=== PATIENT | female | born 1955 | race Asian ===

== ENCOUNTER 2016-11-24 13:14 | Inpatient (IN) | payer OTHER ==
[~2016-11-24] VITALS: Ht 160 cm; Wt 64.5 kg
[~2016-11-24 13:14] MED LIST: ALBU2.5V13 IH; ATOR10TA GT; DOCU50LI GT; FOLI0.8T2 GT; GABA-532 GT; INSU100I19 SQ; INSU100V3 SQ; IPRA0.2S9 IH; LACT1CAP72 GT; LEVE250T4 GT; NUT.237L67 GT; OMEP40CA37 GT; SEVE0.8P GT; [UNRECOGNIZED DRUG - CODE] MC
--- NOTE | 2016-11-24 13:14 | NUR ---
BIBPA C/O HD CATH MALFUNCTION. PATIENT UNABLE TO RECEIVED ANY HD. A/OX 0. VENT/TRACH DEPENDENT. VSS. NO DISTRESS. SAFETY AND COMFORT MEASURES IN PLACE. AWAITING MD ORDERS.
--- NOTE | 2016-11-24 13:20 | NUR ---
CALLED [facility], SPARE PERSON WAS PAGED.
[2016-11-24] MEDS ORDERED: HYDR-4076 GT (13:47)
[2016-11-24] MEDS ORDERED: INSU100I26 SQ (13:47)
[2016-11-24] MEDS ORDERED: TRAM50TA2 GT (13:47)
[2016-11-24] MEDS ORDERED: ERGO500047 GT (13:47)
[2016-11-24] MEDS ORDERED: MIDO10TA GT (13:47)
--- NOTE | 2016-11-24 13:50 | NUR ---
NEW IV STARTED ON RIGHT HAND, 20 G. BLOOD DRAWN AND SENT TO LAB.
[2016-11-24 13:58] LABS: CREATININE 6.4 mg/dL (0.6-1.3)
[2016-11-24 14:02] LABS: BASOPHILS # (AUTO) 0.1 /CMM (0.0-0.2); BASOPHILS % (AUTO) 0.6 % (0.0-2.0); EOSINOPHILS # (AUTO) 0.3 /CMM (0.0-0.7); HEMATOCRIT 31 % (33-45); HEMOGLOBIN 10.5 g/dL (11.5-14.8); LYMPHOCYTES % (AUTO) 14.6 % (20.0-44.0); MEAN CORPUSCULAR HEMOGLOBIN 33 PG (26.0-33.0); MEAN CORPUSCULAR HGB CONC 33 g/dl (31.0-36.0); MEAN CORPUSCULAR VOLUME 98 fL (82-100); MONOCYTES # (AUTO) 0.6 /CMM (0.1-1.30); MONOCYTES % (AUTO) 4.6 % (2.0-12.0); NEUTROPHILS # (AUTO) 10.4 /CMM (1.8-8.9); NEUTROPHILS % (AUTO) 78.2 % (43.0-81.0); PLATELET COUNT (AUTO) 197 /CMM (150-450); RDW COEFFICIENT OF VARIATION 14.6 (11.5-15.0); WHITE BLOOD COUNT (AUTO) 13.4 K/uL (4.3-11.0)
[2016-11-24 14:03] LABS: INR 0.87 (0.87-1.13)
[2016-11-24 14:25] LABS: CALCIUM, SERUM 12.4 mg/dL (8.5-10.1)
--- NOTE | 2016-11-24 14:38 | NUR ---
CALLED [facility], MINING SUPPORT WORKER WAS PAGED.
--- NOTE | 2016-11-24 15:35 | NUR ---
REPORT GIVEN TO RN, RAY FOR ADMISSION
--- NOTE | 2016-11-24 16:08 | NUR ---
PATIENT TRANSFERRED TO [facility] VIA ACLS PROTOCOL. RNRAFAEL TO PROVIDE HARLAN.
[2016-11-24 16:30] VITALS: BP 123/62
--- NOTE | 2016-11-24 17:33 | NUR ---
DELPHI DEVELOPER NOTES PATIENT ADMITTED TO UNIT VIA GURNEY ACCOMPANIED BY ER NURSE. NON-VERBAL, OPEN HER EYES AND RESPONSIVE TO PAINFUL STIMULI. ON MECHANICAL VENTILATOR AT PRESCRIBED PARAMETERS OF AC 500, RR 14, FI02 30% AND PEEP OF 5CM, TOLERATING SETTINGS WITH NO SOB NOTED. SP02 99%. G-TUBE INTACT AND PATENT.GT SITE CLEAN AND DRY. ON TELEMONITORING WITH CURRENT READING OF SR 82, NO SIGNS OF CHEST PAIN NOTED. V/S TAKEN AND RECORDED. SKIN ASSESSMENT DONE, PHOTOS OF SKIN WOUNDS TAKEN AND FILED ON CHART. PLACED BED ON LOW AND LOCKED POSITION WITH SR UP X3. CALL LIGHT IN REACH. MD MADE AWARE OR PT'S ADMISSION, ALL ORDERS TO FOLLOW. WILL CONTINUE TO MONITOR.
[2016-11-24] MEDS ORDERED: IPRATROPIUM NEB FS 0.5 MG/2.5 ML AMPUL.NEB IH PRN (18:30)
[2016-11-24] MEDS ORDERED: ALBUTEROL FS 2.5 MG/0.5 ML VIAL.NEB IH PRN (18:30)
[2016-11-24] MEDS ORDERED: INSULIN REGULAR, HUMAN 100 UNIT/ML 3 ML VIAL SQ PRN (18:30)
[2016-11-24] MEDS ORDERED: hydrALAZINE HCL 25 MG TABLET GT PRN (18:30)
--- NOTE | 2016-11-24 18:40 | NUR ---
EKG MONITOR CLOSING NOTES PT IN BED AT MODERATE HIGH BACKREST POSITION. OPENS HER EYES, NON-RESPONSIVE TO VERBAL STIMULI. HD ON JUST DONE WITH OUTPUT OF 1,000ML, NO POST HD ADVERSE REACTIONS NOTED. G-TUBE IN PLACED AND PATENT. IV ACCESS ON RIGHT HAND G#20 INTACT AND PATENT. CONTINUES ON MECHANICAL VENTILATOR AT PRESCRIBED SETTINGS, NO SOB NOTED. CALL LIGHT IN REACH. BED LOW AND LOCK WITH SR UP APPROPRIATE. ALL SAFETY MEASURES IN PLACED. WILL ENDORSED TO PITCH FLAKER NURSE FOR HARLAN.
[2016-11-24] MEDS ORDERED: MIDODRINE HCL (5MG) 5 MG TABLET GT PRN (19:00)
[2016-11-24 20:00] VITALS: BP 132/93
--- NOTE | 2016-11-24 20:00 | NUR ---
RN NOTES RESTING COMFORTABLY IN BED WITH NO RESPIRATORY DISTESS OR SHORTNESS OF BREATH. BREATHING EVEN AND UNLABORED. VENT SETTING WELL TOLERATED. HOB ELEVATED. NO PHYSICAL MANIFESTATION OF PAIN OR DISCOMFORT. ABDOMEN SOFT AND NON TENDER. BOWEL SOUNDS PRESENT IN ALL FOUR QUADRANTS. GTUBE IN PLACE, FEEDING WELL TOLERATED. NO RESIDUAL. KEPT CLEAN AND DRY. WILL CONTINUE TO MONITOR.
[2016-11-24] MEDS: SEVELAMER CARBONATE 0.8 GM POWD.PACK GT SCH (21:12)
[2016-11-24] MEDS: ATORVASTATIN 10 MG TABLET GT SCH (21:12)
[2016-11-24] MEDS: RENAL NOVASOURCE 1,000 ML BOTTLE GT PRN (21:12)
[2016-11-24] MEDS: DOCUSATE SODIUM LIQ 100 MG/10 ML UDC GT SCH (21:12)
[2016-11-24] MEDS: LEVETIRACETAM SOL (5 ML) 100 MG/ML UDC GT SCH (21:12)
[2016-11-24] MEDS: ALBUTEROL FS 2.5 MG/0.5 ML VIAL.NEB IH SCH (22:05)
[2016-11-24] MEDS: IPRATROPIUM NEB FS 0.5 MG/2.5 ML AMPUL.NEB IH SCH (22:05)
[2016-11-24] MEDS ORDERED: INSULIN DETEMIR 100 UNIT/ML CARTRIDGE SQ ONE (22:34)
[2016-11-24] MEDS: INSULIN DETEMIR 100 UNIT/ML CARTRIDGE SQ SCH (22:43)
[2016-11-24] MEDS: BLOOD SUGAR DIAGNOSTIC 1 EACH STRIP MC SCH (23:16)
[2016-11-24] MEDS: INSULIN REGULAR, HUMAN 100 UNIT/ML 3 ML VIAL SQ PRN (23:19)
[2016-11-25] VITALS: BP 110/69
[2016-11-25] MEDS: IPRATROPIUM NEB FS 0.5 MG/2.5 ML AMPUL.NEB IH SCH ×4 (03:02→20:44)
[2016-11-25] MEDS: ALBUTEROL FS 2.5 MG/0.5 ML VIAL.NEB IH SCH ×4 (03:02→20:44)
[2016-11-25 04:00] VITALS: BP 148/65
[2016-11-25] MEDS: BLOOD SUGAR DIAGNOSTIC 1 EACH STRIP MC SCH ×3 (05:14→18:39)
[2016-11-25] MEDS: INSULIN REGULAR, HUMAN 100 UNIT/ML 3 ML VIAL SQ PRN ×3 (05:18→18:43)
[2016-11-25] MEDS ORDERED: ERGOCALCIFEROL (VITAMIN D 2) 50,000 UNIT CAPSULE GT SCH (06:30)
--- NOTE | 2016-11-25 07:06 | NUR ---
RN CLOSING NOTES NO DISTRESS NOTED, BREATHING EVEN AND UNLABORED. NO MANIFESTATION OF PAIN OR DISCOMFORT. NO SIGNIFICANT CHANGE OF CONDITION. WILL ENDORSE TO AM SHIFT FOR CONTINUITY OF CARE
--- NOTE | 2016-11-25 07:32 | NUR ---
RIM FIRE PRIMING OPERATOR OPENING NOTE RECEIVED SBAR REPORT AT THE BEDSIDE. PATIENT IS ALERT, DISORIENTED, AWAKE WITH EYES OPEN. PATIENT IS IN BED, BED IS LOCKED, IN LOWEST POSITION, SIDE RIALS UP X 2, BED ALARM ON. PATIENT IS ON VENTILATOR. VENTILATOR SETTINGS: TV 500, TR 14, FIO2 30%, PEEP5. PATIENT IS RECEIVING ENTERAL FEEDING VIA G-TUBE. NOVASOURCE AT THE PRESCRIBED RATE. R/ HAND SL INTACT AND PATENT. ALL NEEDS ATTENDED TO. WILL CONTINUE TO ASSESS/MONITOR THROUGHOUT THE SHIFT.
--- NOTE | 2016-11-25 07:40 | NUR ---
TRUCK DRIVER'S OFFSIDER NOTE RT AT THE BEDSIDE.
[2016-11-25 07:48] LABS: BASOPHILS % (AUTO) 0.2 % (0.0-2.0); EOSINOPHILS # (AUTO) 0.2 /CMM (0.0-0.7); EOSINOPHILS % (AUTO) 2.2 % (0.0-6.0); HEMATOCRIT 31 % (33-45); HEMOGLOBIN 10.4 g/dL (11.5-14.8); LYMPHOCYTES # (AUTO) 1.8 /CMM (0.8-4.8); LYMPHOCYTES % (AUTO) 18.3 % (20.0-44.0); MEAN CORPUSCULAR HEMOGLOBIN 33 PG (26.0-33.0); MEAN CORPUSCULAR HGB CONC 34 g/dl (31.0-36.0); MEAN CORPUSCULAR VOLUME 99 fL (82-100); MONOCYTES # (AUTO) 0.8 /CMM (0.1-1.30); MONOCYTES % (AUTO) 8.4 % (2.0-12.0); NEUTROPHILS % (AUTO) 70.9 % (43.0-81.0); PLATELET COUNT (AUTO) 238 /CMM (150-450); RDW COEFFICIENT OF VARIATION 15.7 (11.5-15.0); RED BLOOD CELL COUNT(AUTO) 3.14 MIL/uL (4.0-5.2); WHITE BLOOD COUNT (AUTO) 9.9 K/uL (4.3-11.0)
[2016-11-25 08:00] VITALS: BP 116/64
[2016-11-25 08:16] LABS: ALBUMIN 3.3 g/dL (3.4-5.0); BILIRUBIN,DIRECT 0.1 mg/dL (0.0-0.2); BILIRUBIN,TOTAL 0.4 mg/dL (0.2-1.0); CALCIUM, SERUM 10.6 mg/dL (8.5-10.1); CREATININE 5.8 mg/dL (0.6-1.3); MAGNESIUM 3.3 mg/dL (1.8-2.4); PHOSPHORUS 4.4 mg/dL (2.5-4.9); POTASSIUM 3.8 mmol/L (3.5-5.1); TOTAL PROTEIN, SERUM 7.8 g/dL (6.4-8.2)
[2016-11-25] MEDS: DOCUSATE SODIUM LIQ 100 MG/10 ML UDC GT SCH ×2 (09:46→21:13)
[2016-11-25] MEDS: LEVETIRACETAM SOL (5 ML) 100 MG/ML UDC GT SCH ×2 (09:46→21:13)
[2016-11-25] MEDS: VIT B CMPLX 3/FA/VIT C/BIOTIN 1 TAB TABLET GT SCH (09:46)
[2016-11-25] MEDS: SEVELAMER CARBONATE 0.8 GM POWD.PACK GT SCH ×3 (09:46→21:13)
[2016-11-25] MEDS: TRAMADOL HCL 50 MG TABLET GT SCH (09:47)
[2016-11-25] MEDS: LACTOBACILLUS RHAMNOSUS GG 1 EACH CAP.SPRINK GT SCH (09:47)
--- NOTE | 2016-11-25 12:13 | NUR ---
ICU REGISTERED NURSE NOTE DR REESE AT THE BEDSIDE. ASKED FOR DVT PUMP ORDER. DVT PUMP ORDER OBTAINED.
--- NOTE | 2016-11-25 14:30 | NUR ---
POOLROOM TABLE ATTENDANT NOTE PATIENT'S FEEDING STOPPED. 18 HOUR KATELYN HAS REACHED. TOTAL FEEDING CONSUMED 990 ML. RESIDUAL OF 3ML NOTED. FEEDING TO BE RESTARTED AT 1999. WILL ENDORSE TO THE ARCHITECTURAL DRAFTING INSTRUCTOR NURSE.
--- NOTE | 2016-11-25 15:38 | NUR ---
STAFF SOFTWARE ENGINEER NOTE LAB CALLED REPORTING POSITIVE MRSA IN NARES. PATIENT TO BE PLACES ON CONTACT ISOLATION.
--- NOTE | 2016-11-25 15:45 | NUR ---
SONG AND DANCE PERFORMER NOTE DR REESE INFORMED OF PATIENT'S MRSA ISOLATION STATUS
[2016-11-25 16:00] VITALS: BP 114/69
--- NOTE | 2016-11-25 17:00 | NUR ---
PROTECTION SPECIALIST NOTE PER DIETITIAN SABINA'S RECOMMENDATION PATIENT'S DIET TO BE CHANGED TO NOVASOURCE AT 40 ML/HR FOR [address] REESE INFORMED OF RECOMMENDATION. AWAITING AN ORDER.
--- NOTE | 2016-11-25 17:49 | NUR ---
COMMUNITY HEALTH ADVISOR NOTE ORDER BACTROBAN PER DR. REESE
--- NOTE | 2016-11-25 18:30 | NUR ---
ENVIRONMENT COORDINATOR NOTE HEMODIALYSIS AT THE BEDSIDE.
--- NOTE | 2016-11-25 19:05 | NUR ---
BATTERY BUILDER CLOSING NOTE PATIENT IS ALERT, DISORIENTED, AWAKE WITH EYES OPEN. PATIENT IS IN BED, BED IS LOCKED, IN LOWEST POSITION, SIDE RIALS UP X 2, BED ALARM ON. HEMODIALYSIS AT TH BEDSIDE. PATIENT IS ON VENTILATOR. VENTILATOR SETTINGS: TV 500, TR 14, FIO2 30%, PEEP5. R/ HAND SL INTACT AND PATENT. ALL NEEDS ATTENDED TO. WILL ENDORSE TO THE DIGITAL INTERN NURSE FOR HARLAN.
--- NOTE | 2016-11-25 19:23 | NUR ---
TELE TN NOTE DURING THE BEDSIDE REPORT IT WAS NOTED THE PATIENT DISLODGED THER/HAND IV CATHETER. THE BRICK MOLDER HAND RN IS AWARE.
--- NOTE | 2016-11-25 19:30 | NUR ---
RN NOTES RECEIVED PT AWAKE ON BED, NON-VERBAL, VENT DEPENDENT, SR ON TELE MONITOR HR-89, ON DIALYSIS, AT BEDSIDE, NO PAIN NOTED,IV LINE WAS JUST PULLED OUT, NOT IN DISTRESS, SIDERAILS UPX2 CONTINUE TO MONITOR
[2016-11-25 20:00] VITALS: BP 117/73
[2016-11-25] MEDS: MUPIROCIN OINT 2% 22 GM TUBE SCH (21:13)
[2016-11-25] MEDS: ATORVASTATIN 10 MG TABLET GT SCH (21:13)
[2016-11-25] MEDS: INSULIN DETEMIR 100 UNIT/ML CARTRIDGE SQ SCH (21:16)
[2016-11-25] MEDS: RENAL NOVASOURCE 1,000 ML BOTTLE GT PRN (21:42)
--- NOTE | 2016-11-25 22:00 | NUR ---
RN NOTES NEW IV LINE INSERTED BY ER NURSE KYMBERLY
[2016-11-26] VITALS: BP 103/59
[2016-11-26] MEDS: BLOOD SUGAR DIAGNOSTIC 1 EACH STRIP MC SCH ×3 (00:07→12:10)
[2016-11-26] MEDS: INSULIN REGULAR, HUMAN 100 UNIT/ML 3 ML VIAL SQ PRN ×3 (00:15→13:01)
[2016-11-26] MEDS: IPRATROPIUM NEB FS 0.5 MG/2.5 ML AMPUL.NEB IH SCH ×3 (01:40→13:14)
[2016-11-26] MEDS: ALBUTEROL FS 2.5 MG/0.5 ML VIAL.NEB IH SCH ×3 (01:40→13:14)
[2016-11-26 04:00] VITALS: BP 112/65
[2016-11-26] MEDS ORDERED: Z GUARD REMEDY 4 OZ OINT TP ONE (05:17)
[2016-11-26] MEDS ORDERED: Z GUARD REMEDY 2 OZ OINT TP PRN (05:30)
--- NOTE | 2016-11-26 05:30 | NUR ---
RN NOTES AWAKE, MORNING CARE RENDERED
--- NOTE | 2016-11-26 06:31 | NUR ---
RN NOTES SLEEPING BUT AROUSABLE, NOT IN DISTRESS, G-TUBE FEEDING RUNNING NO RESIDUAL NOTED, NO PAIN NOTED, SIDERAILS UPX2, PT. NEEDS ATTENDED. ENDORSED TO DAYSHIFT NURSE FOR CONTINUITY OF CARE
[2016-11-26 06:59] LABS: BASOPHILS % (AUTO) 0.4 % (0.0-2.0); EOSINOPHILS # (AUTO) 0.1 /CMM (0.0-0.7); EOSINOPHILS % (AUTO) 1.2 % (0.0-6.0); HEMATOCRIT 31 % (33-45); HEMOGLOBIN 10.4 g/dL (11.5-14.8); LYMPHOCYTES # (AUTO) 1.9 /CMM (0.8-4.8); LYMPHOCYTES % (AUTO) 16.4 % (20.0-44.0); MEAN CORPUSCULAR HEMOGLOBIN 33 PG (26.0-33.0); MEAN CORPUSCULAR HGB CONC 33 g/dl (31.0-36.0); MEAN CORPUSCULAR VOLUME 99 fL (82-100); MONOCYTES # (AUTO) 0.9 /CMM (0.1-1.30); MONOCYTES % (AUTO) 7.9 % (2.0-12.0); NEUTROPHILS # (AUTO) 8.6 /CMM (1.8-8.9); NEUTROPHILS % (AUTO) 74.1 % (43.0-81.0); PLATELET COUNT (AUTO) 263 /CMM (150-450); RDW COEFFICIENT OF VARIATION 16.1 (11.5-15.0); RED BLOOD CELL COUNT(AUTO) 3.17 MIL/uL (4.0-5.2); WHITE BLOOD COUNT (AUTO) 11.6 K/uL (4.3-11.0)
[2016-11-26 07:16] LABS: CALCIUM, SERUM 10.6 mg/dL (8.5-10.1); CREATININE 5.8 mg/dL (0.6-1.3); MAGNESIUM 3.2 mg/dL (1.8-2.4); PHOSPHORUS 3.3 mg/dL (2.5-4.9); POTASSIUM 4.6 mmol/L (3.5-5.1)
[2016-11-26 08:00] VITALS: BP 129/70
--- NOTE | 2016-11-26 08:00 | NUR ---
RN NOTES RECEIVED PATIENT IN THE ROOM AWAKE NONVERBAL ON MECHANICAL VENTILATOR, MRSA OF NARES, NO RESPIRATORY DISTRESS, NO SOB AT THIS TIME, V/S STABLE. PATIENT ON G-TUBE FEEDING ON 55 ML HR, RESIDUAL AND PLACEMENT CHECKED , MEDICATION GIVEN VIA G-TUBE, HOB ELEVATED, PT ON ASPIRATION PRECAUTION, IV LINE LEFT THUMB INTACT, ASSIST TURN AND REPOSITION Q 2 HR, NEEDS ATTENDED AND ANTICIPATED, CALL LIGHT WITHIN THE PATIENT TO REACH, SIDE RAILS UP , BED ALARM ON, SAFETY PRECAUTION MAINTAINED ALL THE TIME.
[2016-11-26] MEDS: VIT B CMPLX 3/FA/VIT C/BIOTIN 1 TAB TABLET GT SCH (08:37)
[2016-11-26] MEDS: SEVELAMER CARBONATE 0.8 GM POWD.PACK GT SCH ×2 (08:37→13:03)
[2016-11-26] MEDS: LEVETIRACETAM SOL (5 ML) 100 MG/ML UDC GT SCH (08:37)
[2016-11-26] MEDS: LACTOBACILLUS RHAMNOSUS GG 1 EACH CAP.SPRINK GT SCH (08:37)
[2016-11-26] MEDS: DOCUSATE SODIUM LIQ 100 MG/10 ML UDC GT SCH (08:37)
[2016-11-26] MEDS: TRAMADOL HCL 50 MG TABLET GT SCH (08:38)
[2016-11-26] MEDS: MUPIROCIN OINT 2% 22 GM TUBE SCH (08:42)
--- NOTE | 2016-11-26 10:00 | NUR ---
RN NOTES PATIENT IN THE BED, NO RESPIRATORY DISTRESS, G-TUBE FEEDING INTACT,HOB ELEVATED, ASSIST TURN AND REPOSITION Q2 HR, CALL LIGHT WITHIN TO REACH, SIDE RAILS UP X3, BED ALARM ON, PATIENT GOING TO D/C BACK TO SNF, PICTURE TAKEN, SAFETY PRECAUTION MAINTAINED ALL THE TIME. CONTINUED MONITORING.
--- NOTE | 2016-11-26 13:50 | NUR ---
RN NOTES PATIENT IN THE BED ON MECHANICAL VENTILATOR, STILL STABLE AT THIS TIME, BS-368 MG/SL, COVERAGE GIVEN, SCHEDULED MEDICATION ADMINISTERED VIA G-TUBE, FLASHED WITH 30 ML OF WATER, ASSIST TURN AND REPOSITION Q 2 HR, DRESSING CHANGED, CALL LIGHT WITHIN TO REACH, SIDE RAILS UP, SAFETY PRECAUTION MAINTAINED ALL THE TIME. CONTINUED MONITORING.
--- NOTE | 2016-11-26 15:30 | NUR ---
HEATING ELEMENT REPAIRER NOTES PATIENT D/C AT THIS TIME GOING SNF, PATIENT NON VERBAL, NO RESPIRATORY DISTRESS, NO ACUTE DISTRESS, NO C/O PAIN, V/S TAKEN STABLE, G-TUBE INTACT FLASH WITH 30 ML OF WATER OPEN, INTACT, BS-368 MG/DL, MED RECONCILIATION, AND DISCHARGE ORDER REVIEWED AND EXPLAINED TO RN SNF. RN VERBALIZED UNDERSTANDING. BELONGING RETURNED BACK TO THE PATIENT, FAMILY CALLED, AND LEFT MASSAGE, PATIENT SENIOR ACCOUNTANT ANALYST BY AMBULANCE.
[2016-11-28 11:20] LABS: CALCITRIOL VIT D,1, 25 DIHYDRO 23.1 pg/mL (19.9-79.3)
== END 2016-11-26 15:30 | DRG 466 ==
LOC: ER 13:15 → TELE 14:41
PROVIDERS: ADMIT Internal Medicine Nephrology; ATTEND Internal Medicine Nephrology
PROC: 5A1D70Z Performance of Urinary Filtration, Intermittent, Less than 6 Hours Per Day (ICD-10-PCS; principal; 2016-11-24)
PROC: 5A1945Z Respiratory Ventilation, 24-96 Consecutive Hours (ICD-10-PCS; principal; 2016-11-24)
DX: T82.898A Other specified complication of vascular prosthetic devices, implants and grafts, initial encounter (principal); N18.6 End stage renal disease; G93.40 Encephalopathy, unspecified; I13.2 Hypertensive heart and chronic kidney disease with heart failure and with stage 5 chronic kidney disease, or end stage renal disease; Z99.11 Dependence on respirator [ventilator] status; J96.10 Chronic respiratory failure, unspecified whether with hypoxia or hypercapnia; Z93.0 Tracheostomy status; E03.9 Hypothyroidism, unspecified; E11.22 Type 2 diabetes mellitus with diabetic chronic kidney disease; E83.52 Hypercalcemia; I25.10 Atherosclerotic heart disease of native coronary artery without angina pectoris; I50.9 Heart failure, unspecified; Z79.4 Long term (current) use of insulin; Z79.899 Other long term (current) drug therapy; Z93.1 Gastrostomy status; F03.90 Unspecified dementia, unspecified severity, without behavioral disturbance, psychotic disturbance, mood disturbance, and anxiety; Y84.8 Other medical procedures as the cause of abnormal reaction of the patient, or of later complication, without mention of misadventure at the time of the procedure; Y92.129 Unspecified place in nursing home as the place of occurrence of the external cause; Z99.2 Dependence on renal dialysis
CPT/HCPCS: 31720; 36415; 71010-TC; 80048-TC; 80076-TC; 82306; 82652; 82962-TC; 83735-TC; 83970; 84100-TC; 85025-TC; 85730-TC; 87081-TC; 90935-TC; 94002-TC; 99082-TC; A4217; A4606; A6402; J1815; J1953; Z7610

== ENCOUNTER 2016-11-29 14:59 | Inpatient (IN) | payer OTHER ==
[~2016-11-29] VITALS: Ht 154.9 cm; Wt 63.0 kg
[~2016-11-29 14:59] MED LIST changes: +ERGO500047 GT; -GABA-532 GT; +HYDR-4076 GT; -INSU100I19 SQ; +INSU100I26 SQ; +MIDO10TA GT; -OMEP40CA37 GT; +TRAM50TA2 GT
--- NOTE | 2016-11-29 15:04 | NUR ---
KAVITA RAE FROM HD CENTER D/T MALFUNCTIONING HD CATH. PATIENT ONLY RECEIVED 1 HOUR OF HD. ACTIVASE USE WITH NO SUCCESS AT HD CENTER. PATIENT VENT/TRACH DEPENDENT. A/OX 1. BREATHING EVEN AND UNLABORED. NO SOB. VITALS STABLE. SAFETY AND COMFORT MEASURES IN PLACE. AWAITING MD ORDERS.
[2016-11-29 15:30] VITALS: BP 167/117
--- NOTE | 2016-11-29 15:59 | NUR ---
new iv started on left upper arm, 20 g. blood drawn and sent to lab.
[2016-11-29 16:04] LABS: BASOPHILS # (AUTO) 0.1 /CMM (0.0-0.2); BASOPHILS % (AUTO) 0.3 % (0.0-2.0); EOSINOPHILS # (AUTO) 0.1 /CMM (0.0-0.7); EOSINOPHILS % (AUTO) 0.8 % (0.0-6.0); HEMATOCRIT 29 % (33-45); HEMOGLOBIN 9.5 g/dL (11.5-14.8); LYMPHOCYTES # (AUTO) 1.8 /CMM (0.8-4.8); LYMPHOCYTES % (AUTO) 9.8 % (20.0-44.0); MEAN CORPUSCULAR HEMOGLOBIN 32 PG (26.0-33.0); MEAN CORPUSCULAR HGB CONC 33 g/dl (31.0-36.0); MEAN CORPUSCULAR VOLUME 99 fL (82-100); MONOCYTES # (AUTO) 0.9 /CMM (0.1-1.30); MONOCYTES % (AUTO) 4.8 % (2.0-12.0); NEUTROPHILS # (AUTO) 15.1 /CMM (1.8-8.9); NEUTROPHILS % (AUTO) 84.3 % (43.0-81.0); PLATELET COUNT (AUTO) 279 /CMM (150-450); RDW COEFFICIENT OF VARIATION 14.6 (11.5-15.0); RED BLOOD CELL COUNT(AUTO) 2.96 MIL/uL (4.0-5.2)
[2016-11-29 16:13] LABS: CALCIUM, SERUM 10.6 mg/dL (8.5-10.1); CREATININE 6.8 mg/dL (0.6-1.3); POTASSIUM 4.7 mmol/L (3.5-5.1)
[2016-11-29 16:42] LABS: INR 0.92 (0.87-1.13); PROTHROMBIN TIME 9.6 SECS (9.5-12.7)
[2016-11-29 16:44] LABS: PARTIAL THROMBOPLASTIN TIME > 170 SEC (23-34)
[2016-11-29 17:09] VITALS: BP 146/58
[2016-11-29] MEDS ORDERED: LACT1TAB13 GT (17:27)
[2016-11-29] MEDS ORDERED: HYDR-4076 GT (17:27)
[2016-11-29] MEDS ORDERED: GENTAMICIN 80 MG in IV D5W 50 ML IV ONE (17:30)
[2016-11-29] MEDS ORDERED: CEFTAZIDIME 2 G in IV D5W 50 ML IV ONE (17:30)
[2016-11-29] MEDS ORDERED: ZINC220C6 GT (17:35)
[2016-11-29] MEDS ORDERED: PIPERACILLIN /TAZOBACTAM 3.375 G in IV D5W 50 ML IV ONE (18:00)
--- NOTE | 2016-11-29 18:05 | NUR ---
REPORT GIVEN TO MADIHA DILLON FOR ADMISSION.
--- NOTE | 2016-11-29 18:25 | NUR ---
PATIENT TRANSPORTED TO [facility] VIA ACLS PROTOCOL FOR ADMISSION. RNMADIHA TO PROVIDE HARLAN
[2016-11-29 18:30] VITALS: BP 115/71
[2016-11-29] MEDS ORDERED: ACETAMINOPHEN 650 MG/20.3 ML UDC NG PRN (18:30)
[2016-11-29] MEDS ORDERED: IV NS 0.9% 1,000 ML IV PRN (18:30)
[2016-11-29] MEDS ORDERED: VANCOMYCIN 1 GM in IV D5W 250 ML IV ONE (18:30)
[2016-11-29] MEDS ORDERED: MORPHINE SULFATE INJ 2 MG/ML DISP.SYRIN IV PRN (18:30)
--- NOTE | 2016-11-29 18:30 | NUR ---
BACK LINE COOK NOTES RECEIVED PT FROM E.R. STAFF AND RT, VIA DIEUDONNE, AWAKE, NO FACIAL GRIMACING OR MOANING, ASSISTED TO BED, MADE COMFORTABLE, WITH TRACH ON VENT, REPOSITIONED FOR COMFORT, KEPT DASHBOARD DEVELOPER BED, VITALS TAKEN AND RECORDED.
[2016-11-29 19:27] LABS: ABG BASE EXCESS -8.2 mmol/L; ABG PCO2 26.3 mmHg (35.0-45.0); ABG PO2 141.4 mmHg (75.0-100.0); AaDO2 113.6 mmHg; COHb 0.3 % (0.5-1.5); MetHb 1.1 % (0.0-1.5); O2Hb 96.6 % (94.0-97.0); PEEP,BG 5 cm H2O; SITE, ABG Right Radial; VT, ABG 500 mL
--- NOTE | 2016-11-29 19:30 | NUR ---
RN NOTES PATIENT NON VERBAL, SLEEPING IN BED. VS STABLE. NO SOB. RESPIRATIONS EVEN AND UNLABORED. NO RESPIRATORY DISTRESS NOTED. NO FACIAL GRIMACING OR MOANING. IV ACCESS VELOZ PATENT AND INTACT. NO REDNESS OR INFILTRATION NOTED. GTUBE PATENT AND INTACT. FLUSHED WITH 60 CC OF WATER. TRACH SECURE IN PROPER POSITION. BED IN LOW POSITION. SIDE RAILSX3. CALL LIGHT WITHIN EASY REACH. CONTINUE TO MONITOR.
[2016-11-29 20:00] VITALS: BP 112/57
[2016-11-29] MEDS: LEVOFLOXACIN 250 MG /D5W 50 ML 250 MG in PREMIX 1 EA IV SCH (21:06)
--- NOTE | 2016-11-29 23:00 | NUR ---
RN NOTES PATIENT TRANSFERRED TO [facility]. REPORT GIVEN TO SANTANA BARROS.
[2016-11-29] MEDS ORDERED: ALBUTEROL FS 2.5 MG/0.5 ML VIAL.NEB IH PRN (23:30)
[2016-11-29] MEDS ORDERED: IPRATROPIUM NEB FS 0.5 MG/2.5 ML AMPUL.NEB IH PRN (23:30)
[2016-11-29] MEDS ORDERED: hydrALAZINE HCL 25 MG TABLET GT PRN (23:30)
[2016-11-29 23:45] VITALS: BP 119/61
--- NOTE | 2016-11-30 00:11 | NUR ---
received pt from [facility], alert, does not follow commands, A fib controlled, on the vent, lungs clear, some non pitting edema BL arms, GT clamped, anuric HD pt, NPO, v/s stable, no pain, pt turned and repositioned.
[2016-11-30] MEDS: BLOOD SUGAR DIAGNOSTIC 1 EACH STRIP MC SCH ×2 (00:51→05:43)
[2016-11-30] MEDS: INSULIN REGULAR, HUMAN 100 UNIT/ML 3 ML VIAL SQ PRN ×4 (00:58→18:23)
[2016-11-30] MEDS ORDERED: DEXTROSE 50%-WATER 50 ML DISP.SYRIN IV PRN ×2 (01:00→19:30)
[2016-11-30] MEDS: PIPERACILLIN /TAZOBACTAM 2.25 G in IV D5W 50 ML IV SCH ×3 (01:52→18:20)
--- NOTE | 2016-11-30 02:00 | NUR ---
wound culture sent, lab notified.
[2016-11-30 04:00] VITALS: BP 98/44
--- NOTE | 2016-11-30 04:13 | NUR ---
pt is resting in the bed, v/s stable,no pain, pt cleaned, changed and repositioned q2hrs.
[2016-11-30] MEDS: BLOOD SUGAR DIAGNOSTIC 1 EACH STRIP IN SCH ×3 (05:42→18:20)
[2016-11-30] MEDS ORDERED: RENAL NOVASOURCE 1,000 ML BOTTLE GT PRN (07:00)
[2016-11-30 07:14] LABS: INR 0.9 (0.87-1.13); PROTHROMBIN TIME 9.4 SECS (9.5-12.7)
[2016-11-30 07:24] LABS: ALBUMIN 2.8 g/dL (3.4-5.0); BILIRUBIN,TOTAL 0.3 mg/dL (0.2-1.0); CALCIUM, SERUM 10.6 mg/dL (8.5-10.1); POTASSIUM 5.5 mmol/L (3.5-5.1); TOTAL PROTEIN, SERUM 7.6 g/dL (6.4-8.2)
[2016-11-30 07:29] LABS: CREATININE 8.1 mg/dL (0.6-1.3)
[2016-11-30] MEDS: ALBUTEROL FS 2.5 MG/0.5 ML VIAL.NEB IH SCH ×3 (07:30→20:31)
[2016-11-30] MEDS: IPRATROPIUM NEB FS 0.5 MG/2.5 ML AMPUL.NEB IH SCH ×3 (07:30→20:32)
[2016-11-30 07:49] LABS: CREATINE KINASE MB 0.3 ng/mL (0-3.6)
[2016-11-30 08:00] VITALS: BP 115/63
--- NOTE | 2016-11-30 08:05 | NUR ---
RN INITIAL NOTES REPORT GIVEN BY REN DILLON. REC'D PT ON BED, NOT IN ANY DISTRESS. ON TRACH VIA VENT, SATURATING AT 100%. ON TELEMONITOR, SR W/ HR 65 BPM. HAS RCW HD CATH IN PLACE AND INTACT. HAS KRISTAL AVF, NEGATIVE FOR THRILL/BRUIT. HAS GONZALO G20 PL W/ NS X 75 CC/HR INFUSING WELL. HAS GT PATENT & INTACT, CURRENTLY CLAMPED, NPO AT THIS TIME. PROVIDED COMFORT & SAFETY MEASURES. BED KEPT LOW & IN LOCKED POS. CALL LIGHT W/IN REACH. WILL CONTINUE TO MONITOR & ATTEND PT NEEDS.
[2016-11-30] MEDS: SEVELAMER CARBONATE 0.8 GM POWD.PACK GT SCH ×3 (09:00→18:19)
[2016-11-30] MEDS: LEVETIRACETAM SOL (5 ML) 100 MG/ML UDC GT SCH ×2 (09:00→21:30)
[2016-11-30] MEDS: DOCUSATE SODIUM LIQ 100 MG/10 ML UDC GT SCH ×2 (09:00→21:30)
--- NOTE | 2016-11-30 09:05 | NUR ---
RN NOTES: VERIFIED WITH DR. DUTTA IF TUBE FEEDING CAN BE RESUME, PER MD NEED TO FOLLOW UP WITH CLIN NURSE SPEC DUE TO POSSIBLE PERMACATH INSERTION.
[2016-11-30] MEDS: PANTOPRAZOLE 40 MG VIAL IV SCH (09:09)
--- NOTE | 2016-11-30 10:10 | NUR ---
WOUND CARE CONSULT: PT PRESENTS WITH STAGE 3 ULCER TO SACRUM WHICH EXTENDS TO BUTTOCKS WITH MULTIPLE OPEN AREAS AND BILATERAL MEDIAL FOOT ESCHARS, PRESENT ON ADMISSION. PT NOTED TO HAVE GENERALIZED EDEMA AND SCARRING TO LATERAL ANKLE AREAS. PT IS IMMOBILE WITH CURRENT [place] SCORE OF 13. FIRST STEP MATTRESS ORDERED. ALL WOUND CARE AND SKIN PROTECTION RECOMMENDATIONS DISCUSSED WITH NURSING STAFF. RECOMMEND SURGICAL CONSULT. WILL SEE PRN. DONG IN AGREEMENT WITH PLAN OF CARE. Addendum: 11/30/16 at 1013 by RYAN MCKNIGHT WNDNU Amended: Links added.
--- NOTE | 2016-11-30 10:40 | NUR ---
SANTANA NOTES: HD STARTED C/O SANTANA LOPEZ Addendum: 11/30/16 at 1259 by MATILDE PAPPAS RN HD ENDED 1L OUTPUT VIA RIGHT TUNNELED VASCULAR HD CATH. PT TOLERATED WELL.
[2016-11-30 12:00] VITALS: BP 108/51
[2016-11-30] MEDS: Z GUARD REMEDY 2 OZ OINT TP PRN (12:36)
[2016-11-30] MEDS: HYDROGEL DRESSING 90 GM TUBE TP PRN (12:36)
--- NOTE | 2016-11-30 12:59 | NUR ---
RN NOTES: VTE >5. PER DR. DUTTA START HEPARIN 5000 UNITS SQ EVERY 8 HOURS AND START ON DVT PUMPS.
[2016-11-30] MEDS: TRAMADOL HCL 50 MG TABLET GT SCH (13:39)
[2016-11-30] MEDS: HEPARIN SODIUM, PORCINE 5000 UNITS/1 ML VIAL SQ SCH ×2 (13:40→21:32)
[2016-11-30] MEDS: RENAL NOVASOURCE 1,000 ML BOTTLE GT PRN (13:44)
--- NOTE | 2016-11-30 14:00 | NUR ---
RN NOTES: PER DR. REENA ANDRADE TO START TUBE FEEDING NOVASOURCE X 35 CC/HR AND START NEPHROVITE 1 TAB DAILY (PER DIETARY RECOMMENDATION). DR. DUTTA MADE AWARE OF TUBE FEEDING AND AGREED TO DC CURRENT IVF NS X 75 CC/HR.
[2016-11-30 16:00] VITALS: BP 120/50
--- NOTE | 2016-11-30 17:00 | NUR ---
RN NOTES: REC'D CALL FROM DR. DONOVAN W/ ORDERS TO GET CONSENT FOR REMOVAL OF CURRENT HD CATH AND PLACEMENT OF TEMPORARY DIALYSIS CATH. CALLED AND WAS ABLE TO GET CONSENT FOR THE PROCEDURE, TRANSLATED IN JAPANESE BY CN SOON AND CONFIRMED WELL BY CN.
[2016-11-30] MEDS: VITAMINS A AND D 56.7 GM TUBE TP PRN (18:23)
--- NOTE | 2016-11-30 18:30 | NUR ---
RN NOTES: DR. DONOVAN TRIED PUTTING HD CATHETER ON GROIN AREA LEFT & RIGHT BUT FAILED. MD WAS ABLE TO PUT IN A NEW ONE ON LEFT SUBCLAVIAN, TRIPLE LUMEN. CXR ORDERED PER MD. OLD HD ACCESS ON RIGHT CHEST WALL WAS REMOVED. PT ABLE TO TOLERATE PROCEDURE. NO BLEEDING NOTED.
--- NOTE | 2016-11-30 19:00 | NUR ---
RN CLOSING NOTES NO ACUTE CHANGES NOTED W/IN SHIFT. PT TOLERATED TRACH VIA VENT, SATURATING AT 100%. ON TELEMONITOR, STILL SR. LEFT SUBCLAVIAN NEW HD CATH KEPT IN PLACE AND INTACT. KRISTAL AVF, NEGATIVE FOR THRILL/BRUIT. GONZALO G20 SL KEPT PATENT & INTACT W/ NO S/SX OF INFECTION/INFILTRATION NOTED. GT KEPT PATENT & INTACT W/ NOVASOURCE X 35CC/HR INFUSING WELL, NO RESIDUAL NOTED W/IN SHIFT. PT KEPT WELL RESTED. WOUND CARE DONE. SUCTIONED SECRETIONS. BED KEPT LOW & IN LOCKED POS. CALL LIGHT W/IN REACH. ENDORSED TO PM RN FOR HARLAN.
[2016-11-30 20:00] VITALS: BP 110/59
--- NOTE | 2016-11-30 20:00 | NUR ---
[facility] RN NOTES RECEIVED PTS ON BED WITH EYES OPEN VEGETATIVE STATE NON VERBAL , ON VENT DEPENDENT AC SETTINGS WELL TOLERATED NO SOB NO DISTRESS NOTED NO FACIAL GRIMACES NOTED , ON TELE SR ON THE MONITOR , V/S STABLE AFEBRILE . HOB ELEVATED FOR ASPIRATION PRECAUTION TURNED AND REPOSITION Q2HRS AND PRN BREATHING TX GIVEN BY RT ORDERED. V/S STABLE AFEBRILE .ON GT FEEDING NOVASOURCE 35 CC/HR NO RESIDUAL NOTED FEEDING WELL TOLERATED . ALL NEEDS ATTENDED TOO CALL LIGHT WITHIN REACH KEPT PTS CLEAN DRY AND COMFORTABLE WITH L CHEST HD ACCESS NO BLEEDING NOTED ON THE SITE . AT BEDSIDE UPDATED WITH PTS CURRENT CONDITION , GONZALO g 20 INTACT AND PATENT, PTS IS S/P HD PLACEMENT HAD TX TODAY WITH 1 LITER OUT. WILL CONTINUE TO MONITOR PTS
[2016-11-30] MEDS: ATORVASTATIN 10 MG TABLET GT SCH (21:31)
[2016-12-01] VITALS (7 sets, daily range): BP systolic 113–140; BP diastolic 45–77
--- NOTE | 2016-12-01 | NUR ---
[facility] RN NOTES BLOOD SUGAR FOR 12MN IS 324 MG/DL -8 UNITS OF EGULAR INSULIN GIVEN ORDERED PER SLIDING SCALE. WILL CHECK AGAIN IN AM.
[2016-12-01] MEDS: INSULIN REGULAR, HUMAN 100 UNIT/ML 3 ML VIAL SQ PRN ×4 (00:35→23:16)
[2016-12-01] MEDS: BLOOD SUGAR DIAGNOSTIC 1 EACH STRIP IN SCH ×5 (00:42→23:20)
[2016-12-01] MEDS: IPRATROPIUM NEB FS 0.5 MG/2.5 ML AMPUL.NEB IH SCH ×4 (02:21→20:03)
[2016-12-01] MEDS: ALBUTEROL FS 2.5 MG/0.5 ML VIAL.NEB IH SCH ×4 (02:21→20:03)
[2016-12-01] MEDS: PIPERACILLIN /TAZOBACTAM 2.25 G in IV D5W 50 ML IV SCH ×3 (02:23→16:56)
[2016-12-01] MEDS: HEPARIN SODIUM, PORCINE 5000 UNITS/1 ML VIAL SQ SCH ×3 (04:51→20:23)
--- NOTE | 2016-12-01 05:26 | NUR ---
[facility] RN NOTES BLOOD SUGAR FOR 6AMIS 328 MG/DL = 8 UNITS OF REGULAR INSULIN GIVEN SQ INJ. 0RDERED PER SLIDING SCALE . PTS REMAINS ON VENTILATOR WELL TOLERATED BY PTS , NO SOB NO DISTRESS NOTED BREATHING EVEN AND UNLABORED, NO SIGNIFICANT CHANGE NOTED THE WHOLE SHIFT SR ON THE MONITOR . WILL ENDORSE TO RN DAY SHIFT FOR CONTINUITY OF CARE. V/S STABLE AFEBRILE . WILL CONTINUE TO MONITOR PTS.
--- NOTE | 2016-12-01 07:50 | NUR ---
RN [facility] pt.is obtunded, reactive by touch, no any eyes contact/tracking, L.arm is rigid, R.arm spont.activity+, O2 sat. WNL, GTF residual WNL, wounds care is done over night by report, BS over 300 below 400, will s/w
[2016-12-01] MEDS: PANTOPRAZOLE 40 MG VIAL IV SCH (08:21)
[2016-12-01] MEDS: DOCUSATE SODIUM LIQ 100 MG/10 ML UDC GT SCH ×2 (08:21→20:22)
[2016-12-01] MEDS: SEVELAMER CARBONATE 0.8 GM POWD.PACK GT SCH ×3 (08:21→16:44)
[2016-12-01] MEDS: TRAMADOL HCL 50 MG TABLET GT SCH (08:22)
[2016-12-01] MEDS: VIT B CMPLX 3/FA/VIT C/BIOTIN 1 TAB TABLET PO SCH (08:22)
[2016-12-01] MEDS: LEVETIRACETAM SOL (5 ML) 100 MG/ML UDC GT SCH ×2 (08:22→20:22)
--- NOTE | 2016-12-01 09:20 | NUR ---
RN [facility]: updated with pt.current condition, VS, I/O, GTF, see new orders
--- NOTE | 2016-12-01 11:50 | NUR ---
SUPERVISOR SILVERING DEPARTMENT: BS 411 now, pt is on mild insulin SS, paged Kristine, REDEYE GUNNER
--- NOTE | 2016-12-01 11:52 | NUR ---
RN [facility]: paged (no Kristine,ART SUPERVISOR)
--- NOTE | 2016-12-01 12:15 | NUR ---
RN [facility]: ordered 15units of R.Insulin
[2016-12-01] MEDS ORDERED: INSULIN REGULAR, HUMAN 100 UNIT/ML 10 ML VIAL SQ ONE (12:30)
[2016-12-01 13:14] LABS: BASOPHILS % (AUTO) 0.2 % (0.0-2.0); EOSINOPHILS # (AUTO) 0.2 /CMM (0.0-0.7); EOSINOPHILS % (AUTO) 2.3 % (0.0-6.0); HEMATOCRIT 24 % (33-45); HEMOGLOBIN 8.3 g/dL (11.5-14.8); LYMPHOCYTES # (AUTO) 1.1 /CMM (0.8-4.8); LYMPHOCYTES % (AUTO) 11.3 % (20.0-44.0); MEAN CORPUSCULAR HEMOGLOBIN 33 PG (26.0-33.0); MEAN CORPUSCULAR HGB CONC 34 g/dl (31.0-36.0); MEAN CORPUSCULAR VOLUME 97 fL (82-100); MONOCYTES # (AUTO) 0.7 /CMM (0.1-1.30); NEUTROPHILS # (AUTO) 7.7 /CMM (1.8-8.9); NEUTROPHILS % (AUTO) 79.2 % (43.0-81.0); PLATELET COUNT (AUTO) 258 /CMM (150-450); RED BLOOD CELL COUNT(AUTO) 2.51 MIL/uL (4.0-5.2); WHITE BLOOD COUNT (AUTO) 9.7 K/uL (4.3-11.0)
[2016-12-01] MEDS: LACTOBACILLUS RHAMNOSUS GG 1 EACH CAP.SPRINK PO SCH (16:44)
--- NOTE | 2016-12-01 17:36 | NUR ---
RN [facility]: O2 sat.94-09%, SR, SBP over 100, pt.is rest, no grimacing, obtunded, suctioned well, GTF residual WNL, PM/wounds care/bedbath done, BS 357, cover with 10units R.insulin
--- NOTE | 2016-12-01 20:00 | NUR ---
hussein rn notes received pts on bed with eye open , vegetative , non verbal, remains on vent ac settings well tolerated , v/s stable afebrile on tele sr on the monitor , no sob no distress no facial grimaces noted .hob elevated for aspiration precaution , pts on gt feeding NovaSource at 35cc/hr well tolerated , no residual noted . left subclavian hd cath access dry and intact no bleeding noted. left ua iv hep lock intact and patent. all needs attended too , call light within reach , all due meds given as ordered. kept pts clean dry and comfortable, turned and reposition q 2hrs and prn , breathing tx given by rt as ordered , will continue to monitor pts.will continue to monitor pts
[2016-12-01] MEDS: LEVOFLOXACIN 250 MG /D5W 50 ML 250 MG in PREMIX 1 EA IV SCH (20:22)
[2016-12-01] MEDS: ATORVASTATIN 10 MG TABLET GT SCH (21:17)
[2016-12-01] MEDS: RENAL NOVASOURCE 1,000 ML BOTTLE GT PRN (23:36)
[2016-12-02] VITALS: BP 150/74
--- NOTE | 2016-12-02 | NUR ---
[facility] RN NOTES BLOOD SUGAR FOR 12MN IS 333MG/DL=8 UNITS OF REGULAR INSULIN GIVEN PER SLIDING SCALE.
[2016-12-02] MEDS: IPRATROPIUM NEB FS 0.5 MG/2.5 ML AMPUL.NEB IH SCH ×4 (01:57→19:37)
[2016-12-02] MEDS: ALBUTEROL FS 2.5 MG/0.5 ML VIAL.NEB IH SCH ×4 (01:57→19:37)
[2016-12-02] MEDS: PIPERACILLIN /TAZOBACTAM 2.25 G in IV D5W 50 ML IV SCH ×3 (02:19→17:00)
[2016-12-02 04:00] VITALS: BP 135/73
[2016-12-02] MEDS: HEPARIN SODIUM, PORCINE 5000 UNITS/1 ML VIAL SQ SCH ×3 (05:10→20:50)
[2016-12-02] MEDS: INSULIN REGULAR, HUMAN 100 UNIT/ML 3 ML VIAL SQ PRN ×4 (05:16→23:31)
[2016-12-02] MEDS: BLOOD SUGAR DIAGNOSTIC 1 EACH STRIP IN SCH ×4 (05:17→23:32)
--- NOTE | 2016-12-02 05:35 | NUR ---
[facility] RN NOTES BLOOD SUGAR FOR 6AM IS 300MG/DL 6 UNITS OF REGULAR INSULIN GIVEN ORDERED PER SLIDING SCALE . PTS ON GT FEEDING .
--- NOTE | 2016-12-02 06:47 | NUR ---
[facility] RN NOTES PTS ON BED VEGETATIVE STATE , REMAINS ON VENT SETTINGS WELL TOLERATED , FOR HD TX TODAY , WILL ENDORSED TO RN DAY SHIFT FOR CONTINUITY OF CARE.
[2016-12-02 07:20] LABS: BASOPHILS % (AUTO) 0.2 % (0.0-2.0); EOSINOPHILS # (AUTO) 0.3 /CMM (0.0-0.7); EOSINOPHILS % (AUTO) 2.6 % (0.0-6.0); HEMATOCRIT 25 % (33-45); HEMOGLOBIN 8.4 g/dL (11.5-14.8); LYMPHOCYTES # (AUTO) 1.2 /CMM (0.8-4.8); LYMPHOCYTES % (AUTO) 10.8 % (20.0-44.0); MEAN CORPUSCULAR HEMOGLOBIN 33 PG (26.0-33.0); MEAN CORPUSCULAR HGB CONC 34 g/dl (31.0-36.0); MEAN CORPUSCULAR VOLUME 97 fL (82-100); MONOCYTES # (AUTO) 0.7 /CMM (0.1-1.30); MONOCYTES % (AUTO) 6.5 % (2.0-12.0); NEUTROPHILS # (AUTO) 8.8 /CMM (1.8-8.9); NEUTROPHILS % (AUTO) 79.9 % (43.0-81.0); PLATELET COUNT (AUTO) 249 /CMM (150-450); RDW COEFFICIENT OF VARIATION 15.4 (11.5-15.0); RED BLOOD CELL COUNT(AUTO) 2.56 MIL/uL (4.0-5.2)
--- NOTE | 2016-12-02 07:44 | NUR ---
RN [facility]: pt.is with open eyes, obtunded, no eyes contact/tracking, rest, no grimacing, unable to follow any commands, O2 sat. over 94%, suctioned, SR, SBP over 100, GTF residual WNL, BS 300-333 over night/will s/w MD, HD today
--- NOTE | 2016-12-02 07:50 | NUR ---
RN [facility]: HD nurse is in unit, updated with pt.status, SBP over 130-150
[2016-12-02 07:53] LABS: CALCIUM, SERUM 9.8 mg/dL (8.5-10.1); MAGNESIUM 3.3 mg/dL (1.8-2.4); POTASSIUM 4.5 mmol/L (3.5-5.1)
[2016-12-02] MEDS: LEVETIRACETAM SOL (5 ML) 100 MG/ML UDC GT SCH ×2 (08:21→20:48)
[2016-12-02] MEDS: LACTOBACILLUS RHAMNOSUS GG 1 EACH CAP.SPRINK PO SCH ×2 (08:21→17:00)
[2016-12-02] MEDS: PANTOPRAZOLE 40 MG VIAL IV SCH (08:21)
[2016-12-02] MEDS: DOCUSATE SODIUM LIQ 100 MG/10 ML UDC GT SCH ×2 (08:21→20:48)
[2016-12-02] MEDS: SEVELAMER CARBONATE 0.8 GM POWD.PACK GT SCH ×3 (08:21→17:00)
[2016-12-02] MEDS: VIT B CMPLX 3/FA/VIT C/BIOTIN 1 TAB TABLET PO SCH (08:21)
[2016-12-02] MEDS: TRAMADOL HCL 50 MG TABLET GT SCH (08:21)
[2016-12-02 08:25] LABS: CREATININE 8.3 mg/dL (0.6-1.3)
[2016-12-02 08:30] VITALS: BP 170/82
--- NOTE | 2016-12-02 09:20 | NUR ---
RN [facility]: updated HD nurse with labs results, fireman with pt.current condition, VS
--- NOTE | 2016-12-02 10:45 | NUR ---
ROLLWAY MAN: updated with pt.current condition, VS, labs, GTF, I/O, HD, BS 300-350, wounds status, ordered: change ISS for aggressive, will ask wounds care team when pt.is going for debridement, see new orders
[2016-12-02] MEDS ORDERED: DEXTROSE 50%-WATER 50 ML DISP.SYRIN IV PRN (11:00)
[2016-12-02 12:30] VITALS: BP 136/76
[2016-12-02 16:00] VITALS: BP 131/77
--- NOTE | 2016-12-02 18:34 | NUR ---
RN [facility]: pt.is obtunded, same neuro status, rest, no grimacing, SR, O2 sat. WNL, GTF residual WNL, PM/wounds care done, BMx1, SBP over 100
[2016-12-02 20:00] VITALS: BP 144/78
--- NOTE | 2016-12-02 20:00 | NUR ---
[facility] RN NOTES RECEIVED PTS ON BED NON VERBAL VEGETATIVE STATE, ON VENTILATOR DEPENDENT , AC SETTINGS WELL TOLERATED, ON TELE SR ON THE MONITOR , V/S STABLE AFEBRILE , NO SOB NO DISTRESS NO FACIAL GRIMACES NOTED , HOB ELEVATED FOR ASPIRATION PRECAUTIONGT FEEDING OF NOVASOURCE AT 35CC/HR WELL TOLERATED NO RESIDUAL NOTED S/P HD TODAY WITH 2 LITERS OUT..SUCTION SECRETION DONE AND PRN.WITH L CHEST HD ACCESS DRY PATENT AND INTACT NO BLEEDING NOTED.IV HL ON GONZALO INTACT AND PATENT .ALL NEEDS ATTENDED TOO , ANDREW;L LIGHT WITHIN REACH , ALL DUE MEDS GIVEN ORDERED , KEPT PTS CLEAN DRY AND COMFORTABLE.
[2016-12-02] MEDS: ATORVASTATIN 10 MG TABLET GT SCH (21:00)
[2016-12-02] MEDS ORDERED: ERGOCALCIFEROL (VITAMIN D 2) 50,000 UNIT CAPSULE GT SCH (23:30)
--- NOTE | 2016-12-02 23:34 | NUR ---
[facility] RN NOTES PTS BLOOD SUGAR FOR 12MN IS 286MG/DL =12 UNITS OF REGULAR INSULIN GIVEN ORDERED PER SLIDING SCALE.PTS ON GT FEEDING .
[2016-12-03] VITALS: BP 158/69
[2016-12-03] MEDS: PIPERACILLIN /TAZOBACTAM 2.25 G in IV D5W 50 ML IV SCH ×3 (01:11→17:49)
[2016-12-03] MEDS: IPRATROPIUM NEB FS 0.5 MG/2.5 ML AMPUL.NEB IH SCH ×4 (01:37→20:02)
[2016-12-03] MEDS: ALBUTEROL FS 2.5 MG/0.5 ML VIAL.NEB IH SCH ×4 (01:37→20:02)
[2016-12-03 04:00] VITALS: BP_SYST 126; BP_SYST 157; BP_DIAS 53; BP_DIAS 57
[2016-12-03] MEDS: HEPARIN SODIUM, PORCINE 5000 UNITS/1 ML VIAL SQ SCH ×3 (04:22→21:29)
[2016-12-03] MEDS: INSULIN REGULAR, HUMAN 100 UNIT/ML 3 ML VIAL SQ PRN ×3 (05:09→17:56)
[2016-12-03] MEDS: BLOOD SUGAR DIAGNOSTIC 1 EACH STRIP IN SCH ×3 (05:12→17:48)
--- NOTE | 2016-12-03 05:14 | NUR ---
[facility] RN NOTES BLOOD SUGAR FOR 6AM IS 197 MG/DL =4 UNITS OF REGULAR INSULIN GIVEN PER SLIDING SCALE
--- NOTE | 2016-12-03 05:50 | NUR ---
[facility] RN NOTES PTS REMAINS ON VENT SETTINGS WELL TOLERATED , NO SOB NO DISTRESS NO FACIAL GRIMACES NOTED , WILL ENDORSE TO RN DAY SHIFT FOR CONTINUITY OF CARE.
[2016-12-03 06:57] LABS: BASOPHILS % (AUTO) 0.2 % (0.0-2.0); EOSINOPHILS # (AUTO) 0.4 /CMM (0.0-0.7); HEMATOCRIT 25 % (33-45); HEMOGLOBIN 8.3 g/dL (11.5-14.8); LYMPHOCYTES # (AUTO) 1.9 /CMM (0.8-4.8); LYMPHOCYTES % (AUTO) 15.5 % (20.0-44.0); MEAN CORPUSCULAR HEMOGLOBIN 33 PG (26.0-33.0); MEAN CORPUSCULAR HGB CONC 34 g/dl (31.0-36.0); MEAN CORPUSCULAR VOLUME 97 fL (82-100); MONOCYTES # (AUTO) 0.8 /CMM (0.1-1.30); MONOCYTES % (AUTO) 6.8 % (2.0-12.0); NEUTROPHILS # (AUTO) 9.2 /CMM (1.8-8.9); NEUTROPHILS % (AUTO) 74.5 % (43.0-81.0); PLATELET COUNT (AUTO) 248 /CMM (150-450); RDW COEFFICIENT OF VARIATION 15.4 (11.5-15.0); RED BLOOD CELL COUNT(AUTO) 2.53 MIL/uL (4.0-5.2); WHITE BLOOD COUNT (AUTO) 12.4 K/uL (4.3-11.0)
[2016-12-03 07:16] LABS: CALCIUM, SERUM 9.5 mg/dL (8.5-10.1); CREATININE 6.4 mg/dL (0.6-1.3); MAGNESIUM 2.9 mg/dL (1.8-2.4); PHOSPHORUS 3.4 mg/dL (2.5-4.9); POTASSIUM 3.9 mmol/L (3.5-5.1)
--- NOTE | 2016-12-03 07:41 | NUR ---
INITIAL [facility] RN NOTE RCVD PT ABLE TO OPEN EYES, UNABLE TO FOLLOW COMMANDS OR RESPOND TO NAME. SR ON TELE. TOLERATING ORDERED VENT SETTINGS. G-TUBE PLACEMENT VERIFIED BY AUSCULTATION/ASPIRATION. NO RESIDUAL OBTAINED. GONZALO IV ACCESS C/D/I/PATENT. NO S/O INFILTRATION/PHLEBITIS OBSERVED UPON FLUSHING. WILL CONTINUE TO MONITOR PT FOR SAFETY AND COMFORT. CALL LIGHT WITHIN REACH.
[2016-12-03 08:00] VITALS: BP_SYST 111; BP_SYST 191; BP_DIAS 45; BP_DIAS 83
[2016-12-03] MEDS: LACTOBACILLUS RHAMNOSUS GG 1 EACH CAP.SPRINK PO SCH ×2 (09:02→17:48)
[2016-12-03] MEDS: VIT B CMPLX 3/FA/VIT C/BIOTIN 1 TAB TABLET PO SCH (09:02)
[2016-12-03] MEDS: TRAMADOL HCL 50 MG TABLET GT SCH (09:02)
[2016-12-03] MEDS: LEVETIRACETAM SOL (5 ML) 100 MG/ML UDC GT SCH ×2 (09:03→21:27)
[2016-12-03] MEDS: SEVELAMER CARBONATE 0.8 GM POWD.PACK GT SCH ×3 (09:03→15:26)
[2016-12-03] MEDS: DOCUSATE SODIUM LIQ 100 MG/10 ML UDC GT SCH ×2 (09:03→21:27)
[2016-12-03] MEDS: PANTOPRAZOLE 40 MG VIAL IV SCH (09:03)
[2016-12-03] MEDS: RENAL NOVASOURCE 1,000 ML BOTTLE GT PRN (09:07)
[2016-12-03 12:00] VITALS: BP 117/50
[2016-12-03] MEDS: LEVOFLOXACIN 250 MG /D5W 50 ML 250 MG in PREMIX 1 EA IV SCH (12:50)
[2016-12-03 16:00] VITALS: BP 114/53
[2016-12-03] MEDS ORDERED: VANCOMYCIN 1 GM in IV D5W 250 ML IV SCH (16:30)
[2016-12-03] MEDS ORDERED: VANCOMYCIN 500 MG in IV D5W 100 ML IV SCH (16:30)
--- NOTE | 2016-12-03 18:10 | NUR ---
[facility] RN NOTE PT REMAINS STABLE. SHOWING NO S/O DISTRESS/PAIN AT THIS TIME. SR ON TELE TOLERATING ORDERED VENT SETTINGS. GONZALO IV ACCESS C/D/I/PATENT. NO S/O INFILTRATION/PHLEBITIS OBSERVED. IVF INFUSING TKO. PT'S CARE WILL BE ENDORSED TO BATTERY CONTAINER FINISHING HAND RN FOR CONTINUITY OF CARE. BED IN LOW AND LOCKED POSITION. CALL LIGHT WITHIN REACH.
[2016-12-03 20:00] VITALS: BP 125/75
--- NOTE | 2016-12-03 20:00 | NUR ---
REUSE TECHNICIAN - RECEIVED REPORT FROM HESHAM DILLON. REC'D PT. OBTUNDED, NO TRACKING NOTED & HAS A GAG REFLEX. PT. REACTS ALITTLE TO PAINFUL STIM. VSS. AFEBRILE. PT. HAS CONTRACTED BUE'S & FOOT DROP. PT.ONLY MOVES RUE/WEAKLY. PT. HAS MULTIPLE SKIN/WOUND ISSUES NOTED. DIAPERED, PT.IS ANURIC & WILL RECEIVE A DIALYSIS TX TOMORROW. LAST DX WAS YESTERDAY W/2L REMOVED. PT.IS PEGGED W/NOVASOURCE INFUSING AT 35 CC/HR. PT.IS VENT/TRACHED W/SETTINGS AT AC-18, GM=910, 40% & PEEP OF 5. PT. HAS RHONCHI THRU-OUT LOBES. CONT. POC.
[2016-12-03] MEDS: ATORVASTATIN 10 MG TABLET GT SCH (21:27)
[2016-12-04] VITALS: BP 146/83
[2016-12-04] MEDS: BLOOD SUGAR DIAGNOSTIC 1 EACH STRIP IN SCH ×5 (00:46→23:12)
[2016-12-04] MEDS: INSULIN REGULAR, HUMAN 100 UNIT/ML 3 ML VIAL SQ PRN ×5 (00:46→23:17)
[2016-12-04] MEDS: PIPERACILLIN /TAZOBACTAM 2.25 G in IV D5W 50 ML IV SCH ×2 (01:11→09:00)
[2016-12-04] MEDS: ALBUTEROL FS 2.5 MG/0.5 ML VIAL.NEB IH SCH ×4 (01:51→19:55)
[2016-12-04] MEDS: IPRATROPIUM NEB FS 0.5 MG/2.5 ML AMPUL.NEB IH SCH ×4 (01:51→19:55)
[2016-12-04 04:00] VITALS: BP 124/77
[2016-12-04] MEDS: HEPARIN SODIUM, PORCINE 5000 UNITS/1 ML VIAL SQ SCH ×3 (05:19→20:20)
[2016-12-04 06:38] LABS: BASOPHILS % (AUTO) 0.2 % (0.0-2.0); EOSINOPHILS # (AUTO) 0.3 /CMM (0.0-0.7); EOSINOPHILS % (AUTO) 3.1 % (0.0-6.0); HEMATOCRIT 24 % (33-45); HEMOGLOBIN 8.1 g/dL (11.5-14.8); LYMPHOCYTES # (AUTO) 1.5 /CMM (0.8-4.8); MEAN CORPUSCULAR HEMOGLOBIN 33 PG (26.0-33.0); MEAN CORPUSCULAR HGB CONC 34 g/dl (31.0-36.0); MEAN CORPUSCULAR VOLUME 97 fL (82-100); MONOCYTES # (AUTO) 0.7 /CMM (0.1-1.30); MONOCYTES % (AUTO) 6.2 % (2.0-12.0); NEUTROPHILS # (AUTO) 8.4 /CMM (1.8-8.9); NEUTROPHILS % (AUTO) 76.5 % (43.0-81.0); PLATELET COUNT (AUTO) 255 /CMM (150-450); RDW COEFFICIENT OF VARIATION 15.3 (11.5-15.0); RED BLOOD CELL COUNT(AUTO) 2.49 MIL/uL (4.0-5.2)
--- NOTE | 2016-12-04 07:00 | NUR ---
rn initial note received pt in bed, obtunded, opens eyes, does not track, does not follow commands, unable to move extremities, pt responds to pain stimuli only, pt is on [facility] vent portex #7 ac 18 tv 500 fio2 40% peep 5, sating well, no s/s of resp.distress or sob noted at this time, pt on tele monitor showing sr @88bpm, no s/s of chest pain or discomfort at this time, pt has gtube in place, running novasource @35ml/hr, tolerating well, no residuals noted at this time, pt is noted with multiple skin issues, photos taken and in chart, wound treatments ack and will be carried out at all times, pt has delia 20g,sl,c/d/i/patent, flushing well, no s/s of infection/ infiltration noted at this time, pt has lcw hd cath, pt receiving hd at this time, all safety measures in place at all times, all light within easy reach, all needs met at this time, will monitor pt closely for changes
--- NOTE | 2016-12-04 07:00 | NUR ---
rn note pt is currently receiving hd at this time
[2016-12-04 07:11] LABS: CALCIUM, SERUM 9.7 mg/dL (8.5-10.1); MAGNESIUM 3.2 mg/dL (1.8-2.4); PHOSPHORUS 3.9 mg/dL (2.5-4.9); POTASSIUM 4.2 mmol/L (3.5-5.1)
[2016-12-04 07:13] LABS: CREATININE 8.1 mg/dL (0.6-1.3)
[2016-12-04 08:00] VITALS: BP 133/71
[2016-12-04] MEDS: SEVELAMER CARBONATE 0.8 GM POWD.PACK GT SCH ×3 (08:37→16:18)
[2016-12-04] MEDS: VIT B CMPLX 3/FA/VIT C/BIOTIN 1 TAB TABLET PO SCH (08:37)
[2016-12-04] MEDS: PANTOPRAZOLE 40 MG VIAL IV SCH (08:37)
[2016-12-04] MEDS: LACTOBACILLUS RHAMNOSUS GG 1 EACH CAP.SPRINK PO SCH ×2 (08:37→16:18)
[2016-12-04] MEDS: TRAMADOL HCL 50 MG TABLET GT SCH (08:37)
[2016-12-04] MEDS: LEVETIRACETAM SOL (5 ML) 100 MG/ML UDC GT SCH ×2 (08:37→20:19)
[2016-12-04] MEDS: DOCUSATE SODIUM LIQ 100 MG/10 ML UDC GT SCH ×2 (08:37→20:19)
[2016-12-04] MEDS: RENAL NOVASOURCE 1,000 ML BOTTLE GT PRN (08:38)
[2016-12-04] MEDS: HYDROGEL DRESSING 90 GM TUBE TP PRN (08:39)
[2016-12-04] MEDS: Z GUARD REMEDY 2 OZ OINT TP PRN (08:39)
[2016-12-04] MEDS: VITAMINS A AND D 56.7 GM TUBE TP PRN (08:39)
--- NOTE | 2016-12-04 09:45 | NUR ---
RN NOTE HD COMPLETE 1.5L REMOVED, PT VVS
[2016-12-04 12:00] VITALS: BP 148/78
[2016-12-04] MEDS: LEVOFLOXACIN 250 MG /D5W 50 ML 250 MG in PREMIX 1 EA IV SCH (12:11)
[2016-12-04] MEDS ORDERED: SULFAMETH/TRIMETH 800/160 MG 1 UDTAB TABLET PO SCH (12:30)
[2016-12-04] MEDS ORDERED: MEROPENEM 1 G in IV NS 0.9% 100 ML IV SCH (13:00)
[2016-12-04] MEDS ORDERED: MEROPENEM 500 MG in IV NS 0.9% 50 ML IV SCH (14:00)
[2016-12-04 16:00] VITALS: BP 136/72
--- NOTE | 2016-12-04 18:44 | NUR ---
rn closing note all medications given, all wound treatments carried out, pt was kept clean and dry, pt remained stable during shift, gtube c/d/i/patent, flushing novasource @ 35ml/hr, delia 20g,c/d/i/patent, running tko, all safety measures in place at all times, call light within easy reach, report will be given to pm rn for alexis
--- NOTE | 2016-12-04 19:37 | NUR ---
RN:TD: PT RECEIVED IN BED, OBTUNDED, TOLERATING CURRENT VENT SETTINGS. LEFT UPPER ARM IV SITE INTACT. PT RECEIVED HD TODAY. NO ACUTE DISTRESS NOTED. WILL CONTINUE TO MONITOR CLOSELY.
[2016-12-04 20:00] VITALS: BP 135/63
[2016-12-04] MEDS: SULFAMETH/TRIMETH 800/160 MG 1 UDTAB TABLET PO SCH (20:19)
[2016-12-04] MEDS: ATORVASTATIN 10 MG TABLET GT SCH (21:03)
[2016-12-05] VITALS: BP 130/66
[2016-12-05] MEDS: IPRATROPIUM NEB FS 0.5 MG/2.5 ML AMPUL.NEB IH SCH ×4 (02:04→20:13)
[2016-12-05] MEDS: ALBUTEROL FS 2.5 MG/0.5 ML VIAL.NEB IH SCH ×4 (02:04→20:13)
[2016-12-05 04:00] VITALS: BP 113/62
[2016-12-05] MEDS: BLOOD SUGAR DIAGNOSTIC 1 EACH STRIP IN SCH ×3 (05:12→17:27)
[2016-12-05] MEDS: INSULIN REGULAR, HUMAN 100 UNIT/ML 3 ML VIAL SQ PRN ×3 (05:18→17:42)
[2016-12-05] MEDS: HEPARIN SODIUM, PORCINE 5000 UNITS/1 ML VIAL SQ SCH ×2 (05:18→13:26)
[2016-12-05 07:44] LABS: CALCIUM, SERUM 9.7 mg/dL (8.5-10.1); CREATININE 6.8 mg/dL (0.6-1.3); POTASSIUM 4.6 mmol/L (3.5-5.1)
[2016-12-05 08:00] VITALS: BP 103/50
[2016-12-05] MEDS: PANTOPRAZOLE 40 MG VIAL IV SCH (08:01)
[2016-12-05] MEDS: VIT B CMPLX 3/FA/VIT C/BIOTIN 1 TAB TABLET PO SCH (08:01)
[2016-12-05] MEDS: LEVETIRACETAM SOL (5 ML) 100 MG/ML UDC GT SCH (08:01)
[2016-12-05] MEDS: DOCUSATE SODIUM LIQ 100 MG/10 ML UDC GT SCH (08:01)
[2016-12-05] MEDS: SEVELAMER CARBONATE 0.8 GM POWD.PACK GT SCH ×3 (08:01→16:12)
[2016-12-05] MEDS: LACTOBACILLUS RHAMNOSUS GG 1 EACH CAP.SPRINK PO SCH ×2 (08:01→16:12)
[2016-12-05] MEDS: SULFAMETH/TRIMETH 800/160 MG 1 UDTAB TABLET PO SCH (08:01)
[2016-12-05] MEDS: TRAMADOL HCL 50 MG TABLET GT SCH (08:02)
[2016-12-05 08:32] LABS: BASOPHILS % (AUTO) 0.4 % (0.0-2.0); EOSINOPHILS # (AUTO) 0.3 /CMM (0.0-0.7); EOSINOPHILS % (AUTO) 2.4 % (0.0-6.0); HEMATOCRIT 24 % (33-45); LYMPHOCYTES # (AUTO) 1.2 /CMM (0.8-4.8); MEAN CORPUSCULAR HEMOGLOBIN 32 PG (26.0-33.0); MEAN CORPUSCULAR HGB CONC 33 g/dl (31.0-36.0); MEAN CORPUSCULAR VOLUME 97 fL (82-100); MONOCYTES # (AUTO) 0.5 /CMM (0.1-1.30); MONOCYTES % (AUTO) 4.6 % (2.0-12.0); NEUTROPHILS # (AUTO) 9.6 /CMM (1.8-8.9); NEUTROPHILS % (AUTO) 82.6 % (43.0-81.0); PLATELET COUNT (AUTO) 283 /CMM (150-450); RED BLOOD CELL COUNT(AUTO) 2.51 MIL/uL (4.0-5.2); WHITE BLOOD COUNT (AUTO) 11.6 K/uL (4.3-11.0)
[2016-12-05 12:00] VITALS: BP 134/64
[2016-12-05 16:00] VITALS: BP 141/80
--- NOTE | 2016-12-05 16:24 | NUR ---
DR. DONG GIVES DC ORDER. PT WILL GO BACK TO [facility]. AMBULANCE SCHEDULED FOR 8PM, PRINTED OUT DISCHARGE PAPERWORK, CALLED [facility] FOR REPORT. LABS AND MEDICAL REPORTS PRINTED OUT AND COMPILED. WILL ENDORSE TO PM SHIFT THE REST OF THE DISCHARGE THE AMBULANCE WILL BE HERE AT 8PM. Addendum: 12/05/16 at 1744 by YURY HAMMOND RN REPORT GIVEN TO DANIELLA AT [facility]; PT ASSIGNED ROOM 339 Addendum: 12/05/16 at 1844 by YURY HAMMOND RN CALLED PT'S JELLY BAILEY AND NOTIFIED HIM OF TRANSFER TO [facility].
--- NOTE | 2016-12-05 21:12 | NUR ---
MIXING MACHINE FEEDER D/C NOTE PT RECEIVED IN NO ACUTE DISTRESS AT THIS TIME. PT IS A VENT/TRACH PT TOLERATING SETTINGS WELL. PT IS OBTUNDED. ON TELE WITH SR. LAST HD WAS ON 12/04 WITH 1.5 L OUT. GT CLEAN AND DRY RUNNING NOVASOURCE AT 35CC. GONZALO 20G D/C. R ARM AV SHUNT AND LCW PERMACATH IS CLEAN DRY AND INTACT. COMFORT AND SAFETY MEASURES TO BE PLACED BEFORE D/C. NO ISSUES ARRIVED DURING TRANSFER FROM [facility] TO [facility]. VITALS WNL. RN WITH EMT'S FOR VENT/TRACH.
== END 2016-12-05 21:00 | DRG 710 ==
LOC: ER 15:02 → TELE 17:49 → TELE-TD 22:56 → TELE1 12-05 12:47
PROVIDERS: ADMIT Internal Medicine; ATTEND Internal Medicine
PROC: 5A1955Z Respiratory Ventilation, Greater than 96 Consecutive Hours (ICD-10-PCS; principal; 2016-11-29)
PROC: 05PY33Z Removal of Infusion Device from Upper Vein, Percutaneous Approach (ICD-10-PCS; 2016-11-30)
PROC: 05H633Z Insertion of Infusion Device into Left Subclavian Vein, Percutaneous Approach (ICD-10-PCS; 2016-11-30)
PROC: 5A1D70Z Performance of Urinary Filtration, Intermittent, Less than 6 Hours Per Day (ICD-10-PCS; 2016-11-30)
DX: A41.9 Sepsis, unspecified organism (principal); I21.A1 Myocardial infarction type 2; J69.0 Pneumonitis due to inhalation of food and vomit; G93.40 Encephalopathy, unspecified; I13.2 Hypertensive heart and chronic kidney disease with heart failure and with stage 5 chronic kidney disease, or end stage renal disease; Z99.11 Dependence on respirator [ventilator] status; J96.11 Chronic respiratory failure with hypoxia; E87.2 Acidosis; L89.153 Pressure ulcer of sacral region, stage 3; L89.323 Pressure ulcer of left buttock, stage 3; L89.313 Pressure ulcer of right buttock, stage 3; N18.6 End stage renal disease; I49.5 Sick sinus syndrome; R53.2 Functional quadriplegia; T82.41XA Breakdown (mechanical) of vascular dialysis catheter, initial encounter; E11.22 Type 2 diabetes mellitus with diabetic chronic kidney disease; D63.1 Anemia in chronic kidney disease; E03.9 Hypothyroidism, unspecified; E66.01 Morbid (severe) obesity due to excess calories; F03.90 Unspecified dementia, unspecified severity, without behavioral disturbance, psychotic disturbance, mood disturbance, and anxiety; I25.10 Atherosclerotic heart disease of native coronary artery without angina pectoris; I50.9 Heart failure, unspecified; Z93.0 Tracheostomy status; Z93.1 Gastrostomy status; Z87.440 Personal history of urinary (tract) infections; Z99.2 Dependence on renal dialysis; Y92.129 Unspecified place in nursing home as the place of occurrence of the external cause; L98.8 Other specified disorders of the skin and subcutaneous tissue; E83.9 Disorder of mineral metabolism, unspecified; R13.10 Dysphagia, unspecified; E88.09 Other disorders of plasma-protein metabolism, not elsewhere classified; S41.102A Unspecified open wound of left upper arm, initial encounter; S91.302A Unspecified open wound, left foot, initial encounter; S91.301A Unspecified open wound, right foot, initial encounter; B95.62 Methicillin resistant Staphylococcus aureus infection as the cause of diseases classified elsewhere; Y71.2 Prosthetic and other implants, materials and accessory cardiovascular devices associated with adverse incidents; Z79.4 Long term (current) use of insulin; Z88.1 Allergy status to other antibiotic agents; Z79.899 Other long term (current) drug therapy; M24.50 Contracture, unspecified joint
CPT/HCPCS: 31720; 36415; 36600; 71010-TC; 80048-TC; 80053-TC; 82553-TC; 82803-TC; 82962-TC; 83605-TC; 83735-TC; 84100-TC; 85025-TC; 85610-TC; 85730-TC; 87040-TC; 87070-TC; 87081-TC; 90935-TC; 93307-TC; 94003-TC; 94760-TC; 94762-TC; 99082-TC; A4216; A4606; A6248; A6402; C1751; C9113; J0713; J1580; J1644; J1815; J1953; J1956; J2185; J2543; J3370; J7030; J7050; J7060; Z7610

== ENCOUNTER 2017-02-02 10:50 | Inpatient (IN) | payer OTHER ==
[~2017-02-02] VITALS: Ht 162.6 cm; Wt 68.5 kg
[~2017-02-02 10:50] MED LIST changes: +BLOO-1280 MC; +ERGO500040 GT; -ERGO500047 GT; -LACT1CAP72 GT; +LACT1TAB13 GT; +ZINC220C6 GT; -[UNRECOGNIZED DRUG - CODE] MC
--- NOTE | 2017-02-02 11:00 | NUR ---
BBPA FROM US RENAL: Edu KATE CATH MALFUNCTIONING, NAD NOTED, VSS, RESP EVEN AND UNLABORED, RT AT BS, PT PUT ON HOSPITAL GOWN AND MONITOR, WAITING FOR MD DOMINGUEZ.
--- NOTE | 2017-02-02 11:00 | NUR ---
RT RECD PT FOR CATHETER MALFUNCTION ON VENT TRACH WITH PORTEX 7 ON VENT SETTING ENDORSED FROM RT TRANSPORT 500 14 35% +5 SP02 100% HR 54 NO RESP DISTRESS NOTED PLACE ON LTV VENT TRACH SECURED AND INTACT Addendum: 02/02/17 at 1423 by EDUARDO REID RT Amended: Links added.
[2017-02-02 11:30] VITALS: BP 120/48
[2017-02-02 11:36] LABS: BASOPHILS # (AUTO) 0.1 /CMM (0.0-0.2); BASOPHILS % (AUTO) 0.4 % (0.0-2.0); EOSINOPHILS # (AUTO) 0.1 /CMM (0.0-0.7); EOSINOPHILS % (AUTO) 0.9 % (0.0-6.0); HEMATOCRIT 27 % (33-45); HEMOGLOBIN 9.1 g/dL (11.5-14.8); LYMPHOCYTES # (AUTO) 2.3 /CMM (0.8-4.8); LYMPHOCYTES % (AUTO) 15.4 % (20.0-44.0); MEAN CORPUSCULAR HEMOGLOBIN 32 PG (26.0-33.0); MEAN CORPUSCULAR HGB CONC 34 g/dl (31.0-36.0); MEAN CORPUSCULAR VOLUME 94 fL (82-100); MONOCYTES % (AUTO) 6.7 % (2.0-12.0); NEUTROPHILS # (AUTO) 11.6 /CMM (1.8-8.9); NEUTROPHILS % (AUTO) 76.6 % (43.0-81.0); PLATELET COUNT (AUTO) 332 /CMM (150-450); RDW COEFFICIENT OF VARIATION 17.7 (11.5-15.0); RED BLOOD CELL COUNT(AUTO) 2.87 MIL/uL (4.0-5.2); WHITE BLOOD COUNT (AUTO) 15.1 K/uL (4.3-11.0)
[2017-02-02 11:55] LABS: INR 0.85 (0.87-1.13); PROTHROMBIN TIME 8.8 SECS (9.5-12.7)
[2017-02-02 12:00] LABS: CREATININE 7.7 mg/dL (0.6-1.3)
[2017-02-02] MEDS ORDERED: BENA20TA2 GT (12:07)
[2017-02-02] MEDS ORDERED: ASPI-992 PO (12:07)
[2017-02-02] MEDS ORDERED: ACET650S26 GT (12:07)
[2017-02-02] MEDS ORDERED: OMEP40CA37 GT (12:07)
[2017-02-02] MEDS ORDERED: FERR325T28 GT (12:07)
[2017-02-02] MEDS ORDERED: CARV6.252 PO (12:07)
--- NOTE | 2017-02-02 12:37 | NUR ---
CALLED [facility] AND PAGED TRACER LATHE SET UP OPERATOR PHYSICIAN FOR ADMISSION.
--- NOTE | 2017-02-02 13:26 | NUR ---
TELE 111-2
--- NOTE | 2017-02-02 13:30 | NUR ---
CALLED [facility] FOR REPORT, NURSE IS UNAVAILABLE, WILL CALL BACK IN 10 MINS
[2017-02-02 13:46] VITALS: BP 122/58
[2017-02-02 14:00] VITALS: BP 143/55
--- NOTE | 2017-02-02 14:00 | NUR ---
RN INITIAL NOTE REPORT RECEIVED FROM [facility] ER. PT STABLE TRANSPORTED FROM ER VIA [facility]. BEGINNING ADMISSION PROCESS.
--- NOTE | 2017-02-02 14:17 | NUR ---
RT PT TRANSFERRED TO 111 NO RESP DISTRESS VENT PLUGGED IN RED OUTLET BAG AND MASK AT BEDSIDE TRACH INTACT AND SECURED Addendum: 02/02/17 at 1423 by EDUARDO REID RT Amended: Links added.
[2017-02-02 14:40] LABS: BAND % (MANUAL) 3 % (0.0-5.0); EOSINOPHILS % (MANUAL) 1 % (0-4); LYMPHOCYTES % (MANUAL) 10 % (16-48); MONOCYTES % (MANUAL) 10 % (0-11.0); NEUTROPHILS % (MANUAL) 76 (42-76)
[2017-02-02 16:00] VITALS: BP 125/68
--- NOTE | 2017-02-02 16:00 | NUR ---
RN NOTE CALLED MATT ANDREW N.P. AND AWAITING ADMISSION ORDERS.
--- NOTE | 2017-02-02 19:32 | NUR ---
PT RCVD ON MECH VENT WITH NOTED SETTINGS. VENT PLUGGED INTO RED OUTLET,VENT ALARM WORKING AND AUDIBLE, IT SOFTWARE ENGINEER CUFF CHECKED,SUCTIONED MODERATE AMOUNT OF YELLOW THICK SECRETIONS , NO RESP DISTRESS NOTED AT THIS TIME. AMBU BAG AT BEDSIDE, WILL CONTINUE TO MONITOR THE PT.
[2017-02-02 20:00] VITALS: BP 101/60
--- NOTE | 2017-02-02 20:00 | NUR ---
RN NOTES RECEIVED PATIENT IN BED WITH EYES CLOSED. NO RESPIRATORY DISTRESS OR SHORTNESS OF BREATH. BREATHING EVEN AND UNLABORED. NO PHYDISCAL MANIFESTATION OF PAIN OR DISCOMFORT. OBTUNDED, NON VERBAL. NO ORDERS INPUTED YET, RELAYED TO MD SUPERVISOR CONTACT AND SERVICE CLERKS. WILL FOLLOW UP. VITAL SIGNS WNL. KEPT CLEAN AND DRY. WILL CONTINUE TO MONITOR.
[2017-02-03] VITALS: BP 137/66
[2017-02-03] MEDS ORDERED: ONDANSETRON HCL/PF 4 MG/2 ML VIAL IVP PRN (01:00)
[2017-02-03] MEDS ORDERED: IPRATROPIUM NEB FS 0.5 MG/2.5 ML AMPUL.NEB IH PRN (01:00)
[2017-02-03] MEDS ORDERED: Z GUARD REMEDY 2 OZ OINT TP PRN (01:00)
[2017-02-03] MEDS ORDERED: ALBUTEROL FS 2.5 MG/0.5 ML VIAL.NEB IH PRN (01:00)
[2017-02-03] MEDS ORDERED: NEPRO VAN 237 ML CAN GT SCH (01:00)
[2017-02-03] MEDS ORDERED: ZOLPIDEM TARTRATE 5 MG TABLET PO PRN (01:00)
[2017-02-03] MEDS ORDERED: ACETAMINOPHEN 325 MG TABLET PO PRN (01:00)
[2017-02-03] MEDS ORDERED: DEXTROSE 50%-WATER 50 ML DISP.SYRIN IV PRN ×2 (01:30→03:30)
[2017-02-03] MEDS ORDERED: INSULIN REGULAR, HUMAN 100 UNIT/ML 3 ML VIAL SQ PRN (01:30)
[2017-02-03] MEDS ORDERED: RENAL NOVASOURCE 1,000 ML BOTTLE GT PRN (02:00)
[2017-02-03] MEDS ORDERED: ONDANSETRON HCL/PF 4 MG/2 ML VIAL IV PRN (03:30)
[2017-02-03] MEDS ORDERED: ZOLPIDEM TARTRATE 10 MG TABLET GT PRN (03:30)
[2017-02-03] MEDS ORDERED: ALBUTEROL FS 2.5 MG/0.5 ML VIAL.NEB NEB PRN (03:30)
[2017-02-03] MEDS ORDERED: ACETAMINOPHEN 650 MG/20.3 ML UDC GT PRN (03:30)
[2017-02-03] MEDS ORDERED: IPRATROPIUM NEB FS 0.5 MG/2.5 ML AMPUL.NEB NEB PRN (03:30)
[2017-02-03 04:00] VITALS: BP 101/65
[2017-02-03] MEDS ORDERED: hydrALAZINE HCL 25 MG TABLET ONE (04:36)
[2017-02-03] MEDS ORDERED: hydrALAZINE HCL 25 MG TABLET GT SCH (05:00)
[2017-02-03] MEDS: hydrALAZINE HCL 25 MG TABLET GT SCH ×3 (05:44→21:23)
[2017-02-03] MEDS: BLOOD SUGAR DIAGNOSTIC 1 EACH STRIP IN SCH ×3 (05:46→18:10)
[2017-02-03] MEDS: INSULIN REGULAR, HUMAN 100 UNIT/ML 3 ML VIAL SQ PRN ×3 (05:49→18:10)
[2017-02-03] MEDS ORDERED: BLOOD SUGAR DIAGNOSTIC 1 EACH STRIP IN SCH (06:00)
--- NOTE | 2017-02-03 06:15 | NUR ---
RN NOTES CALLED PATIENT RESOURCE COORDINATOR, SPOKE TO DR BONILLA WITH ORDERS TO CONTINUE HOME MEDS. NOTED AND CARRIED OUT. STARTED FEEDING AT 0200, WELL TOLERATED. NO DISTRESS NOTED. BREATHING EVEN AND UNLABORED. NO PHYSICAL MANIFESTATION OF PAIN OR DISCOMFORT. KEPT CLEAN AND DRY. WILL ENDORSE TO AM SHIFT FOR CONTINUITY OF CARE.
--- NOTE | 2017-02-03 07:56 | NUR ---
RN NOTE:(INITIAL) PATIENT RECEIVED ALERT AWAKE, NON VERBAL, RESPONSIVE TO TACTILE & VERBAL STIMULI. ON VENT -TRAC, SETTINGS TOLERATING WELL. ON TELE MONITOR SINUS RHYTHM. G-TUBE RUNNING, TUBE FEEDING TOLERATING WELL. NO RESIDUAL NOTED. ASPIRATION PRECAUTIONS OBSERVED. HOB ELEVATED. IV SITE CLEAN & DRY. LEFT CHEST HUMBLE CATH INTACT MALFUNCTION. RIGHT FEMORAL HD CATHETER INTACT, DRESSING DRY & INTACT. SAFETY MEASURES OBSERVED. WILL CONTINUE TO MONITOR.
[2017-02-03 08:00] VITALS: BP 124/65
[2017-02-03] MEDS: IPRATROPIUM NEB FS 0.5 MG/2.5 ML AMPUL.NEB NEB SCH ×3 (08:08→19:55)
--- NOTE | 2017-02-03 08:08 | NUR ---
RT PT RECEIVED TRACHED WITH A PORTEX 7, PT IS ON THE VENT WITH NOTED SETTINGS. PT IS AWAKE BUT DOES NOT FOLLOW COMMANDS. VENT ALARMS ARE SET AND AUDIBLE WITH BVM BY BEDSIDE. PHARMACY AIDE CUFF PRESSURE NOTED. VENT IS PLUGGED INTO RED OUTLET. SX MINIMAL SECRETIONS. NO RESPIRATORY DISTRESS NOTED AT THIS TIME, WILL CONTINUE TO MONITOR. Addendum: 02/03/17 at 1714 by NATHANIEL MCKINNON RT Amended: Links added.
[2017-02-03 08:48] LABS: EOSINOPHILS # (AUTO) 0.1 /CMM (0.0-0.7); EOSINOPHILS % (AUTO) 0.8 % (0.0-6.0); HEMATOCRIT 27 % (33-45); HEMOGLOBIN 9.4 g/dL (11.5-14.8); LYMPHOCYTES # (AUTO) 2.1 /CMM (0.8-4.8); LYMPHOCYTES % (AUTO) 19.2 % (20.0-44.0); MEAN CORPUSCULAR HEMOGLOBIN 32 PG (26.0-33.0); MEAN CORPUSCULAR HGB CONC 35 g/dl (31.0-36.0); MEAN CORPUSCULAR VOLUME 93 fL (82-100); MONOCYTES # (AUTO) 0.9 /CMM (0.1-1.30); MONOCYTES % (AUTO) 8.5 % (2.0-12.0); NEUTROPHILS # (AUTO) 7.7 /CMM (1.8-8.9); NEUTROPHILS % (AUTO) 71.5 % (43.0-81.0); PLATELET COUNT (AUTO) 367 /CMM (150-450); RDW COEFFICIENT OF VARIATION 17.5 (11.5-15.0); WHITE BLOOD COUNT (AUTO) 10.8 K/uL (4.3-11.0)
[2017-02-03] MEDS ORDERED: ASPIRIN 325 MG TABLET PO SCH (09:00)
[2017-02-03] MEDS ORDERED: SEVELAMER CARBONATE 0.8 GM POWD.PACK GT SCH (09:00)
[2017-02-03] MEDS ORDERED: BENAZEPRIL HCL 20 MG TABLET GT SCH (09:00)
[2017-02-03] MEDS ORDERED: TRAMADOL HCL 50 MG TABLET GT SCH (09:00)
[2017-02-03] MEDS ORDERED: DOCUSATE SODIUM LIQ 100 MG/10 ML UDC GT SCH (09:00)
[2017-02-03] MEDS ORDERED: FERROUS SULFATE (325 MG) 325 MG/TAB TABLET GT SCH (09:00)
[2017-02-03] MEDS ORDERED: CARVEDILOL 6.25 MG TABLET PO SCH (09:00)
[2017-02-03] MEDS ORDERED: LEVETIRACETAM (250 MG) 250 MG TABLET PO SCH (09:00)
[2017-02-03] MEDS ORDERED: ZINC SULFATE 220 MG CAPSULE GT SCH (09:00)
[2017-02-03 09:01] LABS: CALCIUM, SERUM 9.8 mg/dL (8.5-10.1); CREATININE 5.5 mg/dL (0.6-1.3); MAGNESIUM 2.7 mg/dL (1.8-2.4); PHOSPHORUS 3.9 mg/dL (2.5-4.9); POTASSIUM 3.8 mmol/L (3.5-5.1)
[2017-02-03] MEDS: FOLIC ACID 1 MG TABLET GT SCH (09:27)
[2017-02-03] MEDS: ZINC SULFATE 220 MG CAPSULE GT SCH (09:27)
[2017-02-03] MEDS: ASPIRIN 325 MG TABLET GT SCH (09:27)
[2017-02-03] MEDS: LEVETIRACETAM SOL (5 ML) 100 MG/ML UDC GT SCH ×2 (09:27→21:23)
[2017-02-03] MEDS: DOCUSATE SODIUM LIQ 100 MG/10 ML UDC GT SCH ×2 (09:27→21:29)
[2017-02-03] MEDS: TRAMADOL HCL 50 MG TABLET GT SCH (09:28)
[2017-02-03] MEDS: FERROUS SULFATE (325 MG) 325 MG/TAB TABLET GT SCH ×3 (09:28→17:37)
[2017-02-03] MEDS: BENAZEPRIL HCL 10 MG TABLET GT SCH (09:29)
[2017-02-03] MEDS: CARVEDILOL 6.25 MG TABLET GT SCH ×2 (09:29→21:29)
[2017-02-03] MEDS: SEVELAMER CARBONATE 0.8 GM POWD.PACK GT SCH ×3 (09:29→17:37)
[2017-02-03] MEDS: Z GUARD REMEDY 2 OZ OINT TP SCH ×2 (09:36→21:46)
[2017-02-03 12:00] VITALS: BP_SYST 82; BP_SYST 94; BP_DIAS 49; BP_DIAS 58
--- NOTE | 2017-02-03 13:00 | NUR ---
RN NOTE: CRITICAL GLUCOSE LEVEL NOTED BLOOD SUGAR >400. 15 UNITS OF REGULAR INSULIN GIVEN, STAT GLUCOSE LAB ORDERED. ARTHUR CHARGE NURSE SPOKE WITH DR BROWN. ORDER ENTERED BY CHARGE NURSE, ORDERS NOTED & CARRIED OUT. CONTINUE TO MONITOR.
[2017-02-03 16:00] VITALS: BP 94/58
[2017-02-03 20:00] VITALS: BP 116/64
--- NOTE | 2017-02-03 20:00 | NUR ---
RN NOTES RECEIVED PATIENT COMFORTABLY RESTING IN BED WITH NO DISTRESS NOTED. BREATHING EVEN AND UNLABORED. VENT SETTING WELL TOLERATED. HOB ELEVATED. OBTUNDED NON VERBAL. GTUBE IN PLACE, FEEDING WELL TOLERATED. NO PHYSICAL MANIFESTATION OF PAIN OR DISCOMFORT. KEPT CLEAN AND DRY. WILL CONTINUE TO MONITOR.
[2017-02-03] MEDS ORDERED: INSULIN DETEMIR 100 UNIT/ML CARTRIDGE SQ SCH ×2 (21:00→22:00)
[2017-02-03] MEDS: MUPIROCIN OINT 2% 22 GM TUBE SCH (21:30)
[2017-02-03] MEDS: ATORVASTATIN 10 MG TABLET GT SCH (21:32)
[2017-02-03] MEDS: INSULIN DETEMIR 100 UNIT/ML CARTRIDGE SQ SCH (21:40)
[2017-02-03] MEDS ORDERED: ATORVASTATIN 10 MG TABLET GT SCH (22:00)
[2017-02-03] MEDS: RENAL NOVASOURCE 1,000 ML BOTTLE GT PRN (22:22)
[2017-02-04] VITALS: BP 105/70
[2017-02-04] MEDS: BLOOD SUGAR DIAGNOSTIC 1 EACH STRIP IN SCH ×4 (00:20→19:40)
[2017-02-04] MEDS: INSULIN REGULAR, HUMAN 100 UNIT/ML 3 ML VIAL SQ PRN ×4 (00:23→19:55)
[2017-02-04] MEDS: IPRATROPIUM NEB FS 0.5 MG/2.5 ML AMPUL.NEB NEB SCH ×4 (02:07→20:13)
[2017-02-04 04:00] VITALS: BP 104/64
--- NOTE | 2017-02-04 05:55 | NUR ---
RT PT RECEIVED ON [facility] VENT WITH NOTED SETTING. VENT PLUGGED IN TO RED OUTLET. ALARMS SET AND AUDIBLE. AMBU BAG AT [facility]. NO SOB OR RESP DISTRESS NOTED ON SHIFT. HHN TX GIVEN ORDERED WITH NO ADVERSE REACTIONS. Addendum: 02/04/17 at 0555 by LAYA JIMENEZ RT Amended: Links added.
[2017-02-04] MEDS: hydrALAZINE HCL 25 MG TABLET GT SCH ×4 (06:14→21:27)
--- NOTE | 2017-02-04 06:28 | NUR ---
RN CLOSING NOTES NO SIGNIFICANT CHANGE OF CONDITION. NO RESPIRATORY DISTRESS OR SHORTNESS OF BREATH. BREATHING EVEN AND UNLABORED. VENT SETTING WELL TOLERATED. VITAL SIGNS WNL. NO PHYSICAL MANIFESTATION OF PAIN OR DISCOMFORT. KEPT CLEAN AND DRY. WILL ENDORSE TO AM SHIFT FOR CONTINUITY OF CARE.
[2017-02-04 08:00] VITALS: BP 83/62
[2017-02-04] MEDS: MUPIROCIN OINT 2% 22 GM TUBE SCH ×3 (09:00→21:24)
[2017-02-04] MEDS: DOCUSATE SODIUM LIQ 100 MG/10 ML UDC GT SCH ×2 (09:45→21:26)
[2017-02-04] MEDS: TRAMADOL HCL 50 MG TABLET GT SCH (09:45)
[2017-02-04] MEDS: FERROUS SULFATE (325 MG) 325 MG/TAB TABLET GT SCH ×3 (09:45→17:46)
[2017-02-04] MEDS: ASPIRIN 325 MG TABLET GT SCH (09:45)
[2017-02-04] MEDS: FOLIC ACID 1 MG TABLET GT SCH (09:45)
[2017-02-04] MEDS: LEVETIRACETAM SOL (5 ML) 100 MG/ML UDC GT SCH ×2 (09:45→21:25)
[2017-02-04] MEDS: ZINC SULFATE 220 MG CAPSULE GT SCH (09:45)
[2017-02-04] MEDS: SEVELAMER CARBONATE 0.8 GM POWD.PACK GT SCH ×3 (09:46→17:46)
[2017-02-04] MEDS: Z GUARD REMEDY 2 OZ OINT TP SCH ×2 (09:47→21:24)
[2017-02-04] MEDS: BENAZEPRIL HCL 10 MG TABLET GT SCH (09:53)
[2017-02-04] MEDS: CARVEDILOL 6.25 MG TABLET GT SCH ×2 (10:07→21:27)
--- NOTE | 2017-02-04 10:54 | NUR ---
RT NOTE: RECEIVED PATIENT TRACH ON MECHANICAL VENT. ALARMS VERIFIED AND AUDIBLE. SUCTION AND LAVAGED THICK HAYES SECRETIONS. VENT PLUGGED INTO RED OUTLET. AMBU BAG AT [facility].
[2017-02-04 12:00] VITALS: BP 83/62
[2017-02-04 16:00] VITALS: BP 138/58
--- NOTE | 2017-02-04 18:00 | NUR ---
SANTANA NOTE PATIENT B/P REPORTED VIA SASHA HE RN RE ASSESSED B/P AT 138/59 PULSE 97 O2 99 PATIENT APPEAR COMFORTABLE RESTING IN BED WITHOUT ANY CONCERNS Addendum: 02/04/17 at 1802 by PRAKASH KELLY RN RN WILL CONTINUE TO FOLLOW UP B/P TAKEN FROM LEFT LEG
--- NOTE | 2017-02-04 19:09 | NUR ---
RN CLOSING NOTES NO SIGNIFICANT CHANGES OF CONDITION. NO RESPIRATORY DISTRESS OR SHORTNESS OF BREATH. BREATHING EVEN AND UNLABORED. PT TOLERATED VENT SETTING WELL. VITAL SIGNS WNL. PT KEPT CLEAN AND DRY.RN ENDORSED CARE TO PM SHIFT FOR CONTINUITY OF CARE.
[2017-02-04 20:00] VITALS: BP 136/73
[2017-02-04] MEDS: ATORVASTATIN 10 MG TABLET GT SCH (21:28)
[2017-02-04] MEDS: INSULIN DETEMIR 100 UNIT/ML CARTRIDGE SQ SCH (21:33)
[2017-02-05] VITALS: BP 117/62
[2017-02-05] MEDS: INSULIN REGULAR, HUMAN 100 UNIT/ML 3 ML VIAL SQ PRN ×5 (00:19→17:57)
[2017-02-05] MEDS: IPRATROPIUM NEB FS 0.5 MG/2.5 ML AMPUL.NEB NEB SCH ×4 (02:26→20:11)
[2017-02-05 04:00] VITALS: BP 88/45
[2017-02-05] MEDS: hydrALAZINE HCL 25 MG TABLET GT SCH ×3 (05:00→21:00)
--- NOTE | 2017-02-05 05:28 | NUR ---
RT PT RECEIVED ON [facility] VENT WITH NOTED SETTING. VENT PLUGGED IN TO RED OUTLET. ALARMS SET AND AUDIBLE. AMBU BAG AT [facility]. NO SOB OR RESP DISTRESS NOTED ON SHIFT. HHN TX GIVEN ORDERED WITH NO ADVERSE REACTIONS. Addendum: 02/05/17 at 0528 by LAYA JIMENEZ RT Amended: Links added.
[2017-02-05] MEDS: BLOOD SUGAR DIAGNOSTIC 1 EACH STRIP IN SCH ×5 (06:07→23:59)
--- NOTE | 2017-02-05 07:10 | NUR ---
RN INITIAL NOTE PATIENT RECEIVED IN BED, RESTING. PATIENT IS NON-VERBAL. HAS TRACH: PORTEX #7. TOLERATING VENT SETTINGS WELL. NO S/S OF PAIN OR DISCOMFORT. NO S/S OF RESPIRATORY DISTRESS OR SOB. SKIN IS WARM AND DRY TO TOUCH. SINUS RHYTHM ON TELE MONITOR. IV SITE FLUSHED, PATENT. GTUBE FLUSHED, PLACEMENT VERIFIED. SAFETY PRECAUTIONS IMPLEMENTED, BED IN LOCKED, LOW POSITION WITH TWO SIDE RAILS UP. SCHEDULED FOR HD THIS AM. WILL CONTINUE TO MONITOR.
--- NOTE | 2017-02-05 07:44 | NUR ---
PT. RECEIVED ON VENT SUPPORT VIA TRACH WITH PARAMETERS SET ORDERED. VENT ALARMS ON AND FUNCTIONING. B/S BILATERAL COURSE RADHA WOODRUFF MOD. AMNT PALE YELLOW SEMI THICK SECRETIONS. VENTILATOR PLUGGED INTO RED OUTLET, SHON @ HOB. Addendum: 02/05/17 at 1723 by AIMEE RG RT Amended: Links added.
[2017-02-05 08:00] VITALS: BP_SYST 90; BP_SYST 96; BP_DIAS 56
[2017-02-05] MEDS: BENAZEPRIL HCL 10 MG TABLET GT SCH (09:00)
[2017-02-05] MEDS: MUPIROCIN OINT 2% 22 GM TUBE SCH ×4 (09:00→21:38)
[2017-02-05] MEDS: LEVETIRACETAM SOL (5 ML) 100 MG/ML UDC GT SCH ×2 (09:44→21:35)
[2017-02-05] MEDS: ASPIRIN 325 MG TABLET GT SCH (09:44)
[2017-02-05] MEDS: SEVELAMER CARBONATE 0.8 GM POWD.PACK GT SCH ×3 (09:44→17:55)
[2017-02-05] MEDS: DOCUSATE SODIUM LIQ 100 MG/10 ML UDC GT SCH ×2 (09:44→21:35)
[2017-02-05] MEDS: FERROUS SULFATE (325 MG) 325 MG/TAB TABLET GT SCH ×3 (09:45→17:54)
[2017-02-05] MEDS: ZINC SULFATE 220 MG CAPSULE GT SCH (09:45)
[2017-02-05] MEDS: TRAMADOL HCL 50 MG TABLET GT SCH (09:46)
[2017-02-05] MEDS: CARVEDILOL 6.25 MG TABLET GT SCH ×2 (09:46→21:00)
[2017-02-05] MEDS: FOLIC ACID 1 MG TABLET GT SCH (09:46)
[2017-02-05] MEDS: Z GUARD REMEDY 2 OZ OINT TP SCH ×2 (09:47→21:39)
[2017-02-05 12:00] VITALS: BP 103/65
[2017-02-05] MEDS ORDERED: RENAL NOVASOURCE 1,000 ML BOTTLE GT PRN (13:30)
[2017-02-05] MEDS: RENAL NOVASOURCE 1,000 ML BOTTLE GT PRN (13:32)
[2017-02-05 16:00] VITALS: BP 71/45
--- NOTE | 2017-02-05 17:23 | NUR ---
NO VENT CHANGES MADE. Addendum: 02/05/17 at 1723 by AIMEE RG RT Amended: Links added.
--- NOTE | 2017-02-05 19:15 | NUR ---
TELE/RN OPENING NOTES PT RECEIVED, NON-VERBAL. OPENS EYES. HOB ELEVATED. ON VENT WITH NO S/S OF DISTRESS. ON TELE MONITOR SHOWING SINUS RHYTHM WITH HR AT 91. NOVASOURCE RUNNING AT 55ML/HR. IV TO RIGHT HAND PATENT AND INTACT. BED IN LOW/LOCKED POSITION WITH CALL LIGHT IN REACH. SIDE RAILS UPX2. WILL CONTINUE TO MONITOR
[2017-02-05 20:00] VITALS: BP 89/52
[2017-02-05] MEDS: ATORVASTATIN 10 MG TABLET GT SCH (21:34)
[2017-02-05] MEDS: INSULIN DETEMIR 100 UNIT/ML CARTRIDGE SQ SCH (21:36)
[2017-02-06] VITALS: BP 89/53
[2017-02-06] MEDS: INSULIN REGULAR, HUMAN 100 UNIT/ML 3 ML VIAL SQ PRN ×4 (00:01→17:09)
[2017-02-06] MEDS: IPRATROPIUM NEB FS 0.5 MG/2.5 ML AMPUL.NEB NEB SCH ×4 (01:30→19:42)
[2017-02-06 04:00] VITALS: BP 92/65
[2017-02-06] MEDS: hydrALAZINE HCL 25 MG TABLET GT SCH ×3 (05:00→21:00)
[2017-02-06] MEDS: BLOOD SUGAR DIAGNOSTIC 1 EACH STRIP IN SCH ×3 (06:20→17:10)
--- NOTE | 2017-02-06 06:49 | NUR ---
TELE/RN CLOSING NOTES PT IN BED, OPENS EYES. A/OX1, NON VERBAL/OBTUNDED. ON MECHANICAL VENTILATOR, NO S/S OF DISTRESS. SUCTIONED PRN. ON TELE MONITOR SHOWING SINUS RHYTHM WITH HR 96. ON NOVASOURCE RUNNING 55ML/HR. NO RESIDUAL NOTED. IV TO RIGHT HAND PATENT AND INTACT. BLOOD SUGAR THIS MORNING WAS 295, ADMINISTERED 9 UNITS OF INSULIN PER SLIDING SCALE. TURNED/REPOSITIONED Q2H. HEELS OFFLOADED. BED IN LOW/LOCKED POSITION WITH CALL LIGHT IN REACH. SIDE RAILS UPX2. WILL ENDORSE TO DAY SHIFT RN HARLAN.
--- NOTE | 2017-02-06 07:00 | NUR ---
RN NOTE RECEIVED PT ON BED, NON-VERBAL, VENT TRACH DEPENDENT, TRACH: PORTEX #7. TOLERATING CURRENT VENT SETTINGS WELL. NO DISTRESS NOTED, TRACH CARE DONE, ON TELE SR HR IN 90'S , SKIN IS WARM AND DRY TO TOUCH. R HAND IV SITE G 22 CDI, NOVASOURCE RENAL AT 55CC/HR RUNNING VIA G TUBE, NO RESIDUAL NOTED, PLACEMENT VERIFIED. SR UP x3, CALL LIGHT WITHIN EASY REACH, SAFETY PRECAUTIONS IMPLEMENTED, BED LOCKED AND IN LOWEST POSITION , WILL CONTINUE TO MONITOR.
[2017-02-06 08:00] VITALS: BP 93/48
[2017-02-06] MEDS: MUPIROCIN OINT 2% 22 GM TUBE SCH ×4 (08:00→22:06)
[2017-02-06] MEDS: Z GUARD REMEDY 2 OZ OINT TP SCH ×2 (08:00→22:05)
[2017-02-06] MEDS: SEVELAMER CARBONATE 0.8 GM POWD.PACK GT SCH ×3 (08:01→17:10)
[2017-02-06] MEDS: DOCUSATE SODIUM LIQ 100 MG/10 ML UDC GT SCH ×2 (08:01→22:00)
[2017-02-06] MEDS: FOLIC ACID 1 MG TABLET GT SCH (08:02)
[2017-02-06] MEDS: LEVETIRACETAM SOL (5 ML) 100 MG/ML UDC GT SCH ×2 (08:02→22:00)
[2017-02-06] MEDS: ZINC SULFATE 220 MG CAPSULE GT SCH (08:02)
[2017-02-06] MEDS: TRAMADOL HCL 50 MG TABLET GT SCH (08:02)
[2017-02-06] MEDS: FERROUS SULFATE (325 MG) 325 MG/TAB TABLET GT SCH ×3 (08:02→17:10)
[2017-02-06] MEDS: ASPIRIN 325 MG TABLET GT SCH (08:04)
[2017-02-06] MEDS: CARVEDILOL 6.25 MG TABLET GT SCH ×2 (08:06→21:00)
[2017-02-06] MEDS: BENAZEPRIL HCL 10 MG TABLET GT SCH (08:06)
[2017-02-06] MEDS: RENAL NOVASOURCE 1,000 ML BOTTLE GT PRN (08:11)
--- NOTE | 2017-02-06 08:17 | NUR ---
WOUND CARE CONSULT: PT PRESENTS WITH STAGE 3 ULCER TO SACRUM EXTENDING TO BILATERAL BUTTOCKS WITH MULTIPLE OPEN AREAS, PRESENT ON ADMISSION. ENTIRE AREA WAS MEASURED. RECOMMENDATIONS MADE FOR WOUND CARE AND SKIN PROTECTION. DISCUSSED WITH NURSING STAFF. FIRST STEP MATTRESS ORDERED. PT IS VENT-DEPENDENT. CURRENT [place] SCORE IS 11. MULTIPLE SCARS NOTED TO FEET AND ANKLES. RECOMMEND SURGICAL CONSULT. WILL SEE PRN. DONG IN AGREEMENT WITH PLAN OF CARE. Addendum: 02/06/17 at 0820 by RYAN MCKNIGHT WNDNU Amended: Links added.
[2017-02-06] MEDS ORDERED: HYDROGEL DRESSING 90 GM TUBE TP PRN (08:30)
[2017-02-06 09:36] LABS: CALCIUM, SERUM 11.2 mg/dL (8.5-10.1)
[2017-02-06] MEDS: HYDROGEL DRESSING 90 GM TUBE TP SCH (09:49)
[2017-02-06 09:51] LABS: BASOPHILS # (AUTO) 0.1 /CMM (0.0-0.2); BASOPHILS % (AUTO) 0.5 % (0.0-2.0); EOSINOPHILS # (AUTO) 0.3 /CMM (0.0-0.7); EOSINOPHILS % (AUTO) 2.1 % (0.0-6.0); HEMATOCRIT 26 % (33-45); HEMOGLOBIN 8.9 g/dL (11.5-14.8); LYMPHOCYTES # (AUTO) 3.1 /CMM (0.8-4.8); LYMPHOCYTES % (AUTO) 19.6 % (20.0-44.0); MEAN CORPUSCULAR HEMOGLOBIN 33 PG (26.0-33.0); MEAN CORPUSCULAR HGB CONC 35 g/dl (31.0-36.0); MEAN CORPUSCULAR VOLUME 94 fL (82-100); MONOCYTES # (AUTO) 1.2 /CMM (0.1-1.30); MONOCYTES % (AUTO) 7.7 % (2.0-12.0); NEUTROPHILS # (AUTO) 11.2 /CMM (1.8-8.9); NEUTROPHILS % (AUTO) 70.1 % (43.0-81.0); PLATELET COUNT (AUTO) 304 /CMM (150-450); RDW COEFFICIENT OF VARIATION 18.2 (11.5-15.0); RED BLOOD CELL COUNT(AUTO) 2.71 MIL/uL (4.0-5.2); WHITE BLOOD COUNT (AUTO) 15.9 K/uL (4.3-11.0)
[2017-02-06 09:53] LABS: CREATININE 8.7 mg/dL (0.6-1.3)
[2017-02-06 12:00] VITALS: BP 111/54
[2017-02-06] MEDS: ALBUMIN 25% 25 GM in PREMIX 1 EA IV PRN (12:41)
--- NOTE | 2017-02-06 13:06 | NUR ---
RN NOTES PT RECEIVING HD AT THIS TIME , 1300 MEDS HELD .
[2017-02-06] MEDS ORDERED: ALTEPLASE CATHFLO 2 MG/VIAL XX ONE (13:30)
--- NOTE | 2017-02-06 13:30 | NUR ---
RN NOTES PT IS UNABLE TO GET HD AT THIS TIME DUE TO HD ACCESS MALFUNCTION PER HD NURSE.
[2017-02-06 16:00] VITALS: BP 108/68
--- NOTE | 2017-02-06 17:35 | NUR ---
RECEIVED PT ON AC MODE, ALARMS ON AND AUDIBLE, AMBUBAG AT BEDSIDE, VENT PLUGGED INTO RED OUTLET, PT CURRENTLY ON TRACH, TXS GIVEN ORDERED NO ADVERSE REACTION NOTED, PT STABLE, WITH STABLE VITAL SIGNS. Addendum: 02/06/17 at 1739 by TRENT HE RT Amended: Links added.
--- NOTE | 2017-02-06 18:21 | NUR ---
RN NOTES TRACH SUCTIONING DONE , TOLERATING TF WELL, NO RESIDUAL NOTED, ON TELE SR ,HR IN 80'S .SR UP x3, CALL LIGHT WITHIN EASY REACH , NO SIGNIFICANT CHANGES NOTED ON THIS SHIFT , WILL ENDORSE TO DIRECTOR TARGETED MARKETING NURSE FOR HARLAN
[2017-02-06 20:00] VITALS: BP 84/52
--- NOTE | 2017-02-06 20:00 | NUR ---
INITIAL RN NOTES RECEIVED PT IN BED, DIALYSIS IN PROCESS. NO RESIDUAL NOTED, PT ON VENT TOLERATING WELL, SR UP x3, R HAND #22 S/L, CALL LIGHT WITHIN EASY REACH, BED IN THE LOWEST LOCKED POSITION. WILL CONTINUE TO MONITOR.
[2017-02-06] MEDS: ATORVASTATIN 10 MG TABLET GT SCH (22:02)
[2017-02-06] MEDS: INSULIN DETEMIR 100 UNIT/ML CARTRIDGE SQ SCH (22:18)
--- NOTE | 2017-02-06 23:20 | NUR ---
RT NOTE: TRACH PT RECEIVED ON MECH VENT WITH NOTED SETTING. TRACH SECURED. SOFT WATER MECHANIC DONE. VENT PLUGGED INTO RED OUTLET. ALARMS SET AND AUDIBLE. AMBU BAG AT HOB. NO SOB OR RESP DISTRESS NOTED. PRN SX GIVEN NEEDED. Q6 HHN TX GIVEN ORDERED WITH NO ADVERSE REACTIONS. WILL CONT TO MONITOR PT.
[2017-02-07] VITALS: BP 95/58
[2017-02-07] MEDS: INSULIN REGULAR, HUMAN 100 UNIT/ML 3 ML VIAL SQ PRN ×4 (00:57→20:07)
[2017-02-07] MEDS: IPRATROPIUM NEB FS 0.5 MG/2.5 ML AMPUL.NEB NEB SCH ×4 (00:59→19:53)
[2017-02-07] MEDS: BLOOD SUGAR DIAGNOSTIC 1 EACH STRIP IN SCH ×5 (00:59→22:50)
[2017-02-07 04:00] VITALS: BP_SYST 105; BP_SYST 84; BP_DIAS 52; BP_DIAS 60
[2017-02-07] MEDS: hydrALAZINE HCL 25 MG TABLET GT SCH ×3 (05:00→22:30)
[2017-02-07] MEDS ORDERED: ALBUMIN 25% 100 ML IV ONE (06:32)
[2017-02-07] MEDS: ALBUMIN 25% 25 GM in PREMIX 1 EA IV PRN ×2 (06:34→06:35)
--- NOTE | 2017-02-07 07:00 | NUR ---
RN INITIAL NOTES RN RECEIVED PATIENT IN BED WITH NO DISTRESS NOTED PT APPEARS OBTUNDED AND NON VERBAL. VENT TRACH DEPENDENT TOLERATING VENT SETTINGS WELL BREATHING EVEN AND UNLABORED. HOB ELEVATED. G-TUBE IN PLACE, FEEDING WELL TOLERATED. NO S/S OF ANTONY OR DISCOMFORT NOTED AT THIS TIME. RN WILL CONTINUE TO MONITOR. THROUGHOUT THE DAY
[2017-02-07 07:27] LABS: BASOPHILS % (AUTO) 0.2 % (0.0-2.0); EOSINOPHILS # (AUTO) 0.2 /CMM (0.0-0.7); EOSINOPHILS % (AUTO) 1.2 % (0.0-6.0); HEMATOCRIT 22 % (33-45); HEMOGLOBIN 7.7 g/dL (11.5-14.8); LYMPHOCYTES # (AUTO) 2.3 /CMM (0.8-4.8); LYMPHOCYTES % (AUTO) 15.7 % (20.0-44.0); MEAN CORPUSCULAR HEMOGLOBIN 33 PG (26.0-33.0); MEAN CORPUSCULAR HGB CONC 35 g/dl (31.0-36.0); MEAN CORPUSCULAR VOLUME 95 fL (82-100); MONOCYTES # (AUTO) 1.1 /CMM (0.1-1.30); MONOCYTES % (AUTO) 7.6 % (2.0-12.0); NEUTROPHILS % (AUTO) 75.3 % (43.0-81.0); PLATELET COUNT (AUTO) 281 /CMM (150-450); RDW COEFFICIENT OF VARIATION 18.8 (11.5-15.0); RED BLOOD CELL COUNT(AUTO) 2.34 MIL/uL (4.0-5.2); WHITE BLOOD COUNT (AUTO) 14.7 K/uL (4.3-11.0)
[2017-02-07 07:50] LABS: ALBUMIN 2.6 g/dL (3.4-5.0); BILIRUBIN,TOTAL 0.2 mg/dL (0.2-1.0); CALCIUM, SERUM 6.2 mg/dL (8.5-10.1); CREATININE 4.8 mg/dL (0.6-1.3); MAGNESIUM 2.8 mg/dL (1.8-2.4); PHOSPHORUS 1.2 mg/dL (2.5-4.9); POTASSIUM 2.9 mmol/L (3.5-5.1); TOTAL PROTEIN, SERUM 5.7 g/dL (6.4-8.2)
[2017-02-07 08:00] VITALS: BP 94/56
[2017-02-07] MEDS: FERROUS SULFATE (325 MG) 325 MG/TAB TABLET GT SCH ×3 (08:45→18:58)
[2017-02-07] MEDS: FOLIC ACID 1 MG TABLET GT SCH (08:45)
[2017-02-07] MEDS: LEVETIRACETAM SOL (5 ML) 100 MG/ML UDC GT SCH ×2 (08:45→22:22)
[2017-02-07] MEDS: TRAMADOL HCL 50 MG TABLET GT SCH (08:45)
[2017-02-07] MEDS: ASPIRIN 325 MG TABLET GT SCH (08:45)
[2017-02-07] MEDS: ZINC SULFATE 220 MG CAPSULE GT SCH (08:45)
[2017-02-07] MEDS: DOCUSATE SODIUM LIQ 100 MG/10 ML UDC GT SCH ×2 (08:45→22:22)
[2017-02-07] MEDS: SEVELAMER CARBONATE 0.8 GM POWD.PACK GT SCH ×3 (08:45→18:58)
[2017-02-07] MEDS: CARVEDILOL 6.25 MG TABLET GT SCH ×2 (08:48→22:30)
[2017-02-07] MEDS: BENAZEPRIL HCL 10 MG TABLET GT SCH (08:48)
[2017-02-07] MEDS: HYDROGEL DRESSING 90 GM TUBE TP SCH (08:49)
[2017-02-07] MEDS: MUPIROCIN OINT 2% 22 GM TUBE SCH ×3 (08:49→21:00)
[2017-02-07] MEDS: Z GUARD REMEDY 2 OZ OINT TP SCH ×2 (08:49→22:23)
[2017-02-07 12:00] VITALS: BP 102/60
[2017-02-07] MEDS ORDERED: HEPARIN SODIUM,PORCINE 1000 UNIT/1ML MDV VIAL IV ONE (12:13)
[2017-02-07] MEDS ORDERED: HEPARIN SODIUM, PORCINE 1,000 UNIT/ML VIAL IV ONE (12:25)
[2017-02-07] MEDS ORDERED: EPOETIN ALFA (10,000 UNIT) 10,000 UNIT/ML VIAL IV SCH (13:32)
[2017-02-07] MEDS ORDERED: NEUTRA PHOS 1 POWD.PACKET NG ONE (15:30)
--- NOTE | 2017-02-07 15:46 | NUR ---
RN NOTE RN CONTACTED PHARMACY IN REGARDS TO PATIENT EPOGIN , SALEEM FROM PHARMACY WILL CONTACT ME SOON THE MEDICATION IS AVAILABLE
[2017-02-07 16:00] VITALS: BP 101/56
--- NOTE | 2017-02-07 17:22 | NUR ---
RECEIVED PT ON AC MODE ON LTV VENT, ALARMS ON AND AUDIBLE, TRACH PATENT AND SECURED, AMBUBAG AT BEDSIDE, VENT PLUGGED INTO RED OUTLET, TXS GIVEN ORDERED NO ADVERSE REACTION NOTED, PT STABLE WILL CONTINUE TO MONITOR CLOSELY, Addendum: 02/07/17 at 1725 by TRENT HE RT Amended: Links added.
[2017-02-07] MEDS: EPOETIN ALFA (10,000 UNIT) 10,000 UNIT/ML VIAL IV SCH (18:58)
--- NOTE | 2017-02-07 19:30 | NUR ---
Received patient in the bed.No unusual signs or symptoms observed or reported,no signs of discomfort or distress.Patient is contact isolation-being observed.Vent attached,tolerating well.
--- NOTE | 2017-02-07 19:56 | NUR ---
RN NOTE RN NOTIFIED PM RN OF PATIENT LATEST CBG LEVEL HOWEVER RN UNABLE TO ADMINISTER PM INSULIN COVERAGE DUE TO LOGIN ERROR PROMPT , RN ENDORSED CARE TO PM RN TO ADMINISTER INSULIN BASED OFF PATIENT CBG LEVEL PATIENT IN BED RESTING CURRENTLY
[2017-02-07 20:00] VITALS: BP 94/54
[2017-02-07] MEDS: INSULIN DETEMIR 100 UNIT/ML CARTRIDGE SQ SCH (22:00)
[2017-02-07] MEDS: ATORVASTATIN 10 MG TABLET GT SCH (22:22)
--- NOTE | 2017-02-07 23:00 | NUR ---
No problems,Ordered NPO after NOC.Place a call to patient's home to get consent for Permacath placement,but patient spoke Mohawk so will call when the day shift charge comes in who I was told speaks Mohawk.
[2017-02-08] VITALS: BP 90/52
[2017-02-08] MEDS: INSULIN DETEMIR 100 UNIT/ML CARTRIDGE SQ SCH (01:12)
[2017-02-08] MEDS: IPRATROPIUM NEB FS 0.5 MG/2.5 ML AMPUL.NEB NEB SCH ×4 (01:32→19:30)
--- NOTE | 2017-02-08 03:15 | NUR ---
no problems,no unusual signs or symptoms observed or reported
[2017-02-08 04:00] VITALS: BP_SYST 108; BP_SYST 117; BP_DIAS 56; BP_DIAS 60
[2017-02-08] MEDS: hydrALAZINE HCL 25 MG TABLET GT SCH ×3 (04:52→21:00)
[2017-02-08] MEDS: BLOOD SUGAR DIAGNOSTIC 1 EACH STRIP IN SCH ×3 (05:42→17:09)
--- NOTE | 2017-02-08 05:57 | NUR ---
will endorse to nurse not to give BP meds,possible HD today
[2017-02-08] MEDS ORDERED: ANESTHESIA TRAY IN PYXIS 1 EA TRAY MC ONE (06:17)
--- NOTE | 2017-02-08 06:51 | NUR ---
BS is 224;patient is NPO,spoke to both charge nurse who said to endorse to the next nurse
--- NOTE | 2017-02-08 07:43 | NUR ---
MS RN: INITIAL NOTE RECEIVED OT IN VEGETATIVE STATE. ON MECHANICAL VENTILATION. BEDREST. ON TELE MONITORING. SR. NPO DUE TO SCHEDULED PROCEDURE FOR PERMCATH REPLACEMENT. R FA #22 SL. NO IV FLUIDS RUNNING. NO DISTRESS NOTED. NO SOB NOTED. NO PAIN NOTED. RESTING COMFORTABLY IN BED. CALL LIGHT WITHIN REACH.
[2017-02-08 08:00] VITALS: BP 115/54
[2017-02-08] MEDS ORDERED: LIDOCAINE 1% INJ 50 ML MDV IJ ONE (08:22)
--- NOTE | 2017-02-08 08:30 | NUR ---
PT TAKENM TO OR FOR SCHEDULED PERMA CATH CHANGE. STABLE.
[2017-02-08] MEDS ORDERED: FENTANYL PF 100MCG/2ML AMPUL ONE (08:32)
[2017-02-08] MEDS: CARVEDILOL 6.25 MG TABLET GT SCH ×2 (09:00→21:00)
[2017-02-08] MEDS: BENAZEPRIL HCL 10 MG TABLET GT SCH (09:00)
--- NOTE | 2017-02-08 09:50 | NUR ---
PT RETURNED STATUS POST PER MA CATH REPLACEMENT ON L CHEST WALL. SITE CLEAR. DRESSING INTACT. BP 111/54, PULSE 84. NO DISTRESS NOTED. ON MECHANICAL VENTILATION. CONTINUED ALL ORDERS PER MD. RESUME FEEDING, RESUME MEDS, CHEST X-RAY. ALL ORDERS CARRIED OUT.
[2017-02-08] MEDS: FERROUS SULFATE (325 MG) 325 MG/TAB TABLET GT SCH ×3 (10:01→17:08)
[2017-02-08] MEDS: ASPIRIN 325 MG TABLET GT SCH (10:01)
[2017-02-08] MEDS: DOCUSATE SODIUM LIQ 100 MG/10 ML UDC GT SCH ×2 (10:01→22:36)
[2017-02-08] MEDS: RENAL NOVASOURCE 1,000 ML BOTTLE GT PRN (10:01)
[2017-02-08] MEDS: TRAMADOL HCL 50 MG TABLET GT SCH (10:01)
[2017-02-08] MEDS: ZINC SULFATE 220 MG CAPSULE GT SCH (10:02)
[2017-02-08] MEDS: LEVETIRACETAM SOL (5 ML) 100 MG/ML UDC GT SCH ×2 (10:02→22:36)
[2017-02-08] MEDS: SEVELAMER CARBONATE 0.8 GM POWD.PACK GT SCH ×3 (10:02→17:08)
[2017-02-08] MEDS: FOLIC ACID 1 MG TABLET GT SCH (10:02)
[2017-02-08] MEDS: HYDROGEL DRESSING 90 GM TUBE TP SCH (10:03)
[2017-02-08] MEDS: MUPIROCIN OINT 2% 22 GM TUBE SCH ×2 (10:04→22:38)
[2017-02-08] MEDS: Z GUARD REMEDY 2 OZ OINT TP SCH ×2 (10:07→22:38)
--- NOTE | 2017-02-08 10:12 | NUR ---
BLOOD PRESSURE MEDS HELD DUE TO LOW BP. POSSIBLE DIALYSIS TODAY.
[2017-02-08] MEDS: INSULIN REGULAR, HUMAN 100 UNIT/ML 3 ML VIAL SQ PRN ×2 (11:30→17:14)
[2017-02-08 12:00] VITALS: BP_SYST 127; BP_SYST 79; BP_DIAS 44; BP_DIAS 72
--- NOTE | 2017-02-08 12:50 | NUR ---
HELD HYDRALAZINE DUE TO SCHEDULED DIALYSIS. BP 127/72 PULSE 84.
--- NOTE | 2017-02-08 15:39 | NUR ---
DIALYSIS COMPLETE. NO OUTPUT TAKEN OUT, DUE TO PT HYPOTENSION. BP 102/56, PULSE 70. RESTING COMFORTABLY IN BED.
[2017-02-08 16:00] VITALS: BP 108/63
--- NOTE | 2017-02-08 16:09 | NUR ---
RT RECEIVED PT ON LTV, AMBUBAG AT BEDSIDE, PLUGGED INTO RED OUTLET, TRACH PATENT AND SECURED, TXS GIVEN ORDERED NO ADVERSE REACTION NOTED, PT STABLE, WILL CONTINUE TO MONITOR CLOSELY Addendum: 02/08/17 at 1612 by TRENT HE RT Amended: Links added.
--- NOTE | 2017-02-08 18:41 | NUR ---
LOADING UNIT TOOL SETTER: CLOSING NOTE ADMINISTERED ALL MEDICATIONS ON TIME. NO ADVERSE REACTIONS NOTED. NO DISTRESS NOTED. HELD BLOOD PRESSURE MEDICATIONS DUE TO DIALYSIS. DIALYSIS DONE. NO OUTPUT REMOVED DUE TO LOW BP. PT STABLE. ON MECHANICAL VENTILATION. PORTEX 7, AC 14, TV 500, FIO2 35%, PEEP 5. BREATHING TREATMENTS DONE ORDERED. BED REST. WOUND CARE DONE. ON G-TUBE FEEDING OF NOVASOURCE 55ML/HR. SITE CLEAR AND PATENT. NO RESIDUAL NOTED. HEAD OF BED ELEVATED. PT NON-VERBAL. VEGETATIVE STATE. R GROIN HD CATH STATUS POST PERMA CATH PLACEMENT ON ANDRÉS CHEST. SITE CLEAR. DRESSING INTACT. L HAND #22 SL. SITE CLEAR AND PATENT. RESTING COMFORTABLY IN BED.
--- NOTE | 2017-02-08 19:30 | NUR ---
Received patient in the bed.Male family member at bedside.No unusual signs or symptoms observed or reported,no signs of discomfort or distress.
--- NOTE | 2017-02-08 20:02 | NUR ---
RT NOTES: DRUG NOT AVAILABLE. DENTAL HYGIENE TEACHER AWARE. NO DISTRESS NOTED. WILL CONT. TO MONITOR PT. Addendum: 02/08/17 at 2004 by GUSTAVO SORENSON RT Amended: Links added.
[2017-02-08] MEDS: ATORVASTATIN 10 MG TABLET GT SCH (22:36)
--- NOTE | 2017-02-08 23:00 | NUR ---
Assisted with patient care and positioning her,no problems
[2017-02-09] MEDS: IPRATROPIUM NEB FS 0.5 MG/2.5 ML AMPUL.NEB NEB SCH ×3 (00:49→13:07)
[2017-02-09] MEDS: INSULIN REGULAR, HUMAN 100 UNIT/ML 3 ML VIAL SQ PRN ×4 (01:11→18:43)
[2017-02-09] MEDS: BLOOD SUGAR DIAGNOSTIC 1 EACH STRIP IN SCH ×3 (01:17→12:01)
--- NOTE | 2017-02-09 03:00 | NUR ---
No unusual signs or symptoms observed or reported,no problems
[2017-02-09 04:00] VITALS: BP 94/51
[2017-02-09] MEDS: hydrALAZINE HCL 25 MG TABLET GT SCH ×2 (05:00→12:42)
--- NOTE | 2017-02-09 05:33 | NUR ---
END OF SHIFT. NO DISTRESS NOTED. VENT WELL FUNCTIONING WITH ALARMS ON AND AUDIBLE. AMBU BAG AT BEDSIDE. NO SOB/ DISTRESS NOTED ALL SHIFT. SX PRN MOD THICK YELLOW SECRETIONS. NO CHANGES NOTED IN PT STATUS. Addendum: 02/09/17 at 0534 by GUSTAVO SORENSON RT Amended: Links added.
--- NOTE | 2017-02-09 06:51 | NUR ---
resting quietly,no problems.Daughter is now at bedside,
[2017-02-09] MEDS: CARVEDILOL 6.25 MG TABLET GT SCH (09:00)
[2017-02-09] MEDS: BENAZEPRIL HCL 10 MG TABLET GT SCH (09:00)
[2017-02-09] MEDS: FERROUS SULFATE (325 MG) 325 MG/TAB TABLET GT SCH ×2 (09:28→13:28)
[2017-02-09] MEDS: DOCUSATE SODIUM LIQ 100 MG/10 ML UDC GT SCH (09:28)
[2017-02-09] MEDS: LEVETIRACETAM SOL (5 ML) 100 MG/ML UDC GT SCH (09:28)
[2017-02-09] MEDS: SEVELAMER CARBONATE 0.8 GM POWD.PACK GT SCH ×2 (09:28→13:28)
[2017-02-09] MEDS: TRAMADOL HCL 50 MG TABLET GT SCH (09:29)
[2017-02-09] MEDS: ASPIRIN 325 MG TABLET GT SCH (09:29)
[2017-02-09] MEDS: ZINC SULFATE 220 MG CAPSULE GT SCH (09:29)
[2017-02-09] MEDS: FOLIC ACID 1 MG TABLET GT SCH (09:34)
[2017-02-09] MEDS: HYDROGEL DRESSING 90 GM TUBE TP SCH ×2 (09:35→09:37)
[2017-02-09] MEDS: Z GUARD REMEDY 2 OZ OINT TP SCH (09:39)
[2017-02-09] MEDS: MUPIROCIN OINT 2% 22 GM TUBE SCH (09:40)
[2017-02-09 09:41] VITALS: BP 90/54
--- NOTE | 2017-02-09 12:13 | NUR ---
DR REESE NOTIFIED OF PT'S BLOOD SUGAR OF 486. REPEATED RESULT 441. WAITING FOR CALL BACK. MEANWHILE PT WILL BE GIVEN INSULIN ORDERED PER SCALE. WILL CONTINUE TO MONITOR.
[2017-02-09 12:22] VITALS: BP 81/43
[2017-02-09] MEDS ORDERED: IV NS 0.9% 1,000 ML BAG IV ONE (13:00)
--- NOTE | 2017-02-09 13:35 | NUR ---
NOTIFIED DR REESE OF PT'S LOW BLOOD PRESSURE READING 81/43 AND ORDERS GIVEN FOR NORMAL SALINE 1,000 ML BOLUS WIDE OPEN. ZOFRAN GIVEN FOR VOMITING EPISODE. GT FEEDING STOPPED AT THIS TIME. WILL CONTINUE TO MONITOR.
[2017-02-09] MEDS ORDERED: INSULIN DETEMIR 100 UNIT/ML CARTRIDGE SQ SCH (13:44)
[2017-02-09 13:46] VITALS: BP 92/43
[2017-02-09 15:48] LABS: HEMOGLOBIN 8.7 g/dL (11.5-14.8)
[2017-02-09 16:11] VITALS: BP 111/61
--- NOTE | 2017-02-09 17:43 | NUR ---
PATIENT TOLERATING MECHANICAL VENT ON CURRENT ORDERED SETTINGS. NO S/S OF RESPIRATORY DISTRESS. TRACH IS PATENT AND SECURE. VENT PLUGGED INTO RED OUTLET. ALARMS ARE SET AND FUNCTIONING. AMBU BAG AND BACKUP TRACH AT BEDSIDE. Addendum: 02/09/17 at 1748 by RONN RAMOS RT Amended: Links added.
[2017-02-09] MEDS: EPOETIN ALFA (10,000 UNIT) 10,000 UNIT/ML VIAL IV SCH (17:52)
--- NOTE | 2017-02-09 19:39 | NUR ---
PT BLOOD PRESSURE STABILIZED AND BLOOD SUGAR. DISCHARGED VIA AMBULANCE TO [facility]. HL REMOVED. PEG TUBE CLAMPED.
== END 2017-02-09 18:10 | DRG 182 ==
LOC: ER 10:51 → TELE1 13:41
PROVIDERS: ADMIT Internal Medicine Nephrology; ATTEND Internal Medicine Nephrology
PROC: 06HM33Z Insertion of Infusion Device into Right Femoral Vein, Percutaneous Approach (ICD-10-PCS; principal; 2017-02-02)
PROC: 5A1D70Z Performance of Urinary Filtration, Intermittent, Less than 6 Hours Per Day (ICD-10-PCS; principal; 2017-02-02)
PROC: B54BZZA Ultrasonography of Right Lower Extremity Veins, Guidance (ICD-10-PCS; principal; 2017-02-02)
PROC: 5A1945Z Respiratory Ventilation, 24-96 Consecutive Hours (ICD-10-PCS; principal; 2017-02-02)
PROC: 02HV33Z Insertion of Infusion Device into Superior Vena Cava, Percutaneous Approach (ICD-10-PCS; 2017-02-08)
PROC: 05PY33Z Removal of Infusion Device from Upper Vein, Percutaneous Approach (ICD-10-PCS; 2017-02-08)
PROC: B518YZA Fluoroscopy of Superior Vena Cava using Other Contrast, Guidance (ICD-10-PCS; 2017-02-08)
DX: T82.41XA Breakdown (mechanical) of vascular dialysis catheter, initial encounter (principal); Z99.11 Dependence on respirator [ventilator] status; J96.11 Chronic respiratory failure with hypoxia; Z93.0 Tracheostomy status; R13.10 Dysphagia, unspecified; N18.6 End stage renal disease; I12.0 Hypertensive chronic kidney disease with stage 5 chronic kidney disease or end stage renal disease; Z99.2 Dependence on renal dialysis; D64.9 Anemia, unspecified; E11.22 Type 2 diabetes mellitus with diabetic chronic kidney disease; Y84.8 Other medical procedures as the cause of abnormal reaction of the patient, or of later complication, without mention of misadventure at the time of the procedure; Y92.129 Unspecified place in nursing home as the place of occurrence of the external cause; F09 Unspecified mental disorder due to known physiological condition; Z79.4 Long term (current) use of insulin; Y71.2 Prosthetic and other implants, materials and accessory cardiovascular devices associated with adverse incidents; E11.65 Type 2 diabetes mellitus with hyperglycemia
CPT/HCPCS: 31720; 36415; 71010-TC; 71045; 80048-TC; 80053-TC; 82945-TC; 82962-TC; 83735-TC; 84100-TC; 85025-TC; 85027-TC; 85730-TC; 87040-TC; 87081-TC; 90935-TC; 94002-TC; 94003-TC; 94760-TC; 99082-TC; A4216; A4606; A6248; A6253; A6402; A6403; C1751; J0885; J1644; J1815; J1953; J2405; J2997; J3010; J3490; P9047; Z7610

== ENCOUNTER 2017-04-04 09:55 | Inpatient (IN) | payer OTHER ==
[~2017-04-04] VITALS: Ht 152.4 cm; Wt 62.1 kg
[~2017-04-04 09:55] MED LIST changes: +ACET650S26 GT; +ASPI-992 PO; +BENA20TA2 GT; +CARV6.252 GT; -ERGO500040 GT; +FERR325T28 GT; +OMEP40CA37 GT
--- NOTE | 2017-04-04 10:05 | NUR ---
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 PATIENT IS VENT/TRACH DEPENDANT. A/OX 1. NO SOB, NAD NOTED. VITALS STABLE. SAFETY AND COMFORT MEASURES IN PLACE. AWAITING MD ORDERS.
[2017-04-04 10:15] VITALS: BP 144/83
[2017-04-04 10:35] LABS: EOSINOPHILS % (AUTO) 7.2 % (0.0-6.0); HEMATOCRIT 29 % (33-45); HEMOGLOBIN 9.7 g/dL (11.5-14.8); LYMPHOCYTES # (AUTO) 2.2 /CMM (0.8-4.8); LYMPHOCYTES % (AUTO) 15.6 % (20.0-44.0); MEAN CORPUSCULAR HEMOGLOBIN 34 PG (26.0-33.0); MEAN CORPUSCULAR HGB CONC 34 g/dl (31.0-36.0); MEAN CORPUSCULAR VOLUME 100 fL (82-100); MONOCYTES # (AUTO) 0.8 /CMM (0.1-1.30); MONOCYTES % (AUTO) 5.4 % (2.0-12.0); NEUTROPHILS # (AUTO) 10.1 /CMM (1.8-8.9); NEUTROPHILS % (AUTO) 71.8 % (43.0-81.0); PLATELET COUNT (AUTO) 290 /CMM (150-450); RDW COEFFICIENT OF VARIATION 18.1 (11.5-15.0)
[2017-04-04 10:38] LABS: CALCIUM, SERUM 10.8 mg/dL (8.5-10.1); CREATININE 6.5 mg/dL (0.6-1.3); POTASSIUM 3.7 mmol/L (3.5-5.1)
--- NOTE | 2017-04-04 11:01 | NUR ---
DR JAY/ON-CALL PAGED
[2017-04-04 11:35] LABS: INR 0.97 (0.87-1.13)
--- NOTE | 2017-04-04 12:55 | NUR ---
NEW IV STARTED ON LEFT WRIST, 24G.
[2017-04-04] MEDS ORDERED: AMIN887L GT (12:57)
[2017-04-04] MEDS ORDERED: ACET160E36 GT (12:57)
[2017-04-04] MEDS ORDERED: FERR220S6 GT (12:57)
[2017-04-04 12:58] VITALS: BP 119/69
--- NOTE | 2017-04-04 13:10 | NUR ---
REPORT GIVEN TO RAY DILLON FOR HARLAN UPON ADMISSION.
--- NOTE | 2017-04-04 13:58 | NUR ---
HD NURSE AT BEDSIDE IN ATTEMPT TO FIX HD CATH WITH ALTEPLASE. ALTEPLASE USED BY HD NURSE, MARKED NON ADMINISTERED BY RN.
[2017-04-04] MEDS ORDERED: ALTEPLASE CATHFLO 2 MG/VIAL IV ONE (14:00)
--- NOTE | 2017-04-04 15:09 | NUR ---
PATIENT TRANSPORTED TO [facility] VIA ACLS PROTOCOL FOR ADMISSION. RNRAY TO PROVIDE HARLAN.
[2017-04-04 16:00] VITALS: BP 119/51
[2017-04-04] MEDS ORDERED: ACETAMINOPHEN 325 MG TABLET PO PRN (16:00)
[2017-04-04] MEDS ORDERED: MAGNESIUM HYDROXIDE 30 ML UDC PO PRN (16:00)
[2017-04-04] MEDS ORDERED: HYDROCODONE/APAP 5/325MG 1 EACH TABLET PO PRN (16:00)
[2017-04-04] MEDS ORDERED: Z GUARD REMEDY 2 OZ OINT TP PRN (16:00)
[2017-04-04] MEDS ORDERED: ONDANSETRON HCL/PF 4 MG/2 ML VIAL IVP PRN (16:00)
[2017-04-04] MEDS ORDERED: MAG HYDROX/AL HYDROX/SIMETH 30 ML UDC PO PRN (16:00)
[2017-04-04] MEDS ORDERED: IPRATROPIUM NEB FS 0.5 MG/2.5 ML AMPUL.NEB IH PRN (16:30)
[2017-04-04] MEDS ORDERED: hydrALAZINE HCL 25 MG TABLET GT PRN (16:30)
[2017-04-04] MEDS ORDERED: MIDODRINE HCL (5MG) 5 MG TABLET GT PRN (17:00)
[2017-04-04] MEDS ORDERED: DEXTROSE 50%-WATER 50 ML DISP.SYRIN IV PRN (17:00)
[2017-04-04] MEDS ORDERED: RENAL NOVASOURCE 1,000 ML BOTTLE GT PRN (17:00)
[2017-04-04] MEDS: PROSOURCE / PROSTAT (PYXIS) 30 ML UDC GT SCH ×2 (17:36→21:43)
[2017-04-04] MEDS: FERROUS SULFATE UDC 300 MG/5 ML UDC PO SCH (17:37)
[2017-04-04] MEDS: BLOOD SUGAR DIAGNOSTIC 1 EACH STRIP IN SCH (17:38)
[2017-04-04] MEDS: INSULIN REGULAR, HUMAN 100 UNIT/ML 3 ML VIAL SQ PRN (17:39)
[2017-04-04 18:00] VITALS: BP 119/51
[2017-04-04] MEDS ORDERED: BLOOD SUGAR DIAGNOSTIC 1 EACH STRIP MC SCH (18:00)
--- NOTE | 2017-04-04 18:09 | NUR ---
ADJUNCT PSYCHOLOGY FACULTY MEMBER NOTES RECEIVED PT FROM ER. V/S TABLE. WILL DO THOROUGH ASSESSMENT
--- NOTE | 2017-04-04 18:10 | NUR ---
MASK INSPECTOR NOTES NO ACUTE CHANGES NOTED DURING THE SHIFT. DUE MEDS GIVEN. PROVIDED COMFORT AND SAFETY. WILL ENDORSE TO THE PM NURSE FOR HARLAN.
--- NOTE | 2017-04-04 18:19 | NUR ---
RT NOTE PATIENT ADMITTED IN ER. PORTEX [address] PLACED INTO MECHANICAL VENTILATION. TRACH SECURED AND PATENT. ALARMS ON AND AUDIBLE. VENT PLUGGED INTO RED OUTLET. NO SOB NOTED. Addendum: 04/04/17 at 1827 by YAZAN HEART RT Amended: Links added.
[2017-04-04] MEDS: RENAL NOVASOURCE 1,000 ML BOTTLE GT PRN (18:35)
[2017-04-04] MEDS: IPRATROPIUM NEB FS 0.5 MG/2.5 ML AMPUL.NEB IH SCH (19:36)
[2017-04-04] MEDS: ALBUTEROL FS 2.5 MG/0.5 ML VIAL.NEB IH SCH (19:36)
--- NOTE | 2017-04-04 19:37 | NUR ---
PT RECEIVED TRACHED ON VENT WITH NOTED SETTINGS. VENT ALARMS ARE WORKING AND AUDIBLE , AMBU BAG AT BEDSIDE. TRACH IS SECURED AND PRINTED CIRCUIT BOARDS CONTACT PRINTER DONE. VENT IS PLUGGED INTO RED OUTLET. SUCTIONED MODERATE PALE YELLOW THICK SECRETIONS. NO RESPIRATORY DISTRESS NOTED AT THIS TIME, WILL CONTINUE TO MONITOR.
[2017-04-04 20:00] VITALS: BP 104/59
[2017-04-04] MEDS: DOCUSATE SODIUM LIQ 100 MG/10 ML UDC GT SCH (21:35)
[2017-04-04] MEDS: ACIDOPHILUS/BULGARICUS 1 EACH TAB.CHEW GT SCH (21:36)
[2017-04-04] MEDS: CARVEDILOL 6.25 MG TABLET PO SCH (21:37)
[2017-04-04] MEDS: SEVELAMER CARBONATE 0.8 GM POWD.PACK GT SCH (21:37)
[2017-04-04] MEDS: LEVETIRACETAM (250 MG) 250 MG TABLET PO SCH (21:38)
[2017-04-04] MEDS: ATORVASTATIN 10 MG TABLET GT SCH (21:38)
[2017-04-04] MEDS: INSULIN GLARGINE, 100 UNIT/ML CARTRIDGE SQ SCH (21:52)
--- NOTE | 2017-04-04 22:00 | NUR ---
PILOT FUEL ENGINEER - REC'D PT. OBTUNDED,TRACHED-VENTED & PEGGED. NONVERBAL, NO TRACKING NOTED. PT. DOES MOVE RUE ONLY, ESPECIALLY TO TACTILE STIMULUS. PORTEX #7-AC14,500 TV,30% & PEEP OF 5 PT. HAS RHONCHI TO ALL LOBES AUSC. DIAPERED,ANURIC. LEFT WRIST PIV HAS BOTH PORTS PATENT TO FLUSH. HL'D. HD CATH TO LEFT UPPER C/W. AFEBRILE. VSS. HEART MONITOR SHOWS NSR W/SBP'S IN THE TEENS. NOVASOURCE INFUSING AT 40CC/HR. 5CC RESIDUALS NOTED. ALL PULSES PALPABLE X 4 EXT./WEAK. PT'S BS AT #236. PT.COVERED W/LANTUS/SQ/55 UNITS NOTED.
[2017-04-05] VITALS: BP 104/59
[2017-04-05] MEDS: INSULIN REGULAR, HUMAN 100 UNIT/ML 3 ML VIAL SQ PRN ×5 (00:12→23:06)
[2017-04-05] MEDS: BLOOD SUGAR DIAGNOSTIC 1 EACH STRIP IN SCH ×5 (00:13→23:01)
[2017-04-05] MEDS: IPRATROPIUM NEB FS 0.5 MG/2.5 ML AMPUL.NEB IH SCH ×4 (01:30→19:48)
[2017-04-05] MEDS: ALBUTEROL FS 2.5 MG/0.5 ML VIAL.NEB IH SCH ×4 (01:30→19:47)
[2017-04-05 04:00] VITALS: BP 98/44
--- NOTE | 2017-04-05 06:55 | NUR ---
STAFFING ASSOCIATE - VERBAL REPORT GIVEN TO RAY Schofield PT.HAD COMPLETE BEDBATH W/ORAL,TRACH,VENT,JENNIFER PEG AND SKIN/WOUND CARE ADM. PT.IS DIAPERED-CHANGED X 2. 6AM BS = #155. PT. CONTINUES TO MOVE RUE. A PILLOW IS PLACED ON CHEST W/RUE RESTING SO PT.DOESN'T PULL ON TUBING. HD REMOVED A TOTAL OF 600CC OUT LAST NIGHT. CONT. POC.
[2017-04-05 07:13] LABS: EOSINOPHILS # (AUTO) 0.7 /CMM (0.0-0.7); EOSINOPHILS % (AUTO) 7.3 % (0.0-6.0); HEMATOCRIT 29 % (33-45); HEMOGLOBIN 9.9 g/dL (11.5-14.8); LYMPHOCYTES # (AUTO) 1.8 /CMM (0.8-4.8); LYMPHOCYTES % (AUTO) 20.2 % (20.0-44.0); MEAN CORPUSCULAR HEMOGLOBIN 34 PG (26.0-33.0); MEAN CORPUSCULAR HGB CONC 34 g/dl (31.0-36.0); MEAN CORPUSCULAR VOLUME 100 fL (82-100); MONOCYTES # (AUTO) 0.5 /CMM (0.1-1.30); MONOCYTES % (AUTO) 5.2 % (2.0-12.0); NEUTROPHILS # (AUTO) 6.1 /CMM (1.8-8.9); NEUTROPHILS % (AUTO) 67.3 % (43.0-81.0); PLATELET COUNT (AUTO) 250 /CMM (150-450); RDW COEFFICIENT OF VARIATION 18.3 (11.5-15.0); RED BLOOD CELL COUNT(AUTO) 2.91 MIL/uL (4.0-5.2); WHITE BLOOD COUNT (AUTO) 9.1 K/uL (4.3-11.0)
--- NOTE | 2017-04-05 07:29 | NUR ---
CUSTOMER SERVICE CASHIER NOTES RECEIVED PT ON BED SLEEPING. OBTUNDED.ON TELE MONITOR SR.IV ACESS ON LEFT WRIST NO SIGN OF PAIN OR INFECTION. ON [facility] VENT SETTING SATURATING WELL. HEAD OF BED ELEVATED. SIDE RAILS UP. CALL LIGHT WITHIN REACH. WILL CONTINUE TO MONITOR PT CLOSELY.
[2017-04-05 07:50] LABS: CREATININE 6.4 mg/dL (0.6-1.3); MAGNESIUM 3.4 mg/dL (1.8-2.4); PHOSPHORUS 2.7 mg/dL (2.5-4.9); POTASSIUM 3.8 mmol/L (3.5-5.1)
[2017-04-05 08:00] VITALS: BP 106/53
[2017-04-05] MEDS: CARVEDILOL 6.25 MG TABLET PO SCH ×2 (08:33→21:46)
[2017-04-05] MEDS: DOCUSATE SODIUM LIQ 100 MG/10 ML UDC GT SCH ×2 (08:34→21:38)
[2017-04-05] MEDS: VIT B CMPLX 3/FA/VIT C/BIOTIN 1 TAB TABLET GT SCH (08:34)
[2017-04-05] MEDS: ACIDOPHILUS/BULGARICUS 1 EACH TAB.CHEW GT SCH ×2 (08:34→21:38)
[2017-04-05] MEDS: FERROUS SULFATE UDC 300 MG/5 ML UDC PO SCH ×3 (08:34→17:10)
[2017-04-05] MEDS: ASPIRIN 325 MG TABLET PO SCH (08:34)
[2017-04-05] MEDS: SEVELAMER CARBONATE 0.8 GM POWD.PACK GT SCH ×3 (08:34→21:38)
[2017-04-05] MEDS: TRAMADOL HCL 50 MG TABLET GT SCH (08:35)
[2017-04-05] MEDS: LEVETIRACETAM (250 MG) 250 MG TABLET PO SCH ×2 (08:35→21:38)
[2017-04-05] MEDS: PROSOURCE / PROSTAT (PYXIS) 30 ML UDC GT SCH ×2 (08:35→21:46)
[2017-04-05] MEDS: BENAZEPRIL HCL 20 MG TABLET GT SCH (08:36)
[2017-04-05 12:00] VITALS: BP 97/44
--- NOTE | 2017-04-05 14:13 | NUR ---
BOWLING BALL MOLDER NOTES PATIENT MRSA POSITIVE NARES. REPORTED TO CHARGE NURSE.
[2017-04-05 16:00] VITALS: BP 119/52
--- NOTE | 2017-04-05 16:47 | NUR ---
PT RECEIVED TRACHED ON VENT WITH NOTED SETTINGS. VENT ALARMS ARE WORKING AND AUDIBLE , AMBU BAG AT BEDSIDE. TRACH IS SECURED AND [facility] DIRECTOR DONE. VENT IS PLUGGED INTO RED OUTLET. SUCTIONED MODERATE PALE YELLOW THICK SECRETIONS. NO RESPIRATORY DISTRESS NOTED AT THIS TIME, WILL CONTINUE TO MONITOR.
[2017-04-05] MEDS: RENAL NOVASOURCE 1,000 ML BOTTLE GT PRN (17:57)
--- NOTE | 2017-04-05 18:06 | NUR ---
TECHNICAL ASST NOTES NO ACUTE CHANGES NOTED DURING THE SHIFT. HEAD OF BED ELEVATED. SIDE RAILS UP. CALL LIGHT IS PLACED WITHIN REACH. WILL ENDORSE TO THE PM NURSE FOR HARLAN.
--- NOTE | 2017-04-05 18:07 | NUR ---
Patient is trach/vent dependent,resides at [facility] [phone]. She gets dialysis 3x/week at [facility] [phone]. Totally dependent with adl's. Spouse Boogie Helm [phone] speaks Syriac only. Current plan is to dc back to sub-acute facility once discharge. Addendum: 04/05/17 at 1808 by JESSICA RASMUSSEN RN Amended: Links added.
--- NOTE | 2017-04-05 19:30 | NUR ---
SLIP TENDER INITIAL NOTE PT RECEIVED IN BED. OPENS EYES WITHOUT ANY TRACKING. ON MECH VENT WITH SETTINGS WELL TOLERATED AND SATURATING WELL. TELE- SINUS RHYTHM 74. GTUBE FEEDING WELL TOLERATED WITH 5ML RESIDUAL NOTED. GTUBE CLEAN AND DRY. IV L WRIST CLEAN, PATENT AND FLUSHING WELL. HOB ELEVATED AND ON ASPIRATION PRECAUTIONS. ISOLATION PRECAUTIONS OBSERVED. WILL CONTINUE TO MONITOR.
[2017-04-05] MEDS: MUPIROCIN OINT 2% 22 GM TUBE SCH (21:38)
[2017-04-05] MEDS: ATORVASTATIN 10 MG TABLET GT SCH (21:38)
[2017-04-05] MEDS: INSULIN GLARGINE, 100 UNIT/ML CARTRIDGE SQ SCH (23:03)
[2017-04-06] MEDS: IPRATROPIUM NEB FS 0.5 MG/2.5 ML AMPUL.NEB IH SCH ×4 (02:02→19:24)
[2017-04-06] MEDS: ALBUTEROL FS 2.5 MG/0.5 ML VIAL.NEB IH SCH ×4 (02:02→19:24)
[2017-04-06] MEDS: BLOOD SUGAR DIAGNOSTIC 1 EACH STRIP IN SCH ×3 (05:23→17:23)
[2017-04-06] MEDS: INSULIN REGULAR, HUMAN 100 UNIT/ML 3 ML VIAL SQ PRN ×3 (05:27→17:30)
[2017-04-06 06:32] LABS: BASOPHILS # (AUTO) 0.1 /CMM (0.0-0.2); BASOPHILS % (AUTO) 0.6 % (0.0-2.0); EOSINOPHILS # (AUTO) 0.8 /CMM (0.0-0.7); EOSINOPHILS % (AUTO) 7.5 % (0.0-6.0); HEMATOCRIT 28 % (33-45); HEMOGLOBIN 9.8 g/dL (11.5-14.8); LYMPHOCYTES # (AUTO) 2.3 /CMM (0.8-4.8); MEAN CORPUSCULAR HEMOGLOBIN 35 PG (26.0-33.0); MEAN CORPUSCULAR HGB CONC 35 g/dl (31.0-36.0); MEAN CORPUSCULAR VOLUME 100 fL (82-100); MONOCYTES # (AUTO) 0.7 /CMM (0.1-1.30); MONOCYTES % (AUTO) 6.9 % (2.0-12.0); NEUTROPHILS # (AUTO) 6.2 /CMM (1.8-8.9); PLATELET COUNT (AUTO) 251 /CMM (150-450); RDW COEFFICIENT OF VARIATION 17.7 (11.5-15.0); RED BLOOD CELL COUNT(AUTO) 2.82 MIL/uL (4.0-5.2); WHITE BLOOD COUNT (AUTO) 10.1 K/uL (4.3-11.0)
[2017-04-06 06:45] LABS: CALCIUM, SERUM 10.1 mg/dL (8.5-10.1); MAGNESIUM 3.7 mg/dL (1.8-2.4); PHOSPHORUS 2.6 mg/dL (2.5-4.9); POTASSIUM 3.6 mmol/L (3.5-5.1)
[2017-04-06 06:47] LABS: CREATININE 8.4 mg/dL (0.6-1.3)
--- NOTE | 2017-04-06 07:00 | NUR ---
TRANSPORTATION ANALYST CLOSING NOTE PT REMAINED STABLE DURING SHIFT. NO ACUTE DISTRESS NOTED. HOB ELEVATED. VENT SETTINGS WELL TOLERATED. ISOLATION PRECAUTIONS OBSERVED. ALL NEEDS ATTENDED TO PROMPTLY. WILL ENDORSE TO NEXT SHIFT FOR CONTINUITY OF CARE.
--- NOTE | 2017-04-06 07:30 | NUR ---
INSTRUMENT AND CONTROL TECHNICIAN AM NOTES PT IN BED, OBTUNDED, PT PORTEX 7 TRACH TO MECHANICAL VENT, SETTING ORDERED, WELL TOLERATED, ,NO S/S OF DISTRESS NOTED , RESPIRATION EVEN AND UNLABORED, TELEMETRY READS SR HR 81, NO SIGNS OF PAIN, LEFT HAND IV ACCESS G 22 FLUSHES WELL, SITE CLEAR, OLD R ARM SHUNT THRILL PRESENT, HD CATH ON LCW CDI DRESSING, ON GTF NOVASOURCE AT 40 ML/HR, 0 RESIDUAL, ON DIAPER, ANURIC, SEE NURSING FLOWSHEET FOR SKIN ISSUES. ISOLATION PRECAUTION OBSERVED, WILL TURN AND REPOSITION Q 2HOURS, SAFETY MEASURES IN PLACE, CALL LIGHT WITHIN REACH , WILL CONTINUE TO MONITOR.
[2017-04-06 08:00] VITALS: BP 93/40
[2017-04-06] MEDS: VIT B CMPLX 3/FA/VIT C/BIOTIN 1 TAB TABLET GT SCH (08:50)
[2017-04-06] MEDS: SEVELAMER CARBONATE 0.8 GM POWD.PACK GT SCH ×3 (08:50→21:39)
[2017-04-06] MEDS: LEVETIRACETAM (250 MG) 250 MG TABLET PO SCH ×2 (08:50→21:26)
[2017-04-06] MEDS: TRAMADOL HCL 50 MG TABLET GT SCH (08:50)
[2017-04-06] MEDS: PROSOURCE / PROSTAT (PYXIS) 30 ML UDC GT SCH ×2 (08:50→21:38)
[2017-04-06] MEDS: FERROUS SULFATE UDC 300 MG/5 ML UDC PO SCH ×3 (08:51→17:16)
[2017-04-06] MEDS: ACIDOPHILUS/BULGARICUS 1 EACH TAB.CHEW GT SCH ×2 (08:51→21:26)
[2017-04-06] MEDS: DOCUSATE SODIUM LIQ 100 MG/10 ML UDC GT SCH ×2 (08:51→21:26)
[2017-04-06] MEDS: ASPIRIN 325 MG TABLET PO SCH (08:51)
[2017-04-06] MEDS: BENAZEPRIL HCL 20 MG TABLET GT SCH (08:52)
[2017-04-06] MEDS: MUPIROCIN OINT 2% 22 GM TUBE SCH ×2 (08:52→21:30)
[2017-04-06] MEDS: CARVEDILOL 6.25 MG TABLET PO SCH ×2 (08:52→21:38)
--- NOTE | 2017-04-06 09:30 | NUR ---
HIGHWAY PATROL COMMANDER NOTES DUE MEDS GIVEN
[2017-04-06 12:00] VITALS: BP 122/60
--- NOTE | 2017-04-06 12:39 | NUR ---
MAIL SORTER NOTES ACCUCHECK DONE. BS 315 MG/DL. ADMINISTERED 8 UNITS HUM R PER SS.
--- NOTE | 2017-04-06 13:00 | NUR ---
SUPERVISOR GLUING NOTES REPORT GIVEN TO YANIQUE FOR HARLAN.
[2017-04-06 20:00] VITALS: BP 111/67
--- NOTE | 2017-04-06 20:00 | NUR ---
RN INITIAL NOTES RECEIVED PT IN BED, OBTUNDED, PT PORTEX 7 TRACH TO MECHANICAL VENT, SETTING ORDERED, WELL TOLERATED, ,NO S/S OF DISTRESS NOTED , RESPIRATION EVEN AND UNLABORED, TELEMETRY READS SR HR 81, NO SIGNS OF PAIN, LEFT HAND IV ACCESS G 22 FLUSHES WELL, SITE CLEAR, OLD R ARM SHUNT THRILL PRESENT, HD CATH ON LCW CDI DRESSING, ON GTF NOVASOURCE AT 40 ML/HR, 0 RESIDUAL, ON DIAPER, PT RECEIVED HD TODAY 2200L OUT. ISOLATION PRECAUTION OBSERVED, WILL TURN AND REPOSITION Q 2HOURS, SAFETY MEASURES IN PLACE, CALL LIGHT WITHIN REACH , WILL CONTINUE TO MONITOR.
[2017-04-06] MEDS: ATORVASTATIN 10 MG TABLET GT SCH (21:26)
[2017-04-06] MEDS: INSULIN GLARGINE, 100 UNIT/ML CARTRIDGE SQ SCH (21:28)
[2017-04-06 21:38] VITALS: BP 111/67
--- NOTE | 2017-04-06 23:30 | NUR ---
SPANISHER NOTES PT WAS DISCHARGED TO [facility]. REPORT WAS GIVEN CHARO DILLON. PT LEFT IN STABLE CONDITION.
== END 2017-04-06 23:30 | DRG 466 ==
LOC: ER 09:56 → TELE1 14:48
PROVIDERS: ADMIT Internal Medicine; ATTEND Internal Medicine
PROC: 5A1D70Z Performance of Urinary Filtration, Intermittent, Less than 6 Hours Per Day (ICD-10-PCS; principal; 2017-04-04)
PROC: 5A1945Z Respiratory Ventilation, 24-96 Consecutive Hours (ICD-10-PCS; principal; 2017-04-04)
PROC: 5A1D70Z Performance of Urinary Filtration, Intermittent, Less than 6 Hours Per Day (ICD-10-PCS; 2017-04-06)
DX: T82.41XA Breakdown (mechanical) of vascular dialysis catheter, initial encounter (principal); N18.6 End stage renal disease; G93.40 Encephalopathy, unspecified; I13.2 Hypertensive heart and chronic kidney disease with heart failure and with stage 5 chronic kidney disease, or end stage renal disease; Z99.11 Dependence on respirator [ventilator] status; J96.11 Chronic respiratory failure with hypoxia; R53.2 Functional quadriplegia; L89.159 Pressure ulcer of sacral region, unspecified stage; E44.0 Moderate protein-calorie malnutrition; Z93.0 Tracheostomy status; R13.10 Dysphagia, unspecified; Z93.1 Gastrostomy status; Z99.2 Dependence on renal dialysis; Y71.2 Prosthetic and other implants, materials and accessory cardiovascular devices associated with adverse incidents; D63.8 Anemia in other chronic diseases classified elsewhere; D72.829 Elevated white blood cell count, unspecified; E03.9 Hypothyroidism, unspecified; E11.22 Type 2 diabetes mellitus with diabetic chronic kidney disease; E78.5 Hyperlipidemia, unspecified; I25.10 Atherosclerotic heart disease of native coronary artery without angina pectoris; Z68.26 Body mass index [BMI] 26.0-26.9, adult; L98.8 Other specified disorders of the skin and subcutaneous tissue; Y84.9 Medical procedure, unspecified as the cause of abnormal reaction of the patient, or of later complication, without mention of misadventure at the time of the procedure; Y92.129 Unspecified place in nursing home as the place of occurrence of the external cause; I50.9 Heart failure, unspecified; Z79.4 Long term (current) use of insulin
CPT/HCPCS: 31720; 36415; 71045-TC; 80048-TC; 80061-TC; 82962-TC; 83735-TC; 84100-TC; 85025-TC; 85730-TC; 87040-TC; 87081-TC; 90935-TC; 94002-TC; 94003-TC; 94760-TC; 99082-TC; A4606; J1815; J2997; Z7610

== ENCOUNTER 2017-04-09 10:21 | Inpatient (IN) | payer OTHER ==
[~2017-04-09] VITALS: Ht 162.6 cm; Wt 63.0 kg
[~2017-04-09 10:21] MED LIST changes: +ACET160E36 GT; -ACET650S26 GT; +AMIN887L GT; +FERR220S6 GT; -FERR325T28 GT; -ZINC220C6 GT
--- NOTE | 2017-04-09 10:37 | NUR ---
RT PATIENT REC'D IN ER VIA TRANSPORT TEAM. PATIENT TRACHED ON [facility] VENT WITH SETTINGS PROVIDED BY TRANSPORT TEAM. PATIENT APPEARS IN NO RESP DISTRESS. HERE FOR MALFUNCTIONING DIALYSIS CATHETER. VENT ALARMS CHECKED + AUDIBLE. TRACH SECURE + IN PROPER POSITION. AMBU BAG AT [facility]. B/S DIMINISHED. Addendum: 04/09/17 at 1039 by SIXTO GILMORE RT Amended: Links added.
--- NOTE | 2017-04-09 10:39 | NUR ---
Recieved pt to ed bed 06, pt was bb private ambulance from renal dialysis for non working dialysis catheter to RT upper arm. Dialysis was not performed today. Pt is a/ox0, non verbal. Pt is trached, vent dependent, GTube noted. placed oncont cardiac and pox monitoring. Will cont tomonitor
[2017-04-09 10:49] LABS: HEMATOCRIT 29 % (33-45); HEMOGLOBIN 10.2 g/dL (11.5-14.8); MEAN CORPUSCULAR HEMOGLOBIN 34 PG (26.0-33.0); MEAN CORPUSCULAR HGB CONC 35 g/dl (31.0-36.0); MEAN CORPUSCULAR VOLUME 98 fL (82-100); PLATELET COUNT (AUTO) 255 /CMM (150-450); RDW COEFFICIENT OF VARIATION 16.4 (11.5-15.0); RED BLOOD CELL COUNT(AUTO) 2.99 MIL/uL (4.0-5.2); WHITE BLOOD COUNT (AUTO) 11.2 K/uL (4.3-11.0)
[2017-04-09 11:02] LABS: CALCIUM, SERUM 10.8 mg/dL (8.5-10.1); POTASSIUM 4.1 mmol/L (3.5-5.1)
[2017-04-09 11:04] LABS: CREATININE 9.5 mg/dL (0.6-1.3)
[2017-04-09 11:12] LABS: INR 0.88 (0.85-1.15)
--- NOTE | 2017-04-09 11:53 | NUR ---
PORTEX 7 AC 14 TV 500 FIO2 40% PEEP 5
[2017-04-09 12:10] LABS: PARTIAL THROMBOPLASTIN TIME > 170 SEC (23-34)
--- NOTE | 2017-04-09 12:13 | NUR ---
GAVE REPORT TO VIKASH DILLON TELE DR REESE ADMITTING . DX ESRD MALFUNCTION DIALYSIS CATH ROOM 309-2
--- NOTE | 2017-04-09 14:16 | NUR ---
RCVD PT TRACHED ON VENT SETTINGS @ AC 14, 500, +5, 40%. VENT PLUGGED INTO RED OUTLET. VENT ALARM WORKING , ON, AND AUDIBLE. AMBU BAG AT [facility]. SUCTIONED PRN SMALL PALE YELLOW THIN SECRETIONS. BS INCREASED POST SUCTION. PT TRACH PATENT AND SECURE. WILL CONTINUE TO MONITOR PT. Addendum: 04/09/17 at 1419 by CRISTA NARAYAN RT Amended: Links added.
[2017-04-09 14:24] LABS: EOSINOPHILS % (MANUAL) 9 % (0-4); LYMPHOCYTES % (MANUAL) 20 % (16-48); MONOCYTES % (MANUAL) 2 % (0-11.0); NEUTROPHILS % (MANUAL) 69 (42-76)
--- NOTE | 2017-04-09 15:00 | NUR ---
APPRENTICESHIP REPRESENTATIVE OPENING NOTES. PT WITH CONTACT PRECS R/T MRSA NARES. PT RECEIVED EYES OPEN A&0X0, PT VENT AND TRACH DEPENDENT, VENT SETTINGS @ AC 14, 500, +5, 40%. VENT PLUGGED INTO RED OUTLET. RT SUCTIONED. PT SKIN ASSESSED AND PHOTOGRAPHED, WOUND CONSULT REQUESTED. PT WITH G TUBE, FLUSHED 50ML AND PATENT. PT UNABLE TO INDICATE PAIN BUT WITHOUT S/S OF DISTRESS OR DISCOMFORT. DR REESE CONTACTED REGARDING ADMIN ORDERS AND LACK OF MEDICATIONS. MD CONFIRMED HIS WRITTEN ORDERS AND REQUESTING NO MEDICATIONS UNTIL HD CATH FIXED, CONFIRMED WITH READ BACKX2 AND ORDERS CONFIRMED, ORDERS PLACED. CHARGE NURSE INFORMED. WILL CONTINUE TO MONITOR.
[2017-04-09 15:56] VITALS: BP 136/72
--- NOTE | 2017-04-09 19:37 | NUR ---
RT NOTE PATIENT RECEIVED IN STABLE CONDITION ON MECHANICAL VENT. PATIENT IS TOLERATING CURRENT ORDERED VENT SETTINGS WITHOUT RESPIRATORY DISTRESS. TRACH IS PATENT AND SECURE. ALARMS ARE ON AND AUDIBLE. MECHANICAL VENT IS PLUGGED INTO RED OUTLET. AMBU BAG IS AT PATIENT BEDSIDE. WILL CONTINUE TO MONITOR. Addendum: 04/09/17 at 2100 by RONN RAMOS RT Amended: Links added.
[2017-04-09 20:00] VITALS: BP 96/64
--- NOTE | 2017-04-09 20:00 | NUR ---
MSRN CLOSING NOTES. PT REMAINS STABLE, VENT SETTINGS CORRECT AND PT IS WITHOUT S/S OR DISTRESS OR DISCOMFORT. PT BED IN LOWEST LOCKED POSITION WITH HANDRAILSX4. ALL DAY NURSE DUTIES ATTENDED TO, ENDORSED AT BEDSIDE TO NIGHT NURSE.
--- NOTE | 2017-04-09 20:30 | NUR ---
TELE/RN RECEIVE PATIENT AWAKE, NON VERBAL, [facility] VENT, WORKING WELL, APPEAR COMFORTABLE, NO S/S OF PAIN, NO DISTRESS NOTED, HOB ELEVATED. WILL MONITOR.
[2017-04-10] VITALS (7 sets, daily range): BP systolic 116–149; BP diastolic 54–81
--- NOTE | 2017-04-10 01:25 | NUR ---
TELE/RN PATIENT IS GOING TO HAVE HD CATH PLACEMENT IN A.M., CBC, BMP, PT/INR, PTT WERE ORDERED PER HOSPITAL PROTOCOL.
--- NOTE | 2017-04-10 01:44 | NUR ---
TELE/RN PATIENT IS SLEEPING AT THIS TIME, AROUSABLE, APPEAR COMFORTABLE, NO DISTRESS NOTED, WILL CONTINUE TO MONITOR.
[2017-04-10 04:19] LABS: BASOPHILS % (AUTO) 0.4 % (0.0-2.0); EOSINOPHILS # (AUTO) 0.5 /CMM (0.0-0.7); EOSINOPHILS % (AUTO) 5.5 % (0.0-6.0); HEMATOCRIT 29 % (33-45); LYMPHOCYTES # (AUTO) 1.7 /CMM (0.8-4.8); LYMPHOCYTES % (AUTO) 17.9 % (20.0-44.0); MEAN CORPUSCULAR HEMOGLOBIN 35 PG (26.0-33.0); MEAN CORPUSCULAR HGB CONC 35 g/dl (31.0-36.0); MEAN CORPUSCULAR VOLUME 100 fL (82-100); MONOCYTES # (AUTO) 0.6 /CMM (0.1-1.30); MONOCYTES % (AUTO) 6.3 % (2.0-12.0); NEUTROPHILS # (AUTO) 6.8 /CMM (1.8-8.9); NEUTROPHILS % (AUTO) 69.9 % (43.0-81.0); PLATELET COUNT (AUTO) 258 /CMM (150-450); RDW COEFFICIENT OF VARIATION 16.9 (11.5-15.0); WHITE BLOOD COUNT (AUTO) 9.7 K/uL (4.3-11.0)
[2017-04-10 04:34] LABS: CALCIUM, SERUM 11.2 mg/dL (8.5-10.1); POTASSIUM 4.5 mmol/L (3.5-5.1)
[2017-04-10 04:37] LABS: CREATININE 11.3 mg/dL (0.6-1.3)
[2017-04-10 04:53] LABS: INR 0.85 (0.85-1.15)
--- NOTE | 2017-04-10 06:00 | NUR ---
TELE/RN CALLED [facility] TO GET THE CONTACT NO. OF RESPONSIBLE PERSON WHO CAN GIVEN CONSENT TO PROCEDURE. JELLY BAILEY, , IS THE RESPONSIBLE PERSON. CALLED THIS NO. EARLIER, NOBODY PICKED UP, LEFT MESSAGE TO CALL BACK [facility].
--- NOTE | 2017-04-10 06:32 | NUR ---
TELE/FITNESS STUDIES TEACHER CONSENT WAS OBTAINED FROM JELLY BAILEY AT 0610. PATIENT IS AWAKE RIGHT, NO SIGNS OF DISTRESS NOTED, [facility] VENT WORKING WELL, ALL NEEDS ATTENDED AT THIS TIME. WILL CONTINUE TO MONITOR.
[2017-04-10] MEDS ORDERED: ANESTHESIA TRAY IN PYXIS 1 EA TRAY MC ONE (07:19)
[2017-04-10] MEDS ORDERED: LIDOCAINE 1% INJ 50 ML MDV IJ ONE (07:20)
[2017-04-10] MEDS ORDERED: IOHEXOL 50 ML IV ONE (07:20)
[2017-04-10] MEDS ORDERED: HEPARIN SODIUM, PORCINE 1,000 UNIT/ML VIAL ONE (07:20)
--- NOTE | 2017-04-10 07:40 | NUR ---
RT NOTE PATIENT TRANSFERRED TO SURGERY ROOM VIA AMBU BAG. SP02 @ 100% , HR 74 BPM. NO DISTRESS NOTED. TRACH SECURED AND PATENT.
--- NOTE | 2017-04-10 07:45 | NUR ---
CHIEF METEOROLOGIST/OPENING NOTES PT. WAS TAKEN TO SURGERY TO REPLACE HEMODIALYSIS CATHETER. PT. IS ON A VENTILATOR. AWAKE, NONVERBAL. TELE READING IS SINUS RHYTHM.
--- NOTE | 2017-04-10 08:46 | NUR ---
RN NOTES RETURNED FROM OR PT. RETURNED TO SAME ROOM FROM OR S/P LEFT SUBCLAVIAN PERMA CATHETER.
--- NOTE | 2017-04-10 11:00 | NUR ---
WOUND CARE CONSULT: PT PRESENTS WITH IMMOBILITY AND INCONTINENCE OF STOOL, STAGE 2 ULCERS TO LEFT BUTTOCK AND SACRUM, PRESENT ON ADMISSION. RECOMMENDATIONS MADE FOR WOUND CARE AND SKIN PROTECTION. DISCUSSED WITH NURSING STAFF. FIRST STEP MATTRESS ORDERED. SCARRING NOTED TO FEET AND ANKLES. WILL SEE PRN. DONG IN AGREEMENT WITH PLAN OF CARE. CURRENT [place] SCORE IS 11. Addendum: 04/10/17 at 1102 by RYAN PACHECO Amended: Links added. Addendum: 04/10/17 at 1111 by RYAN PACHECO LEFT EAR SCARRING NOTED.
[2017-04-10] MEDS ORDERED: Z GUARD REMEDY 2 OZ OINT TP PRN (11:30)
[2017-04-10] MEDS ORDERED: HYDROGEL DRESSING 90 GM TUBE TP PRN (11:30)
[2017-04-10] MEDS ORDERED: RENAL NOVASOURCE 1,000 ML BOTTLE GT PRN (13:00)
[2017-04-10] MEDS ORDERED: DEXTROSE 50%-WATER 50 ML DISP.SYRIN IV PRN (13:30)
[2017-04-10] MEDS ORDERED: ONDANSETRON HCL/PF 4 MG/2 ML VIAL IV PRN (13:30)
[2017-04-10 13:33] LABS: OCCULT BLOOD STOOL NEGATIVE (NEGATIVE)
[2017-04-10] MEDS ORDERED: IPRATROPIUM NEB FS 0.5 MG/2.5 ML AMPUL.NEB IH PRN (14:00)
[2017-04-10] MEDS ORDERED: hydrALAZINE HCL 25 MG TABLET GT PRN (14:00)
[2017-04-10] MEDS ORDERED: ALBUTEROL FS 2.5 MG/0.5 ML VIAL.NEB IH PRN (14:00)
[2017-04-10] MEDS ORDERED: INSULIN REGULAR, HUMAN 100 UNIT/ML 3 ML VIAL SQ PRN (14:00)
[2017-04-10] MEDS ORDERED: ACETAMINOPHEN 650 MG/20.3 ML UDC GT PRN (14:30)
[2017-04-10] MEDS ORDERED: MIDODRINE HCL (5MG) 5 MG TABLET GT PRN (14:30)
[2017-04-10] MEDS ORDERED: VITAMINS A AND D 56.7 GM TUBE TP PRN (15:00)
[2017-04-10] MEDS: HYDROGEL DRESSING 90 GM TUBE TP SCH (15:18)
[2017-04-10] MEDS: Z GUARD REMEDY 2 OZ OINT TP SCH (15:18)
[2017-04-10] MEDS: RENAL NOVASOURCE 1,000 ML BOTTLE GT PRN (15:19)
[2017-04-10] MEDS: ASPIRIN 325 MG TABLET PO SCH (15:19)
--- NOTE | 2017-04-10 16:34 | NUR ---
PT RCVD ON MECHANICAL VENTILATION WITH CURRENT SETTINGS OF AC 12, 500, 40%, +5. AMBU BAG AT BEDSIDE. SUCTION DONE THROUGHOUT SHIFT. VENTILATOR PLUGGED INTO RED OUTLET. PT TRACH PATENT AND SECURE. ALARMS ON AND AUDIBLE. Addendum: 04/10/17 at 1635 by CRISTA NARAYAN RT Amended: Links added. Addendum: 04/11/17 at 0721 by CRISTA NARAYAN RT VENT SETTINGS CORRECTION AC 14, 500, 40%, +5
[2017-04-10] MEDS: FERROUS SULFATE UDC 300 MG/5 ML UDC GT SCH (16:45)
--- NOTE | 2017-04-10 17:00 | NUR ---
RN NOTES PT. WAS PLACED ON A FIRST STEP MATTRESS, [employer], PER CHRIS WARE RECOMMENDATIONS. PT. TOLERATED NEW MATTRESS WELL.
[2017-04-10] MEDS ORDERED: ONDANSETRON HCL/PF 4 MG/2 ML VIAL ONE (17:02)
[2017-04-10] MEDS: BLOOD SUGAR DIAGNOSTIC 1 EACH STRIP IN SCH ×2 (17:51→23:10)
[2017-04-10] MEDS ORDERED: BLOOD SUGAR DIAGNOSTIC 1 EACH STRIP MC SCH (18:00)
[2017-04-10] MEDS: INSULIN REGULAR, HUMAN 100 UNIT/ML 3 ML VIAL SQ PRN ×2 (18:04→23:11)
--- NOTE | 2017-04-10 19:09 | NUR ---
MANAGER BUILDING/CLOSING NOTES PT. TELE READING SINUS RHYTHM 91 BPM, WITH BORDERLINE BUNDLE BRANCH BLOCK. PT. IS OBTUNDED, AND NON-VERBAL. PT. IS BREATHING EVENLY ON A VENTILATOR PORTEX #7, AC 14, TIDAL VOLUME 500, FIO2 40%, PEEP 5, AND SENSITIVITY 2. WOUND CARE WAS PERFORMED AND WAS TOLERATED WELL. PT.'S VITAL SIGNS WERE CHECKED Q15 MINX4,Q30MIN X2, Q1HR X2, VITAL SIGNS HAVE BEEN WITHIN NORMAL RANGE. PT. RECEIVED HEMODIALYSIS TODAY AND 1800 ML WAS REMOVED. NO S/S OF ACUTE DISTRESS. BED IS IN LOWEST, AND LOCKED POSITION. 2 SIDE RAILS UP, AND CALL LIGHT WITHIN REACH. ALL NEEDS MET. WILL ENDORSE REPORT TO NURSE.
[2017-04-10] MEDS: IPRATROPIUM NEB FS 0.5 MG/2.5 ML AMPUL.NEB IH SCH (19:20)
[2017-04-10] MEDS: ALBUTEROL FS 2.5 MG/0.5 ML VIAL.NEB IH SCH (19:20)
--- NOTE | 2017-04-10 19:30 | NUR ---
TELE/RN RECEIVE PATIENT AWAKE, NON VERBAL, FLAT AFFECT, APPEAR COMFORTABLE, NO DISTRESS NOTED, MECHANICAL VENTILATOR WORKING WELL, GT FEEDING INFUSING, HOB ELEVATED. WILL MONITOR.
[2017-04-10] MEDS ORDERED: Medication Not On Formulary EA (Lactobacillus Acidophilus (Acidophilus) 1 EACH) GT SCH (21:00)
[2017-04-10] MEDS: DOCUSATE SODIUM LIQ 100 MG/10 ML UDC GT SCH (21:49)
[2017-04-10] MEDS: LEVETIRACETAM SOL (5 ML) 100 MG/ML UDC GT SCH (21:49)
[2017-04-10] MEDS: SEVELAMER CARBONATE 0.8 GM POWD.PACK GT SCH (21:49)
[2017-04-10] MEDS: CARVEDILOL 6.25 MG TABLET GT SCH (21:50)
[2017-04-10] MEDS: PROSOURCE / PROSTAT (PYXIS) 30 ML UDC GT SCH (21:51)
[2017-04-10] MEDS ORDERED: ATORVASTATIN 10 MG TABLET GT SCH (22:00)
[2017-04-10] MEDS ORDERED: INSULIN GLARGINE, 100 UNIT/ML CARTRIDGE SQ SCH (22:00)
--- NOTE | 2017-04-10 22:52 | NUR ---
TELE/RN NURSING CARE DONE, SKIN CARE/WOUND CARE DONE, TOTAL LINEN CHANGE RENDERED, REPOSITIONED TO COMFORT. WILL CONTINUE TO MONITOR.
--- NOTE | 2017-04-10 23:55 | NUR ---
TELE/RN PATIENT IS SLEEPING AT THIS TIME, AROUSABLE, APPEAR COMFORTABLE, NO SIGNS OF DISTRESS NOTED, WILL CONTINUE TO MONITOR.
[2017-04-11] VITALS: BP 115/60
[2017-04-11] MEDS: IPRATROPIUM NEB FS 0.5 MG/2.5 ML AMPUL.NEB IH SCH ×3 (01:34→13:15)
[2017-04-11] MEDS: ALBUTEROL FS 2.5 MG/0.5 ML VIAL.NEB IH SCH ×3 (01:34→13:15)
[2017-04-11 04:00] VITALS: BP 101/57
[2017-04-11] MEDS: INSULIN REGULAR, HUMAN 100 UNIT/ML 3 ML VIAL SQ PRN ×2 (05:51→12:11)
[2017-04-11] MEDS: BLOOD SUGAR DIAGNOSTIC 1 EACH STRIP IN SCH ×2 (06:02→12:06)
--- NOTE | 2017-04-11 06:14 | NUR ---
TELE/RN PATIENT IS SLEEPING AT THIS TIME, APPEAR COMFORTABLE, NO SIGNS OF DISTRESS NOTED, GT FEEDING INFUSING, NO RESIDUAL NOTED, HOB ELEVATED, [facility] WORK[facility] WELL, ALL NEEDS ATTENDED AT THIS TIME. WILL CONTINUE TO MONITOR.
[2017-04-11 06:25] LABS: BASOPHILS % (AUTO) 0.4 % (0.0-2.0); EOSINOPHILS # (AUTO) 0.5 /CMM (0.0-0.7); EOSINOPHILS % (AUTO) 7.2 % (0.0-6.0); HEMATOCRIT 28 % (33-45); HEMOGLOBIN 9.5 g/dL (11.5-14.8); LYMPHOCYTES # (AUTO) 0.8 /CMM (0.8-4.8); LYMPHOCYTES % (AUTO) 11.3 % (20.0-44.0); MEAN CORPUSCULAR HEMOGLOBIN 35 PG (26.0-33.0); MEAN CORPUSCULAR HGB CONC 35 g/dl (31.0-36.0); MEAN CORPUSCULAR VOLUME 100 fL (82-100); MONOCYTES # (AUTO) 0.3 /CMM (0.1-1.30); MONOCYTES % (AUTO) 3.7 % (2.0-12.0); NEUTROPHILS # (AUTO) 5.3 /CMM (1.8-8.9); NEUTROPHILS % (AUTO) 77.4 % (43.0-81.0); PLATELET COUNT (AUTO) 229 /CMM (150-450); RDW COEFFICIENT OF VARIATION 17.1 (11.5-15.0); RED BLOOD CELL COUNT(AUTO) 2.75 MIL/uL (4.0-5.2); WHITE BLOOD COUNT (AUTO) 6.8 K/uL (4.3-11.0)
[2017-04-11 06:38] LABS: CALCIUM, SERUM 9.1 mg/dL (8.5-10.1); CREATININE 7.1 mg/dL (0.6-1.3); PHOSPHORUS 1.6 mg/dL (2.5-4.9); POTASSIUM 4.2 mmol/L (3.5-5.1)
--- NOTE | 2017-04-11 07:30 | NUR ---
SLICE CUTTING MACHINE OPERATOR/OPENING NOTES PT. ON TELE MONITORING. PT. IS OBTUNDED, AND NON-VERBAL. PT. IS BREATHING EVENLY ON A VENTILATOR PORTEX #7, AC 14, TIDAL VOLUME 500, FIO2 40%, PEEP 5, AND SENSITIVITY 2. NO S/S OF ACUTE DISTRESS. BED IS IN LOWEST, AND LOCKED POSITION. 2 SIDE RAILS UP, AND CALL LIGHT WITHIN REACH. ALL NEEDS MET. WILL CONTINUE TO ASSESS AND MONITOR.
[2017-04-11 08:00] VITALS: BP 120/59
[2017-04-11] MEDS ORDERED: PANTOPRAZOLE 40 MG/PACK PACK GT SCH (09:00)
[2017-04-11] MEDS ORDERED: VIT B CMPLX 3/FA/VIT C/BIOTIN 1 TAB TABLET GT SCH (09:00)
[2017-04-11] MEDS ORDERED: TRAMADOL HCL 50 MG TABLET GT SCH (09:00)
[2017-04-11] MEDS ORDERED: BENAZEPRIL HCL 10 MG TABLET GT SCH (09:00)
--- NOTE | 2017-04-11 09:10 | NUR ---
RN NOTES G TUBE FEEDING NOVASOURCE AT 45ML/HR WAS STOPPED.
--- NOTE | 2017-04-11 10:12 | NUR ---
RT RECD PT TRACHED INTACT AND SECURED ON MECH VENT. ALARMS ON AND AUDIBLE VENT PLUGGED IN RED OUTLET. BAG AND MASK AT HOB. SX SMALL YELLOW THICK SECRETIONS. TX GIVEN CHAPIN WELL NO ADVERSE REACTION NOTED NO RESP DISTRESS WILL CONTINUE TO MONITOR
[2017-04-11] MEDS: FERROUS SULFATE UDC 300 MG/5 ML UDC GT SCH ×2 (10:13→15:19)
[2017-04-11] MEDS: LEVETIRACETAM SOL (5 ML) 100 MG/ML UDC GT SCH (10:13)
[2017-04-11] MEDS: DOCUSATE SODIUM LIQ 100 MG/10 ML UDC GT SCH (10:13)
[2017-04-11] MEDS: ASPIRIN 325 MG TABLET PO SCH (10:14)
[2017-04-11] MEDS: SEVELAMER CARBONATE 0.8 GM POWD.PACK GT SCH (10:14)
[2017-04-11] MEDS: Z GUARD REMEDY 2 OZ OINT TP SCH (10:16)
[2017-04-11] MEDS: CARVEDILOL 6.25 MG TABLET GT SCH (10:16)
[2017-04-11] MEDS: HYDROGEL DRESSING 90 GM TUBE TP SCH (10:16)
[2017-04-11] MEDS: PROSOURCE / PROSTAT (PYXIS) 30 ML UDC GT SCH (10:17)
[2017-04-11 12:00] VITALS: BP 105/63
[2017-04-11] MEDS: RENAL NOVASOURCE 1,000 ML BOTTLE GT PRN (15:20)
[2017-04-11 16:00] VITALS: BP 113/55
--- NOTE | 2017-04-11 18:00 | NUR ---
GRADES 9 THROUGH 12 TEACHER NOTES PT. LEFT IN MEDICALLY STABLE CONDITION WITH AMBULANCE CREW. DISCHARGE PACKET WAS SIGNED WITH ANOTHER NURSE DUE TO PT. CONDITION. PT. IS OBTUNDED. IV AND ID BAND WAS REMOVED WITHOUT COMPLICATIONS. G TUBE IS INTACT AND PATENT. PT. LEFT WITH TRACHEOSTOMY INTACT. REPORT WAS GIVEN TO SANTANA ANDERSON VIA PHONE AT [facility]. MEDICATION RECONCILIATION LIST WAS FAXED TO SANTANA ANDERSON. PICTURES WERE TAKEN AND PLACED IN CHART. PT. RECEIVED HEMODIALYSIS TODAY AND HAD 1,200 ML OUTPUT. WOUND CARE WAS PREFORMED BEFORE DISCHARGE.
== END 2017-04-11 18:00 | DRG 466 ==
LOC: ER 10:22 → TELE 12:22
PROVIDERS: ADMIT Internal Medicine Nephrology; ATTEND Internal Medicine Nephrology
PROC: 5A1945Z Respiratory Ventilation, 24-96 Consecutive Hours (ICD-10-PCS; principal; 2017-04-09)
PROC: 02HV33Z Insertion of Infusion Device into Superior Vena Cava, Percutaneous Approach (ICD-10-PCS; 2017-04-10)
PROC: 5A1D70Z Performance of Urinary Filtration, Intermittent, Less than 6 Hours Per Day (ICD-10-PCS; 2017-04-10)
PROC: B518YZA Fluoroscopy of Superior Vena Cava using Other Contrast, Guidance (ICD-10-PCS; 2017-04-10)
PROC: 5A1D70Z Performance of Urinary Filtration, Intermittent, Less than 6 Hours Per Day (ICD-10-PCS; 2017-04-11)
DX: T82.41XA Breakdown (mechanical) of vascular dialysis catheter, initial encounter (principal); N18.6 End stage renal disease; Z99.11 Dependence on respirator [ventilator] status; G93.40 Encephalopathy, unspecified; J96.10 Chronic respiratory failure, unspecified whether with hypoxia or hypercapnia; L89.153 Pressure ulcer of sacral region, stage 3; L89.323 Pressure ulcer of left buttock, stage 3; E11.22 Type 2 diabetes mellitus with diabetic chronic kidney disease; I12.0 Hypertensive chronic kidney disease with stage 5 chronic kidney disease or end stage renal disease; Y71.2 Prosthetic and other implants, materials and accessory cardiovascular devices associated with adverse incidents; Z99.2 Dependence on renal dialysis; G40.909 Epilepsy, unspecified, not intractable, without status epilepticus; D64.9 Anemia, unspecified; E83.9 Disorder of mineral metabolism, unspecified; L98.8 Other specified disorders of the skin and subcutaneous tissue; Y92.129 Unspecified place in nursing home as the place of occurrence of the external cause; E11.9 Type 2 diabetes mellitus without complications; Z79.4 Long term (current) use of insulin; F03.90 Unspecified dementia, unspecified severity, without behavioral disturbance, psychotic disturbance, mood disturbance, and anxiety; R13.10 Dysphagia, unspecified
CPT/HCPCS: 31720; 36415; 71045-TC; 80048-TC; 82272-TC; 82962-TC; 83735-TC; 84100-TC; 85025-TC; 85610-TC; 85730-TC; 87081-TC; 90935-TC; 94002-TC; 94003-TC; 94760-TC; 94762-TC; 99082-TC; A4606; A6248; A6253; A6402; A6403; J1644; J1815; J1953; J2405; J3490; Q9967; Z7610

== ENCOUNTER 2017-07-04 11:03 | Inpatient (IN) | payer OTHER ==
[~2017-07-04] VITALS: Ht 160 cm; Wt 69.5 kg
[~2017-07-04 11:03] MED LIST changes: -BENA20TA2 GT; +BENA20TA9 GT
--- NOTE | 2017-07-04 11:05 | NUR ---
BIB PRIVATE EMT FROM DIALYSIS CENTER DUE TO MALFUNCTIONING HD CATH UNABLE TO BE DIALYZED. PATIENT IS ON VENT WITH THE FOLLOWING SETTINGS: AC=14, AR=257 PEEP=5 FIO2=35%. PLACED ON THE MONITOR. WILL CONTINUOUSLY MONITOR THE PATIENT. AWAITING MD FOR EVAL.
[2017-07-04 11:25] VITALS: BP 142/68
--- NOTE | 2017-07-04 12:14 | NUR ---
RT RECD PT TRACHED H PORTEX 7 INTACT AND SECURED ON [facility] VENT FOR CATH CHANGE. BAG AND MASK AT [facility]. VENT PLUGGED IN RED OUTLET ALARMS ON AND AUDIBLE. SX THICK YELLOW SMALL SECRETIONS. NO RESP DISTRESS WILL CONTINUE TO MONITOR Addendum: 07/04/17 at 1220 by EDUARDO REID RT Amended: Links added.
[2017-07-04 12:36] LABS: INR 0.98 (0.85-1.15)
[2017-07-04 12:39] LABS: ALBUMIN 2.8 g/dL (3.4-5.0); BILIRUBIN,TOTAL 0.3 mg/dL (0.2-1.0); CALCIUM, SERUM 9.9 mg/dL (8.5-10.1); POTASSIUM 6.1 mmol/L (3.5-5.1); TOTAL PROTEIN, SERUM 8.4 g/dL (6.4-8.2)
--- NOTE | 2017-07-04 12:40 | NUR ---
CONTACTED [facility] [phone] PT WAS DIALIZED ON SUNDAY
[2017-07-04 12:42] LABS: CREATININE 9.3 mg/dL (0.6-1.3)
--- NOTE | 2017-07-04 12:54 | NUR ---
CALLED [facility] [phone] SPOKE WITH ITS FARAHMANDIAN FOR TODAY
[2017-07-04 12:58] LABS: HEMOGLOBIN 7.1 g/dL (11.5-14.8); MEAN CORPUSCULAR HGB CONC 35 g/dl (31.0-36.0); MEAN CORPUSCULAR VOLUME 91 fL (82-100); PLATELET COUNT (AUTO) 412 /CMM (150-450); RED BLOOD CELL COUNT(AUTO) 2.26 MIL/uL (4.0-5.2)
[2017-07-04 13:13] LABS: HEMATOCRIT 20 % (33-45)
[2017-07-04 13:30] VITALS: BP 142/68
--- NOTE | 2017-07-04 13:35 | NUR ---
REPORT GIVEN TO ARTHUR DILLON FOR HARLAN UPON ADMISSION.
--- NOTE | 2017-07-04 13:50 | NUR ---
PATIENT TRANSPORTED TO [facility] VIA ACLS PROTOCOL FOR ADMISSION. RNARTHUR TO PROVIDE HARLAN.
[2017-07-04 14:15] VITALS: BP 155/65
[2017-07-04 14:40] LABS: BAND % (MANUAL) 2 % (0.0-5.0); EOSINOPHILS % (MANUAL) 2 % (0-4); LYMPHOCYTES % (MANUAL) 14 % (16-48); MONOCYTES % (MANUAL) 6 % (0-11.0); NEUTROPHILS % (MANUAL) 76 (42-76)
[2017-07-04] MEDS ORDERED: MIDODRINE HCL (5MG) 5 MG TABLET GT PRN (15:00)
[2017-07-04] MEDS ORDERED: INSULIN REGULAR, HUMAN 100 UNIT/ML 3 ML VIAL SQ PRN (15:00)
[2017-07-04] MEDS ORDERED: SODIUM POLYSTYRENE SULFONATE 15 G/60 ML BOTTLE PO ONE (15:00)
[2017-07-04] MEDS ORDERED: IPRATROPIUM NEB FS 0.5 MG/2.5 ML AMPUL.NEB IH PRN (15:00)
[2017-07-04] MEDS ORDERED: ACETAMINOPHEN 650 MG/20.3 ML UDC GT PRN (15:00)
[2017-07-04] MEDS ORDERED: ALBUTEROL FS 2.5 MG/0.5 ML VIAL.NEB IH PRN (15:00)
[2017-07-04 16:00] VITALS: BP 127/64
[2017-07-04] MEDS ORDERED: DEXTROSE 50%-WATER 50 ML DISP.SYRIN IV PRN (16:00)
[2017-07-04] MEDS: IV D5/ 0.9% NACL 1,000 ML IV ONE ×2 (16:14→23:22)
[2017-07-04] MEDS: LACTOBACILLUS RHAMNOSUS GG 1 EACH CAP.SPRINK GT SCH (16:24)
[2017-07-04] MEDS: BLOOD SUGAR DIAGNOSTIC 1 EACH STRIP IN SCH ×2 (16:25→23:22)
[2017-07-04] MEDS ORDERED: BLOOD SUGAR DIAGNOSTIC 1 EACH STRIP MC SCH (18:00)
[2017-07-04] MEDS: NEPRO 1,000 ML BOTTLE GT PRN (18:14)
[2017-07-04] MEDS: FERROUS SULFATE UDC 300 MG/5 ML UDC PO SCH (18:14)
--- NOTE | 2017-07-04 19:40 | NUR ---
RUFINO RN OPENING NOTES RECEIVED REPORT FROM MATILDE Strauss RN. PATIENT A/A/O X1, UNABLE TO VERBALIZE NEEDS. OPENS/CLOSES EYES SPONTANEOUSLY. BREATHING EVEN & UNLABORED W/ TRACH INTACT & VENT SETTINGS AC 14, TV 550, FIO2 35%, PEEP 5. ON TELE W/ SINUS LIANNA, HR 59. NO RESPIRATORY OR CARDIAC DISTRESS NOTED. LEFT HAND IV #22 INTACT & PATENT W/ DRESSING CDI, SALINE LOCKED. NO S/S OF PAIN OR DISCOMFORT @ THIS TIME. SAFETY MEASURES IN PLACE W/ SIDE RAILS UP, BED LOCKED & IN LOWEST POSITION & BED ALARM ON. WILL CONTINUE TO MONITOR CLOSELY.
[2017-07-04] MEDS: IPRATROPIUM NEB FS 0.5 MG/2.5 ML AMPUL.NEB IH SCH (19:41)
[2017-07-04] MEDS: ALBUTEROL FS 2.5 MG/0.5 ML VIAL.NEB IH SCH (19:41)
--- NOTE | 2017-07-04 19:54 | NUR ---
RUFINO RN NOTES CALLED DR MANUEL OLIVERA & REPORTED APTT RESULT = 23. PER MD, REPEAT PT/INR & APTT LABS TOMORROW MORNING. NEW ORDERS NOTED & CARRIED OUT.
[2017-07-04 20:00] VITALS: BP 151/58
[2017-07-04] MEDS: DOCUSATE SODIUM LIQ 100 MG/10 ML UDC GT SCH (21:00)
[2017-07-04] MEDS: PANTOPRAZOLE 40 MG/PACK PACK GT SCH (21:26)
[2017-07-04] MEDS: SEVELAMER CARBONATE 0.8 GM POWD.PACK GT SCH (21:26)
[2017-07-04] MEDS: ATORVASTATIN 10 MG TABLET GT SCH (21:26)
[2017-07-04] MEDS: PROSOURCE / PROSTAT (PYXIS) 30 ML UDC GT SCH (21:27)
[2017-07-04] MEDS: INSULIN GLARGINE, 100 UNIT/ML CARTRIDGE SQ SCH (21:30)
[2017-07-04] MEDS: CARVEDILOL 6.25 MG TABLET GT SCH (21:31)
[2017-07-04] MEDS: INSULIN REGULAR, HUMAN 100 UNIT/ML 3 ML VIAL SQ PRN (23:24)
[2017-07-05] VITALS (11 sets, daily range): BP systolic 93–170; BP diastolic 45–97
[2017-07-05] MEDS: IPRATROPIUM NEB FS 0.5 MG/2.5 ML AMPUL.NEB IH SCH ×4 (02:07→19:30)
[2017-07-05] MEDS: ALBUTEROL FS 2.5 MG/0.5 ML VIAL.NEB IH SCH ×4 (02:07→19:30)
[2017-07-05 04:34] LABS: BASOPHILS % (AUTO) 0.3 % (0.0-2.0); EOSINOPHILS % (AUTO) 0.9 % (0.0-6.0); LYMPHOCYTES # (AUTO) 1.4 /CMM (0.8-4.8); LYMPHOCYTES % (AUTO) 15.9 % (20.0-44.0); MEAN CORPUSCULAR HGB CONC 33 g/dl (31.0-36.0); MEAN CORPUSCULAR VOLUME 90 fL (82-100); MONOCYTES # (AUTO) 0.5 /CMM (0.1-1.30); MONOCYTES % (AUTO) 5.7 % (2.0-12.0); NEUTROPHILS # (AUTO) 6.9 /CMM (1.8-8.9); NEUTROPHILS % (AUTO) 77.2 % (43.0-81.0); PLATELET COUNT (AUTO) 388 /CMM (150-450); RDW COEFFICIENT OF VARIATION 20.3 (11.5-15.0); WHITE BLOOD COUNT (AUTO) 8.9 K/uL (4.3-11.0)
[2017-07-05 04:39] LABS: HEMATOCRIT 18 % (33-45)
[2017-07-05 04:50] LABS: INR 0.96 (0.87-1.13)
[2017-07-05 04:52] LABS: CALCIUM, SERUM 9.4 mg/dL (8.5-10.1); PHOSPHORUS 5.5 mg/dL (2.5-4.9); POTASSIUM 5.3 mmol/L (3.5-5.1)
[2017-07-05 04:57] LABS: CREATININE 10.1 mg/dL (0.6-1.3); MAGNESIUM 4.1 mg/dL (1.8-2.4)
[2017-07-05 05:15] LABS: BAND % (MANUAL) 2 % (0.0-5.0); EOSINOPHILS % (MANUAL) 3 % (0-4); LYMPHOCYTES % (MANUAL) 13 % (16-48); MONOCYTES % (MANUAL) 5 % (0-11.0); NEUTROPHILS % (MANUAL) 77 (42-76)
--- NOTE | 2017-07-05 05:15 | NUR ---
RUFINO RN NOTES SHAJI BEARD RN SPOKE TO DR CANALES, SURGEON, & REPORTED CRITICAL H/H = 6.0/18. NEW ORDER RECEIVED FOR STAT ONE UNIT PRBC. NEW ORDER CARRIED OUT.
[2017-07-05 05:24] LABS: IRON, SERUM 31 ug/dl (50-175); TOTAL IRON BINDING CAPACITY 262 ug/dl (250-450)
[2017-07-05] MEDS: BLOOD SUGAR DIAGNOSTIC 1 EACH STRIP IN SCH ×4 (05:48→23:19)
[2017-07-05] MEDS: INSULIN REGULAR, HUMAN 100 UNIT/ML 3 ML VIAL SQ PRN ×4 (05:49→23:20)
--- NOTE | 2017-07-05 05:57 | NUR ---
RUFINO RN NOTES STAT ONE UNIT PRBC TRANSFUSION STARTED. VSS. WILL MONITOR FOR INITIAL ADVERSE REACTIONS.
[2017-07-05 06:02] LABS: FERRITIN 3724 ng/mL (8-388)
[2017-07-05] MEDS ORDERED: ANESTHESIA TRAY IN PYXIS 1 EA TRAY MC ONE (07:00)
[2017-07-05] MEDS ORDERED: HEPARIN SODIUM, PORCINE 1,000 UNIT/ML VIAL ONE (07:19)
[2017-07-05] MEDS ORDERED: LIDOCAINE 1% INJ 50 ML MDV IJ ONE (07:20)
[2017-07-05] MEDS: FERROUS SULFATE UDC 300 MG/5 ML UDC PO SCH ×3 (08:00→17:07)
--- NOTE | 2017-07-05 08:55 | NUR ---
RN NOTES RECEIVED PT FROM OR, VENT/TRACH DEPENDENT TOLERATING VENT SETTINGS NO SOB OR DISTRESS NOTED. SR ON THE TELE KERVIN HR71. L HAND 22G IV SITE INTACT WITH 1 UNIT OF PRBC INFUSING. PT TOLERATING. LEFT UPPER CHEST HD CATH PLACEMENT, PT TOLERATED PROCEDURE WELL. BED LOCKED AND IN LOWEST POSITION, WILL CONT TO KERVIN.
[2017-07-05] MEDS: DOCUSATE SODIUM LIQ 100 MG/10 ML UDC GT SCH ×2 (09:25→22:02)
[2017-07-05] MEDS: CARVEDILOL 6.25 MG TABLET GT SCH ×2 (09:25→22:03)
[2017-07-05] MEDS: ASPIRIN 325 MG TABLET GT SCH (09:25)
[2017-07-05] MEDS: SEVELAMER CARBONATE 0.8 GM POWD.PACK GT SCH ×3 (09:26→22:02)
[2017-07-05] MEDS: TRAMADOL HCL 50 MG TABLET GT SCH (09:26)
[2017-07-05] MEDS: PANTOPRAZOLE 40 MG/PACK PACK GT SCH ×2 (09:26→22:02)
[2017-07-05] MEDS: LACTOBACILLUS RHAMNOSUS GG 1 EACH CAP.SPRINK GT SCH ×2 (09:26→17:07)
[2017-07-05] MEDS: VIT B CMPLX 3/FA/VIT C/BIOTIN 1 TAB TABLET GT SCH (09:26)
[2017-07-05] MEDS: BENAZEPRIL HCL 20 MG TABLET GT SCH (09:26)
[2017-07-05] MEDS: PROSOURCE / PROSTAT (PYXIS) 30 ML UDC GT SCH ×2 (09:27→22:04)
[2017-07-05] MEDS ORDERED: DESMOPRESSIN ACETATE 0.1 MG TABLET PO SCH (10:30)
[2017-07-05] MEDS ORDERED: GELATIN SPONGE,ABSORBABLE 1 SPONGE SPONGE TP ONE (10:37)
--- NOTE | 2017-07-05 10:50 | NUR ---
RN NOTES PT STARTED HAVING ACTIVE BLEEDING FROM HD CATH PLACEMENT, PRESSURE APPLIED. DR MILES AND DR GARCIA MADE AWARE. NEW ORDER FOR 2 UNITS OF PRBC WITH HD AND DDAVP. PRESSURE DRESSING APPLIED, WILL CONT TO KERVIN.
[2017-07-05] MEDS: hydrALAZINE HCL 25 MG TABLET GT PRN (13:57)
[2017-07-05] MEDS ORDERED: EPOETIN ALFA (10,000 UNIT) 10,000 UNIT/ML VIAL SQ ONE (15:00)
--- NOTE | 2017-07-05 17:22 | NUR ---
Pt received on mechanical vent. Pt tolerated current vent settings well. No changes made. Pt trach is secure. Vent is plugged into a red outlet, alarms are set and audible, and BVM is at bedside. Addendum: 07/05/17 at 1723 by ALIDA BORDEN RT Amended: Links added.
[2017-07-05] MEDS: ATORVASTATIN 10 MG TABLET GT SCH (22:03)
[2017-07-05] MEDS: MUPIROCIN OINT 2% 22 GM TUBE SCH (22:04)
[2017-07-05] MEDS: INSULIN GLARGINE, 100 UNIT/ML CARTRIDGE SQ SCH (23:17)
[2017-07-06] VITALS: BP 115/75
[2017-07-06] MEDS: IPRATROPIUM NEB FS 0.5 MG/2.5 ML AMPUL.NEB IH SCH ×4 (02:24→20:19)
[2017-07-06] MEDS: ALBUTEROL FS 2.5 MG/0.5 ML VIAL.NEB IH SCH ×4 (02:25→20:19)
[2017-07-06 04:00] VITALS: BP 111/61
[2017-07-06] MEDS: BLOOD SUGAR DIAGNOSTIC 1 EACH STRIP IN SCH ×4 (05:30→23:46)
[2017-07-06] MEDS: INSULIN REGULAR, HUMAN 100 UNIT/ML 3 ML VIAL SQ PRN ×4 (05:35→23:47)
[2017-07-06 06:58] LABS: BASOPHILS % (AUTO) 0.4 % (0.0-2.0); EOSINOPHILS % (AUTO) 0.9 % (0.0-6.0); HEMATOCRIT 31 % (33-45); HEMOGLOBIN 10.7 g/dL (11.5-14.8); LYMPHOCYTES # (AUTO) 1.1 /CMM (0.8-4.8); LYMPHOCYTES % (AUTO) 12.1 % (20.0-44.0); MEAN CORPUSCULAR HGB CONC 35 g/dl (31.0-36.0); MEAN CORPUSCULAR VOLUME 91 fL (82-100); MONOCYTES # (AUTO) 0.6 /CMM (0.1-1.30); MONOCYTES % (AUTO) 6.8 % (2.0-12.0); NEUTROPHILS # (AUTO) 7.2 /CMM (1.8-8.9); NEUTROPHILS % (AUTO) 79.8 % (43.0-81.0); PLATELET COUNT (AUTO) 317 /CMM (150-450); RDW COEFFICIENT OF VARIATION 17.8 (11.5-15.0); RED BLOOD CELL COUNT(AUTO) 3.36 MIL/uL (4.0-5.2)
[2017-07-06 07:10] LABS: CALCIUM, SERUM 9.2 mg/dL (8.5-10.1); CREATININE 6.5 mg/dL (0.6-1.3); MAGNESIUM 3.2 mg/dL (1.8-2.4); PHOSPHORUS 3.6 mg/dL (2.5-4.9); POTASSIUM 4.5 mmol/L (3.5-5.1)
--- NOTE | 2017-07-06 07:25 | NUR ---
RN NOTE PT REMAINS IN NO ACUTE DISTRESS IN BED. PT DID NOT HAVE ANY SIGNIFICANT CHANGE IN CONDITION DURING SHIFT. ALL NEEDS MET, ALL ORDERS CARRIED OUT. PT TOLERATED VENT SETTING WELL. WILL CONTINUE TO MONITOR PT.
[2017-07-06 08:00] VITALS: BP 127/93
--- NOTE | 2017-07-06 08:00 | NUR ---
VENTILATION WORKER: pr.is obtunded, able to open eyes by touch, no any following contact activity, rest now, SR, O2sat. WNL, GTF residaul WNL, HD cath dressing is intact, saturated with old blood, no acute bleeding, HD nurse updated/checked labs
[2017-07-06] MEDS: FERROUS SULFATE UDC 300 MG/5 ML UDC PO SCH ×3 (08:39→17:53)
[2017-07-06] MEDS: TRAMADOL HCL 50 MG TABLET GT SCH (08:39)
[2017-07-06] MEDS: DOCUSATE SODIUM LIQ 100 MG/10 ML UDC GT SCH ×2 (08:39→21:13)
[2017-07-06] MEDS: BENAZEPRIL HCL 20 MG TABLET GT SCH (08:40)
[2017-07-06] MEDS: ASPIRIN 325 MG TABLET GT SCH (08:40)
[2017-07-06] MEDS: PANTOPRAZOLE 40 MG/PACK PACK GT SCH ×2 (08:40→21:13)
[2017-07-06] MEDS: SEVELAMER CARBONATE 0.8 GM POWD.PACK GT SCH ×3 (08:40→21:13)
[2017-07-06] MEDS: VIT B CMPLX 3/FA/VIT C/BIOTIN 1 TAB TABLET GT SCH (08:40)
[2017-07-06] MEDS: LACTOBACILLUS RHAMNOSUS GG 1 EACH CAP.SPRINK GT SCH ×2 (08:41→17:53)
[2017-07-06] MEDS: CARVEDILOL 6.25 MG TABLET GT SCH ×2 (08:41→21:15)
[2017-07-06] MEDS: MUPIROCIN OINT 2% 22 GM TUBE SCH ×2 (08:43→21:14)
[2017-07-06] MEDS: PROSOURCE / PROSTAT (PYXIS) 30 ML UDC GT SCH ×2 (08:43→21:13)
--- NOTE | 2017-07-06 10:05 | NUR ---
WOUND CARE CONSULT: PT ON DIALYSIS AT THIS TIME, UNABLE TO TURN FOR FULL SKIN ASSESSMENT. RT HAND HAS DRY ESCHAR, PRESENT ON ADMISSION. ADMISSION PHOTO SHOWS SACRAL/BUTTOCKS AREA WITH SCARRING AND 2 OPEN AREAS, PRESENT ON ADMISSION. RECOMMENDATIONS FOR WOUND CARE MADE BASED ON PHOTO DOCUMENTATION. FIRST STEP MATTRESS ORDERED. ALL SKIN PROTECTION MEASURES IN PLACE AND DISCUSSED WITH NURSING STAFF. WILL SEE PRN. DONG IN AGREEMENT WITH PLAN OF CARE. Addendum: 07/06/17 at 1037 by RYAN MCKNIGHT WNDNU DISCUSSED ABOVE WITH SURGICAL TEAM. Monika SLAUGHTER NP IN AGREEMENT WITH PLAN OF CARE.
[2017-07-06] MEDS ORDERED: Z GUARD REMEDY 2 OZ OINT TP PRN (10:30)
[2017-07-06] MEDS: Z GUARD REMEDY 2 OZ OINT TP SCH (11:41)
[2017-07-06 12:00] VITALS: BP_SYST 127; BP_SYST 131; BP_DIAS 89; BP_DIAS 93
[2017-07-06 16:00] VITALS: BP 121/69
[2017-07-06 20:00] VITALS: BP 164/61
--- NOTE | 2017-07-06 20:20 | NUR ---
PATIENT RECEIVED TRACHED PORTEX 7 ON [facility]. VENT WITH NOTED SETTINGS AC 14,550, PEEP 5, 35%. VENT PLUGGED INTO RED OUTLET. AMBU BAG @ HOB. BREATHING TX GIVEN PER MD'S ORDERED, NO ADVERSE REACTION NOTED. SUCTIONED MODERATE AMOUNT OF YELLOW THICK SECRETIONS. TRACH SECURED AND PATENT. ALARMS SET AND AUDIBLE. NO RESPIRATORY DISTRESS NOTED AT THIS TIME. WILL CONTINUE TO MONITOR.
[2017-07-06] MEDS: ATORVASTATIN 10 MG TABLET GT SCH (21:13)
[2017-07-06] MEDS: INSULIN GLARGINE, 100 UNIT/ML CARTRIDGE SQ SCH (21:21)
[2017-07-07] VITALS: BP 157/84
[2017-07-07] MEDS: IPRATROPIUM NEB FS 0.5 MG/2.5 ML AMPUL.NEB IH SCH ×4 (01:35→19:30)
[2017-07-07] MEDS: ALBUTEROL FS 2.5 MG/0.5 ML VIAL.NEB IH SCH ×4 (01:35→19:30)
[2017-07-07 04:00] VITALS: BP 169/57
[2017-07-07] MEDS: hydrALAZINE HCL 25 MG TABLET GT PRN (05:01)
[2017-07-07] MEDS: BLOOD SUGAR DIAGNOSTIC 1 EACH STRIP IN SCH ×3 (05:03→17:09)
[2017-07-07] MEDS: INSULIN REGULAR, HUMAN 100 UNIT/ML 3 ML VIAL SQ PRN ×3 (05:04→17:09)
[2017-07-07] MEDS: NEPRO 1,000 ML BOTTLE GT PRN (06:17)
[2017-07-07 07:21] LABS: BASOPHILS % (AUTO) 0.3 % (0.0-2.0); EOSINOPHILS % (AUTO) 1.5 % (0.0-6.0); HEMATOCRIT 30 % (33-45); HEMOGLOBIN 9.9 g/dL (11.5-14.8); LYMPHOCYTES # (AUTO) 1.5 /CMM (0.8-4.8); LYMPHOCYTES % (AUTO) 14.1 % (20.0-44.0); MEAN CORPUSCULAR HGB CONC 34 g/dl (31.0-36.0); MEAN CORPUSCULAR VOLUME 93 fL (82-100); MONOCYTES # (AUTO) 0.8 /CMM (0.1-1.30); MONOCYTES % (AUTO) 7.5 % (2.0-12.0); NEUTROPHILS # (AUTO) 8.1 /CMM (1.8-8.9); NEUTROPHILS % (AUTO) 76.6 % (43.0-81.0); PLATELET COUNT (AUTO) 269 /CMM (150-450); WHITE BLOOD COUNT (AUTO) 10.6 K/uL (4.3-11.0)
[2017-07-07 07:43] LABS: CALCIUM, SERUM 9.2 mg/dL (8.5-10.1); CREATININE 5.7 mg/dL (0.6-1.3); MAGNESIUM 3.2 mg/dL (1.8-2.4); PHOSPHORUS 2.9 mg/dL (2.5-4.9)
--- NOTE | 2017-07-07 07:47 | NUR ---
RN NOTES: (INITIAL) PATIENT RECEIVED ALERT AWAKE, NON VERBAL. OPEN EYES SPONTANEOUSLY. ON VENT-TRAC SETTINGS TOLERATING WELL. ASPIRATION PRECAUTIONS OBSERVED. HOB ELEVATED. G-TUBE INTACT, TUBE FEEDING RUNNING TOLERATING WELL. NO RESIDUAL NOTED. HD CATH & IV CATH INTACT. SAFETY MEASURES OBSERVED. AMBU BAG AT BEDSIDE. CONTINUE TO MONITOR.
[2017-07-07 08:00] VITALS: BP 151/75
[2017-07-07] MEDS: DOCUSATE SODIUM LIQ 100 MG/10 ML UDC GT SCH (09:08)
[2017-07-07] MEDS: LACTOBACILLUS RHAMNOSUS GG 1 EACH CAP.SPRINK GT SCH ×2 (09:08→17:09)
[2017-07-07] MEDS: FERROUS SULFATE UDC 300 MG/5 ML UDC PO SCH ×3 (09:08→17:10)
[2017-07-07] MEDS: PROSOURCE / PROSTAT (PYXIS) 30 ML UDC GT SCH (09:08)
[2017-07-07] MEDS: ASPIRIN 325 MG TABLET GT SCH (09:09)
[2017-07-07] MEDS: VIT B CMPLX 3/FA/VIT C/BIOTIN 1 TAB TABLET GT SCH (09:09)
[2017-07-07] MEDS: PANTOPRAZOLE 40 MG/PACK PACK GT SCH (09:09)
[2017-07-07] MEDS: SEVELAMER CARBONATE 0.8 GM POWD.PACK GT SCH ×2 (09:09→12:21)
[2017-07-07] MEDS: TRAMADOL HCL 50 MG TABLET GT SCH (09:09)
[2017-07-07] MEDS: BENAZEPRIL HCL 20 MG TABLET GT SCH (09:10)
[2017-07-07] MEDS: CARVEDILOL 6.25 MG TABLET GT SCH (09:10)
[2017-07-07] MEDS: MUPIROCIN OINT 2% 22 GM TUBE SCH (09:12)
[2017-07-07] MEDS: Z GUARD REMEDY 2 OZ OINT TP SCH (09:13)
[2017-07-07 12:00] VITALS: BP 127/75
[2017-07-07 16:00] VITALS: BP 156/75
--- NOTE | 2017-07-07 18:48 | NUR ---
RN NOTE: PATIENT REMAINS ALERT AWAKE, OPEN EYES SPONTANEOUSLY. ON VENT-TRAC, SETTINGS TOLERATING WELL. HD CATH INTACT ON LEFT CHEST WALL. IV CATH REMOVED FROM LEFT HAND, APPLIED PRESSURE DRESSING. ORDERS TO DISCHARGE TO [facility]. REPORT GIVEN TO LUKAS DILLON AT [facility]. SPOKE WITH JELLY BAILEY. SKIN PICTURE TAKEN & PLACED IN THE CHART. G-TUBE CLAMPED. SAFETY MEASURES OBSERVED. ASPIRATION PRECAUTIONS OBSERVED. WAITING FOR TO BE PICKED UP BY AMBULANCE.
--- NOTE | 2017-07-07 19:16 | NUR ---
RN NOTE: REPORT GIVEN TO NANNETTE DILLON FOR CONTINUITY OF CARE. WAITING FOR AMBULANCE. CM IS FOLLOWING UP WITH AMBULANCE.
--- NOTE | 2017-07-07 19:53 | NUR ---
RN NOTES PT ENDORSED TO AMBULANCE COMPANY. PT STABLE CONDITION. VSS. NEGATIVE DISTRESS.
== END 2017-07-07 20:00 | DRG 466 ==
LOC: ER 11:04 → TELE1 13:32 → TELE-TD 14:27
PROVIDERS: ADMIT Internal Medicine Nephrology; ATTEND Internal Medicine Nephrology
PROC: 5A1945Z Respiratory Ventilation, 24-96 Consecutive Hours (ICD-10-PCS; principal; 2017-07-04)
PROC: 0J2SXYZ Change Other Device in Head and Neck Subcutaneous Tissue and Fascia, External Approach (ICD-10-PCS; 2017-07-05)
PROC: 5A1D70Z Performance of Urinary Filtration, Intermittent, Less than 6 Hours Per Day (ICD-10-PCS; 2017-07-05)
PROC: 5A1D70Z Performance of Urinary Filtration, Intermittent, Less than 6 Hours Per Day (ICD-10-PCS; 2017-07-06)
DX: T82.41XA Breakdown (mechanical) of vascular dialysis catheter, initial encounter (principal); N18.6 End stage renal disease; Z99.11 Dependence on respirator [ventilator] status; G93.49 Other encephalopathy; I13.2 Hypertensive heart and chronic kidney disease with heart failure and with stage 5 chronic kidney disease, or end stage renal disease; J96.11 Chronic respiratory failure with hypoxia; E46 Unspecified protein-calorie malnutrition; D68.9 Coagulation defect, unspecified; Z93.0 Tracheostomy status; I50.9 Heart failure, unspecified; Y71.2 Prosthetic and other implants, materials and accessory cardiovascular devices associated with adverse incidents; Z99.2 Dependence on renal dialysis; E03.9 Hypothyroidism, unspecified; Z93.1 Gastrostomy status; E87.1 Hypo-osmolality and hyponatremia; E11.22 Type 2 diabetes mellitus with diabetic chronic kidney disease; F03.90 Unspecified dementia, unspecified severity, without behavioral disturbance, psychotic disturbance, mood disturbance, and anxiety; I25.10 Atherosclerotic heart disease of native coronary artery without angina pectoris; Z86.73 Personal history of transient ischemic attack (TIA), and cerebral infarction without residual deficits; Z88.1 Allergy status to other antibiotic agents; Z79.4 Long term (current) use of insulin; Z79.899 Other long term (current) drug therapy; Z79.82 Long term (current) use of aspirin; R13.10 Dysphagia, unspecified; G40.909 Epilepsy, unspecified, not intractable, without status epilepticus; D63.8 Anemia in other chronic diseases classified elsewhere; E87.5 Hyperkalemia; L89.329 Pressure ulcer of left buttock, unspecified stage; L89.319 Pressure ulcer of right buttock, unspecified stage
CPT/HCPCS: 31720; 36415; 71045-TC; 80048-TC; 80053-TC; 82728-TC; 82962-TC; 83540-TC; 83735-TC; 84100-TC; 85025-TC; 85730-TC; 86850-TC; 86921-TC; 87040-TC; 87081-TC; 90935-TC; 94003-TC; 94760-TC; A4606; A6253; A6402; A6403; C1750; C1769; J0885; J1644; J1815; J3490; J7040; J7042; J7050; P9016-BL; Z7610

== ENCOUNTER 2017-10-29 14:50 | Inpatient (IN) | payer OTHER ==
[~2017-10-29] VITALS: Ht 149.9 cm; Wt 64.4 kg
--- NOTE | 2017-10-29 15:10 | NUR ---
BIB EMS C/O MALFUNCTIONING DIALYSIS CATHETER. PATIENT NOT IN DISTRESS. VSS
--- NOTE | 2017-10-29 15:30 | NUR ---
NEW IV STARTED ON LEFT HAND, 24G. BLOOD DRAWN AND SENT TO LAB.
[2017-10-29 15:34] LABS: BASOPHILS # (AUTO) 0.3 /CMM (0.0-0.2); BASOPHILS % (AUTO) 2.1 % (0.0-2.0); EOSINOPHILS % (AUTO) 1.4 % (0.0-6.0); HEMATOCRIT 29 % (33-45); HEMOGLOBIN 9.8 g/dL (11.5-14.8); LYMPHOCYTES # (AUTO) 1.3 /CMM (0.8-4.8); LYMPHOCYTES % (AUTO) 9.1 % (20.0-44.0); MEAN CORPUSCULAR HGB CONC 33 g/dl (31.0-36.0); MEAN CORPUSCULAR VOLUME 97 fL (82-100); MONOCYTES # (AUTO) 0.6 /CMM (0.1-1.30); MONOCYTES % (AUTO) 4.3 % (2.0-12.0); NEUTROPHILS # (AUTO) 12.1 /CMM (1.8-8.9); NEUTROPHILS % (AUTO) 83.1 % (43.0-81.0); PLATELET COUNT (AUTO) 260 /CMM (150-450); RDW COEFFICIENT OF VARIATION 15.9 (11.5-15.0); RED BLOOD CELL COUNT(AUTO) 3.03 MIL/uL (4.0-5.2); WHITE BLOOD COUNT (AUTO) 14.5 K/uL (4.3-11.0)
[2017-10-29 15:48] LABS: CALCIUM, SERUM 10.4 mg/dL (8.5-10.1); POTASSIUM 4.5 mmol/L (3.5-5.1)
[2017-10-29 15:50] LABS: CREATININE 7.7 mg/dL (0.6-1.3)
[2017-10-29 15:51] LABS: INR 0.84 (0.85-1.15)
[2017-10-29 16:15] VITALS: BP 128/72
--- NOTE | 2017-10-29 16:19 | NUR ---
RT NOTE PT PLACED ON VENT PER MD ORDER. PT IS MECHANICALLY VENTILATED VIA PORTEX 7 CUFFED TRACHEOSTOMY TUBE. CUFF INFLATED. TRACH TUBE MIDLINE AND SECURE. VENTILATOR SETTINGS ENDORSED BY TRANSPORT RT AC 14 550 35% +5. ALARMS SET PER PROTOCOL AND AUDIBLE. VENT PLUGGED IN TO RED OUTLET. AMBU BAG AT BED SIDE. NO DISTRESS NOTED. Addendum: 10/29/17 at 1623 by SANTY WARE RT Amended: Links added.
--- NOTE | 2017-10-29 16:31 | NUR ---
REPORT GIVEN TO RNCHIRAG FOR HARLAN UPON ADMISSION.
--- NOTE | 2017-10-29 16:46 | NUR ---
PAGED DR REESE FOR ADMISSION
[2017-10-29 16:52] LABS: BAND % (MANUAL) 4 % (0.0-5.0); BASOPHILS % (MANUAL) 0 % (0.0-2.0); EOSINOPHILS % (MANUAL) 2 % (0-4); LYMPHOCYTES % (MANUAL) 15 % (16-48); MONOCYTES % (MANUAL) 9 % (0-11.0); NEUTROPHILS % (MANUAL) 70 (42-76)
--- NOTE | 2017-10-29 17:39 | NUR ---
DR JAY PAGED
--- NOTE | 2017-10-29 18:29 | NUR ---
patient transported to [facility] via acls protocol. [email or web address] to provide alexis.
[2017-10-29 18:45] VITALS: BP 92/90
--- NOTE | 2017-10-29 18:45 | NUR ---
HOLE PUNCHER STRAP NOTE RECEIVED PT. PT STABLE AND RESTING IN BED. PT IS VENT DEPENDENT, SETTINGS IN PLACE. OBTUNDED. PT DOES NOT APPEAR TO BE IN PAIN. PER MANAGER INTERN, ADMITTING MD IS DR. JAY. MD NOTIFIED OF PTS ARRIVAL TO UNIT, AWAITING ADMISSION ORDERS. SAFETY MEASURES IN PLACE, CALL LIGHT WITHIN REACH. WILL ENDORSE TO LOG HANDLER FOR HARLAN.
--- NOTE | 2017-10-29 19:20 | NUR ---
RETAIL CASHIER ASSOCIATE OPENING NOTES: RECEIVED PT ON MECHANICAL VENTILATOR WITH SETTINGS OF AC: 14, TV 550, FI02 35%, AND PEEP 5. PT OBTUNDED AND NON-VERBAL. NOTED DIALYSIS CATH ON L CHEST WALL AND IS INTACT BUT CAME IN HERE D/T MALFUNCTION. PT HAS L HAND #24G AND IS PATENT AND INTACT. CURRENTLY H/L. PT HAS G TUBE AND IS PATENT AND INTACT. NO RESIDUAL NOTED. CURRENTLY CLAMPED. CALL LIGHT WITHIN PT'S REACH. BED KEPT IN LOW, LOCKED POSITION, AND SIDE RAILS X 2UP. WILL CONTINUE TO MONITOR PT.
--- NOTE | 2017-10-29 19:36 | NUR ---
RT FEMALE PT RECEIVED TRACHED AND ON [facility] VENT W NOTED SETTINGS. ALARMS ARE ON AND AUDIBLE W VENT PLUGGED INTO RED OUTLET AND AMBUBAG @ HOB. PT IS NON VERBAL. MOD AMOUNTS OF THICK WHITE SECRETIONS SXD. WILL CONTINUE TO MONITOR. Addendum: 10/30/17 at 0011 by GURINDER JEWELL RT Amended: Links added.
--- NOTE | 2017-10-29 19:51 | NUR ---
SAFETY DEPOSIT BOXES CUSTODIAN NOTES: SPOKE WITH DR. JAY AND INFORMED HIM THAT PT IS HERE. ALSO, PT HAS BLOOD PRESSURE OF 97/61 HR 74, 92/90 HR 60. PT ALSO A FIB WITH RUNS OF PAROXYSMAL UP TO HR 165.
[2017-10-29 20:00] VITALS: BP 97/61
[2017-10-29] MEDS ORDERED: hydrALAZINE HCL 25 MG TABLET GT PRN (22:00)
[2017-10-29] MEDS ORDERED: ALBUTEROL FS 2.5 MG/0.5 ML VIAL.NEB IH PRN (22:00)
[2017-10-29] MEDS ORDERED: Medication Not On Formulary EA (Midodrine Hcl 10 MG) GT PRN (22:00)
[2017-10-29] MEDS ORDERED: NEPRO VAN 237 ML CAN GT SCH (22:00)
[2017-10-29] MEDS ORDERED: IPRATROPIUM NEB FS 0.5 MG/2.5 ML AMPUL.NEB IH PRN (22:00)
--- NOTE | 2017-10-29 22:17 | NUR ---
SHIP SCALER NOTES: SPOKE WITH SOCIAL SERVICES MANAGER PHARMACIST AND MENTIONED TO HIM THAT MED RECON HAS BEEN DONE BUT MIDODRINE 10MG HAS BEEN CONVERTED. PER SOCIAL SERVICES MANAGER PHARMACIST, OK TO RE ENTER MIDODRINE 10MG GT Q8HR PRN SBP <90.
[2017-10-29] MEDS ORDERED: ZOLPIDEM TARTRATE 5 MG TABLET PO PRN (22:30)
[2017-10-29] MEDS ORDERED: ONDANSETRON HCL/PF 4 MG/2 ML VIAL IVP PRN (22:30)
[2017-10-29] MEDS ORDERED: Z GUARD REMEDY 2 OZ OINT TP PRN (22:30)
[2017-10-29] MEDS ORDERED: MIDODRINE HCL (5MG) 5 MG TABLET GT PRN (22:30)
[2017-10-29] MEDS ORDERED: ACETAMINOPHEN 325 MG TABLET PO PRN (22:30)
[2017-10-29] MEDS ORDERED: MAG HYDROX/AL HYDROX/SIMETH 30 ML UDC PO PRN (22:30)
[2017-10-29] MEDS ORDERED: INSULIN GLARGINE, 100 UNIT/ML CARTRIDGE SQ ONE (22:33)
[2017-10-29] MEDS: NEPRO 1,000 ML BOTTLE GT PRN (22:51)
[2017-10-29] MEDS: ATORVASTATIN 10 MG TABLET GT SCH (22:51)
[2017-10-29] MEDS: BLOOD SUGAR DIAGNOSTIC 1 EACH STRIP MC SCH (23:01)
[2017-10-29] MEDS: INSULIN GLARGINE, 100 UNIT/ML CARTRIDGE SQ SCH (23:07)
[2017-10-30] VITALS (7 sets, daily range): BP systolic 94–126; BP diastolic 47–73
[2017-10-30] MEDS: ALBUTEROL FS 2.5 MG/0.5 ML VIAL.NEB IH SCH ×4 (01:43→19:58)
[2017-10-30] MEDS: IPRATROPIUM NEB FS 0.5 MG/2.5 ML AMPUL.NEB IH SCH ×4 (01:43→19:58)
[2017-10-30] MEDS: BLOOD SUGAR DIAGNOSTIC 1 EACH STRIP MC SCH (05:16)
--- NOTE | 2017-10-30 05:59 | NUR ---
INFRASTRUCTURE PROJECT MANAGER NOTES: SPOKE WITH DR. JAY AND INFORMED HIM THAT PT'S BLOOD SUGAR IS 319 AT THIS TIME AND ONE MEDICATION WAS MISSED IN MED RECON LIST. OK TO CONTINUE INSULIN REGULAR HUMULIN R SQ Q6HR MILD SLIDING SCALE.
[2017-10-30] MEDS ORDERED: DEXTROSE 50%-WATER 50 ML DISP.SYRIN IV PRN (06:00)
[2017-10-30] MEDS: INSULIN REGULAR, HUMAN 100 UNIT/ML 3 ML VIAL SQ PRN ×4 (06:15→23:45)
--- NOTE | 2017-10-30 06:33 | NUR ---
DIRECTOR APPOINTMENT CLOSING NOTES: ALL NEEDS WERE ATTENDED AND ANTICIPATED FOR. PT REMAINS ON MECHANICAL VENT SETTINGS: AC 14, TV 550, FI02 35%, AND PEEP 5. PT ON TELE BOX AND READING SHOWS JUNCTIONAL WITH PACS 56. PT HAS G TUBE FEEDING NEPRO AT 45ML/HR. NO RESIDUAL NOTED. BLOOD SUGAR THIS AM WAS 319. DR. JAY AWARE. 8 UNITS OF INSULIN WAS ADMINISTERED. PT CONNECTED ON PULSE OX. PT SUCTIONED PER PROTOCOL. PT TURNED AND REPOSITIONED Q 2HRS. IV REMAINS INTACT. BED KEPT IN LOW, LOCKED POSITION, AND SIDE RAILS X 2UP. WILL ENDORSE TO AM NURSE FOR HARLAN.
--- NOTE | 2017-10-30 07:23 | NUR ---
TRANSCRIPTION OPENING NOTES: RECEIVED PATIENT ASLEEP IN BED, AWAKENS TO TACTILE STIMULI. PT IS OBTUNDED AND NON-VERBAL. PT ON MECHANICAL VENTILATOR DEPENDENT WITH SETTINGS OF AC 14 TV 550 FI02 35%AND PEEP 5, TOLERATING SETTINGS WELL WITH NO SOB NOTED. ON TELE-MONITORING WITH CURRENT READING OF SB WITH PAC'S AND OCCASIONAL JUNCTIONAL WITH HR OF 58. G-TUBE IN PLACE AND PATENT WITH FEEDING OF NEPRO @ 45ML/HR IN PROGRESS AND TOLERATING WELL. HD CATHETER ON LCW IN PLACE BUT NOT FUNCTIONING, DRESSING INTACT AND CLEAN WITH NO ACTIVE BLEEDING NOTED. IV ACCESS ON L HAND INTACT AND PATENT, FLUSHES WELL. SAFETY MEASURES IN PLACE. CALL LIGHT WITHIN REACH. BED IN LOW/LOCKED POSITION WITH SIDE RAILS X 3UP. WILL CONTINUE TO MONITOR PT.
[2017-10-30 07:41] LABS: CALCIUM, SERUM 10.4 mg/dL (8.5-10.1); MAGNESIUM 3.9 mg/dL (1.8-2.4); POTASSIUM 4.7 mmol/L (3.5-5.1)
[2017-10-30 07:44] LABS: CREATININE 8.9 mg/dL (0.6-1.3)
[2017-10-30 07:57] LABS: BASOPHILS % (AUTO) 0.2 % (0.0-2.0); EOSINOPHILS % (AUTO) 1.7 % (0.0-6.0); HEMATOCRIT 27 % (33-45); HEMOGLOBIN 9.4 g/dL (11.5-14.8); LYMPHOCYTES # (AUTO) 2.1 /CMM (0.8-4.8); LYMPHOCYTES % (AUTO) 18.4 % (20.0-44.0); MEAN CORPUSCULAR HGB CONC 35 g/dl (31.0-36.0); MEAN CORPUSCULAR VOLUME 99 fL (82-100); MONOCYTES # (AUTO) 0.8 /CMM (0.1-1.30); MONOCYTES % (AUTO) 6.5 % (2.0-12.0); NEUTROPHILS # (AUTO) 8.5 /CMM (1.8-8.9); NEUTROPHILS % (AUTO) 73.2 % (43.0-81.0); PLATELET COUNT (AUTO) 229 /CMM (150-450); RDW COEFFICIENT OF VARIATION 15.6 (11.5-15.0); RED BLOOD CELL COUNT(AUTO) 2.73 MIL/uL (4.0-5.2); WHITE BLOOD COUNT (AUTO) 11.6 K/uL (4.3-11.0)
--- NOTE | 2017-10-30 08:45 | NUR ---
PT RCVD TRACH'D ON MECHANICAL VENT WITH CHARTED SETTINGS. PT TOLERATING SETTINGS WELL AT THIS TIME. TX GIVEN AND NO ADVERSE REACTION NOTED. SX DONE. PT TRACH PATENT AND SECURE. AMBU BAG AT BEDSIDE. VENT PLUGGED INTO RED OUTLET. ALARMS ARE ON AND AUDIBLE. WILL CONTINUE TO MONITOR. Addendum: 10/30/17 at 0845 by CRISTA NARAYAN RT Amended: Links added.
[2017-10-30] MEDS: TRAMADOL HCL 50 MG TABLET GT SCH (08:56)
[2017-10-30] MEDS: ASPIRIN 325 MG TABLET PO SCH (08:56)
[2017-10-30] MEDS: BENAZEPRIL HCL 20 MG TABLET GT SCH (08:56)
[2017-10-30] MEDS: DOCUSATE SODIUM LIQ 100 MG/10 ML UDC GT SCH ×2 (08:56→21:52)
[2017-10-30] MEDS: SEVELAMER CARBONATE 0.8 GM POWD.PACK GT SCH ×3 (08:57→21:53)
[2017-10-30] MEDS: CARVEDILOL 6.25 MG TABLET GT SCH ×2 (08:57→21:53)
[2017-10-30] MEDS: LEVETIRACETAM (250 MG) 250 MG TABLET PO SCH ×2 (08:57→21:54)
[2017-10-30 09:24] LABS: ABG BASE EXCESS -9.5 mmol/L; ABG OXYGEN SATURATION 96.7 % (92.0-98.5); ABG PCO2 33.8 mmHg (35.0-45.0); ABG PH 7.294 (7.350-7.450); ABG PO2 113.1 mmHg (75.0-100.0); AaDO2 97.2 mmHg; COHb 0.2 % (0.5-1.5); MetHb 0.8 % (0.0-1.5); O2Hb 95.7 % (94.0-97.0); SITE, ABG Left Radial
--- NOTE | 2017-10-30 09:59 | NUR ---
RN NOTES RESPIRATORY THERAPIST TOOK ABG ON PATIENT, RESULTS GIVEN TO DR JAY AND SAID THAT HE WILL COME TO SEE AND CHECK PT TODAY. WILL CONTINUE TO MONITOR
--- NOTE | 2017-10-30 11:59 | NUR ---
RT NOTE CHARGE NURSE ELE NOTIFIED AND AWARE THAT THE DEPARTMENT HAS A SHORTAGE OF CONTINUOS PULSE OXES. PLACED PT ON A VITAL SIGNS MACHINE AT THIS TIME TO MONITOR SATURATION AND GOULD RATE. RN TEOFILO NOTIFIED.
[2017-10-30] MEDS: BLOOD SUGAR DIAGNOSTIC 1 EACH STRIP IN SCH ×3 (12:05→23:43)
[2017-10-30] MEDS: PANTOPRAZOLE 40 MG/PACK PACK GT SCH (12:09)
--- NOTE | 2017-10-30 15:12 | NUR ---
RN NOTES SPUTUM SPECIMEN COLLECTED BY RT.
--- NOTE | 2017-10-30 15:31 | NUR ---
RN NOTES PATIENT WITH STANDING ORDER OF WOUND CARE CONSULT. LEFT MESSAGE TO MARIE GLOVER THAT PT'S ULCER AT SACRAL AREA NEEDS EVALUATION. SACRAL ULCER CLEANSE WITH NS, PAT DRY AND APPLIED MEPILEX FOR PROTECTION PENDING WOUND CARE CONSULT. PT TURNED AND REPOSITIONED 2HRS AND PRN. WILL CONTINUE TO MONITOR.
[2017-10-30] MEDS ORDERED: ALTEPLASE CATHFLO 2 MG/VIAL IV ONE (16:00)
[2017-10-30] MEDS: CITRIC ACID/SODIUM CITRATE (BICITRA)15 ML UDC PO SCH ×2 (16:24→21:53)
--- NOTE | 2017-10-30 16:58 | NUR ---
RT NOTE PLACED PT ON BEDSIDE CONTINUOS PULSE OX MONITOR. RN TEOFILO AWARE.
--- NOTE | 2017-10-30 17:05 | NUR ---
RN NOTES PATIENT WAS STRAIGHT CATHETERIZED EARLY THIS AFTERNOON BUT PT HAS NO URINE. REPEATED AGAIN AND ABLE TO COLLECT SMALL AMOUNT OF CLOUDY COLORED URINE SPECIMEN. CALLED LAB TO PICK SPECIMEN FROM [facility].
--- NOTE | 2017-10-30 18:26 | NUR ---
SHOULDER JOINER CLOSING NOTES: PATIENT IN BED LYING AT MODERATE HIGH BACKREST. OBTUNDED AND NON-VERBAL. PT ON TRACH CONNECTED TO MECHANICAL VENT @ SETTINGS OF AC 18 TV 550 FI02 35% & PEEP 5, TOLERATING SETTINGS WELL WITH NO SOB NOTED. ON TELE-MONITORING WITH CURRENT READING OF SB WITH PAC'S AND OCCASIONAL JUNCTIONAL WITH HR OF 56. G-TUBE IN PLACE AND PATENT WITH FEEDING OF NEPRO @ 45ML/HR STOPPED AT 1700 AND TO RE-START @ 2300 (18HRS /DAY). HD CATHETER ON LCW IN PLACE BUT NOT FUNCTIONING, DRESSING INTACT AND CLEAN WITH NO ACTIVE BLEEDING NOTED. IV ACCESS ON L HAND INTACT AND PATENT, FLUSHES WELL. CONTACT PRECAUTIONS MAINTAINED. ALL NEEDS AND CARE PROVIDED WELL. PT TURNED AND REPOSITIONED FROM SIDE TO SIDE Q 2HRS AND PRN. ALL SAFETY MEASURES KEPT IN PLACE. CALL LIGHT WITHIN REACH. BED IN LOW/LOCKED POSITION WITH SIDE RAILS X 3UP. WILL ENDORSE TO VOICE ENGINEER NURSE FOR HARLAN.
--- NOTE | 2017-10-30 19:20 | NUR ---
RN NOTES HEMODIALYSIS STARTED, VITAL SIGNS STABLE, NO SIGNS OF DISTRESS AND DISCOMFORT NOTED. WILL CONTINUE TO MONITOR PT.
--- NOTE | 2017-10-30 19:35 | NUR ---
RN NOTES RECEIVED PT AWAKE, NON VERBAL, OBTUNDED. TRACH INTACT AND ON MECHANICAL VENT WITH SETTINGS IN PLACE. NO SIGNS OF DISTRESS AND DISCOMFORT NOTED. HD CATH ON LEFT UPPER CHEST INTACT, WITH ONGOING HEMODIALYSIS AND TOLERATED WELL. TELE MONITOR READS SINUS RHYTHM WITH HEART RATE AT 90. IV ACCESS ON LEFT HAND PATENT AND INTACT. GT INTACT, CLAMPED AT THIS TIME, WILL RESTART GT FEEDING AT 2300 SCHEDULED. DRESSING ON SACRAL WOUND CLEAN, DRY AND INTACT, BOTH LOWER LEG OFFLOADED. KEPT PT CLEAN AND DRY. WILL CONTINUE TO MONITOR PT.
--- NOTE | 2017-10-30 19:58 | NUR ---
RT FEMALE PT RECEIVED TRACHED AND ON [facility] VENT W NOTED SETTINGS. ALARMS ARE ON AND AUDIBLE W VENT PLUGGED INTO RED OUTLET AND AMBUBAG @ HOB. PT IS NON VERBAL. MOD AMOUNTS OF THICK WHITE SECRETIONS SXD. WILL CONTINUE TO MONITOR. Addendum: 10/30/17 at 2103 by GURINDER JEWELL RT Amended: Links added.
--- NOTE | 2017-10-30 21:20 | NUR ---
RN NOTES HEMODIALYSIS FINISHED, 1800 ML OUTPUT NOTED. PATIENT TOLERATED WELL.
[2017-10-30 21:22] LABS: OCCULT BLOOD STOOL NEGATIVE (NEGATIVE)
[2017-10-30] MEDS: ATORVASTATIN 10 MG TABLET GT SCH (21:54)
[2017-10-30] MEDS: INSULIN GLARGINE, 100 UNIT/ML CARTRIDGE SQ SCH (21:56)
[2017-10-31] VITALS: BP 93/54
[2017-10-31] MEDS: ALBUTEROL FS 2.5 MG/0.5 ML VIAL.NEB IH SCH ×4 (00:45→19:40)
[2017-10-31] MEDS: IPRATROPIUM NEB FS 0.5 MG/2.5 ML AMPUL.NEB IH SCH ×4 (00:45→19:40)
[2017-10-31] MEDS: NEPRO 1,000 ML BOTTLE GT PRN ×2 (02:51→23:20)
[2017-10-31 04:00] VITALS: BP 121/67
[2017-10-31] MEDS: BLOOD SUGAR DIAGNOSTIC 1 EACH STRIP IN SCH ×3 (06:03→17:37)
[2017-10-31] MEDS: INSULIN REGULAR, HUMAN 100 UNIT/ML 3 ML VIAL SQ PRN ×3 (06:05→17:39)
--- NOTE | 2017-10-31 06:26 | NUR ---
RN NOTES NO SIGNIFICANT CHANGE IN CONDITION NOTED, VITAL SIGNS STABLE, AFEBRILE. MECHANICAL VENT TOLERATED WELL. TELE MONITOR READS SINUS RHYTHM WITH HEART RATE AT 92. GT FEEDING TOLERATED WELL, NO NAUSEA AND VOMITING. HD CATH WORKS LAST NIGHT WITH TOTAL OUTPUT OF 1800 ML AND TOLERATED WELL. KEPT CLEAN AND DRY. TURNED AND REPOSITIONED PER PROTOCOL. WOUND CARE DONE. WILL ENDORSE TO MORNING RN FOR CONTINUITY OF CARE.
--- NOTE | 2017-10-31 07:25 | NUR ---
RN NOTES PATIENT OBTUNDED, NON-VERBAL. NO S/SX OF DISTRESS NOTED, GTF ONGOING AND TOLERATING WELL, HOB ELEVATED, NO RESIDUAL NOTED AT THIS TIME, KEPT COMFORTABLE, NEEDS ATTENDED, CALL LIGHT WITHIN REACH, SAFETY MEASURES IN PLACED, WILL CONTINUE TO MONITOR.
[2017-10-31 07:45] LABS: EOSINOPHILS % (AUTO) 1.5 % (0.0-6.0); HEMATOCRIT 28 % (33-45); HEMOGLOBIN 9.3 g/dL (11.5-14.8); LYMPHOCYTES # (AUTO) 1.3 /CMM (0.8-4.8); MEAN CORPUSCULAR HGB CONC 33 g/dl (31.0-36.0); MEAN CORPUSCULAR VOLUME 99 fL (82-100); MONOCYTES # (AUTO) 0.6 /CMM (0.1-1.30); MONOCYTES % (AUTO) 5.3 % (2.0-12.0); NEUTROPHILS # (AUTO) 8.6 /CMM (1.8-8.9); NEUTROPHILS % (AUTO) 81.2 % (43.0-81.0); PLATELET COUNT (AUTO) 257 /CMM (150-450); RDW COEFFICIENT OF VARIATION 16.4 (11.5-15.0); RED BLOOD CELL COUNT(AUTO) 2.83 MIL/uL (4.0-5.2); WHITE BLOOD COUNT (AUTO) 10.6 K/uL (4.3-11.0)
[2017-10-31 08:07] LABS: BILIRUBIN,TOTAL 0.3 mg/dL (0.2-1.0); CREATININE 6.8 mg/dL (0.6-1.3); MAGNESIUM 3.1 mg/dL (1.8-2.4); PHOSPHORUS 2.5 mg/dL (2.5-4.9); POTASSIUM 3.7 mmol/L (3.5-5.1); TOTAL PROTEIN, SERUM 8.5 g/dL (6.4-8.2)
[2017-10-31 08:28] VITALS: BP 114/66
[2017-10-31 08:40] LABS: THYROID STIMULATING HORMONE 1.574 uIU/mL (0.358-3.74)
[2017-10-31] MEDS: DOCUSATE SODIUM LIQ 100 MG/10 ML UDC GT SCH ×2 (09:34→21:35)
[2017-10-31] MEDS: ASPIRIN 325 MG TABLET PO SCH (09:35)
[2017-10-31] MEDS: LEVETIRACETAM (250 MG) 250 MG TABLET PO SCH ×2 (09:35→21:36)
[2017-10-31] MEDS: TRAMADOL HCL 50 MG TABLET GT SCH (09:35)
[2017-10-31] MEDS: SEVELAMER CARBONATE 0.8 GM POWD.PACK GT SCH ×3 (09:35→21:35)
[2017-10-31] MEDS: CARVEDILOL 6.25 MG TABLET GT SCH ×2 (09:36→21:36)
[2017-10-31] MEDS: BENAZEPRIL HCL 20 MG TABLET GT SCH (09:36)
[2017-10-31] MEDS: CITRIC ACID/SODIUM CITRATE (BICITRA)15 ML UDC PO SCH ×4 (09:41→21:58)
--- NOTE | 2017-10-31 10:14 | NUR ---
WOUND CARE CONSULT: PT PRESENTS WITH IMMOBILITY, INCONTINENCE OF STOOL AND UNSTAGEABLE SACRAL ULCER, PRESENT ON ADMISSION. SCARRING NOTED TO ANKLES. ALL SKIN PROTECTION AND WOUND CARE RECOMMENDATIONS DISCUSSED WITH NURSING STAFF. FIRST STEP LOW AIRLOSS MATTRESS ORDERED. WILL SEE PRN. DONG IN AGREEMENT WITH PLAN OF CARE. Addendum: 10/31/17 at 1016 by RYAN MCKNIGHT WNDNU Amended: Links added.
[2017-10-31] MEDS ORDERED: HYDROGEL DRESSING 90 GM TUBE TP PRN (10:30)
[2017-10-31] MEDS: PANTOPRAZOLE 40 MG/PACK PACK GT SCH (12:02)
[2017-10-31] MEDS: HYDROGEL DRESSING 90 GM TUBE TP SCH (12:16)
--- NOTE | 2017-10-31 13:41 | NUR ---
PT RCVD TRACH'D ON MECHANICAL VENT WITH CHARTED SETTINGS. PT TOLERATING SETTINGS WELL AT THIS TIME. TX GIVEN AND NO ADVERSE REACTION NOTED. SX DONE. PT TRACH PATENT AND SECURE. AMBU BAG AT BEDSIDE. VENT PLUGGED INTO RED OUTLET. ALARMS ARE ON AND AUDIBLE. WILL CONTINUE TO MONITOR. Addendum: 10/31/17 at 1341 by CRISTA NARAYAN RT Amended: Links added.
[2017-10-31 16:00] VITALS: BP 130/71
--- NOTE | 2017-10-31 19:05 | NUR ---
RN NOTES PATIENT OBTUNDED, NO DISTRESS NOTED, TOLERATING CURRENT MECHANICAL VENT SETTINGS, TURNED AND REPOSITIONED EVERY 2 HOURS, SKIN CARE PROVIDED, WOUND TREATMENT RENDERED, BLE OFFLOADED, APPLIED BEATRIZ MATTRESS, PIV PATENT AND FLUSHES WELL. GTF NEEDS ATTENDED AND MET, CALL LIGHT WITHIN REACH, WILL ENDORSE TO ADMINISTRATIVE LIAISON FOR [facility].
--- NOTE | 2017-10-31 19:15 | NUR ---
FRUIT RANCHER OPENING NOTES PATIENT OBTUNDED, NO DISTRESS NOTED, ON MECHANICAL VENT, BLE OFFLOADED, IV PATENT AND INTACT AND FLUSHES WELL.PT ON G-TUBE FEEDING AT 45ML/H TOLERATED WELL WITH NO RESIDUAL,SAFETY PRECAUTIONS IN PLACE, HOB ELEVATED.WILL CONTINUE TO MONITOR .
[2017-10-31 20:00] VITALS: BP 151/80
--- NOTE | 2017-10-31 20:00 | NUR ---
PATIENT WAS RECEIVED ON CONTINUOUS VENT SUPPORT ON NOTED VENT SETTINGS. HHN TREATMENT GIVEN TOLERATED WELL . B/S RHONCHI , SUCTIONED WITH A MODERATE AMOUNT OF THIN PALE YELLOWISH SECRETIONS . VENT PLUGGED INTO RED OUTLET,AMBUBAG AND SPARE TRACH AT BEDSIDE. PATIENT STABLE AT THIS TIME. WILL CONTINUE TO MONITOR. Addendum: 11/01/17 at 0354 by STEVEN WARE RT Amended: Links added.
[2017-10-31] MEDS: ATORVASTATIN 10 MG TABLET GT SCH (21:36)
[2017-10-31] MEDS: INSULIN GLARGINE, 100 UNIT/ML CARTRIDGE SQ SCH (22:15)
[2017-11-01] VITALS: BP 124/73
[2017-11-01] MEDS: BLOOD SUGAR DIAGNOSTIC 1 EACH STRIP IN SCH ×4 (01:09→17:31)
[2017-11-01] MEDS: INSULIN REGULAR, HUMAN 100 UNIT/ML 3 ML VIAL SQ PRN ×4 (01:13→17:37)
[2017-11-01] MEDS: ALBUTEROL FS 2.5 MG/0.5 ML VIAL.NEB IH SCH ×4 (01:27→20:16)
[2017-11-01] MEDS: IPRATROPIUM NEB FS 0.5 MG/2.5 ML AMPUL.NEB IH SCH ×4 (01:27→20:16)
--- NOTE | 2017-11-01 02:30 | NUR ---
BEND SORTER NOTES RECEIVED PT IN BED, OBTUNDED , NON VERBAL. NO DISTRESS, NO SOB NOTED AT THIS TIE, TRACH WITH VENT INTACT AND PATENT. SUCTIONED PRN. IV SITE ON LEFT HAND INTACT AND PATENT, NO S/S OF INFILTRATION NOTED. LCW HD CATH INTACT. NO S/S OF PAIN OR DISCOMFORT AT THIS TIME. SAFETY PRECAUTIONS OBSERVED, ASPIRATION PRECAUTION OBSERVED. ALL NEEDS ATTENDED AND MET. KEPT COMFORTABLE. CALL LIGHT WITHIN REACH. WILL CONT TO MONITOR.
[2017-11-01 04:00] VITALS: BP 119/71
--- NOTE | 2017-11-01 06:44 | NUR ---
SOLID WASTE ANALYST NOTES PT IN BED, OBTUNDED , NON VERBAL. NO DISTRESS, NO SOB NOTED AT THIS TIME, TRACH WITH VENT INTACT AND PATENT. SUCTIONED PRN. IV SITE ON LEFT HAND INTACT AND PATENT, NO S/S OF INFILTRATION NOTED. LCW HD CATH INTACT. GT IS INTACT AND PATENT, NO RESIDUAL OTED. GTF OF NEPRO CHAPIN WELL. NO S/S OF PAIN OR DISCOMFORT AT THIS TIME. SAFETY PRECAUTIONS OBSERVED, ASPIRATION PRECAUTION OBSERVED. ALL NEEDS ATTENDED AND MET. KEPT COMFORTABLE. CALL LIGHT WITHIN REACH. WILL ENDORSE TO NEXT SHIFT ACCORDINGLY.
--- NOTE | 2017-11-01 07:20 | NUR ---
TELE/RN OPENING NOTE PATIENT IS RECEIVED IN BED. PATIENT OBTUNDED AND NON-VERBAL. PATIENT IS ON TRACH CONNECTED TO MECHANICAL VENT WITH SETTING AC 18, TV 550, FIO2 35%, PEEP 5. THE PATIENT TOLERATES THE SETTING WELL. TELE MONITOR READING IS SR 83. GT FEEDING ON NEPHRO AT 45ML/HR. NO RESIDUAL NOTED. HOB ELEVATED TO PREVENT ASPIRATION. LEFT HAND G 24 PATENT AND SALINE LOCKED. CENTRAL VENOUS HD CATHETER ON LCW IN PLACE AND NO BLEEDING, NO S/S INFECTION NOTED. BED LOW AND LOCKED. SIDE RAILS UP X3. CALL LIGHT WITHIN REACH. WILL CONTINUE TO MONITOR.
[2017-11-01 08:00] VITALS: BP 137/74
[2017-11-01] MEDS: HYDROGEL DRESSING 90 GM TUBE TP SCH (08:27)
[2017-11-01] MEDS: DOCUSATE SODIUM LIQ 100 MG/10 ML UDC GT SCH ×2 (08:27→20:40)
[2017-11-01] MEDS: CITRIC ACID/SODIUM CITRATE (BICITRA)15 ML UDC PO SCH ×4 (08:27→20:45)
[2017-11-01] MEDS: ASPIRIN 325 MG TABLET PO SCH (08:28)
[2017-11-01] MEDS: TRAMADOL HCL 50 MG TABLET GT SCH (08:28)
[2017-11-01] MEDS: LEVETIRACETAM (250 MG) 250 MG TABLET PO SCH ×2 (08:28→20:40)
[2017-11-01] MEDS: SEVELAMER CARBONATE 0.8 GM POWD.PACK GT SCH ×3 (08:28→20:40)
[2017-11-01] MEDS: BENAZEPRIL HCL 20 MG TABLET GT SCH (08:29)
[2017-11-01] MEDS: CARVEDILOL 6.25 MG TABLET GT SCH ×2 (08:29→20:41)
[2017-11-01 11:22] VITALS: BP 126/72
[2017-11-01] MEDS: PANTOPRAZOLE 40 MG/PACK PACK GT SCH (12:30)
--- NOTE | 2017-11-01 13:00 | NUR ---
MS/RN NOTE BICITRA DUE AT 1300 NOT ADMINISTERED DUE TO PATIENT GETTING DIALYSIS.
[2017-11-01 16:00] VITALS: BP 126/71
--- NOTE | 2017-11-01 18:35 | NUR ---
TELE/RN CLOSING NOTE PATIENT IN BED SLEEPING. PATIENT MAINTAINS HIS USUAL STATE OF MENTAL STATUS. PATIENT OBTUNDED AND NON-VERBAL. PATIENT IS ON TRACH CONNECTED TO MECHANICAL VENT WITH SETTING AC 18, TV 550, FIO2 35%, PEEP 5. THE PATIENT TOLERATES THE SETTING WELL. TELE MONITOR READING SR 80. PATIENT IN NO APPARENT DISTRESS. LEFT HADN G 24 PATENT AND SALINE LOCKED. CENTRAL VENOUS HD CATHETER ON LCW IN PLACE AND NO BLEEDING, NO S/S INFECTION NOTED. PATIENT HAD DIALYSIS TODAY AND 2000 ML FLUID WAS REMOVED. PATIENT TOLERATED DIALYSIS WELL. GT FEEDING OFF AT THIS TIME BUT DURING THE SHIFT PATIENT TOLERATED GT FEEDING WELL. NO RESIDUAL NOTED. ABDOMEN SOFT AND NON-DISTENDED AND HEAD OF BED IS KEPT ELEVATED TO PREVENT ASPIRATION. GOOD AND GENTLE SKIN CARE RENDERED. KEPT CLEAN, DRY AND COMFORTABLE. TURNED AND REPOSITIONED Q2HR AND NEEDED. ALL NEEDS ATTENDED AND ANTICIPATED. BED LOW AND LOCKED. SIDE RAILS UP X3. CALL LIGHT WITHIN REACH. WILL ENDORSE TO CIVIL DRAFTSMAN.
--- NOTE | 2017-11-01 19:26 | NUR ---
HOG COOLER OPENING NOTES PATIENT OBTUNDED, ON MECHANICAL VENT, SLEEPING,NO DISTRESS NOTED AT THIS TIME, IV PATENT AND INTACT AND FLUSHES WELL.PT ON G-TUBE FEEDING AT 45ML/H TOLERATED WELL WITH NO RESIDUAL,FEEDING OFF UNTIL 2300 .SAFETY PRECAUTIONS IN PLACE, HOB ELEVATED.WILL CONTINUE TO MONITOR AND PROVIDE CARE.
[2017-11-01 20:00] VITALS: BP_SYST 104; BP_SYST 132; BP_DIAS 44; BP_DIAS 77
[2017-11-01] MEDS: ATORVASTATIN 10 MG TABLET GT SCH (20:41)
[2017-11-01] MEDS: INSULIN GLARGINE, 100 UNIT/ML CARTRIDGE SQ SCH (22:25)
[2017-11-01] MEDS: NEPRO 1,000 ML BOTTLE GT PRN (23:41)
[2017-11-02] VITALS: BP 135/74
[2017-11-02] MEDS: BLOOD SUGAR DIAGNOSTIC 1 EACH STRIP IN SCH ×4 (00:46→17:52)
[2017-11-02] MEDS: INSULIN REGULAR, HUMAN 100 UNIT/ML 3 ML VIAL SQ PRN ×4 (00:47→17:52)
[2017-11-02] MEDS: ALBUTEROL FS 2.5 MG/0.5 ML VIAL.NEB IH SCH ×4 (00:56→19:43)
[2017-11-02] MEDS: IPRATROPIUM NEB FS 0.5 MG/2.5 ML AMPUL.NEB IH SCH ×4 (00:56→19:43)
[2017-11-02 04:00] VITALS: BP 100/50
--- NOTE | 2017-11-02 07:00 | NUR ---
HORSE IDENTIFIER CLOSING NOTES PATIENT OBTUNDED, ON MECHANICAL VENT, SLEEPING,NO DISTRESS NOTED AT THIS TIME, IV PATENT AND INTACT AND FLUSHES WELL.PT ON G-TUBE FEEDING AT 45ML/H TOLERATED WELL WITH NO RESIDUAL,FEEDING 0N SINCE 2300. TURNED AND REPOSITIONED EVERY [address] IN PLACE, HOB ELEVATED. WILL ENDORSE TO NEXT SHIFT FOR HARLAN.
--- NOTE | 2017-11-02 07:15 | NUR ---
RECEP OPENING NOTE RECEIVED PT IN BED, OBTUNDED AND NON-VERBAL. NO SIGNS OF ACUTE DISTRESS NOTED. PT IS ON TRACH, TOLERATING CURRENT VENT SETTINGS WELL. PT IS ON G-TUBE FEEDING, TOLERATING CURRENT RATE WELL. ON STRAIGHT LINE EDGER, SINUS RHYTHM, HR 87. L HAND #24G IV IS SALINE LOCKED, PATENT, AND WITHOUT SWELLING OR REDNESS AT THIS TIME. PLANS FOR WOUND DEBRIDEMENT LATER TODAY. BED IS LOCKED AND IN LOWEST POSITION, SIDE RAILS UP X3, BED ALARM IS ON, CALL LIGHT IS WITHIN REACH. WILL CONTINUE TO MONITOR.
[2017-11-02 08:00] VITALS: BP 140/70
--- NOTE | 2017-11-02 08:35 | NUR ---
RT FEMALE PT RECEIVED TRACHED AND ON [facility] VENT W NOTED SETTINGS. ALARMS ARE ON AND AUDIBLE W VENT PLUGGED INTO RED OUTLET AND AMBUBAG @ HOB. PT IS NON VERBAL. MOD AMOUNTS OF THICK WHITE SECRETIONS SXD. PT IS TOLERATING VENT SETTINGS AND HHN TX WELL. WILL CONTINUE TO MONITOR. Addendum: 11/02/17 at 1734 by GURINDER JEWELL RT Amended: Links added.
[2017-11-02] MEDS: BENAZEPRIL HCL 20 MG TABLET GT SCH (09:15)
[2017-11-02] MEDS: CITRIC ACID/SODIUM CITRATE (BICITRA)15 ML UDC PO SCH ×4 (09:15→21:48)
[2017-11-02] MEDS: LEVETIRACETAM (250 MG) 250 MG TABLET PO SCH ×2 (09:15→21:48)
[2017-11-02] MEDS: DOCUSATE SODIUM LIQ 100 MG/10 ML UDC GT SCH ×2 (09:15→21:44)
[2017-11-02] MEDS: TRAMADOL HCL 50 MG TABLET GT SCH (09:16)
[2017-11-02] MEDS: ASPIRIN 325 MG TABLET PO SCH (09:17)
[2017-11-02] MEDS: SEVELAMER CARBONATE 0.8 GM POWD.PACK GT SCH ×3 (09:17→21:48)
[2017-11-02] MEDS: HYDROGEL DRESSING 90 GM TUBE TP SCH (09:17)
[2017-11-02] MEDS: CARVEDILOL 6.25 MG TABLET GT SCH ×2 (09:17→21:48)
[2017-11-02 10:22] LABS: CALCITRIOL VIT D,1, 25 DIHYDRO 9.3 pg/mL (19.9-79.3)
[2017-11-02 12:47] LABS: OCCULT BLOOD STOOL NEGATIVE (NEGATIVE)
[2017-11-02] MEDS: PANTOPRAZOLE 40 MG/PACK PACK GT SCH (12:53)
[2017-11-02 16:00] VITALS: BP 117/66
--- NOTE | 2017-11-02 16:27 | NUR ---
MANAGER ECONOMIC NEW IV INSERTED L HAND #24G WAS NOTED TO BE PULLED OUT. NEW IV INSERTED AT THE L THUMB, #24G, IV IS PATENT,CLEAN, DRY AND INTACT.
--- NOTE | 2017-11-02 18:41 | NUR ---
CARPORT ERECTOR CLOSING NOTE PT IS IN BED, OBTUNDED AND NON VERBAL, AROUSABLE TO TOUCH. NO SIGNS OF ACUTE DISTRESS NOTED. PT IS ON TRACH AND TOLERATED CURRENT VENT SETTINGS WELL FOR THE DURATION OF THE SHIFT, SUCTIONED PERIODICALLY THROUGHOUT THE SHIFT. PT IS ON TRAINING MGR, SINUS RHYTHM, HR 85. G-TUBE FEEDING HELD AT 1700 ORDERED, SCHEDULED TO RESUME AT 2300. S/P SURGICAL DEBRIDEMENT TODAY (11/02) BY SURGICAL GROUNDS PERSON, WOUND CARE PROVIDED ORDERED, PT TURNED AND REPOSITIONED Q2H. L THUMB #24G IV IS SALINE LOCKED, PATENT, CLEAN, DRY AND INTACT. CONTACT AND ASPIRATION PRECAUTIONS MAINTAINED THROUGHOUT THE SHIFT. BED IS LOCKED AND IN LOWEST POSITION, SIDE RAILS UP X2, BED ALARM IS ON, CALL LIGHT IS WITHIN REACH. WILL ENDORSE TO BEADING MACHINE OPERATOR RN FOR CONTINUITY OF CARE.
--- NOTE | 2017-11-02 19:25 | NUR ---
RN NOTES RECEIVED PT AWAKE, NON VERBAL, OBTUNDED. TRACH INTACT, ON MECHANICAL VENT WITH SETTINGS IN PLACE AND TOLERATED WELL. NO SIGNS OF DISTRESS AND DISCOMFORT NOTED. HD CATH ON LEFT UPPER CHEST INTACT, WITH DRESSING CLEAN AND DRY. TELE MONITOR READS SINUS RHYTHM WITH HEART RATE AT 69. IV ACCESS ON LEFT THUMB PATENT AND INTACT. GT INTACT, CLAMPED AT THIS TIME, WILL RESTART GT FEEDING AT 2300 SCHEDULED. DRESSING ON SACRAL WOUND CLEAN, DRY AND INTACT, BOTH LOWER LEG OFFLOADED. KEPT PT CLEAN AND DRY. WILL CONTINUE TO MONITOR PT.
[2017-11-02 20:00] VITALS: BP 100/57
--- NOTE | 2017-11-02 21:34 | NUR ---
PT RCVD TRACH'D ON MECHANICAL VENT WITH CHARTED SETTINGS. PT TOLERATING SETTINGS WELL AT THIS TIME. TX GIVEN AND NO ADVERSE REACTION NOTED. SX DONE. PT TRACH PATENT AND SECURE. AMBU BAG AT BEDSIDE. VENT PLUGGED INTO RED OUTLET. ALARMS ARE ON AND AUDIBLE. WILL CONTINUE TO MONITOR. Addendum: 11/02/17 at 2135 by CRISTA NARAYAN RT Amended: Links added.
[2017-11-02] MEDS: ATORVASTATIN 10 MG TABLET GT SCH (21:48)
[2017-11-02] MEDS: INSULIN GLARGINE, 100 UNIT/ML CARTRIDGE SQ SCH (21:50)
[2017-11-02 22:00] VITALS: BP 145/77
[2017-11-02] MEDS: NEPRO 1,000 ML BOTTLE GT PRN (23:12)
[2017-11-03] VITALS: BP 112/69
[2017-11-03] MEDS: BLOOD SUGAR DIAGNOSTIC 1 EACH STRIP IN SCH ×5 (00:08→23:37)
[2017-11-03] MEDS: INSULIN REGULAR, HUMAN 100 UNIT/ML 3 ML VIAL SQ PRN ×5 (00:11→23:48)
[2017-11-03] MEDS: ALBUTEROL FS 2.5 MG/0.5 ML VIAL.NEB IH SCH ×4 (01:12→19:10)
[2017-11-03] MEDS: IPRATROPIUM NEB FS 0.5 MG/2.5 ML AMPUL.NEB IH SCH ×4 (01:12→19:10)
[2017-11-03 04:00] VITALS: BP 102/61
--- NOTE | 2017-11-03 05:45 | NUR ---
RN NOTES HD STARTED, VITAL SIGNS STABLE, TOLERATING WELL.
--- NOTE | 2017-11-03 06:55 | NUR ---
RN NOTES PT SLEPT WELL OVERNIGHT, VITAL SIGNS STABLE, AFEBRILE. MECHANICAL VENT TOLERATED WELL. TELEMONITOR READS SINUS RHYTHM WITH HEART RATE AT 84. GT INTACT WITH ONGOING NEPRO AT 45 ML/HR AND TOLERATED WELL. WOUND CARE DONE, KEPT CLEAN AND DRY. TURNED AND REPOSITIONED PER PROTOCOL.ISOLATION PRECAUTION OBSERVED. wILL ENDORSE TO MORNING RN FOR CONTINUITY OF CARE.
--- NOTE | 2017-11-03 07:30 | NUR ---
MAINTENANCE SHOP MANAGER NOTES PT IN BED, EYES CLOSED, RESPIRATIONS NORMAL AND NOT LABORED, VENT IN PLACE, GT FEEDING INFUSING WELL, WITH GOOD O2 SAT, WITH ONGOING DIALYSIS AT THIS TIME, TOLERATING WELL, VITAL SIGNS STABLE, ISOLATION PRECAUTIONS OBSERVED.
[2017-11-03 08:00] VITALS: BP 115/70
[2017-11-03] MEDS: DOCUSATE SODIUM LIQ 100 MG/10 ML UDC GT SCH ×2 (08:42→21:42)
[2017-11-03] MEDS: ASPIRIN 325 MG TABLET PO SCH (08:42)
[2017-11-03] MEDS: SEVELAMER CARBONATE 0.8 GM POWD.PACK GT SCH ×3 (08:42→21:43)
[2017-11-03] MEDS: BENAZEPRIL HCL 20 MG TABLET GT SCH (08:43)
[2017-11-03] MEDS: LEVETIRACETAM (250 MG) 250 MG TABLET PO SCH ×2 (08:43→21:43)
[2017-11-03] MEDS: TRAMADOL HCL 50 MG TABLET GT SCH (08:43)
[2017-11-03] MEDS: CARVEDILOL 6.25 MG TABLET GT SCH ×2 (08:43→21:42)
[2017-11-03] MEDS: HYDROGEL DRESSING 90 GM TUBE TP SCH (08:44)
[2017-11-03] MEDS: CITRIC ACID/SODIUM CITRATE (BICITRA)15 ML UDC PO SCH ×4 (10:30→21:43)
[2017-11-03 12:00] VITALS: BP 124/72
[2017-11-03] MEDS: PANTOPRAZOLE 40 MG/PACK PACK GT SCH (12:11)
--- NOTE | 2017-11-03 12:34 | NUR ---
BOND UNDERWRITER NOTES PT IN BED, RESTING, NON VERBAL, NO SIGN OF PAIN OR DISTRESS, GT FEEDING INFUSING WELL, TOLERATING WELL, COMPLETED DIALYSIS, TOLERATED WELL, SCHEDULED MEDS GIVEN ORDERED, BLOOD SUGAR CHECKED, INSULIN ADMINISTERED PER SLIDING SCALE ORDERED, KEPT CLEAN AND DRY.
[2017-11-03 16:00] VITALS: BP 107/65
--- NOTE | 2017-11-03 18:53 | NUR ---
PLASTIC TUBING INSULATION SUPERVISOR NOTES PT IN BED, NON VERBAL, NO FACIAL GRIMACING OR MOANING, RESPIRATIONS NORMAL, PM CARE RENDERED, SACRAL WOUND TREATMENT DONE, DRESSING CHANGE DONE, TURNED AND REPOSITIONED Q2 HOURS, PM MEDS ADMINISTERED, ALL NEEDS ATTENDED.
--- NOTE | 2017-11-03 19:20 | NUR ---
RETURNED GOODS REPAIRER INITIAL NOTES PATIENT IN BED, EYES CLOSED, RESPIRATIONS NORMAL AND NOT LABORED, VENT IN PLACE, GT FEEDING IN PLACE. TELE MONITOR READING SINUS RHYTHM 72. SOLATION PRECAUTIONS OBSERVED. PATIENT STABLE ENDORSED BY THE MORNING NURSE. WILL CONTINUE TO MONITOR ACCORDINGLY
[2017-11-03 20:00] VITALS: BP 131/67
--- NOTE | 2017-11-03 20:35 | NUR ---
PATIENT RECEIVED TRACHED ON MECHANICAL VENTILATION. PORTEX [address] AND SECURED. VENT PLUGGED INTO RED OUTLET. PULSE OX CONNECTED @ BEDSIDE. AMBU BAG @ HOB. ALARMS ON AND AUDIBLE. CUFF CHECKED VIA CAD LIBRARIAN. TX GIVEN, NO ADVERSE REACTIONS NOTED. SX DONE, SMALL THICK WHITE/YELLOW SECRETIONS NOTED. WILL MONITOR T/O SHIFT. Addendum: 11/03/17 at 2035 by YAZAN HEART RT Amended: Links added.
[2017-11-03] MEDS: ATORVASTATIN 10 MG TABLET GT SCH (21:43)
[2017-11-03] MEDS: INSULIN GLARGINE, 100 UNIT/ML CARTRIDGE SQ SCH (22:04)
--- NOTE | 2017-11-03 22:05 | NUR ---
RN NOTES Blood sugar checked, 200mg/dl. Latus 55 units SQ given as ordered
[2017-11-03] MEDS: NEPRO 1,000 ML BOTTLE GT PRN (23:01)
--- NOTE | 2017-11-03 23:48 | NUR ---
RN NOTES BSL checked, 196mg/dL. Insulin HR 3 units given as per sliding scale
[2017-11-04] VITALS: BP 124/71
[2017-11-04] MEDS: ALBUTEROL FS 2.5 MG/0.5 ML VIAL.NEB IH SCH ×4 (01:13→19:51)
[2017-11-04] MEDS: IPRATROPIUM NEB FS 0.5 MG/2.5 ML AMPUL.NEB IH SCH ×4 (01:13→19:51)
[2017-11-04 04:00] VITALS: BP 134/75
[2017-11-04] MEDS: BLOOD SUGAR DIAGNOSTIC 1 EACH STRIP IN SCH ×4 (05:26→23:51)
[2017-11-04] MEDS: INSULIN REGULAR, HUMAN 100 UNIT/ML 3 ML VIAL SQ PRN ×4 (05:34→23:51)
--- NOTE | 2017-11-04 05:35 | NUR ---
RN NOTES BSL CHECKED, 268MG/DL. 6 UNITS INSULIN GIVEN PER SLIDING SCALE
--- NOTE | 2017-11-04 06:57 | NUR ---
NAIL FEEDER CLOSING NOTES Patient in bed, obtunded, nonverbal. On mechanical vent: AC- 18, TV- 55, FiO2- 35%, PEEP- 5, Portex- 7. Not in any distress. G-tube feeding infusing at 45mL/hr. No residuals noted. G-tube flushed. Patient turned and repositioned. All needs attended to. All medications given as ordered. Isolation precautions observed. Will endorse HARLAN to oncoming RN.
--- NOTE | 2017-11-04 08:04 | NUR ---
RN OPENING TELE NOTES RECEIVED PATIENT IN BED, AWAKE, OBTUNDED NON VERBAL. TRACH IN PLACE, VENT SETTINGS AC 18 PEEP 5 TV 550 PORTEX 7 FiO2 35%. GTUBE FEEDING RUNNING AT 45ML/HR AND TOLERATING. IN NO APPARENT DISTRESS, AM CARE RENDERED. BED IN LOWEST LOCKED POSITION, WILL CONTINUE TO MONITOR
[2017-11-04 08:22] VITALS: BP 127/72
--- NOTE | 2017-11-04 08:34 | NUR ---
PT RECEIVED ON MECHANICAL VENT ON THE NOTED SETTINGS. TRACH IS SECURE. BREATHING TX WAS GIVEN, NO ADVERSE REACTIONS NOTED AT THIS TIME. PT SUCTIONED WITH SMALL THIN WHITE SECRETIONS. VENT IS PLUGGED INTO RED OUTLET. VENT ALARMS ARE ONE AND AUDIBLE. AMBU BAG IS AT BEDSIDE. WILL CONT TO MONITOR PT. Addendum: 11/04/17 at 0834 by JASKARAN CHIN RT Amended: Links added.
[2017-11-04] MEDS: LEVETIRACETAM (250 MG) 250 MG TABLET PO SCH ×2 (09:10→21:18)
[2017-11-04] MEDS: ASPIRIN 325 MG TABLET PO SCH (09:10)
[2017-11-04] MEDS: DOCUSATE SODIUM LIQ 100 MG/10 ML UDC GT SCH ×2 (09:10→21:17)
[2017-11-04] MEDS: CARVEDILOL 6.25 MG TABLET GT SCH ×2 (09:11→21:18)
[2017-11-04] MEDS: BENAZEPRIL HCL 20 MG TABLET GT SCH (09:11)
[2017-11-04] MEDS: SEVELAMER CARBONATE 0.8 GM POWD.PACK GT SCH ×3 (09:11→21:17)
[2017-11-04] MEDS: TRAMADOL HCL 50 MG TABLET GT SCH (09:12)
[2017-11-04] MEDS: HYDROGEL DRESSING 90 GM TUBE TP SCH (09:13)
[2017-11-04] MEDS: CITRIC ACID/SODIUM CITRATE (BICITRA)15 ML UDC PO SCH ×4 (09:16→21:17)
[2017-11-04] MEDS: PANTOPRAZOLE 40 MG/PACK PACK GT SCH (11:55)
[2017-11-04 16:23] VITALS: BP 119/73
--- NOTE | 2017-11-04 17:39 | NUR ---
BPM ANALYST NOTES ORDERS RECEIVED FROM DR. GARCIA FOR RIGHT POSSIBLE LEFT DIALYSIS CATHETER PLACEMENT TO BE DONE TOMORROW, EXPLAINED PROCEDURE TO PT'S MR BAILEY, AGREED WITH PLAN, CONSENTS SIGNED, MR BAILEY ALSO AGREES WITH POSSIBLE PLACEMENT OF A NEW AV FISTULA.
--- NOTE | 2017-11-04 18:28 | NUR ---
RN CLOSING TELE NOTES PATIENT REMAINS IN BED, AWAKE, OBTUNDED, NON VERBAL. VENT IN PLACE, GTUBE FEEDING TURNED OFF AT 1700 WILL BE NPO FROM MIDNIGHT FOR PROCEDURE IN THE AM. REPOSITIONED FOR COMFORT. IN NO APPARENT DISTRESS. BED IN LOWEST LOCKED POSITION, WILL ENDORSE TO NIGHT NURSE FOR HARLAN.
--- NOTE | 2017-11-04 19:15 | NUR ---
MOPPER INITIAL NOTES Patient in bed, obtunded, nonverbal. On mechanical vent: AC- 18, TV- 55, FiO2- 35%, PEEP- 5, Portex- 7. In no apparent distress. Isolation precautions observed. Bed in low, locked position. Patient stable as endorsed by the morning shift RN. Will continue to monitor accordingly
[2017-11-04 20:00] VITALS: BP 126/75
[2017-11-04] MEDS: ATORVASTATIN 10 MG TABLET GT SCH (21:19)
[2017-11-04] MEDS: INSULIN GLARGINE, 100 UNIT/ML CARTRIDGE SQ SCH (22:00)
--- NOTE | 2017-11-04 22:05 | NUR ---
RN NOTES BSL is 205mg/dl. Lantus not given. Patient has procedure tomorrow, for NPO post MN. Charge nurse aware
--- NOTE | 2017-11-04 23:52 | NUR ---
RN NOTES BSL checked, 219mg/dl. No insulin coverage given. Patient NPO for surgery
[2017-11-05] VITALS (9 sets, daily range): BP systolic 115–135; BP diastolic 71–83
[2017-11-05] MEDS: ALBUTEROL FS 2.5 MG/0.5 ML VIAL.NEB IH SCH ×4 (01:55→20:08)
[2017-11-05] MEDS: IPRATROPIUM NEB FS 0.5 MG/2.5 ML AMPUL.NEB IH SCH ×4 (01:55→20:08)
--- NOTE | 2017-11-05 01:58 | NUR ---
RT NOTE TX GIVEN TO PATIENT. UNABLE TO SCAN PATIENT DUE TO NOT BEING ABLE TO BRING SCANNER INTO PATIENTS ROOM. SECTION BLOCKED OFF DUE TO FLOOR CLEANING. Addendum: 11/05/17 at 0159 by RONN RAMOS RT Amended: Links added.
[2017-11-05] MEDS: BLOOD SUGAR DIAGNOSTIC 1 EACH STRIP IN SCH ×3 (06:30→17:46)
[2017-11-05] MEDS: INSULIN REGULAR, HUMAN 100 UNIT/ML 3 ML VIAL SQ PRN ×2 (06:31→11:38)
[2017-11-05 06:41] LABS: BASOPHILS % (AUTO) 0.1 % (0.0-2.0); EOSINOPHILS % (AUTO) 1.6 % (0.0-6.0); HEMATOCRIT 29 % (33-45); HEMOGLOBIN 9.4 g/dL (11.5-14.8); LYMPHOCYTES # (AUTO) 1.5 /CMM (0.8-4.8); MEAN CORPUSCULAR HGB CONC 33 g/dl (31.0-36.0); MEAN CORPUSCULAR VOLUME 99 fL (82-100); MONOCYTES # (AUTO) 0.5 /CMM (0.1-1.30); NEUTROPHILS # (AUTO) 9.5 /CMM (1.8-8.9); NEUTROPHILS % (AUTO) 81.3 % (43.0-81.0); PLATELET COUNT (AUTO) 291 /CMM (150-450); RDW COEFFICIENT OF VARIATION 16.4 (11.5-15.0); RED BLOOD CELL COUNT(AUTO) 2.91 MIL/uL (4.0-5.2); WHITE BLOOD COUNT (AUTO) 11.7 K/uL (4.3-11.0)
[2017-11-05 06:48] LABS: INR 0.93 (0.87-1.13)
[2017-11-05 07:16] LABS: CALCIUM, SERUM 10.7 mg/dL (8.5-10.1); POTASSIUM 4.1 mmol/L (3.5-5.1)
[2017-11-05 07:28] LABS: CREATININE 8.2 mg/dL (0.6-1.3)
--- NOTE | 2017-11-05 07:30 | NUR ---
CLOTHES SHAKER CLOSING NOTES Patient in bed, obtunded, nonverbal. On mechanical vent: AC- 18, TV- 55, FiO2- 35%, PEEP- 5, Portex- 7. Not in any distress. NPO since midnight. Patient turned and repositioned. IV site on L thumb patent and intact. All needs attended to. All medications given as ordered. Isolation precautions observed. Endorsed HARLAN to oncoming RN.
--- NOTE | 2017-11-05 08:00 | NUR ---
RN NOTES PATIENT IN BED RESTING NO SOB OR ACUTE DISTRESS NOTED. PATIENT VENT DEPENDENT VENT SETTINGS NOTED. WITH PERIPHERAL IV INTACT PATENT. PATIENT NPO AWAITING FOR SURGERY . CALL LIGHT WITHIN REACH. BED IN LOW LOCKED POSITION. WILL CONTINUE TO MONITOR.
[2017-11-05] MEDS: LEVETIRACETAM (250 MG) 250 MG TABLET PO SCH ×2 (09:00→20:47)
[2017-11-05] MEDS: TRAMADOL HCL 50 MG TABLET GT SCH (09:00)
[2017-11-05] MEDS: CITRIC ACID/SODIUM CITRATE (BICITRA)15 ML UDC PO SCH ×4 (09:00→20:46)
[2017-11-05] MEDS: BENAZEPRIL HCL 20 MG TABLET GT SCH (09:00)
[2017-11-05] MEDS: ASPIRIN 325 MG TABLET PO SCH (09:00)
[2017-11-05] MEDS: DOCUSATE SODIUM LIQ 100 MG/10 ML UDC GT SCH ×2 (09:00→20:46)
[2017-11-05] MEDS: CARVEDILOL 6.25 MG TABLET GT SCH (09:00)
[2017-11-05] MEDS: SEVELAMER CARBONATE 0.8 GM POWD.PACK GT SCH ×3 (09:00→20:46)
[2017-11-05] MEDS: HYDROGEL DRESSING 90 GM TUBE TP SCH (09:08)
[2017-11-05] MEDS: PANTOPRAZOLE 40 MG/PACK PACK GT SCH (12:30)
[2017-11-05] MEDS ORDERED: HEPARIN SODIUM, PORCINE 1,000 UNIT/ML VIAL ONE (16:06)
[2017-11-05] MEDS ORDERED: LIDOCAINE 1% INJ 50 ML MDV IJ ONE (16:06)
--- NOTE | 2017-11-05 17:00 | NUR ---
TIRE SETTER NOTES PATIENT RETURNED FROM OR IN STABLE CONDITION WILL CONTINUE TO MONITOR.
[2017-11-05] MEDS: NEPRO 1,000 ML BOTTLE GT PRN (17:43)
--- NOTE | 2017-11-05 18:23 | NUR ---
RN NOTES PATIENT IN BED RESTING NO SOB OR ACUTE DISTRESS NOTED. ALL DUE MEDICATIONS ADMINISTERED. ALL NEEDS MET WILL CONTINUE TO MONITOR.
--- NOTE | 2017-11-05 19:30 | NUR ---
MW/RN PATIENT IS IN BED APPEAR SLEEPING, APPEAR COMFORTABLE, NO SIGNS OF DISTRESS NOTED, VENT WORKING WELL, HOB ELEVATED, GT FEEDING INFUSING, WILL MONITOR.
[2017-11-05] MEDS: ATORVASTATIN 10 MG TABLET GT SCH (20:47)
[2017-11-06] VITALS: BP 108/64
[2017-11-06] MEDS: BLOOD SUGAR DIAGNOSTIC 1 EACH STRIP IN SCH ×4 (00:20→17:25)
[2017-11-06] MEDS: INSULIN REGULAR, HUMAN 100 UNIT/ML 3 ML VIAL SQ PRN ×4 (00:22→17:25)
[2017-11-06] MEDS: INSULIN GLARGINE, 100 UNIT/ML CARTRIDGE SQ SCH (00:25)
[2017-11-06] MEDS: CARVEDILOL 6.25 MG TABLET GT SCH ×2 (00:29→08:43)
[2017-11-06] MEDS: ALBUTEROL FS 2.5 MG/0.5 ML VIAL.NEB IH SCH ×3 (01:51→13:26)
[2017-11-06] MEDS: IPRATROPIUM NEB FS 0.5 MG/2.5 ML AMPUL.NEB IH SCH ×3 (01:51→13:26)
[2017-11-06 04:00] VITALS: BP 133/80
--- NOTE | 2017-11-06 06:17 | NUR ---
MS/TELE/RN PATIENT APPEAR SLEEPING, APPEAR COMFORTABLE, NO SIGNS OF DISTRESS NOTED, HOB ELEVATED, FEEDING INFUSING, ON AND OFF SLEEP NOTED THE WHOLE SHIFT, ALL NEEDS ATTENDED AT THIS TIME, WILL CONTINUE TO MONITOR.
--- NOTE | 2017-11-06 08:00 | NUR ---
RN NOTES PATIENT IN BED RESTING NO SOB OR ACUTE DISTRESS NOTED. PATIENT VENT DEPENDENT VENT SETTINGS NOTED. PERIPHERAL IV INTACT PATENT. BED IN LOW LOCKED POSITION. CALL LIGHT WITHIN REACH. WILL CONTINUE TO MONITOR.
[2017-11-06] MEDS: SEVELAMER CARBONATE 0.8 GM POWD.PACK GT SCH ×2 (08:41→12:00)
[2017-11-06] MEDS: TRAMADOL HCL 50 MG TABLET GT SCH (08:41)
[2017-11-06] MEDS: LEVETIRACETAM (250 MG) 250 MG TABLET PO SCH (08:41)
[2017-11-06] MEDS: ASPIRIN 325 MG TABLET PO SCH (08:41)
[2017-11-06] MEDS: DOCUSATE SODIUM LIQ 100 MG/10 ML UDC GT SCH (08:41)
[2017-11-06] MEDS: BENAZEPRIL HCL 20 MG TABLET GT SCH (08:44)
[2017-11-06] MEDS: HYDROGEL DRESSING 90 GM TUBE TP SCH (08:46)
[2017-11-06] MEDS: CITRIC ACID/SODIUM CITRATE (BICITRA)15 ML UDC PO SCH ×3 (08:51→17:24)
[2017-11-06 09:29] VITALS: BP 108/57
--- NOTE | 2017-11-06 11:13 | NUR ---
PT RCVD TRACH'D ON MECHANICAL VENT WITH CHARTED SETTINGS. PT TOLERATING SETTINGS WELL AT THIS TIME. TX GIVEN AND NO ADVERSE REACTION NOTED. SX DONE. PT TRACH PATENT AND SECURE. AMBU BAG AT BEDSIDE. VENT PLUGGED INTO RED OUTLET. ALARMS ARE ON AND AUDIBLE. WILL CONTINUE TO MONITOR. Addendum: 11/06/17 at 1113 by CRISTA NARAYAN RT Amended: Links added.
[2017-11-06] MEDS: PANTOPRAZOLE 40 MG/PACK PACK GT SCH (11:56)
[2017-11-06 12:00] VITALS: BP 103/57
[2017-11-06 16:00] VITALS: BP 126/71
--- NOTE | 2017-11-06 18:30 | NUR ---
RN NOTES PATIENT DISCHARGED BACK TO [facility]. PATIENT IN STABLE CONDITION. MD AWARE OF ALL ABNORMAL LABS. DISCHARGE PROTOCOL FOLLOWED. ALL BELONGINGS ACCOUNTED FOR. PERIPHERAL IV REMOVED WITH MINIMAL BLEEDING. ID BAND ALSO REMOVED. REPORT GIVEN TO AMILCAR DILLON AT [facility]. PATIENTS MADE AWARE OF DISCHARGE. PATIENT TRANSPORTED TO SNF VIA AMBULANCE.
== END 2017-11-06 18:43 | DRG 466 ==
LOC: ER 14:53 → TELE 17:34
PROVIDERS: ADMIT Internal Medicine Nephrology; ATTEND Internal Medicine Nephrology
PROC: 5A1955Z Respiratory Ventilation, Greater than 96 Consecutive Hours (ICD-10-PCS; principal; 2017-10-29)
PROC: 5A1D70Z Performance of Urinary Filtration, Intermittent, Less than 6 Hours Per Day (ICD-10-PCS; 2017-10-30)
PROC: 5A1D70Z Performance of Urinary Filtration, Intermittent, Less than 6 Hours Per Day (ICD-10-PCS; 2017-11-01)
PROC: 0JB70ZZ Excision of Back Subcutaneous Tissue and Fascia, Open Approach (ICD-10-PCS; 2017-11-02)
PROC: 5A1D70Z Performance of Urinary Filtration, Intermittent, Less than 6 Hours Per Day (ICD-10-PCS; 2017-11-03)
PROC: B517YZA Fluoroscopy of Left Subclavian Vein using Other Contrast, Guidance (ICD-10-PCS; 2017-11-05)
PROC: 5A1D70Z Performance of Urinary Filtration, Intermittent, Less than 6 Hours Per Day (ICD-10-PCS; 2017-11-05)
PROC: 05PY33Z Removal of Infusion Device from Upper Vein, Percutaneous Approach (ICD-10-PCS; 2017-11-05)
PROC: 05H633Z Insertion of Infusion Device into Left Subclavian Vein, Percutaneous Approach (ICD-10-PCS; 2017-11-05)
PROC: 0JH63XZ Insertion of Tunneled Vascular Access Device into Chest Subcutaneous Tissue and Fascia, Percutaneous Approach (ICD-10-PCS; 2017-11-05)
DX: T82.41XA Breakdown (mechanical) of vascular dialysis catheter, initial encounter (principal); N18.6 End stage renal disease; I13.2 Hypertensive heart and chronic kidney disease with heart failure and with stage 5 chronic kidney disease, or end stage renal disease; G93.40 Encephalopathy, unspecified; Z99.11 Dependence on respirator [ventilator] status; J96.11 Chronic respiratory failure with hypoxia; L89.153 Pressure ulcer of sacral region, stage 3; R40.3 Persistent vegetative state; L89.319 Pressure ulcer of right buttock, unspecified stage; Z93.0 Tracheostomy status; R13.10 Dysphagia, unspecified; E11.22 Type 2 diabetes mellitus with diabetic chronic kidney disease; E87.1 Hypo-osmolality and hyponatremia; I50.9 Heart failure, unspecified; D72.829 Elevated white blood cell count, unspecified; E83.52 Hypercalcemia; I25.10 Atherosclerotic heart disease of native coronary artery without angina pectoris; Z99.2 Dependence on renal dialysis; E87.2 Acidosis; Q78.9 Osteochondrodysplasia, unspecified; E88.09 Other disorders of plasma-protein metabolism, not elsewhere classified; D50.9 Iron deficiency anemia, unspecified; D63.1 Anemia in chronic kidney disease; L89.329 Pressure ulcer of left buttock, unspecified stage; Z79.4 Long term (current) use of insulin; E03.9 Hypothyroidism, unspecified; Y71.2 Prosthetic and other implants, materials and accessory cardiovascular devices associated with adverse incidents; Y84.8 Other medical procedures as the cause of abnormal reaction of the patient, or of later complication, without mention of misadventure at the time of the procedure; Y92.129 Unspecified place in nursing home as the place of occurrence of the external cause
CPT/HCPCS: 31720; 36415; 36600; 71045-TC; 80048-TC; 80053-TC; 80061-TC; 82272-TC; 82652; 82728-TC; 82803-TC; 82962-TC; 83540-TC; 83735-TC; 83970; 84100-TC; 84443-TC; 85025-TC; 85610-TC; 85730-TC; 86850-TC; 87040-TC; 87070-TC; 87081-TC; 87086-TC; 87186-TC; 90935-TC; 94003-TC; 94640-TC; 94760-TC; A4606; A6248; A6253; A6402; A6403; J1644; J1815; J2997; J3490; Z7610

== ENCOUNTER 2018-05-24 15:39 | Emergency (ER) | payer OTHER ==
[~2018-05-24] VITALS: Ht 160 cm; Wt 62.6 kg
--- NOTE | 2018-05-24 15:44 | NUR ---
TARAH FROM [facility] FOR G-TUBE REPLACEMENT., ON VENT VIA TRACH. LCHEST PORT-A-CATH. TO ER BED 4, HOOKED TO MONITOR, AWAITING MD DOMINGUEZ.
--- NOTE | 2018-05-24 15:52 | NUR ---
DR AVILES AT BEDSIDE.
--- NOTE | 2018-05-24 16:15 | NUR ---
CALLED [facility]; TRIP # [id number] ETA [id number]
[2018-05-24 16:42] VITALS: BP 95/69
--- NOTE | 2018-05-24 16:45 | NUR ---
RT NOTE PT PLACED ON VENT PER MD ORDER. SETTINGS ENDORSED BY TRANSPORT RT AC 18 550 40% +5. ALARMS SET PER PROTOCOL AND AUDIBLE. VENT PLUGGED IN TO RED OUTLET. AMBU BAG AT BED SIDE. NO DISTRESS NOTED AT MOMENT. PT HAS PORTEX [address] Addendum: 05/24/18 at 1647 by SANTY WARE RT Amended: Links added.
--- NOTE | 2018-05-24 18:09 | NUR ---
REPORT GIVEN TO MAURICIO DILLON OF [facility] ([facility])
--- NOTE | 2018-05-24 18:11 | NUR ---
Patient discharged to [facility] in stable condition. Written and verbal after care instructions given. EMT verbalizes understanding of instruction.
[2018-05-24 18:13] VITALS: BP 112/73
== END 2018-05-24 18:14 ==
LOC: ER 15:40
DX: K94.23 Gastrostomy malfunction (principal); J96.10 Chronic respiratory failure, unspecified whether with hypoxia or hypercapnia; E11.22 Type 2 diabetes mellitus with diabetic chronic kidney disease; I12.0 Hypertensive chronic kidney disease with stage 5 chronic kidney disease or end stage renal disease; N18.6 End stage renal disease; Z99.11 Dependence on respirator [ventilator] status; Z99.2 Dependence on renal dialysis; Z88.1 Allergy status to other antibiotic agents; Z79.82 Long term (current) use of aspirin; Z79.4 Long term (current) use of insulin
CPT/HCPCS: 31720; 99285; A4217

== ENCOUNTER 2019-01-01 12:54 | Inpatient (IN) | payer OTHER ==
[2019-01-01] VITALS (15 sets, daily range): BP systolic 66–119; BP diastolic 41–108
[~2019-01-01] VITALS: Ht 160 cm; Wt 56.2 kg
[~2019-01-01 12:54] MED LIST changes: +FERR220E2 GT; -FERR220S6 GT; +OMEP40CA13 GT; -OMEP40CA37 GT
--- NOTE | 2019-01-01 13:05 | NUR ---
PT. placed into [facility] vent via trach size portex 7 with inflated cuff. parameters below per rt transporter: ac18 vt 550 fio2 35% peep +5 Vent plugged into red outlet with alarms on and functioning. breath sounds coarse rhonchi bilateral. liliyaubag @ bedside. Addendum: 01/01/19 at 1405 by AIMEE RG RT Amended: Links added.
--- NOTE | 2019-01-01 13:10 | NUR ---
bib pa for hypotension s/p finishing dialysis. Patient opens eyes, non-verbal, trache-vent dependent. Attached to the cardiac technologist. Kept comfortable,.
[2019-01-01 13:30] LABS: BASOPHILS # (AUTO) 0.1 /CMM (0.0-0.2); PLATELET COUNT (AUTO) 307 /CMM (150-450)
[2019-01-01 13:33] LABS: BASOPHILS % (AUTO) 0.4 % (0.0-2.0); EOSINOPHILS % (AUTO) 3.5 % (0.0-6.0); HEMATOCRIT 31 % (33-45); HEMOGLOBIN 9.8 g/dL (11.5-14.8); LYMPHOCYTES # (AUTO) 1.7 /CMM (0.8-4.8); LYMPHOCYTES % (AUTO) 10.1 % (20.0-44.0); MEAN CORPUSCULAR HGB CONC 32 g/dl (31.0-36.0); MEAN CORPUSCULAR VOLUME 102 fL (82-100); MONOCYTES # (AUTO) 1.2 /CMM (0.1-1.30); MONOCYTES % (AUTO) 7.1 % (2.0-12.0); NEUTROPHILS # (AUTO) 13.7 /CMM (1.8-8.9); NEUTROPHILS % (AUTO) 78.9 % (43.0-81.0); RED BLOOD CELL COUNT(AUTO) 3.03 MIL/uL (4.0-5.2); WHITE BLOOD COUNT (AUTO) 17.4 K/uL (4.3-11.0)
[2019-01-01 13:40] LABS: CALCIUM, SERUM 8.9 mg/dL (8.5-10.1); CARBON DIOXIDE 14 mmol/L (21-32); CHLORIDE 94 mmol/L (98-107); CREATININE 3.6 mg/dL (0.6-1.3); GLUCOSE 253 mg/dL (74-106); POTASSIUM 4.1 mmol/L (3.5-5.1); SODIUM SERUM 133 mmol/L (136-145); UREA NITROGEN, BLOOD 33 mg/dL (7-18)
[2019-01-01 13:46] LABS: ALBUMIN 3.7 g/dL (3.4-5.0); ALKALINE PHOSPHATASE 136 U/L (46-116); BILIRUBIN,DIRECT 0.1 mg/dL (0.0-0.2); BILIRUBIN,TOTAL 0.6 mg/dL (0.2-1.0); TOTAL PROTEIN, SERUM 9.9 g/dL (6.4-8.2)
[2019-01-01] MEDS ORDERED: LEVOFLOXACIN 750 MG /D5W 150ML 150 ML IV ONE (14:30)
[2019-01-01] MEDS ORDERED: MEROPENEM 1 G in IV NS 0.9% 100 ML IV ONE (14:30)
[2019-01-01 14:34] LABS: ALANINE AMINOTRANSFERASE 21 U/L (12-78); ASPARTATE AMINOTRANSFERASE 36 U/L (15-37)
--- NOTE | 2019-01-01 15:06 | NUR ---
[facility] PAGED AGAIN
[2019-01-01] MEDS ORDERED: SODI4SOL GT (15:19)
[2019-01-01] MEDS ORDERED: ASCO500T9 GT (15:19)
--- NOTE | 2019-01-01 15:19 | NUR ---
ZOILA KOWALSKIIT TO EPIC
--- NOTE | 2019-01-01 15:22 | NUR ---
[facility] CALLED BACK SPOKE WITH DR AVILES
--- NOTE | 2019-01-01 15:22 | NUR ---
CALLED [facility], PAGED ALVIN
--- NOTE | 2019-01-01 15:53 | NUR ---
REPORT GIVEN TO MIRZA DILLON.
--- NOTE | 2019-01-01 17:00 | NUR ---
RN NOTES ENDORSED PATIENT FOR CONTINUITY OF CARE PATIENT NOT ON RESPIRATORY DISTRESS, BLOOD PRESSURE STILL LO AT 70/40 MMHG, RUNNING IV BOLUS OF 500CC NS AT THIS TIME. HOB ELEVATED, SAFETY MEASURES IN PLACE. BED IN LOW AND LOCKED POSITIONED. CALL LIGHT WITHIN REACH
--- NOTE | 2019-01-01 17:00 | NUR ---
RN NOTES RECHECKED BLOOD PRESSURE AT 71/43MMHG, SANTANA BELL (INCOMING NIGHT NURSE) AND JOSE M (CHARGE NURSE) INFORMED ON ENDORSEMENT
[2019-01-01] MEDS ORDERED: ONDANSETRON HCL/PF 4 MG/2 ML VIAL IVP PRN (17:30)
[2019-01-01] MEDS ORDERED: MAGNESIUM HYDROXIDE 30 ML UDC PO PRN (17:30)
[2019-01-01] MEDS ORDERED: DEXTROSE 50%-WATER 50 ML DISP.SYRIN IV PRN (17:30)
[2019-01-01] MEDS ORDERED: ZOLPIDEM TARTRATE 5 MG TABLET PO PRN (17:30)
[2019-01-01] MEDS ORDERED: ACETAMINOPHEN 325 MG TABLET PO PRN (17:30)
[2019-01-01] MEDS ORDERED: MAG HYDROX/AL HYDROX/SIMETH 30 ML UDC PO PRN (17:30)
--- NOTE | 2019-01-01 17:31 | NUR ---
pt. transferred from ER #8 to 306-2. pt is using same [facility] vent with same parameters. vent plugged into red outlet. Addendum: 01/01/19 at 1733 by AIMEE RG RT Amended: Links added.
--- NOTE | 2019-01-01 17:35 | NUR ---
PATIENT TRANSFERRED TO ROOM 306-2 VIA ACLS PROTOCOL. IN NO DISTRESS.
[2019-01-01 17:37] LABS: BAND % (MANUAL) 23 % (0.0-5.0); EOSINOPHILS % (MANUAL) 2 % (0-4); LYMPHOCYTES % (MANUAL) 16 % (16-48); MONOCYTES % (MANUAL) 7 % (0-11.0); NEUTROPHILS % (MANUAL) 52 (42-76)
[2019-01-01] MEDS ORDERED: IV NS 0.9% 500 ML IV ONE (18:00)
--- NOTE | 2019-01-01 18:20 | NUR ---
RN NOTES RECEIVED PT FROM ER DEPT VIA BED, ARRIVED AT 1840. PT IS TRACH-VENT DEPENDENT. FULL CODE. VITALS CHECKED BP 64/40, RECHECKED 78/60. HOOKED TO TELEMONITORING HR OF 80S AND JUMPS UP TO 140S WITH OCCASIONAL QT INTERVALS. ADMITTING MD/SK MADE AWARE AND ORDERED TO GIVE IVF NS 500ML AT 75MLHR X1 DOSE AND TRANSFER TO [facility]. PT TRANSFERRED TO [facility] WITH RT PRESENT. BEDSIDE REPORT GIVEN TO MATT/RN AND ENDORSED FLUID.
--- NOTE | 2019-01-01 18:50 | NUR ---
RN NOTES RECEIVED PATIENT FROM [facility]. PATIENT TRANSFERRED INTO THE UNIT DUE TO UNIT DUE TO LOW BLOOD PRESSURE. INITIAL BLOOD PRESSURE AT 84/49MMHG. INITIAL VISUAL SKIN ASSESSMENT WITH NO SKIN ISSUES NOTED. TELEMONITOR ATTACHED, WILL START IV BOLUS ADMINISTRATION ENDORSED. Addendum: 01/01/19 at 2035 by MATT MCDONNELL RN ALSO CLAIMED THAT PATIENT'S SKIN IS INTACT.
--- NOTE | 2019-01-01 19:51 | NUR ---
CARE TECHNICIAN NOTES RECEIVED PT ON BED. OBTUNDED. ON TELE MONITOR SR 80. ON [facility] VENT SETTING NO RESPIRATORY DISTRESS NOTED. IV ACCESS ON LEFT HAND G20 ON GOING NS BOLUS RUNNING FOR HYPOTENSION. HEAD OF BED ELEVATED. SIDE RAILS UP. CALL LIGHT WITHIN REACH. BED ALARM ON. BED IN LOW AND LOCKED POSITION. WILL MONITOR PT CLOSELY.
--- NOTE | 2019-01-01 20:06 | NUR ---
WORKPLACE TRAINER AND ASSESSOR NOTES PAGED EPIC FOR LOW BP POST BOLUS 500CC NS BOLUS.
--- NOTE | 2019-01-01 20:09 | NUR ---
STORE STANDARDS ASSOCIATE NOTES PER GERONIMO ANDRADE TO HAVE MIDLINE, HE WILL CALL BACK FOR FURTHER ORDERS.
--- NOTE | 2019-01-01 20:28 | NUR ---
PORTFOLIO ANALYST NOTES PER GERONIMO Acevedo NS BOLUS AND PICC LINE INSERTION.
[2019-01-01] MEDS ORDERED: IV NS 0.9% 1,000 ML IV PRN (20:30)
--- NOTE | 2019-01-01 21:00 | NUR ---
THERAPIST NOTES FEMORAL LINE INSERTED 55CM. INFORMED CONSENT SIGNED.
--- NOTE | 2019-01-01 21:03 | NUR ---
TD RN NOTES PAGED EPIC FOR PT STILL HYPOTENSIVE ONGOING BOLUS. WILL MONITOR PT CLOSELY
[2019-01-01] MEDS: BLOOD SUGAR DIAGNOSTIC 1 EACH STRIP IN SCH (21:06)
[2019-01-01] MEDS ORDERED: NOREPINEPHRINE 16 MG in IV D5W 500 ML IV PRN ×5 (21:30→22:30)
--- NOTE | 2019-01-01 21:30 | NUR ---
RECEIVED PATIENT IN NO ACUTE DISTRESS IN BED. PATIENT IS OBTUNDED. PATIENT IS ON MECHANICAL VENT VIA TRACH PORTEX # 7. TRACH SITE IS CLEAN DRY AND INTACT. MECHANICAL VENT SETTING ARE AC 18, TV 550, FIO2 35, PEEP 5. PATIENT TOLERATING VENT SETTING WELL. PATIENT PLACED ON TELEMETRY WITH SINUS RHYTHM ON THE MONITOR. PATIENT NOT SHOWING ANY SIGNS OR SYMPTOMS OF SOB, DIFFICULTY BREATHING OR PAIN AT THIS TIME. PATIENT HAS LEFT FEMORAL TRIPLE LUMEN CATHETER THAT IS CLEAN DRY INTACT AND PATENT WITH SALINE FLUSH. PATIENT HAS LEFT HAND 20G THAT IS CLEAN DRY INTACT AND PATENT WITH SALINE FLUSH. BED IN LOW LOCK POSITION WITH RIALS UP X 2. CALL LIGHT WITHIN REACH AND ALL SAFETY MEASURES ENSURED AND CARRIED OUT. WILL CONTINUE TO MONITOR PATIENT.
--- NOTE | 2019-01-01 21:30 | NUR ---
DIRECTOR MEETINGS NOTES PER GERONIMO ICU TRANSFER 2130 PT TRANSFER VIA ACLS PROTOCOL.
--- NOTE | 2019-01-01 21:30 | NUR ---
2129 TRANSFERRED TO ICU ON ACLS PROTOCOL ACCOMPANIED BY RT AND STAFF NURSES. IN NO APPARENT DISTRESS.
--- NOTE | 2019-01-01 21:39 | NUR ---
RT NOTE PT TRANSFERRED FROM [facility] TO ICU 254 WITH NO COMPLICATIONS.
--- NOTE | 2019-01-01 21:40 | NUR ---
PT RCVD SUSANNE'D ON MECHANICAL VENT WITH CHARTED SETTINGS. SX DONE. PT TRACH IS PATENT AND SECURE. VENT ALARMS APPEAR TO BE FUNCTIONING PROPERLY. VENT PLUGGED INTO RED OUTLET. AMBU BAG AT BEDSIDE. NO SOB NOTED. Addendum: 01/01/19 at 2141 by CRISTA NARAYAN RT Amended: Links added.
--- NOTE | 2019-01-01 21:47 | NUR ---
HOOKER OFF NOTES UNABLE TO ASSESS SKIN INTEGRITY, PT IS UNSTABLE, HYPOTENSIVE,PT ICU TRANSFER. PER AM NURSE REPORT SKIN IS INTACT,
[2019-01-01] MEDS: LINEZOLID 600 MG TABLET PO SCH (23:03)
[2019-01-02] VITALS (71 sets, daily range): BP systolic 85–135; BP diastolic 50–96
--- NOTE | 2019-01-02 | NUR ---
PATIENT BLOOD PRESSURE REMAINS STABLE WITHOUT PRESSURE SUPPORT. WILL CONTINUE TO MONITOR AND BEGIN PRESSURE SUPPORT WITH LEVOPHED IF NEEDED.
[2019-01-02] MEDS: INSULIN REGULAR, HUMAN 100 UNIT/ML 3 ML VIAL SQ PRN ×5 (02:06→21:16)
[2019-01-02] MEDS: BLOOD SUGAR DIAGNOSTIC 1 EACH STRIP IN SCH ×6 (02:06→21:14)
[2019-01-02 04:28] LABS: BASOPHILS # (AUTO) 0.1 /CMM (0.0-0.2); BASOPHILS % (AUTO) 0.5 % (0.0-2.0); EOSINOPHILS % (AUTO) 3.2 % (0.0-6.0); HEMATOCRIT 27 % (33-45); HEMOGLOBIN 8.3 g/dL (11.5-14.8); LYMPHOCYTES # (AUTO) 1.3 /CMM (0.8-4.8); LYMPHOCYTES % (AUTO) 11.3 % (20.0-44.0); MEAN CORPUSCULAR HGB CONC 31 g/dl (31.0-36.0); MEAN CORPUSCULAR VOLUME 102 fL (82-100); MONOCYTES # (AUTO) 0.8 /CMM (0.1-1.30); NEUTROPHILS # (AUTO) 8.9 /CMM (1.8-8.9); PLATELET COUNT (AUTO) 241 /CMM (150-450); RED BLOOD CELL COUNT(AUTO) 2.61 MIL/uL (4.0-5.2); WHITE BLOOD COUNT (AUTO) 11.4 K/uL (4.3-11.0)
[2019-01-02 04:44] LABS: CALCIUM, SERUM 8.7 mg/dL (8.5-10.1); CREATININE 4.9 mg/dL (0.6-1.3); MAGNESIUM 2.6 mg/dL (1.8-2.4); PHOSPHORUS 3.2 mg/dL (2.5-4.9); POTASSIUM 4.1 mmol/L (3.5-5.1)
[2019-01-02 05:27] LABS: THYROID STIMULATING HORMONE 2.155 uIU/mL (0.358-3.74)
--- NOTE | 2019-01-02 06:43 | NUR ---
PATIENT REMAINS IN NO ACUTE DISTRESS IN BED. PATIENT DID NOT HAVE ANY SIGNIFICANT CHANGE IN CONDITION DURING SHIFT. PATIENT TOLERATED VENT SETTING WELL. ALL NEEDS MET, ALL ORDERS CARRIED OUT. WILL ENDORSE CARE TO AM RN FOR CONTINUITY OF CARE.
--- NOTE | 2019-01-02 07:05 | NUR ---
RN NOTES RECEIVED PT ON BED , VENT/ TRACH DEPENDENT, O2 SAT WNL, OBTUNDED, NO DISTRESS NOTED, ON TELE SR, HR IN 70'S, L FEMORAL TLC SITE CLEAN, DRY AND INTACT, GT CLAMPED, PT IS NPO, SR UP x3, CALL LIGHT WITHIN EASY REACH, BED LOCKED AND IN LOWEST POSITION, CONTINUE TO MONITOR . Addendum: 01/02/19 at 0746 by BOBBY DAY RN ABOVE NOTE CHARTED BY BOBBY DAY RN
[2019-01-02] MEDS: PANTOPRAZOLE 40 MG TABLET.DR PO SCH (08:20)
[2019-01-02] MEDS: LINEZOLID 600 MG TABLET PO SCH ×2 (08:20→21:14)
[2019-01-02] MEDS: NEPRO 1,000 ML BOTTLE GT PRN (10:12)
--- NOTE | 2019-01-02 12:01 | NUR ---
RN NOTES DR MELENDEZ NOTIFED REGARDING LA 2.7
[2019-01-02] MEDS: MEROPENEM 500 MG in IV NS 0.9% 50 ML IV SCH (13:56)
[2019-01-02 14:45] LABS: ABG OXYGEN SATURATION 96.6 % (92.0-98.5); ABG PCO2 22.4 mmHg (35.0-45.0); ABG PH 7.586 (7.350-7.450); ABG PO2 83.9 mmHg (75.0-100.0); AaDO2 139.6 mmHg; MetHb 0.4 % (0.0-1.5); O2Hb 96.2 % (94.0-97.0); PEEP,BG 5 cm H2O; SITE, ABG Left Radial; VT, ABG 500 mL
--- NOTE | 2019-01-02 15:00 | NUR ---
RN NOTES SUPPORTIVE FAMILY AT THE BEDSIDE, VSS STABLE, CONTINUE TO MONITOR .
[2019-01-02] MEDS ORDERED: LEVOFLOXACIN 250 MG /D5W 50 ML 250 MG in PREMIX 1 EA IV SCH (17:00)
--- NOTE | 2019-01-02 18:00 | NUR ---
RN NOTES NO SIGNIFICANT CHANGES NOTED ON THIS SHIFT, TOLERATING TF WELL, SR UP X3 , BED LOCKED AND IN LOWEST POSITION, WILL ENDOSE TO TREAD BOOKER NURSE FOR CONTINUITY OF CARE .
--- NOTE | 2019-01-02 19:45 | NUR ---
ICU/DIRECTOR OF LEADERSHIP DEVELOPMENT RECEIVED REPORT FROM DAY SHIFT NURSE. SEE FLOWSHEET FOR ASSESSMENT. THERE ARE A FEW SKIN ISSUES THAT ARE ADDRESSED, ALONG WITH THE INTERVENTIONS TO EACH. PT OPENS EYES BUT IS NONVERBAL AND DOESN'T RESPOND TO STIMULI. PT HAS TRACH ON VENT, TOLERATING CURRENT SETTINGS WITH SATURATION AT 97-100%. PT WAS TURNED AND REPOSITIONED FOR COMFORT AND CARE. WILL CONTINUE TO MONITOR THIS PT.
--- NOTE | 2019-01-02 21:00 | NUR ---
ICU/MUSICAL INSTRUMENT MAKER OR REPAIRER PT'S 2100 BLOOD SUGAR IS 180. THERE IS 3 UNITS REGULAR INSULIN COVERAGE FOR THIS PER MD'S ORDERS AND HOSPITAL PROTOCOL. HOWEVER WILL CONTINUE TO MONITOR THIS PT'S BLOOD SUGAR. PT IS ON TUBE FEEDING.
--- NOTE | 2019-01-02 22:00 | NUR ---
ICU/RN ELIGIBILITY PT WAS TURNED AND REPOSITIONED FOR COMFORT AND CARE. PT REMAINS ON CURRENT VENT SETTINGS, WITH SATURATION AT 99%. WILL CONTINUE TO MONITOR THIS PT. NO ACUTE DISTRESS SEEN.
[2019-01-03] VITALS (76 sets, daily range): BP systolic 75–140; BP diastolic 49–86
--- NOTE | 2019-01-03 01:00 | NUR ---
ICU/REPAIRER TYPEWRITER PT'S 0100 BLOOD SUGAR IS 197. THERE IS 3 UNITS REGULAR INSULIN COVERAGE FOR THIS PER MD'S ORDERS AND HOSPITAL PROTOCOL. HOWEVER WILL CONTINUE TO MONITOR THIS PT'S BLOOD SUGAR. PT IS ON TUBE FEEDING.
[2019-01-03] MEDS: BLOOD SUGAR DIAGNOSTIC 1 EACH STRIP IN SCH ×6 (01:14→21:41)
[2019-01-03] MEDS: INSULIN REGULAR, HUMAN 100 UNIT/ML 3 ML VIAL SQ PRN ×5 (01:15→21:43)
--- NOTE | 2019-01-03 02:10 | NUR ---
ICU/SHELVER PT WAS GIVEN AM CARE. ALONG WITH ORAL CARE. PT TOLERATED THIS WELL, REMAINS CURRENT VENT SETTINGS WITH SATURATION AT 100%. PT WAS TURNED AND REPOSITIONED FOR COMFORT AND CARE. WILL CONTINUE TO MONITOR THIS PT. NO ACUTE DISTRESS SEEN AT THIS TIME.
--- NOTE | 2019-01-03 02:53 | NUR ---
ICU/NATIONAL FACILITIES MANAGER BLOOD CULTURES WERE CALLED , PT HAS POSITIVE COCCI , PER SKIP MINER BERONICA. NOTIFIED CHARGE NURSE ABOUT THIS.
[2019-01-03 04:29] LABS: BASOPHILS % (AUTO) 0.3 % (0.0-2.0); HEMATOCRIT 29 % (33-45); HEMOGLOBIN 9.3 g/dL (11.5-14.8); LYMPHOCYTES # (AUTO) 1.2 /CMM (0.8-4.8); LYMPHOCYTES % (AUTO) 13.5 % (20.0-44.0); MEAN CORPUSCULAR HGB CONC 32 g/dl (31.0-36.0); MEAN CORPUSCULAR VOLUME 102 fL (82-100); MONOCYTES # (AUTO) 1.1 /CMM (0.1-1.30); MONOCYTES % (AUTO) 12.5 % (2.0-12.0); NEUTROPHILS # (AUTO) 6.3 /CMM (1.8-8.9); NEUTROPHILS % (AUTO) 71.7 % (43.0-81.0); PLATELET COUNT (AUTO) 252 /CMM (150-450); RED BLOOD CELL COUNT(AUTO) 2.86 MIL/uL (4.0-5.2); WHITE BLOOD COUNT (AUTO) 8.7 K/uL (4.3-11.0)
[2019-01-03 04:45] LABS: CALCIUM, SERUM 10.2 mg/dL (8.5-10.1); CREATININE 4.8 mg/dL (0.6-1.3); MAGNESIUM 2.8 mg/dL (1.8-2.4); PHOSPHORUS 2.1 mg/dL (2.5-4.9); POTASSIUM 4.1 mmol/L (3.5-5.1)
[2019-01-03] MEDS: LINEZOLID 600 MG TABLET PO SCH ×2 (08:09→21:41)
[2019-01-03] MEDS: PANTOPRAZOLE 40 MG TABLET.DR PO SCH (08:09)
--- NOTE | 2019-01-03 09:15 | NUR ---
ICU/RN: Dr Singh rounds; updated on pt status. Informed of marginal BP overnight. Per MD, keep MAP >65, keep in ICU for now.
[2019-01-03] MEDS ORDERED: NEUTRA PHOS 1 POWD.PACKET NG ONE (10:30)
[2019-01-03] MEDS ORDERED: NOREPINEPHRINE 16 MG in IV D5W 500 ML IV PRN (11:00)
[2019-01-03] MEDS: NEPRO 1,000 ML BOTTLE GT PRN (12:26)
[2019-01-03] MEDS: MEROPENEM 500 MG in IV NS 0.9% 50 ML IV SCH (17:30)
--- NOTE | 2019-01-03 18:20 | NUR ---
ICU/RN: HD complete. 1 Liter out. Pt tolerated well.
--- NOTE | 2019-01-03 18:30 | NUR ---
ICU/RN: Large soft green BM noted. Pericare and wound care rendered, tolerated well.
[2019-01-03] MEDS ORDERED: Z GUARD REMEDY 2 OZ OINT TP PRN (19:30)
--- NOTE | 2019-01-03 19:45 | NUR ---
ICU/TOOL SETTER RECEIVED REPORT FROM DAY SHIFT NURSE. SEE FLOWSHEET FOR ASSESSMENT. THERE ARE A FEW SKIN ISSUES THAT ARE ADDRESSED, ALONG WITH THE INTERVENTIONS TO EACH. PT OPENS EYES BUT IS NONVERBAL. PT HAS TRACH ON VENT, TOLERATING CURRENT SETTINGS WITH SATURATION AT 97-100%. PT WAS TURNED AND REPOSITIONED FOR COMFORT AND CARE. WILL CONTINUE TO MONITOR THIS PT.WILL MONITOR THIS PT.
--- NOTE | 2019-01-03 20:20 | NUR ---
ICU/STONE SAWYER PT'S BLOOD PRESSURE IS IN THE 70'S FOR 2 CYCLES, 75/49 & 77/50. NOTIFIED CHARGE NURSE WHO THEN STARTED LEVO AT 2MCG. WILL CONTINUE TO MONITOR THIS PT AND HER BLOOD PRESSURE.
--- NOTE | 2019-01-03 21:45 | NUR ---
ICU/SHIP'S CARPENTER PT WAS TURNED AND REPOSITIONED FOR COMFORT AND CARE. PT REMAINS ON CURRENT VENT SETTINGS, WITH SATURATION AT 99%. WILL CONTINUE TO MONITOR THIS PT. NO ACUTE DISTRESS SEEN. 2200-ACCU CHECK WAS DONE, BS IS 239 WHICH WAS COVERED WITH SLIDING SCALE ON APR. WILL CONTINUE TO MONITOR SUGARS ACCORDINGLY.
--- NOTE | 2019-01-03 22:00 | NUR ---
ICU/PENSION ADVISER PT'S BLOOD PRESSURE CYCLED UP TO THE 120'S TO 130'S. NOTIFIED THE CHARGE NURSE ABOUT THIS. CHARGE NURSE STOPPED THE LEVO AT THIS TIME. WILL CONTINUE TO MONITOR THIS PT AND THE BP.
[2019-01-03] MEDS: HYDROCODONE/APAP 5/325MG 1 EACH TABLET PO PRN (23:29)
--- NOTE | 2019-01-03 23:30 | NUR ---
ICU/DENTAL NURSE USING FLACC SCALE PT APPEARS TO BE IN PAIN RATED 7-8/10. NORCO 1 TAB GIVEN FOR THIS. WILL CONTINUE TO MONITOR THIS PT AND HER PAIN.
[2019-01-04] VITALS (41 sets, daily range): BP systolic 83–146; BP diastolic 46–92
[2019-01-04] MEDS: BLOOD SUGAR DIAGNOSTIC 1 EACH STRIP IN SCH ×6 (01:39→20:45)
[2019-01-04] MEDS: INSULIN REGULAR, HUMAN 100 UNIT/ML 3 ML VIAL SQ PRN ×6 (01:39→20:47)
--- NOTE | 2019-01-04 02:45 | NUR ---
ICU/CITY LIBRARY DIRECTOR 0100 BS WAS DONE WAS 262, THIS WAS COVERED WITH SLIDING SCALE ON APR. WILL CONTINUE TO MONITOR SUGAR ACCORDINGLY. 0230 PT WAS GIVEN AM CARE. ALONG WITH ORAL CARE. PT TOLERATED THIS WELL, REMAINS CURRENT VENT SETTINGS WITH SATURATION AT 100%. PT WAS TURNED AND REPOSITIONED FOR COMFORT AND CARE. WILL CONTINUE TO MONITOR THIS PT. NO ACUTE DISTRESS SEEN AT THIS TIME.
--- NOTE | 2019-01-04 05:30 | NUR ---
ICU/TEACHER OF GIFTED STUDENTS 0430 AM LABS WERE DONE, AWAITING FOR ANY ABNORMAL LABS. 0530 BS WAS DONE IS 247, COVERED PER MAR WITH SLIDING SCALE. WILL MONITOR THIS PT. PT TURNED AND REPOSITIONED FOR COMFORT AND CARE.
--- NOTE | 2019-01-04 07:15 | NUR ---
ICU/RN: Dr Nanette hensley; updated on pt status. For HD today. Addendum: 01/04/19 at 1752 by GERHARD GILBERT RN KRISTAL AV shunt noted; bruit and thrill positive. Safety precautions in place.
[2019-01-04] MEDS: PANTOPRAZOLE 40 MG TABLET.DR PO SCH (08:02)
[2019-01-04] MEDS: LINEZOLID 600 MG TABLET PO SCH ×2 (08:02→21:10)
[2019-01-04] MEDS ORDERED: ALBUMIN 25% 25 GM in PREMIX 1 EA IV PRN (09:00)
[2019-01-04] MEDS: HYDROCODONE/APAP 5/325MG 1 EACH TABLET PO PRN (12:24)
--- NOTE | 2019-01-04 12:30 | NUR ---
ICU/RN: Pt tolerated HD, 2.5 liters out, remains hemodynamically stable. Pt noted with facial grimacing, restlessness, adminstered norco as ordered.
[2019-01-04] MEDS: MEROPENEM 500 MG in IV NS 0.9% 50 ML IV SCH (13:14)
--- NOTE | 2019-01-04 14:30 | NUR ---
ICU/RN: Bed bath, wound care rendered. Tolerated well.
--- NOTE | 2019-01-04 15:00 | NUR ---
ICU/RN: Dr Samantha hensley; updated on pt status. Informed MD of pending wound care consult; patient presents with Sacral wound, perineal redness and excoriation. Mepilex to sacrum and z-guard applied to affected areas.
--- NOTE | 2019-01-04 17:30 | NUR ---
ICU/RN: Pt transferred to [facility] in stable condition via ACLS protocol. Belongings transferred, family at bedside. Bedside report given to SANTANA Ventura.
--- NOTE | 2019-01-04 17:30 | NUR ---
MODERN LANGUAGES PROFESSOR NOTES RECEIVED PT FROM ICU TO ROOM 118-1.REPORT GIVEN BY SANTANA WAN IN ICU.PT IS ON TRACH AND VENT DEPEND WITH PORTEX 7 AC18 TV 550 FIO2 35% AND PEEP 0.PT IS NONVERBAL AND CAN OPEN EYES.ON G TUBE FEEDING WITH NEPRO @35CC/HR IS RUNNING,PT TOLERATED WELL.MINIMAL GASTRIC RESIDUAL NOTED.VITAL SIGNS CHECKED AND RECORDED.LEFT THIGH PICC LINE,LEFT HAND G20,LEFT CHEST HD CATH PRESENT.AV SHUNT ON RIGHT UPPER ARM.BRUIT AND THRILL PRESENT BUT NOT USING AT ALL.SITE IS CLEAN,DRY AND INTACT.NO INFILTRATION NOTED.FAMILY IS AT BEDSIDE.BED IS IN LOW POSITION AND LOCKED,CALL LIGHT IS WITHIN REACH.WILL CONTINUE TO MONITOR THE PT CLOSELY.
--- NOTE | 2019-01-04 18:01 | NUR ---
RT END OF THE SHIFT NOTE. PT. 63 Y OLD FEMALE REC/ @ 0700 AM PT. TRACH'D PORTEX # 7 ON VENT WITH NOTED SETTINGS, ALARMS ARE SET AND FUNCTIONAL, EQUAL CHEST RISE NOTED. B/S BILATERALLY COARSE AND SUX'S FOR MINIMAL AMT. OF WHITE SECRETIONS, VENT PLUGGED INTO RED OUT LET, HME CHANGED, COLORECTAL SURGEON DONE, TRACH CARE DONE INNER CANNULA CHANGED, PT. REMAIN STABLE AND NO CHANGES T/O DAY. PT. TRANSFERRED TO [facility] AND, FAMILY MEMBERS AT THE BEDSIDE. PT. CHAPIN. WELL AND NO COMPLICATION NOTED. REPORT WILL PASS TO PM SHIFT. Addendum: 01/04/19 at 1807 by VIKASH RUBIO RT Amended: Links added.
[2019-01-04] MEDS: NEPRO 1,000 ML BOTTLE GT PRN (18:31)
--- NOTE | 2019-01-04 18:34 | NUR ---
[facility] RN CLOSING NOTES PT IS LYING ON BED,ON TRACH AND VENT DEPEND.MITTENS ON RIGHT HAND.G TUBE FEEDING IS ON.RESPIRATION IS EVEN AND NONLABORED.NO SIGNIFICANT CHANGES NOTED IN THE SHIFT.WILL ENDORSE TO CRIPPLE WORKER RN FOR HARLAN.
--- NOTE | 2019-01-04 19:06 | NUR ---
[facility] RN OPENING NOTES RECEIVED PATIENT IN BED, OPENS EYES, NONVERBAL. PT ON TRACH MECHANICAL VENT SETTINGS: PORTEX 7, AC 18, TV 550, FIO2 35% AND PEEP 0. SATURATING 100% AT THE MOMENT, NO SOB OR RESP DISTRESS NOTED. RIGHT HAND MITTEN RESTRAIN NOTED FOR PT SAFETY, WILL CHECK PULSE PER PROTOCOL. GTUBE FLUSHING AND PATENT, WITH NEPRO @35CC/HR, TOLERATING WELL, MINIMAL GASTRIC RESIDUAL NOTED. IV SITES LEFT THIGH PICC, LEFT HAND G20, BOTH FLUSHING AND PATENT, SITE C/D/I. LEFT CHEST HD CATH PRESENT. AV SHUNT ON RIGHT UPPER ARM; BRUIT AND THRILL PRESENT. SAFETY MEASURES IN PLACE; CALL LIGHT WITHIN REACH, HOB ELEVATED, SIDE RAILS UP X2, BED LOCKED AND IN LOWEST POSITION. WILL CONT TO MONITOR PT CLOSELY.
--- NOTE | 2019-01-04 20:06 | NUR ---
RT NOTE PT RECEIVED TRACHED ON MECHANICAL VENTILATION. AMBU BAG/BACK UP TRACH @ BEDSIDE. SX DONE, TRACH SECURED AND PATENT. ALARMS ON AND AUDIBLE. NO SOB NOTED. WILL MONITOR T/O SHIFT. CONT. PULSE OX CONNECTED. VENT PLUGGED TO RED OUTLET. Addendum: 01/04/19 at 2006 by YAZAN HEART RT Amended: Links added.
[2019-01-05] VITALS: BP 112/74
[2019-01-05] MEDS: BLOOD SUGAR DIAGNOSTIC 1 EACH STRIP IN SCH ×6 (01:00→21:19)
[2019-01-05] MEDS: Z GUARD REMEDY 2 OZ OINT TP PRN ×2 (01:02→05:09)
[2019-01-05] MEDS: INSULIN REGULAR, HUMAN 100 UNIT/ML 3 ML VIAL SQ PRN ×6 (01:02→21:38)
[2019-01-05 04:00] VITALS: BP 113/83
[2019-01-05 06:53] LABS: BASOPHILS % (AUTO) 0.3 % (0.0-2.0); EOSINOPHILS % (AUTO) 2.4 % (0.0-6.0); HEMATOCRIT 30 % (33-45); HEMOGLOBIN 9.7 g/dL (11.5-14.8); LYMPHOCYTES # (AUTO) 1.5 /CMM (0.8-4.8); LYMPHOCYTES % (AUTO) 18.7 % (20.0-44.0); MEAN CORPUSCULAR HGB CONC 32 g/dl (31.0-36.0); MEAN CORPUSCULAR VOLUME 100 fL (82-100); MONOCYTES # (AUTO) 0.8 /CMM (0.1-1.30); MONOCYTES % (AUTO) 9.8 % (2.0-12.0); NEUTROPHILS # (AUTO) 5.6 /CMM (1.8-8.9); NEUTROPHILS % (AUTO) 68.8 % (43.0-81.0); PLATELET COUNT (AUTO) 218 /CMM (150-450); RED BLOOD CELL COUNT(AUTO) 3.02 MIL/uL (4.0-5.2); WHITE BLOOD COUNT (AUTO) 8.2 K/uL (4.3-11.0)
--- NOTE | 2019-01-05 07:10 | NUR ---
[facility] RN OPENING NOTES RECEIVED PT LYING ON BED.PT IS ON TRACH AND VENT DEPEND WITH PORTEX 7 AC18 TV 550 FIO2 35% AND PEEP 0.ON TELE HR IS 88 WITH NSR.PT IS NONVERBAL AND CAN OPEN EYES.ON G TUBE FEEDING WITH NEPRO @35CC/HR IS RUNNING,PT TOLERATED WELL.MINIMAL GASTRIC RESIDUAL NOTED.RIGHT HAND MITTENS PRESENT.LEFT FEMORAL PICC LINE,LEFT HAND G20,LEFT CHEST HD CATH PRESENT.AV SHUNT ON RIGHT UPPER ARM.BRUIT AND THRILL PRESENT BUT NOT USING AT ALL.SITE IS CLEAN,DRY AND INTACT.NO INFILTRATION NOTED.FAMILY IS AT BEDSIDE.BED IS IN LOW POSITION AND LOCKED,CALL LIGHT IS WITHIN REACH.WILL CONTINUE TO MONITOR THE PT CLOSELY.
--- NOTE | 2019-01-05 07:10 | NUR ---
[facility] RN CLOSING NOTES PATIENT SLEEPING IN BED, BUT EASY TO AROUSE BY VERBAL STIMULI, PT OPENS EYES, NONVERBAL. PT AFEBRILE; LATEST TEMP 98. [facility] SETT[facility]: PORTEX 7, AC 18, TV 550, FIO2 35% AND PEEP 0. SATURATING 100% AT THE MOMENT, NO SOB OR RESP DISTRESS NOTED. RIGHT HAND MITTEN RESTRAIN NOTED FOR PT SAFETY. GTUBE FLUSHING AND PATENT, WITH NEPRO @35CC/HR, TOLERATING WELL, MINIMAL RESIDUAL NOTED. IV SITES LEFT THIGH PICC, LEFT HAND G20, BOTH FLUSHING AND PATENT, SITE C/D/I. LEFT CHEST HD CATH PRESENT. AV SHUNT ON RIGHT UPPER ARM; BRUIT AND THRILL PRESENT. SAFETY MEASURES MAINTAINED; CL WITHIN REACH, HOB ELEVATED, SIDE RAILS UP X2, BED LOCKED AND IN LOWEST POSITION. ENDORSED TO AM RN FOR HARLAN.
[2019-01-05 07:11] LABS: CALCIUM, SERUM 10.2 mg/dL (8.5-10.1); MAGNESIUM 2.9 mg/dL (1.8-2.4); PHOSPHORUS 3.1 mg/dL (2.5-4.9); POTASSIUM 4.4 mmol/L (3.5-5.1)
[2019-01-05] MEDS: PANTOPRAZOLE 40 MG TABLET.DR PO SCH (07:58)
[2019-01-05 08:00] VITALS: BP 103/48
[2019-01-05] MEDS: LINEZOLID 600 MG TABLET PO SCH ×2 (08:10→21:19)
[2019-01-05 12:00] VITALS: BP 124/48
[2019-01-05] MEDS: MEROPENEM 500 MG in IV NS 0.9% 50 ML IV SCH (15:00)
[2019-01-05 16:00] VITALS: BP 133/60
[2019-01-05] MEDS: LACTOBACILLUS RHAMNOSUS GG 1 EACH CAP.SPRINK GT SCH (16:33)
--- NOTE | 2019-01-05 18:06 | NUR ---
RT END OF THE SHIFT NOTE. PT. 63 Y OLD FEMALE REC/ @ 0700 AM PT. TRACH'D PORTEX # 7 ON VENT WITH NOTED SETTINGS, ALARMS ARE SET AND FUNCTIONAL, EQUAL CHEST RISE NOTED. B/S BILATERALLY COARSE AND SUX'S FOR MINIMAL AMT. OF WHITE SECRETIONS, VENT PLUGGED INTO RED OUT LET, HME CHANGED, HEALTH COORDINATOR DONE, REMAIN STABLE AND NO CHANGES T/O DAY. PT. CHAPIN. VENT WELL AND NO COMPLICATION NOTED. REPORT WILL PASS TO PM SHIFT. Addendum: 01/05/19 at 1807 by VIKASH RUBIO RT Amended: Links added.
--- NOTE | 2019-01-05 18:48 | NUR ---
ICE GUARD INSPECTOR CLOSING NOTES PATIENT IS LYING ON BED WITH TRACH AND VENT DEPEND.TOLERATING WELL.ON NSR STILL,RESPIRATION IS EVEN AND NONLABORED.NO SIGNIFICANT CHANGES NOTED IN THE SHIFT.WILL ENDORSE TO CHYRON OPERATOR RN FOR HARLAN.
[2019-01-05 20:00] VITALS: BP 98/60
--- NOTE | 2019-01-05 20:00 | NUR ---
RN [facility] - NOTES - RECEIVED PT LYING ON BED.PT IS ON TRACH AND VENT DEPEND WITH PORTEX 7 AC18 TV 550 FIO2 35% AND PEEP 0.ON TELE HR IS 88 WITH NSR.PT IS NONVERBAL AND CAN OPEN EYES.ON G TUBE FEEDING WITH NEPRO @35CC/HR IS RUNNING,PT TOLERATED WELL.MINIMAL GASTRIC RESIDUAL NOTED.RIGHT HAND MITTENS PRESENT.LEFT FEMORAL PICC LINE,LEFT HAND G20,LEFT CHEST HD CATH PRESENT.AV SHUNT ON RIGHT UPPER ARM.BRUIT AND THRILL PRESENT BUT NOT USING AT ALL.SITE IS CLEAN,DRY AND INTACT.NO INFILTRATION NOTED.FAMILY IS AT BEDSIDE.BED IS IN LOW POSITION AND LOCKED,CALL LIGHT IS WITHIN REACH.WILL CONTINUE TO MONITOR THE PT CLOSELY.
[2019-01-06] VITALS: BP 110/67
[2019-01-06] MEDS: BLOOD SUGAR DIAGNOSTIC 1 EACH STRIP IN SCH ×6 (00:44→21:14)
[2019-01-06] MEDS: INSULIN REGULAR, HUMAN 100 UNIT/ML 3 ML VIAL SQ PRN ×6 (00:47→21:19)
[2019-01-06 04:00] VITALS: BP 120/75
[2019-01-06] MEDS: NEPRO 1,000 ML BOTTLE GT PRN (04:52)
--- NOTE | 2019-01-06 07:05 | NUR ---
RN NOTES RECEIVED PT ON BED, VENT/ TRACH DEPENDENT , WITH PORTEX 7 AC18 TV 550 FIO2 35% AND PEEP 0.ON TELE SR , HR IS 8O'S , PT IS NONVERBAL AND CAN OPEN EYES.ON G TUBE FEEDING WITH NEPRO @35CC/HR IS RUNNING,PT TOLERATED WELL.MINIMAL GASTRIC RESIDUAL NOTED.RIGHT HAND MITTENS ON FOR PT SAFETY, SR UP x3, CALL LIGHT WITHIN EASY REACH, BED LOCKED AND IN LOWEST POSITION, WILL CONTINUE TO MONITOR PT CLOSELY.
[2019-01-06 08:00] VITALS: BP 122/71
[2019-01-06] MEDS: PANTOPRAZOLE 40 MG TABLET.DR PO SCH (08:14)
[2019-01-06] MEDS: LINEZOLID 600 MG TABLET PO SCH ×2 (08:14→21:05)
[2019-01-06] MEDS: LACTOBACILLUS RHAMNOSUS GG 1 EACH CAP.SPRINK GT SCH ×2 (08:14→16:26)
--- NOTE | 2019-01-06 11:20 | NUR ---
WOUND CARE CONSULT: PT PRESENTS WITH SACRAL SCARRING WHICH EXTENDS TO BUTTOCKS AND RASH WITH INCONTINENCE ASSOCIATED SKIN DAMAGE TO BUTTOCKS, PRESENT ON ADMISSION. RECOMMENDATIONS MADE FOR SKIN PROTECTION AND CARE. DISCUSSED WITH NURSING STAFF. FIRST STEP LOW AIRLOSS MATTRESS ON ORDER. CURRENT [place] SCORE IS 12. WILL SEE PRN. DONG IN AGREEMENT WITH PLAN OF CARE. Addendum: 01/06/19 at 1122 by RYAN MCKNIGHT WNDNU Amended: Links added.
[2019-01-06 12:00] VITALS: BP_SYST 116; BP_SYST 168; BP_DIAS 56; BP_DIAS 64
--- NOTE | 2019-01-06 13:00 | NUR ---
RN NOTES PT STABLE , SUPPORTIVE FAMILY AT THE BEDSIDE, CONTINUE TO MONITOR .
[2019-01-06] MEDS: MEROPENEM 500 MG in IV NS 0.9% 50 ML IV SCH (13:57)
[2019-01-06 16:00] VITALS: BP 100/63
[2019-01-06] MEDS: CLOTRIMAZOLE 1% 15 GM TUBE TP SCH (16:25)
--- NOTE | 2019-01-06 18:00 | NUR ---
RN NOTES NO SIGNIFICANT CHANGES NOTED ON THIS SHIFT, WILL ENDORSE TO FARM MACHINE TENDER NURSE FOR CONTINUITY OF CARE .
--- NOTE | 2019-01-06 18:11 | NUR ---
RT RECD PT TRACHED INTACT & SECURED ON ON MECH VENT CHAPIN ORDERED SETTING ALARMS ON AND AUDIBLE BAG AND MASK AT HOB NO RESP DISTRESS THROUGHOUT SHIFT
--- NOTE | 2019-01-06 19:30 | NUR ---
RN NOTES RECEIVED PATIENT WTIH TRACH PORTEX 7 CONNECTED TO VENT SETTING AC 18 TV 550 FIO2 35% NO PEEP PATIETN IS NON VERBAL EYES OPEN. NO FACIAL COMPLAIN OF PAIN. SR ON TELE MONITOR. WITH GTF NEPHRO @ 35 ML/HR INTACT AND PATENT NO RESIDUAL PATENCY CHECKED. ;EFT CHEST HD CATH CLEAND AND DRY. IV SITE ON LT. FEMORAL PICC LINE AND LEFT HAND G 20 INTACT AND PATENT. PATIENT HAS RIGHT MITTENS DUE TO EPISODE OF SCRATCHING AND MAY ACCIDENTALLY PULL THE TRACH. TURNED AND REPOSITION FOR SKIN MGMT. KEPT PT CLEAN AND DRY, CONTINUE TO MONITOR VS DUE TO HYPOTENSION. SBP WNL. WILL CONTINUE TO MONITOR.
[2019-01-06 20:00] VITALS: BP 142/44
[2019-01-07] VITALS (7 sets, daily range): BP systolic 110–151; BP diastolic 31–64
[2019-01-07] MEDS: BLOOD SUGAR DIAGNOSTIC 1 EACH STRIP IN SCH ×6 (01:52→21:28)
[2019-01-07] MEDS: INSULIN REGULAR, HUMAN 100 UNIT/ML 3 ML VIAL SQ PRN ×5 (01:55→17:26)
--- NOTE | 2019-01-07 07:35 | NUR ---
RN NOTE: RECEIVED PATIENT IN BED, AWAKE, CAN SPONTANEOUSLY OPEN HER EYES AND NONVERBAL. RESPIRATION EVEN AND UNLABORED SATURATING 100% WITH CURRENT VENT SETTING. HOB ELEVATED. GT FEEDING OF NEPHRO @ 35ML/HR WITH NO GASTRIC RESIDUAL NOTED. AFEBRILE. SKIN WARM TO TOUCH. (L) CHEST WALL HD CATHETER WITH DRY DRESSING AND (L) FEMORAL PICC LINE IN PLACED. PATIENT IS SCHEDULED FOR A HEMODIALYSIS FOR TODAY WITH BLOOD CULTURES THAT NEEDED TO BE DRAWN ON THE HD CATHETER. CALL LIGHT WITHIN REACH. NEEDS ANTICIPATED.
--- NOTE | 2019-01-07 07:38 | NUR ---
RN NOTES PATIENT REMAINED STABLE NO SIGNIFICANT CHANGES THROUGHOUT THE SHIFT. AFEBRILE. VSS,. TRACH AND VENT SETTING TOLERATED WELL. SATURATION KEPT >92%. REMAINED SR ON TELE MONITOR. BS CHECKED Q4H AND INSULIN PER SLIDING SCALE ADMINISTERED ORDERED.. GTF TOLERATED WELL. INCONTINENT CARE RENDERED. KEPT PT CLEAN AND DRY. ENDORSED CONTINUITY OF CARE TO AM NURSE.
[2019-01-07] MEDS: LINEZOLID 600 MG TABLET PO SCH ×2 (08:25→21:16)
[2019-01-07] MEDS: PANTOPRAZOLE 40 MG TABLET.DR PO SCH (08:25)
[2019-01-07] MEDS: LACTOBACILLUS RHAMNOSUS GG 1 EACH CAP.SPRINK GT SCH ×2 (08:25→17:11)
[2019-01-07] MEDS: NEPRO 1,000 ML BOTTLE GT PRN (08:28)
[2019-01-07] MEDS: CLOTRIMAZOLE 1% 15 GM TUBE TP SCH ×2 (08:45→17:29)
--- NOTE | 2019-01-07 09:23 | NUR ---
RN NOTE: DR. JAY WAS MAKING HIS ROUNDS AND HE WAS INFORMED ABOUT THE PATIENT'S LAST BLOOD DRAW ON 01/05/19. PATIENT WAS SCHEDULED FOR HEMODIALYSIS TODAY. MD ORDERED NEW BLOOD DRAW (BMP, MAG, PHOS) FOR TODAY. ORDER, NOTED AND CARRIED OUT.
--- NOTE | 2019-01-07 10:00 | NUR ---
RN NOTE: RECEIVED A PHONE CALL FROM THE LEAD HD NURSE JESSICA THAT THE PATIENT WILL BE DIALYZED AFTER [address] BEE MADE AWARE.
[2019-01-07 11:05] LABS: MAGNESIUM 3.8 mg/dL (1.8-2.4); PHOSPHORUS 5.6 mg/dL (2.5-4.9)
[2019-01-07 11:55] LABS: CREATININE 9.7 mg/dL (0.6-1.3)
--- NOTE | 2019-01-07 17:00 | NUR ---
RN NOTES PATIENT REMAIN CALM WITH NO EPISODES OF PULLING IV AND GTUBE LINE, MITTENS REMOVED AND D/C.
--- NOTE | 2019-01-07 19:36 | NUR ---
RN NOTE: BEDSIDE REPORT WAS GIVEN TO PM SHIFT NURSE FOR CONTINUITY OF CARE. PATIENT WAS GETTING HER HEMODIALYSIS AT THIS TIME. AND CLARIFIED WITH DR. BEE REGARDING THE VANCOMYCIN ANTIBIOTIC TO BE CONTINUED AT THE SKILLED NURSING X 7 DAYS POST HD AND THE PATIENT'S DRUG ALLERGY. PER MD, OK TO CONTINUE BECAUSE THE PATIENT HAS BEEN RECEIVING THE VANCOMYCIN BEFORE. ENDORSED TO PM SHIFT NURSE TO REPORT THIS TO THE SKILLED NURSING STAFF.
--- NOTE | 2019-01-07 19:58 | NUR ---
WOODEN FRAME BUILDER NOTE DIALYSIS NURSE AT BEDSIDE. PATIENT STABLE BP 151/ 31, SKIN WARM AND DRY.
--- NOTE | 2019-01-07 20:34 | NUR ---
PERL PROGRAMMER NOTE BLOOD CULTURES DRAWN ORDERED
--- NOTE | 2019-01-07 21:07 | NUR ---
RT NOTE PT RECEIVED TRACHED ON MECHANICAL VENTILATION. AMBU BAG/BACK UP TRACH @ BEDSIDE. SX DONE, TRACH SECURED AND PATENT. ALARMS ON AND AUDIBLE. NO SOB NOTED AT THIS TIME. CONT. PULSE OX CONNECTED. Addendum: 01/07/19 at 2108 by YAZAN HEART RT Amended: Links added.
--- NOTE | 2019-01-07 22:11 | NUR ---
PROPERTY MAN NOTE REPORT GIVEN TO MONICA AT [facility].
--- NOTE | 2019-01-07 22:55 | NUR ---
INSPECTOR [facility] FACILITIES NOTE PER SNF, UNCOMFORTABLE WITH VANCO ORDER, SINCE PATIENT HAS LISTED ALLERGY TO VANCO. DR. BEE'S DECISION TO KEEP THE VANCO DISCUSSED WITH CHARGE NURSE AT [facility]. SNF UNCOMFORTABLE WITH D/C ORDER. ONCTOSHIA JARVIS NOTIFIED OF ABX CONCERNS AND CONFIRMS TO KEEP VANCO. SNF ENCOURAGED TO HAVE THEIR PRIMARY PCP CHANGE THE ORDER IF DOES NOT AGREE WITH INFECTIONS DISEASE RECOMMENDATION AND DR. BEE. SYSTEMS COORDINATOR MONICA AT [facility] AWARE.
--- NOTE | 2019-01-07 23:00 | NUR ---
MEDICAL TRANSCRIPTIONIST NOTE PATIENT COMPLETED DIALYSIS, BP STABLE 135/66. 2L REMOVED.
[2019-01-08] VITALS: BP 127/72
[2019-01-08] MEDS: INSULIN REGULAR, HUMAN 100 UNIT/ML 3 ML VIAL SQ PRN (00:25)
[2019-01-08] MEDS: BLOOD SUGAR DIAGNOSTIC 1 EACH STRIP IN SCH (00:37)
--- NOTE | 2019-01-08 00:42 | NUR ---
PNEUDRAULIC SYSTEMS MECHANIC NOTE AMBULCORY ARRIVED ON THE UNIT, REPORT GIVEN TO BOBY, THE NURSE FOR TRANSFER. PATIENT TRANSITIONED ONTO THEIR VENT SUCCESSFULLY. TRANSFER OF CARE GIVE OVER TO AMBULCORY AND PATIENT D/C'D FROM UNIT.
== END 2019-01-08 01:43 | DRG 721 ==
LOC: ER 13:01 → TELE 16:12 → TELE1 18:00 → TELE-TD 20:46 → ICU 21:26 → TELE-TD 01-04 17:19 → TELE1 01-07 11:32
PROVIDERS: ADMIT Student in an Organized Health Care Education/Training Program
PROC: 5A1955Z Respiratory Ventilation, Greater than 96 Consecutive Hours (ICD-10-PCS; principal; 2019-01-01)
PROC: B548ZZA Ultrasonography of Superior Vena Cava, Guidance (ICD-10-PCS; principal; 2019-01-01)
PROC: 02HV33Z Insertion of Infusion Device into Superior Vena Cava, Percutaneous Approach (ICD-10-PCS; principal; 2019-01-01)
PROC: 5A1D70Z Performance of Urinary Filtration, Intermittent, Less than 6 Hours Per Day (ICD-10-PCS; 2019-01-02)
DX: T80.211A Bloodstream infection due to central venous catheter, initial encounter (principal); A41.1 Sepsis due to other specified staphylococcus; J96.21 Acute and chronic respiratory failure with hypoxia; R65.21 Severe sepsis with septic shock; J18.9 Pneumonia, unspecified organism; Z99.11 Dependence on respirator [ventilator] status; G93.41 Metabolic encephalopathy; I13.2 Hypertensive heart and chronic kidney disease with heart failure and with stage 5 chronic kidney disease, or end stage renal disease; D68.69 Other thrombophilia; N18.6 End stage renal disease; R40.3 Persistent vegetative state; E11.22 Type 2 diabetes mellitus with diabetic chronic kidney disease; E87.1 Hypo-osmolality and hyponatremia; E03.9 Hypothyroidism, unspecified; R53.2 Functional quadriplegia; I50.9 Heart failure, unspecified; Z99.2 Dependence on renal dialysis; E21.1 Secondary hyperparathyroidism, not elsewhere classified; F03.90 Unspecified dementia, unspecified severity, without behavioral disturbance, psychotic disturbance, mood disturbance, and anxiety; I25.10 Atherosclerotic heart disease of native coronary artery without angina pectoris; Z87.440 Personal history of urinary (tract) infections; E87.2 Acidosis; J98.11 Atelectasis; I50.32 Chronic diastolic (congestive) heart failure; Z79.4 Long term (current) use of insulin; Z79.82 Long term (current) use of aspirin
CPT/HCPCS: 31720; 36415; 36600; 71045-TC; 74018; 80048-TC; 80061-TC; 80076-TC; 82533; 82962-TC; 83605-TC; 83735-TC; 84100-TC; 84443-TC; 84484-TC; 85025-TC; 85730-TC; 86706; 87040-TC; 87081-TC; 87340; 90935-TC; 94003-TC; 94760-TC; 94762-TC; 99082-TC; A4216; A4623; A6253; A6403; A7526; C1751; G0378; J1815; J1956; J2185; J7030; J7040; J7050; J7060; P9047

== ENCOUNTER 2019-05-23 17:53 | Inpatient (IN) | payer OTHER ==
[~2019-05-23] VITALS: Ht 152.4 cm; Wt 58.1 kg
[~2019-05-23 17:53] MED LIST changes: +ASCO500T20 GT; +ASPI-992 GT; -ASPI-992 PO; +SODI4SOL GT
--- NOTE | 2019-05-23 18:31 | NUR ---
RT NOTE PT PLACED ON VENT PER MD ORDER. AC 18 550 40% +5 ENDORSED BY TRANSPORT RT. PT HAS PORTEX [address]UBE [address] CUFF INFLATED. TRACH TUBE MIDLINE AND SECURE. AMBU BAG AT BED SIDE. NO DISTRESS NOTED AT MOMENT. Addendum: 05/23/19 at 1833 by SANTY WARE RT Amended: Links added.
[2019-05-23 18:54] LABS: CALCIUM, SERUM 10.1 mg/dL (8.5-10.1); CREATININE 4.2 mg/dL (0.6-1.3); POTASSIUM 3.7 mmol/L (3.5-5.1)
[2019-05-23 19:00] LABS: ALBUMIN 4.2 g/dL (3.4-5.0); BILIRUBIN,DIRECT 0.1 mg/dL (0.0-0.2); BILIRUBIN,TOTAL 0.4 mg/dL (0.2-1.0); TOTAL PROTEIN, SERUM 10.8 g/dL (6.4-8.2)
--- NOTE | 2019-05-23 19:10 | NUR ---
Bedside/warm hand off given to Barbara
[2019-05-23 19:16] LABS: BASOPHILS % (AUTO) 0.3 % (0.0-2.0); EOSINOPHILS % (AUTO) 1.4 % (0.0-6.0); HEMATOCRIT 38 % (33-45); HEMOGLOBIN 11.7 g/dL (11.5-14.8); LYMPHOCYTES # (AUTO) 1.8 /CMM (0.8-4.8); MEAN CORPUSCULAR HGB CONC 31 g/dl (31.0-36.0); MEAN CORPUSCULAR VOLUME 96 fL (82-100); MONOCYTES # (AUTO) 1.2 /CMM (0.1-1.30); MONOCYTES % (AUTO) 7.6 % (2.0-12.0); NEUTROPHILS % (AUTO) 79.7 % (43.0-81.0); PLATELET COUNT (AUTO) 302 /CMM (150-450); RED BLOOD CELL COUNT(AUTO) 3.93 MIL/uL (4.0-5.2); WHITE BLOOD COUNT (AUTO) 16.2 K/uL (4.3-11.0)
--- NOTE | 2019-05-23 19:20 | NUR ---
PT RECEIVED IN BED EYE OPEN. NOT IN RESP DISTRESS. VSS
[2019-05-23] MEDS ORDERED: LEVOFLOXACIN 750 MG /D5W 150ML 150 ML IV ONE ×2 (19:30→19:49)
[2019-05-23] MEDS ORDERED: PIPERACILLIN /TAZOBACTAM 3.375 G in IV D5W 50 ML IV ONE (19:30)
[2019-05-23] MEDS ORDERED: PIPERACILLIN /TAZOBACTAM 3.375 G VIAL IV ONE (19:49)
--- NOTE | 2019-05-23 20:00 | NUR ---
VENT SETTING: AC18, 550VT, 40%, +5 PEEP. MD AWARE OF SETTING.
--- NOTE | 2019-05-23 20:13 | NUR ---
pt received trached on [facility] vent with noted settings. Pt tolerating settings well. No SOB or distress noted at this time. Will continue to monitor. Addendum: 05/23/19 at 2014 by KATELYN RHODES RT Amended: Links added.
[2019-05-23] MEDS ORDERED: IV NS 0.9% 1,000 ML BAG IV ONE (20:30)
--- NOTE | 2019-05-23 20:31 | NUR ---
BP NOTED @ 86/37. MD MADE AWARE. RECEIVED VERBAL ORDER TO GIVE 1L NS BOLUS X 1. NOTED AND CARRIED OUT
[2019-05-23 20:52] LABS: C-REACTIVE PROTEIN 4.2 mg/dL (0.0-0.9); CREATINE KINASE, TOTAL 33 U/L (26-192); FERRITIN 2041 ng/mL (8-388)
--- NOTE | 2019-05-23 21:14 | NUR ---
REPORT GIVEN TO SANTANA TORRES FOR HARLAN
--- NOTE | 2019-05-23 21:15 | NUR ---
LOADING DOCK HELPER NOTES RECEIVED REPORT FROM RAY CONTI RN. AWAITING TRANSFER
[2019-05-23] MEDS ORDERED: NEPRO VAN 237 ML CAN GT SCH (22:30)
[2019-05-23] MEDS ORDERED: hydrALAZINE HCL 25 MG TABLET GT PRN (22:30)
[2019-05-23] MEDS ORDERED: Z GUARD REMEDY 2 OZ OINT TP PRN (23:00)
[2019-05-23] MEDS ORDERED: DEXTROSE 50%-WATER 50 ML DISP.SYRIN IV PRN (23:00)
[2019-05-23] MEDS ORDERED: ONDANSETRON HCL/PF 4 MG/2 ML VIAL IVP PRN (23:00)
--- NOTE | 2019-05-23 23:20 | NUR ---
PT TRANSPOERTED TO UNIT ON YOGESH W/ EMT, RN AND RT AT BEDSIDE W/ ACLS PROTOCOL. NAD NOTED DURING TRANSPORT TO UNIT
--- NOTE | 2019-05-23 23:45 | NUR ---
RN [facility] NOTES RECEIVED PT MACI ZUÑIGA AT 2312. NON-VERBAL/OBTUNDED. TRACHED AND VENTED. CHAPIN WELL. NO SOB, NAD AT THE MOMENT. PUT ON TELE MONITOR PER UNIT PROTOCOL. RN HR IN 80S. GENERALIZED EDEMA THROUGHOUT. INCONTINENT OF URINE AND BOWEL WITH DIAPER ON. PT IS BEDBOUND, QUADRIPLEGIC. SKIN MULTIPLE WOUNDS: SACRUM - PRESSURE ULCER, COVERED WITH MEPILEX, LEFT CHIN COVERED WITH GAUZE. WOUND/DIET CONSULT REQUESTED. LEFT THUMB WITH SL 22G, FLUSHES WELL. DRESSING INTACT. GTF - NEPHRO 1.8. GT INTACT, FLUSHED AND CHECKED THE PLACEMENT. ALL SAFETY MEASURES IN PLACE. BED LOCKED AND IN LOWEST POSITION. KEPT CLEAN AND DRY. WILL CONT TO MONITOR
[2019-05-24] VITALS (8 sets, daily range): BP systolic 74–141; BP diastolic 15–59
--- NOTE | 2019-05-24 00:01 | NUR ---
RN NOTES CRITICAL LAB LACTIC ACID 2.8, PREVIOUSLY 2.6; TISSUE COORDINATOR HOSPITALIST MADE AWARE. ORDERED IVF NS 500ML BOLUS. ALSO OKAY TO CONTINUE GTF. WILL ATTEND TO ORDERS. WILL RECHECK BP.
[2019-05-24] MEDS: MIDODRINE HCL (5MG) 5 MG TABLET PO SCH ×2 (00:25→08:46)
[2019-05-24] MEDS ORDERED: IV NS 0.9% 500 ML IV ONE ×2 (00:30→04:30)
[2019-05-24] MEDS: BLOOD SUGAR DIAGNOSTIC 1 EACH STRIP IN SCH ×5 (00:40→18:51)
[2019-05-24] MEDS: INSULIN REGULAR, HUMAN 100 UNIT/ML 3 ML VIAL SQ PRN ×4 (00:45→18:54)
[2019-05-24] MEDS: NEPRO 1,000 ML BOTTLE GT SCH (01:04)
[2019-05-24] MEDS: ALBUTEROL FS 2.5 MG/0.5 ML VIAL.NEB NEB SCH ×4 (01:30→19:30)
[2019-05-24] MEDS: IPRATROPIUM NEB FS 0.5 MG/2.5 ML AMPUL.NEB IH SCH ×4 (01:30→19:30)
[2019-05-24] MEDS ORDERED: PIPERACILLIN /TAZOBACTAM 2.25 G VIAL IV ONE (04:47)
[2019-05-24] MEDS ORDERED: PIPERACILLIN /TAZOBACTAM 2.25 G in IV D5W 50 ML IV ONE (05:30)
[2019-05-24] MEDS: ACETAMINOPHEN 650 MG/SUPP.RECT RC PRN (05:49)
--- NOTE | 2019-05-24 05:49 | NUR ---
[facility] RN NOTES PT HAS 100.2 TEMP. TYLENOL PA GIVEN ALONG WITH COOLING MEASURES. CHAPIN WELL. BED LOCKED AND IN LOWEST POSITION. WILL CONT TO MONITOR.
--- NOTE | 2019-05-24 06:25 | NUR ---
RT NOTE RECEIVED PATIENT ON MECHANICAL VENT WITH ORDERED SETTINGS. ALARMS ON AND AUDIBLE. VENT PLUGGED IN TO THE RED OUTLET. TRACH TUBE IN PLACE, PATENT, AND SECURED WITH TRACH TIE. AMBU BAG AND BACK UP TRACH BY THE BEDSIDE. NO DISTRESS AT THIS TIME.
[2019-05-24 07:13] LABS: BASOPHILS # (AUTO) 0.1 /CMM (0.0-0.2); BASOPHILS % (AUTO) 0.5 % (0.0-2.0); EOSINOPHILS % (AUTO) 1.8 % (0.0-6.0); HEMATOCRIT 36 % (33-45); HEMOGLOBIN 11.1 g/dL (11.5-14.8); LYMPHOCYTES # (AUTO) 0.9 /CMM (0.8-4.8); MEAN CORPUSCULAR HGB CONC 31 g/dl (31.0-36.0); MEAN CORPUSCULAR VOLUME 98 fL (82-100); MONOCYTES # (AUTO) 0.5 /CMM (0.1-1.30); MONOCYTES % (AUTO) 3.1 % (2.0-12.0); NEUTROPHILS # (AUTO) 13.1 /CMM (1.8-8.9); NEUTROPHILS % (AUTO) 88.6 % (43.0-81.0); PLATELET COUNT (AUTO) 268 /CMM (150-450); RED BLOOD CELL COUNT(AUTO) 3.65 MIL/uL (4.0-5.2); WHITE BLOOD COUNT (AUTO) 14.7 K/uL (4.3-11.0)
[2019-05-24 07:30] LABS: ALBUMIN 3.3 g/dL (3.4-5.0); BILIRUBIN,TOTAL 0.4 mg/dL (0.2-1.0); CALCIUM, SERUM 8.9 mg/dL (8.5-10.1); CREATININE 5.3 mg/dL (0.6-1.3); MAGNESIUM 2.5 mg/dL (1.8-2.4); PHOSPHORUS 3.2 mg/dL (2.5-4.9); POTASSIUM 3.8 mmol/L (3.5-5.1); TOTAL PROTEIN, SERUM 8.6 g/dL (6.4-8.2)
[2019-05-24] MEDS ORDERED: PIPERACILLIN /TAZOBACTAM 3.375 G in IV D5W 100 ML IV SCH (07:30)
--- NOTE | 2019-05-24 07:30 | NUR ---
[facility] RN Notes Recieved patient from radiation physicist. Stable. On a vent. Portex 7, AC 18, TV 550, FIO2 40%, PEEP15. Generalized edema, BMx1 with radiation physicist. Patient is quadriplegic, and bed bound. Sacral Pressure Ulcer, abnd boil on left cheek. Wound consult pending. Nephro running at 10cc an hour. IV left thumb 22g. Lactic Acid 2.8. Patient has allergies to Vancomycin. Bed in lowest position, call light within reach, all measures taken to ensure client safety.
[2019-05-24 07:36] LABS: THYROID STIMULATING HORMONE 2.886 uIU/mL (0.358-3.74)
[2019-05-24 08:15] LABS: ABG BASE EXCESS -10.9 mmol/L; ABG OXYGEN SATURATION 98.6 % (92.0-98.5); ABG PO2 152.4 mmHg (75.0-100.0); AaDO2 105.2 mmHg; COHb 0.7 % (0.5-1.5); MetHb 0.3 % (0.0-1.5); O2Hb 97.6 % (94.0-97.0); SITE, ABG Right Brachial; VENT MODE, BG AC 18 550 40% +5
[2019-05-24] MEDS: LEVETIRACETAM SOL (5 ML) 100 MG/ML UDC GT SCH ×2 (08:43→23:30)
[2019-05-24] MEDS: SEVELAMER CARBONATE 0.8 GM POWD.PACK GT SCH ×3 (08:44→23:36)
[2019-05-24] MEDS: TRAMADOL HCL 50 MG TABLET GT SCH (08:45)
[2019-05-24] MEDS: PROSOURCE / PROSTAT (PYXIS) 30 ML UDC GT SCH ×2 (08:49→23:34)
[2019-05-24] MEDS: ASPIRIN 325 MG TABLET PO SCH (08:50)
[2019-05-24] MEDS ORDERED: PANTOPRAZOLE 40 MG TABLET.DR PO SCH (09:00)
[2019-05-24] MEDS ORDERED: PREVACID (NF) 30 MG TAB GT SCH (09:00)
[2019-05-24] MEDS ORDERED: CARVEDILOL 6.25 MG TABLET GT SCH (09:00)
[2019-05-24] MEDS ORDERED: BENAZEPRIL HCL 20 MG TABLET GT SCH (09:00)
[2019-05-24] MEDS ORDERED: MIDODRINE HCL (5MG) 5 MG TABLET PO PRN (09:00)
[2019-05-24] MEDS ORDERED: MUPI22OI7 TD (10:15)
[2019-05-24] MEDS ORDERED: CHOL100040 PO (10:15)
[2019-05-24] MEDS ORDERED: GLUC1KIT IM (10:15)
[2019-05-24] MEDS ORDERED: ALBU8.5H8 IH (10:15)
[2019-05-24] MEDS ORDERED: ZINC1CAP2 GT (10:15)
[2019-05-24] MEDS ORDERED: IPRATROPIUM/ALBUTEROL INHALER IH SCH ×2 (12:00)
[2019-05-24] MEDS: PANTOPRAZOLE 40 MG/PACK PACK GT SCH (12:30)
[2019-05-24] MEDS ORDERED: PIPERACILLIN /TAZOBACTAM 2.25 G in IV D5W 50 ML IV SCH (13:00)
--- NOTE | 2019-05-24 15:00 | NUR ---
[facility] RN Notes Per HD RN 1L of fluid removed. Patient in stable condition. Will continue to monitor.
--- NOTE | 2019-05-24 18:55 | NUR ---
[facility] RN Notes Patient is in bed resting comfortably, no signs of distress. VSS. No acute changes on shift. Will endorse to restaurant shift leader. Accu check evening 200mg dL 3 units given. Bed in lowest position, call light within reach, all measures taken to ensure client safety.
[2019-05-24] MEDS ORDERED: MEROPENEM 500 MG in IV NS 0.9% 50 ML IV ONE (20:00)
[2019-05-24] MEDS: INSULIN GLARGINE, 100 UNIT/ML CARTRIDGE SQ SCH (22:00)
[2019-05-24] MEDS ORDERED: INSULIN GLARGINE,BASAGLAR 100 UNIT/ML INSULN.PEN SQ SCH (22:00)
[2019-05-24] MEDS ORDERED: ATORVASTATIN 10 MG TABLET GT SCH (22:00)
[2019-05-24] MEDS ORDERED: MEROPENEM 500 MG VIAL IV ONE (22:53)
[2019-05-24] MEDS: MIDODRINE HCL (5MG) 5 MG TABLET GT PRN (23:25)
[2019-05-24] MEDS: LINEZOLID 600 MG TABLET PO SCH (23:29)
[2019-05-25] VITALS: BP 98/51
[2019-05-25] MEDS: IPRATROPIUM NEB FS 0.5 MG/2.5 ML AMPUL.NEB IH SCH ×4 (01:30→20:11)
[2019-05-25] MEDS: ALBUTEROL FS 2.5 MG/0.5 ML VIAL.NEB NEB SCH ×4 (01:30→20:11)
[2019-05-25 04:00] VITALS: BP 119/51
[2019-05-25] MEDS: INSULIN REGULAR, HUMAN 100 UNIT/ML 3 ML VIAL SQ PRN ×5 (05:48→22:46)
[2019-05-25] MEDS: BLOOD SUGAR DIAGNOSTIC 1 EACH STRIP IN SCH ×4 (06:59→17:52)
--- NOTE | 2019-05-25 07:30 | NUR ---
CAN FILLER NOTES PATIENT OBTUNDED. NO ISOLATION. ON TRACH SATURATING 100% NO SOB NOTED AT THIS TIME. NOTED SOME REDNESS ON FACE NECK CHEST BILATERAL HANDS AND ABDOMEN WILL FOLLOW UP. NO RESIDUAL NOTED FROM GT SIDE . IT IS PATENT AND FLUSHED WITH WATER. CALL LIGHT WITHIN REACH BED AT THE LOWEST POSITION LOCKED. WILL FOLLOW UP WITH PATIENT`S CONDITION.
[2019-05-25 07:41] LABS: BASOPHILS % (AUTO) 0.3 % (0.0-2.0); EOSINOPHILS % (AUTO) 3.7 % (0.0-6.0); HEMATOCRIT 33 % (33-45); HEMOGLOBIN 10.4 g/dL (11.5-14.8); LYMPHOCYTES # (AUTO) 0.8 /CMM (0.8-4.8); MEAN CORPUSCULAR HGB CONC 31 g/dl (31.0-36.0); MEAN CORPUSCULAR VOLUME 96 fL (82-100); MONOCYTES # (AUTO) 0.6 /CMM (0.1-1.30); MONOCYTES % (AUTO) 4.1 % (2.0-12.0); NEUTROPHILS # (AUTO) 11.6 /CMM (1.8-8.9); NEUTROPHILS % (AUTO) 85.9 % (43.0-81.0); PLATELET COUNT (AUTO) 283 /CMM (150-450); RED BLOOD CELL COUNT(AUTO) 3.47 MIL/uL (4.0-5.2); WHITE BLOOD COUNT (AUTO) 13.5 K/uL (4.3-11.0)
[2019-05-25 08:00] VITALS: BP 95/42
[2019-05-25 08:00] LABS: FREE T4 (FREE THYROXINE) 1.12 ng/dL (0.76-1.46)
[2019-05-25 08:13] LABS: CALCIUM, SERUM 9.7 mg/dL (8.5-10.1); CREATININE 5.4 mg/dL (0.6-1.3); MAGNESIUM 2.8 mg/dL (1.8-2.4); PHOSPHORUS 2.1 mg/dL (2.5-4.9); POTASSIUM 3.7 mmol/L (3.5-5.1)
[2019-05-25] MEDS: SEVELAMER CARBONATE 0.8 GM POWD.PACK GT SCH ×3 (09:24→21:24)
[2019-05-25] MEDS: LEVETIRACETAM SOL (5 ML) 100 MG/ML UDC GT SCH ×2 (09:24→21:18)
[2019-05-25] MEDS: TRAMADOL HCL 50 MG TABLET GT SCH (09:25)
[2019-05-25] MEDS: ASPIRIN 325 MG TABLET PO SCH (09:25)
[2019-05-25] MEDS: PROSOURCE / PROSTAT (PYXIS) 30 ML UDC GT SCH ×2 (09:26→21:22)
[2019-05-25] MEDS: MEROPENEM 500 MG in IV NS 0.9% 50 ML IV SCH ×2 (09:27→21:00)
[2019-05-25 12:00] VITALS: BP 112/43
[2019-05-25] MEDS: PANTOPRAZOLE 40 MG/PACK PACK GT SCH (12:17)
--- NOTE | 2019-05-25 12:20 | NUR ---
ANIMAL NUTRITIONIST NOTES NOTED REDNESS ON BILATERAL EYES, FACE CHEST, BILATERAL ARMS AND ABDOMEN. PATIENT IS TRYING TO SCRATCH HERSELF. INFORMED DR ESQUIVEL AND DR ESQUIVEL ORDERED BENADRYL 25 MG IV Q4 PRN.
[2019-05-25] MEDS: diphenhydrAMINE HCL 50 MG/ML VIAL IV PRN (12:35)
[2019-05-25 16:00] VITALS: BP 121/74
--- NOTE | 2019-05-25 17:41 | NUR ---
STRIPPER PRINTED CIRCUIT BOARDS NOTES RECEIVED A CALL FROM PHARMACY THAT THEY CANNOT REPLACED 2.1 LOW PHOSPHORUS DUE TO HIGH CR LEVEL OF5.[address] ESQUIVEL.
--- NOTE | 2019-05-25 18:54 | NUR ---
GUN WELDER NOTES PATIENT IN BED SLEEPING COMFORTABLY. NOS OB OR DISCOMFORT NOTED AT THIS TIME. NO RESIDUAL NOTED FROM GTUBE SIDE. BENADRYL GIVEN FOR REDNESS AND ALLERGY REACTION. ALL NEEDS ATTENDED. CALL LIGHT WITHIN REACH BED AT THE LOWEST POSITION LOCKED. HANDED REPORT TO BOX COVERING MACHINE OPERATOR NURSE.
[2019-05-25 20:00] VITALS: BP 113/35
[2019-05-25] MEDS: LINEZOLID 600 MG TABLET PO SCH ×2 (21:24)
[2019-05-25] MEDS ORDERED: MEROPENEM 500 MG VIAL IV ONE (21:53)
[2019-05-25] MEDS: INSULIN GLARGINE, 100 UNIT/ML CARTRIDGE SQ SCH (22:48)
[2019-05-26] VITALS: BP 140/59
[2019-05-26] MEDS: BLOOD SUGAR DIAGNOSTIC 1 EACH STRIP IN SCH ×4 (01:00→17:34)
[2019-05-26] MEDS: ALBUTEROL FS 2.5 MG/0.5 ML VIAL.NEB NEB SCH ×4 (02:27→22:16)
[2019-05-26] MEDS: IPRATROPIUM NEB FS 0.5 MG/2.5 ML AMPUL.NEB IH SCH ×4 (02:27→22:16)
[2019-05-26 04:00] VITALS: BP 113/45
--- NOTE | 2019-05-26 04:00 | NUR ---
RN NOTE RECEIVED PATIENT FROM SENG RN AROUND THIS TIME. PATIENT IS AWAKE, OBTUNDED. BREATHING EVEN AND NON LABORED. VENT DEPENDENT. QUADRIPLEGIC. ON GT FEEDING, NEPHRO RUNNING AT 45 MLS/HR. NOTED GENERALIZED REDNESS ON UPPER CHEST AND BILATERAL UPPER EXTREMITIES. IN NO APPARENT DISTRESS NOTED. BED LOWERED AND LOCKED FOR SAFETY. WILL CONTINUE TO MONITOR.
[2019-05-26] MEDS: diphenhydrAMINE HCL 50 MG/ML VIAL IV PRN ×2 (05:08→17:22)
--- NOTE | 2019-05-26 05:10 | NUR ---
RN NOTE PATIENT TOLERATED BED BATH WELL. ALL WOUND CARE RENDERED AND TOLERATED WELL. BENADRYL IV GIVEN ORDERED FOR REDNESS AND ITCHING. WILL CONTINUE TO MONITOR.
[2019-05-26] MEDS: INSULIN REGULAR, HUMAN 100 UNIT/ML 3 ML VIAL SQ PRN ×3 (05:18→17:37)
--- NOTE | 2019-05-26 06:38 | NUR ---
RN NOTE PATIENT IS IN BED RESTING. KEPT CLEAN, DRY, AND COMFORTABLE. ALL NEEDS ANTICIPATED AND MET. WILL ENDORSE TO AM SHIFT RN FOR CONTINUATION OF CARE.
[2019-05-26 06:58] LABS: CALCIUM, SERUM 10.8 mg/dL (8.5-10.1); MAGNESIUM 3.3 mg/dL (1.8-2.4); PHOSPHORUS 2.8 mg/dL (2.5-4.9); POTASSIUM 4.2 mmol/L (3.5-5.1)
[2019-05-26 07:04] LABS: CREATININE 7.8 mg/dL (0.6-1.3)
--- NOTE | 2019-05-26 07:30 | NUR ---
RN OPENING NOTE Received patient asleep in bed HOB elevated. On trach and vent. No signs of distress. Appears calm and relaxed. Patient is obtunded. Noted with generalized edema. Patient on a GT feeding Nepro at 45ml/hr. Patient has a L thumb #22 patent flushed well. Safety measures implemented call light wihin reach. Siderails up x2. Will cont to monitor. Bed locked and on lowest position.
[2019-05-26 08:00] VITALS: BP 103/54
[2019-05-26 08:28] LABS: BASOPHILS # (AUTO) 0.1 /CMM (0.0-0.2); BASOPHILS % (AUTO) 0.9 % (0.0-2.0); HEMATOCRIT 33 % (33-45); HEMOGLOBIN 10.2 g/dL (11.5-14.8); LYMPHOCYTES # (AUTO) 1.2 /CMM (0.8-4.8); LYMPHOCYTES % (AUTO) 8.4 % (20.0-44.0); MEAN CORPUSCULAR HGB CONC 31 g/dl (31.0-36.0); MEAN CORPUSCULAR VOLUME 96 fL (82-100); MONOCYTES % (AUTO) 6.9 % (2.0-12.0); NEUTROPHILS # (AUTO) 11.6 /CMM (1.8-8.9); NEUTROPHILS % (AUTO) 78.8 % (43.0-81.0); PLATELET COUNT (AUTO) 251 /CMM (150-450); RED BLOOD CELL COUNT(AUTO) 3.42 MIL/uL (4.0-5.2); WHITE BLOOD COUNT (AUTO) 14.7 K/uL (4.3-11.0)
--- NOTE | 2019-05-26 08:48 | NUR ---
WOUND CARE CONSULT: REVIEWED CHART AND NURSING DOCUMENTATION INCLUDING ADMISSION PHOTOS WHICH SHOW SACRAL RE-OPENED STAGE 4 ULCER AND LEFT CHEEK/JAW WOUND WITH REDNESS, UNKNOWN ETIOLOGY, PRESENT ON ADMISSION. RECOMMENDATIONS MADE FOR SKIN PROTECTION AND WOUND CARE. DISCUSSED WITH NURSING STAFF. DEFER TO SURGICAL TEAM FOR LEFT CHEEK/JAW. DR ROHIT REESE NOTIFIED OF WOUND CONSULT. PT ON PATRICK ISOFLEX LOW AIRLOSS BED. WILL SEE PRN. IN AGREEMENT WITH PLAN OF CARE.
[2019-05-26] MEDS: PROSOURCE / PROSTAT (PYXIS) 30 ML UDC GT SCH ×2 (08:50→20:17)
[2019-05-26] MEDS: LEVETIRACETAM SOL (5 ML) 100 MG/ML UDC GT SCH ×2 (08:50→20:17)
[2019-05-26] MEDS: LINEZOLID 600 MG TABLET PO SCH ×2 (08:51→20:16)
[2019-05-26] MEDS: ASPIRIN 325 MG TABLET PO SCH (08:51)
[2019-05-26] MEDS: SEVELAMER CARBONATE 0.8 GM POWD.PACK GT SCH ×3 (08:51→20:17)
[2019-05-26] MEDS: ACETAMINOPHEN 650 MG/SUPP.RECT RC PRN ×2 (08:51→20:30)
[2019-05-26] MEDS: TRAMADOL HCL 50 MG TABLET GT SCH (08:52)
[2019-05-26] MEDS: MEROPENEM 500 MG in IV NS 0.9% 50 ML IV SCH ×2 (08:54→20:17)
[2019-05-26] MEDS: NEPRO 1,000 ML BOTTLE GT SCH (09:14)
[2019-05-26] MEDS: MIDODRINE HCL (5MG) 5 MG TABLET GT PRN (10:55)
[2019-05-26] MEDS ORDERED: ALBUMIN 25% 25 GM in PREMIX 1 EA IV PRN (11:00)
[2019-05-26 12:00] VITALS: BP 117/51
[2019-05-26] MEDS: PANTOPRAZOLE 40 MG/PACK PACK GT SCH (12:50)
--- NOTE | 2019-05-26 14:00 | NUR ---
RN NOTE Ordered for midline insertion approved by warehouse worker 2nd shift. Dialysis done tolerated well removed 2L.
--- NOTE | 2019-05-26 15:02 | NUR ---
vent changes bel0w per dr. penaloza: peep + 0 Addendum: 05/26/19 at 1502 by AIMEE RG RT Amended: Links added.
[2019-05-26 16:00] VITALS: BP 112/59
--- NOTE | 2019-05-26 18:24 | NUR ---
RN NOTE Patient in bed vent setting tolerating. No signs of pain and discomfort. All due meds given. Midline insertion unable to be done due to edema. R hand 22g placed by Courtney. Flushed well. Continue on GT feeding tolerating well. Cont on antibiotics. No signs of adverse reaction to medication. Safety measures implemented. Call light within reach. Siderails up x2. Will endorse to restaurant shift supervisor nurse for alexis.
--- NOTE | 2019-05-26 19:30 | NUR ---
FORM SETTER METAL ROAD FORMS NOTE RECEIVED PATIENT IN BED OBTUNDED. ON VENT SETTING TOLERATING WELL ORDERED. BREATHING NORMAL NO SOB NOTED, RESPIRATION EVEN NON LABORED. SKIN WARM AND DRY TO TOUCH. IV SITE RT HAND G#22 PATENT FLUSHED WELL.CONTINUES ON GTF NEPHRO 45ML/HR TOLERATING WELL NO RESIDUAL NOTED. ABD SOFT AND NON DISTENDED. ALL SAFETY MEASURES IN PLACE, CALL LIGHT WITHIN REACH. WILL CONT TO MONITOR.
[2019-05-26 20:00] VITALS: BP 111/59
--- NOTE | 2019-05-26 20:30 | NUR ---
RN NOTE PRN TYLENOL SUPP. GIVEN ORDERED FOR TEMP 99.5. WILL CONT TO MONITOR FOR EFFECTIVENESS.
[2019-05-26] MEDS: INSULIN GLARGINE, 100 UNIT/ML CARTRIDGE SQ SCH (21:19)
--- NOTE | 2019-05-26 21:30 | NUR ---
RN NOTE PRN TYLENOL WAS EFFECTIVE TEMP LOWER TO 98.5.
[2019-05-27] VITALS: BP_SYST 97; BP_DIAS 54; BP_DIAS 60
[2019-05-27] MEDS: BLOOD SUGAR DIAGNOSTIC 1 EACH STRIP IN SCH ×4 (00:10→18:20)
[2019-05-27] MEDS: INSULIN REGULAR, HUMAN 100 UNIT/ML 3 ML VIAL SQ PRN ×4 (00:17→18:21)
[2019-05-27] MEDS: ALBUTEROL FS 2.5 MG/0.5 ML VIAL.NEB NEB SCH ×4 (02:08→20:00)
[2019-05-27] MEDS: IPRATROPIUM NEB FS 0.5 MG/2.5 ML AMPUL.NEB IH SCH ×4 (02:08→20:00)
[2019-05-27 04:00] VITALS: BP_SYST 123; BP_SYST 127; BP_DIAS 58; BP_DIAS 59
[2019-05-27 04:06] LABS: *SPE A/G RATIO 0.8 (0.7-1.7); *SPE ALBUMIN 3.7 g/dL (2.9-4.4); *SPE ALPHA-1-GLOBULIN 0.3 g/dL (0.0-0.4); *SPE ALPHA-2-GLOBULIN 1.2 g/dL (0.4-1.0); *SPE BETA GLOBULIN 1.2 g/dL (0.7-1.3); *SPE GLOBULIN, TOTAL 4.7 g/dL (2.2-3.9); *SPE M-SPIKE Not Observed g/dL (Not Observed)
--- NOTE | 2019-05-27 06:08 | NUR ---
INTENSIVE CARE UNIT NURSE NOTE PATIENT RESTED WELL THROUGH OUT THE SHIFT, CONTINUES ON VENT SETTING TOLERATING WELL ORDERED. NO S/S OF DISTRESS NOTED. BREATHING NORMAL NO SOB NOTED, RESPIRATION EVEN NON LABORED. DUE MEDICATIONS WERE GIVEN ORDERED. CONTINUES ON GTF NEPHRO 45ML/HR TOLERATING WELL NO RESIDUAL NOTED. KEPT CLEAN DRY AND COMFORTABLE. BED BATH GIVEN PT TOLERATED WELL. ALL SAFETY MEASURES IN PLACE, SIDE RAILS UP X2, CALL LIGHT WITHIN REACH. WILL ENDORSE TO AM NURSE FOR HARLAN.
[2019-05-27 07:01] LABS: BASOPHILS % (AUTO) 0.2 % (0.0-2.0); EOSINOPHILS % (AUTO) 5.4 % (0.0-6.0); HEMATOCRIT 35 % (33-45); LYMPHOCYTES # (AUTO) 0.9 /CMM (0.8-4.8); LYMPHOCYTES % (AUTO) 8.2 % (20.0-44.0); MEAN CORPUSCULAR HGB CONC 32 g/dl (31.0-36.0); MEAN CORPUSCULAR VOLUME 96 fL (82-100); MONOCYTES # (AUTO) 0.9 /CMM (0.1-1.30); MONOCYTES % (AUTO) 7.9 % (2.0-12.0); NEUTROPHILS # (AUTO) 9.1 /CMM (1.8-8.9); NEUTROPHILS % (AUTO) 78.3 % (43.0-81.0); PLATELET COUNT (AUTO) 256 /CMM (150-450); RED BLOOD CELL COUNT(AUTO) 3.62 MIL/uL (4.0-5.2); WHITE BLOOD COUNT (AUTO) 11.5 K/uL (4.3-11.0)
[2019-05-27 07:15] LABS: CREATININE 6.4 mg/dL (0.6-1.3); MAGNESIUM 3.1 mg/dL (1.8-2.4); PHOSPHORUS 1.9 mg/dL (2.5-4.9); POTASSIUM 3.4 mmol/L (3.5-5.1)
--- NOTE | 2019-05-27 07:30 | NUR ---
RUFINO RN Notes Received patient from retail shift leader. Stable. On a vent. Portex 7, AC 18, TV 550, FIO2 40%, PEEP15. Generalized edema, BMx1 with retail shift leader. Patient is quadriplegic, and bed bound. Sacral Pressure Ulcer, and boil on left cheek improving. Nephro running at 45cc an hour no residuals. IV left thumb 22g. Patient has allergies to Vancomycin. Bed in lowest position, call light within reach, all measures taken to ensure client safety.
[2019-05-27 08:00] VITALS: BP 127/64
--- NOTE | 2019-05-27 08:00 | NUR ---
scientist engineer Notes Spoke with RT. Patient to recieve breathing tx today as results for COVID-19 are negative and no more aerosol precaution to be observed. Will continue to monitor.
[2019-05-27] MEDS: SEVELAMER CARBONATE 0.8 GM POWD.PACK GT SCH ×3 (08:29→20:07)
[2019-05-27] MEDS: ASPIRIN 325 MG TABLET PO SCH (08:29)
[2019-05-27] MEDS: TRAMADOL HCL 50 MG TABLET GT SCH (08:30)
[2019-05-27] MEDS: LINEZOLID 600 MG TABLET PO SCH ×2 (08:30→20:07)
[2019-05-27 08:31] LABS: ABG OXYGEN SATURATION 97.6 % (92.0-98.5); ABG PCO2 31.9 mmHg (35.0-45.0); ABG PH 7.475 (7.350-7.450); ABG PO2 105.6 mmHg (75.0-100.0); AaDO2 106.9 mmHg; COHb 0.5 % (0.5-1.5); MetHb 0.2 % (0.0-1.5); O2Hb 96.9 % (94.0-97.0); SITE, ABG Right Radial; VENT MODE, BG AC 18 550 35% +0
[2019-05-27] MEDS: LEVETIRACETAM SOL (5 ML) 100 MG/ML UDC GT SCH ×2 (08:31→20:07)
[2019-05-27] MEDS: MEROPENEM 500 MG in IV NS 0.9% 50 ML IV SCH ×2 (08:32→20:07)
[2019-05-27] MEDS: PROSOURCE / PROSTAT (PYXIS) 30 ML UDC GT SCH ×2 (08:34→20:10)
--- NOTE | 2019-05-27 10:20 | NUR ---
WOUND CARE: MSG LEFT FOR DR ROHIT REESE REGARDING WOUND CONSULT AND REDNESS/INDURATION SURROUNDING DRY LESION TO LEFT CHEEK/JAW AREA, PRESENT ON ADMISSION. DISCUSSED SKIN PROTECTION AND WOUND CARE OF SACRAL WOUND WITH NURSING STAFF. MD IN AGREEMENT WITH PLAN OF CARE.
--- NOTE | 2019-05-27 10:30 | NUR ---
picker box operator Notes DIVERSIFIED CROPS SUPERVISOR DT, authorized IV start on lower extremity. On LLE calf 18g started, flushes well. Will continue to monitor.
[2019-05-27 12:00] VITALS: BP 122/70
[2019-05-27] MEDS: PANTOPRAZOLE 40 MG/PACK PACK GT SCH (12:53)
[2019-05-27] MEDS ORDERED: SILVER NITRATE APPLICATOR 1 EA BOX TP ONE (14:00)
[2019-05-27 16:00] VITALS: BP 123/59
--- NOTE | 2019-05-27 19:00 | NUR ---
RUFINO RN Notes Patient stable. On a vent. Portex 7, AC 18, TV 550, FIO2 40%, PEEP15. Generalized edema, BMx1 with food service representative. Patient is quadriplegic, and bed bound. Sacral Pressure Ulcer, and boil on left cheek improving. Nephro running at 45cc an hour no residuals. New IV inserted on left calf 18g. Patient has allergies to Vancomycin. Bed in lowest position, call light within reach, all measures taken to ensure client safety. Will endorse to food service representative.
--- NOTE | 2019-05-27 19:30 | NUR ---
ANIMAL HOSPITAL CLERK NOTE RECEIVED PATIENT IN BED OBTUNDED. BREATHING NORMAL NO SOB NOTED, RESPIRATION EVEN NON LABORED. ON VENT SETTING TOLERATING WELL ORDERED. ON TELE MONITOR READING SR B/W 80'S TO 90'S. SKIN WARM AND DRY TO TOUCH. IV SITE RT HAND G#22 AND LEFT LEG #18G ON GREAT SAPHENOUS PATENT FLUSHED WELL. CONTINUES ON GTF NEPHRO 45ML/HR TOLERATING WELL 50ML RESIDUAL NOTED. ABD SOFT AND NON DISTENDED. ALL SAFETY MEASURES IN PLACE, CALL LIGHT WITHIN REACH. WILL CONT TO MONITOR.
[2019-05-27 20:00] VITALS: BP 110/60
[2019-05-27] MEDS: NEPRO 1,000 ML BOTTLE GT SCH (20:15)
[2019-05-27] MEDS: INSULIN GLARGINE, 100 UNIT/ML CARTRIDGE SQ SCH (21:38)
[2019-05-28] VITALS: BP 105/66
[2019-05-28] MEDS: BLOOD SUGAR DIAGNOSTIC 1 EACH STRIP IN SCH ×5 (00:33→23:05)
[2019-05-28] MEDS: INSULIN REGULAR, HUMAN 100 UNIT/ML 3 ML VIAL SQ PRN ×5 (00:36→23:06)
[2019-05-28] MEDS: ALBUTEROL FS 2.5 MG/0.5 ML VIAL.NEB NEB SCH ×4 (01:05→19:30)
[2019-05-28] MEDS: IPRATROPIUM NEB FS 0.5 MG/2.5 ML AMPUL.NEB IH SCH ×4 (01:06→19:30)
[2019-05-28 04:00] VITALS: BP 110/62
--- NOTE | 2019-05-28 06:17 | NUR ---
ASSISTANT MAINTENANCE MANAGER NOTE PATIENT REMAINS STABLE THROUGH OUT THE SHIFT, CONTINUES ON VENT SETTING TOLERATING WELL ORDERED. NO S/S OF DISTRESS NOTED. DUE MEDICATIONS WERE GIVEN ORDERED. CONTINUES ON GTF NEPHRO 45ML/HR TOLERATING WELL. GENERALIZED EDEMA. BM X1. KEPT CLEAN DRY AND COMFORTABLE. BED BATH GIVEN PT TOLERATED WELL. ALL SAFETY MEASURES IN PLACE, SIDE RAILS UP X2, CALL LIGHT WITHIN REACH. WILL ENDORSE TO AM NURSE FOR HARLAN.
[2019-05-28 06:54] LABS: BASOPHILS # (AUTO) 0.1 /CMM (0.0-0.2); BASOPHILS % (AUTO) 0.6 % (0.0-2.0); HEMATOCRIT 36 % (33-45); HEMOGLOBIN 11.3 g/dL (11.5-14.8); LYMPHOCYTES # (AUTO) 1.8 /CMM (0.8-4.8); MEAN CORPUSCULAR HGB CONC 31 g/dl (31.0-36.0); MEAN CORPUSCULAR VOLUME 97 fL (82-100); MONOCYTES # (AUTO) 1.7 /CMM (0.1-1.30); MONOCYTES % (AUTO) 13.8 % (2.0-12.0); NEUTROPHILS # (AUTO) 7.9 /CMM (1.8-8.9); NEUTROPHILS % (AUTO) 64.6 % (43.0-81.0); PLATELET COUNT (AUTO) 242 /CMM (150-450); RED BLOOD CELL COUNT(AUTO) 3.74 MIL/uL (4.0-5.2); WHITE BLOOD COUNT (AUTO) 12.2 K/uL (4.3-11.0)
--- NOTE | 2019-05-28 07:00 | NUR ---
AUTO PARTS CLERK 1 PATIENT IS OBTUNDED WITH EYES OPENING ,PUPLIS SLUGGIST. ON EXTERNAL MONITOR SR WITH PVC. PATIENT IS QUADRAPLEGIC, GENERAIZED ENDEMA , SARACL REDNESS. PATIENT HAS PEG, WITH FEEDING SET TO 45 ML / HR NEPHRO 1.8 . LEFT LG 18 G, NO ACUTE RESPIRATORY DISTRESS NOTED AT THIS TIME BED LOCKED AND LOWESTP OSITION CALL LIGHT WITH IN REACH ALL SAFETY MEASURE IMPLEMENTED PER HOSPITAL POLICY
[2019-05-28 07:20] LABS: CALCIUM, SERUM 11.6 mg/dL (8.5-10.1); MAGNESIUM 3.9 mg/dL (1.8-2.4); PHOSPHORUS 3.5 mg/dL (2.5-4.9); POTASSIUM 4.3 mmol/L (3.5-5.1)
[2019-05-28 07:46] LABS: CREATININE 8.2 mg/dL (0.6-1.3)
[2019-05-28 08:00] VITALS: BP 108/71
[2019-05-28] MEDS: LINEZOLID 600 MG TABLET PO SCH ×2 (08:30→20:56)
[2019-05-28] MEDS: LEVETIRACETAM SOL (5 ML) 100 MG/ML UDC GT SCH ×2 (08:30→20:56)
[2019-05-28] MEDS: PROSOURCE / PROSTAT (PYXIS) 30 ML UDC GT SCH ×2 (08:31→20:58)
[2019-05-28] MEDS: TRAMADOL HCL 50 MG TABLET GT SCH (08:31)
[2019-05-28] MEDS: ASPIRIN 325 MG TABLET PO SCH (08:31)
[2019-05-28] MEDS: SEVELAMER CARBONATE 0.8 GM POWD.PACK GT SCH ×3 (08:31→20:56)
[2019-05-28] MEDS: MEROPENEM 500 MG in IV NS 0.9% 50 ML IV SCH ×2 (08:33→20:57)
[2019-05-28 10:24] LABS: BAND % (MANUAL) 2 % (0.0-5.0); EOSINOPHILS % (MANUAL) 4 % (0-4); LYMPHOCYTES % (MANUAL) 17 % (16-48); MONOCYTES % (MANUAL) 11 % (0-11.0); NEUTROPHILS % (MANUAL) 66 (42-76)
[2019-05-28 12:00] VITALS: BP 114/79
[2019-05-28] MEDS: PANTOPRAZOLE 40 MG/PACK PACK GT SCH (13:03)
[2019-05-28 16:00] VITALS: BP 111/69
--- NOTE | 2019-05-28 18:25 | NUR ---
CONCERT PROMOTER PATIENT IS STABLE CONDITION AT THIS TIME, NO ACUTE CHANGE IN CONDITION, PATIENT STILL ON VENT SETTING PRESCRIBE BY PCP. BED LOCK AND LOWEST POSITION CALL LIGHT WITH IN REACH ALL SAFETY MEASURES IMPLEMENTED PER HOSPITAL POLICY .
--- NOTE | 2019-05-28 19:40 | NUR ---
MAJOR GIFTS DIRECTOR NOTES, PATIENT IN BED WITH EYES OPEN, ON MECHANICAL VENTILATOR TOLERATED SETTINGS WELL, NO SOB/ ACUTE RESPIRATORY DISTRESS NOTED AT THIS TIME, SR WITH PVC IN TELE MONITOR WITH HR IN 80S-90S AT THIS TIME, PIV ACCESS IN LEFT LEG PATENT AND INTACT, RCW HD CATH INTACT, NO BLEEDING OR ABNORMALITY NOTED, PEG IN PLACED, NEPHRO 1.8 45 ML / HR , TOLERATED FEEDING WELL, BED LOCKED AND LOWEST POSITION, CALL LIGHT WITH IN REACH, ALL SAFETY MEASURE IMPLEMENTED, WILL CONTINUE TO MONITOR CLOSELY.
[2019-05-28 20:00] VITALS: BP 143/73
[2019-05-28] MEDS: INSULIN GLARGINE, 100 UNIT/ML CARTRIDGE SQ SCH (22:01)
--- NOTE | 2019-05-28 22:27 | NUR ---
pt received trached on [facility] vent with noted settings. Pt tolerating settings well. No SOB or distress noted at this time. Will continue to monitor t/o shift. had minor brown oral secretions. RN notified. Addendum: 05/28/19 at 2228 by JOSE RAMON CASTELLANOS RT Amended: Links added.
[2019-05-29] VITALS: BP 133/58
[2019-05-29] MEDS: NEPRO 1,000 ML BOTTLE GT SCH (00:43)
[2019-05-29] MEDS: IPRATROPIUM NEB FS 0.5 MG/2.5 ML AMPUL.NEB IH SCH ×4 (01:05→19:50)
[2019-05-29] MEDS: ALBUTEROL FS 2.5 MG/0.5 ML VIAL.NEB NEB SCH ×4 (01:05→19:50)
[2019-05-29 04:00] VITALS: BP 137/61
[2019-05-29] MEDS: BLOOD SUGAR DIAGNOSTIC 1 EACH STRIP IN SCH ×3 (05:29→19:09)
[2019-05-29] MEDS: INSULIN REGULAR, HUMAN 100 UNIT/ML 3 ML VIAL SQ PRN ×2 (05:30→19:10)
--- NOTE | 2019-05-29 06:28 | NUR ---
BMET NOTES, PATIENT IN BED ASLEEP, BUT AROUSES EASILY TO VERBAL/TACTILE STIMULI, ON MECHANICAL VENTILATOR TOLERATED SETTINGS WELL, NO SOB/ ACUTE RESPIRATORY DISTRESS NOTED AT THIS TIME, SR WITH PVC IN TELE MONITOR WITH HR IN 80S, NO SIGNIFICANT CHANGE IN CONDITION DURING THE NIGHT, BED LOCKED AND LOWEST POSITION, CALL LIGHT WITH IN REACH, ALL SAFETY MEASURE IMPLEMENTED, WILL ENDORSE CONTINUITY OF CARE TO ONCOMING NURSE.
[2019-05-29 06:46] LABS: BASOPHILS % (AUTO) 0.3 % (0.0-2.0); HEMATOCRIT 36 % (33-45); LYMPHOCYTES # (AUTO) 1.2 /CMM (0.8-4.8); LYMPHOCYTES % (AUTO) 12.5 % (20.0-44.0); MEAN CORPUSCULAR HGB CONC 31 g/dl (31.0-36.0); MEAN CORPUSCULAR VOLUME 98 fL (82-100); MONOCYTES # (AUTO) 1.2 /CMM (0.1-1.30); NEUTROPHILS # (AUTO) 6.9 /CMM (1.8-8.9); NEUTROPHILS % (AUTO) 69.2 % (43.0-81.0); PLATELET COUNT (AUTO) 222 /CMM (150-450); RED BLOOD CELL COUNT(AUTO) 3.61 MIL/uL (4.0-5.2)
[2019-05-29 07:06] LABS: CALCIUM, SERUM 11.6 mg/dL (8.5-10.1); CREATININE 7.3 mg/dL (0.6-1.3); MAGNESIUM 3.8 mg/dL (1.8-2.4); PHOSPHORUS 3.8 mg/dL (2.5-4.9); POTASSIUM 4.2 mmol/L (3.5-5.1)
[2019-05-29 08:00] VITALS: BP 135/61
--- NOTE | 2019-05-29 08:15 | NUR ---
pt received trached on [facility] vent with noted settings. Pt tolerating settings well. No SOB or distress noted at this time. Will continue to monitor t/o shift. Addendum: 05/29/19 at 0817 by NAYELY WILKINSON RT Amended: Links added.
[2019-05-29] MEDS: LEVETIRACETAM SOL (5 ML) 100 MG/ML UDC GT SCH ×2 (09:23→20:08)
[2019-05-29] MEDS: LINEZOLID 600 MG TABLET PO SCH ×2 (09:23→20:08)
[2019-05-29] MEDS: MEROPENEM 500 MG in IV NS 0.9% 50 ML IV SCH ×2 (09:23→20:08)
[2019-05-29] MEDS: TRAMADOL HCL 50 MG TABLET GT SCH (09:23)
[2019-05-29] MEDS: ASPIRIN 325 MG TABLET PO SCH (09:23)
[2019-05-29] MEDS: SEVELAMER CARBONATE 0.8 GM POWD.PACK GT SCH ×3 (09:24→20:08)
[2019-05-29] MEDS: PROSOURCE / PROSTAT (PYXIS) 30 ML UDC GT SCH ×2 (09:24→20:08)
[2019-05-29 12:00] VITALS: BP 122/51
[2019-05-29] MEDS: PANTOPRAZOLE 40 MG/PACK PACK GT SCH (12:41)
[2019-05-29] MEDS ORDERED: Linezolid PO (13:22)
[2019-05-29] MEDS ORDERED: MERO500P IV (13:22)
[2019-05-29 16:00] VITALS: BP 113/57
--- NOTE | 2019-05-29 18:15 | NUR ---
PACK WORKER PATIENT OPENS EYES , OBTUNDED, NO CHANGE IN CONDITION AT THIS TIME, STABLE VITALS, ON VENTS SETTING PRESCRIBED BY PULMO. NO ACUTE RESPIRATORY DISTRESS . BED LOCKED AND LOWEST POSITION CALL LIGHT WITH IN REACH ALL SAFETY MEASURES IMPLEMENTED PER HOSPITAL POLICY.
--- NOTE | 2019-05-29 19:15 | NUR ---
TIE LAYER NOTE RECEIVED PATIENT IN BED OBTUNDED. BREATHING NORMAL NO SOB NOTED, RESPIRATION EVEN NON LABORED. ON VENT SETTING TOLERATING WELL ORDERED. ON TELE MONITOR READING SR B/W 80'S TO 90'S. SKIN WARM AND DRY TO TOUCH. IV SITE RT HAND G#22 AND LEFT LEG #18G ON GREAT SAPHENOUS PATENT FLUSHED WELL. CONTINUES ON GTF NEPHRO 45ML/HR TOLERATING WELL 50ML RESIDUAL NOTED. ABD SOFT AND NON DISTENDED. ALL SAFETY MEASURES IN PLACE, CALL LIGHT WITHIN REACH. FOR POSSIBLE DISCHARGE TO [facility]. WILL CONT TO MONITOR.
[2019-05-29 20:00] VITALS: BP 125/62
--- NOTE | 2019-05-29 20:03 | NUR ---
RT NOTE PT RECEIVED TRACHED ON MECHANICAL VENTILATION. PORTEX [address] AMBU BAG @ HOB. TX GIVEN, NO ADVERSE REACTIONS NOTED. SX DONE, TRACH SECURED AND PATENT. ALARMS ON AND AUDIBLE. VENT PLUGGED TO RED OUTLET. WILL CONTINUE TO MONITOR CLOSELY. CONT. PULSE OX CONNECTED. Addendum: 05/29/19 at 2003 by YAZAN HEART RT Amended: Links added.
--- NOTE | 2019-05-29 21:20 | NUR ---
SURVEY AND MAPPING TECHNICIAN NOTES EMT COME TO CENTRAL SCHEDULER PT FOR DISCHARGE TO [facility], LATEST V/S 98.7 HR 72, RR 17, BP 125/62 PT STILL ON VENT SETTING PER MD SPO2@ 98% PT IS OBTUNDED BUT STABLE TO BE TRANSFER, SAFELY TRANSFER FROM BED TO [facility] TELE MONITOR WAS REMOVED GTUBE FLUSHED BELONGINGS WAS GIVE TO THE EMT AND NEED ATTENDED TO BE DISCHARGE TO [facility]
== END 2019-05-29 22:25 | DRG 720 ==
LOC: ER 17:58 → TELE-TD 21:10 → TELE1 05-25 10:26
PROVIDERS: ADMIT Nurse Practitioner Acute Care; ATTEND Nurse Practitioner Acute Care
PROC: 5A1955Z Respiratory Ventilation, Greater than 96 Consecutive Hours (ICD-10-PCS; principal; 2019-05-23)
PROC: 5A1D70Z Performance of Urinary Filtration, Intermittent, Less than 6 Hours Per Day (ICD-10-PCS; 2019-05-25)
PROC: 0JB70ZZ Excision of Back Subcutaneous Tissue and Fascia, Open Approach (ICD-10-PCS; 2019-05-29)
DX: A41.9 Sepsis, unspecified organism (principal); G93.41 Metabolic encephalopathy; I13.2 Hypertensive heart and chronic kidney disease with heart failure and with stage 5 chronic kidney disease, or end stage renal disease; Z99.11 Dependence on respirator [ventilator] status; J18.9 Pneumonia, unspecified organism; L89.153 Pressure ulcer of sacral region, stage 3; J96.10 Chronic respiratory failure, unspecified whether with hypoxia or hypercapnia; L89.319 Pressure ulcer of right buttock, unspecified stage; L89.329 Pressure ulcer of left buttock, unspecified stage; E11.22 Type 2 diabetes mellitus with diabetic chronic kidney disease; R40.3 Persistent vegetative state; R53.2 Functional quadriplegia; I50.9 Heart failure, unspecified; N18.6 End stage renal disease; F03.90 Unspecified dementia, unspecified severity, without behavioral disturbance, psychotic disturbance, mood disturbance, and anxiety; D63.8 Anemia in other chronic diseases classified elsewhere; E03.9 Hypothyroidism, unspecified; G40.909 Epilepsy, unspecified, not intractable, without status epilepticus; I25.10 Atherosclerotic heart disease of native coronary artery without angina pectoris; E87.6 Hypokalemia; E88.09 Other disorders of plasma-protein metabolism, not elsewhere classified; N39.0 Urinary tract infection, site not specified; R13.10 Dysphagia, unspecified; E87.2 Acidosis; Z93.0 Tracheostomy status; Z93.1 Gastrostomy status; Z99.2 Dependence on renal dialysis; I45.81 Long QT syndrome; Z79.4 Long term (current) use of insulin; Z86.73 Personal history of transient ischemic attack (TIA), and cerebral infarction without residual deficits; Z79.82 Long term (current) use of aspirin
CPT/HCPCS: 31720; 36415; 36600; 71045-TC; 80048-TC; 80053-TC; 80061-TC; 80076-TC; 82533; 82550-TC; 82728-TC; 82803-TC; 82962-TC; 83540-TC; 83605-TC; 83615-TC; 83735-TC; 84100-TC; 84155; 84165; 84439-TC; 84443-TC; 84484-TC; 85025-TC; 85730-TC; 86140-TC; 86706; 87040-TC; 87081-TC; 87340; 90935-TC; 94002-TC; 94003-TC; 94760-TC; 94762-TC; A4216; A4217; A6253; G0378; J1200; J1815; J1953; J1956; J2185; J2543; J3490; J7030; J7040; J7060; P9047

== ENCOUNTER 2019-06-23 16:39 | Inpatient (IN) | payer MEDICARE, OTHER ==
[~2019-06-23] VITALS: Ht 157.5 cm; Wt 62.6 kg
[~2019-06-23 16:39] MED LIST changes: +ALBU8.5H8 IH; +CHOL100040 PO; +GLUC1KIT IM; +Linezolid PO; +MERO500P IV; +MUPI22OI7 TD; +ZINC1CAP2 GT
--- NOTE | 2019-06-23 17:00 | NUR ---
JOHN Puckett unit 38 Chronic trach - vent was in dialysis today HR went to low 40s. On vent and trach, GT site patent. connected to the monitor and pulse ox. kept comfortable, will continue to monitor accordingly.
[2019-06-23 17:33] LABS: BASOPHILS # (AUTO) 0.1 /CMM (0.0-0.2); BASOPHILS % (AUTO) 0.5 % (0.0-2.0); EOSINOPHILS % (AUTO) 3.6 % (0.0-6.0); HEMATOCRIT 38 % (33-45); HEMOGLOBIN 12.1 g/dL (11.5-14.8); LYMPHOCYTES # (AUTO) 1.3 /CMM (0.8-4.8); LYMPHOCYTES % (AUTO) 9.1 % (20.0-44.0); MEAN CORPUSCULAR HGB CONC 32 g/dl (31.0-36.0); MEAN CORPUSCULAR VOLUME 95 fL (82-100); MONOCYTES # (AUTO) 0.9 /CMM (0.1-1.30); MONOCYTES % (AUTO) 6.5 % (2.0-12.0); NEUTROPHILS # (AUTO) 11.4 /CMM (1.8-8.9); NEUTROPHILS % (AUTO) 80.3 % (43.0-81.0); PLATELET COUNT (AUTO) 337 /CMM (150-450); RED BLOOD CELL COUNT(AUTO) 4.04 MIL/uL (4.0-5.2); WHITE BLOOD COUNT (AUTO) 14.2 K/uL (4.3-11.0)
[2019-06-23 17:46] LABS: CALCIUM, SERUM 9.5 mg/dL (8.5-10.1); CARBON DIOXIDE 20 mmol/L (21-32); CHLORIDE 93 mmol/L (98-107); CREATININE 5.5 mg/dL (0.6-1.3); GLUCOSE 204 mg/dL (74-106); POTASSIUM 3.8 mmol/L (3.5-5.1); SODIUM SERUM 130 mmol/L (136-145); UREA NITROGEN, BLOOD 62 mg/dL (7-18)
[2019-06-23 17:54] LABS: ALANINE AMINOTRANSFERASE 31 U/L (12-78); ALBUMIN 4.1 g/dL (3.4-5.0); ALKALINE PHOSPHATASE 161 U/L (46-116); ASPARTATE AMINOTRANSFERASE 26 U/L (15-37); BILIRUBIN,DIRECT 0.1 mg/dL (0.0-0.2); BILIRUBIN,TOTAL 0.5 mg/dL (0.2-1.0); TOTAL PROTEIN, SERUM 10.4 g/dL (6.4-8.2)
--- NOTE | 2019-06-23 18:20 | NUR ---
PAGED [facility] NEPHROLOGY.
--- NOTE | 2019-06-23 19:10 | NUR ---
PAGED [facility] NEPHR[facility]Y SECOND ATTEMPT.
--- NOTE | 2019-06-23 19:59 | NUR ---
CALLED [facility] NEPHROLOGY, CORRECTIONAL FACILITY NURSE WAS PAGED.
--- NOTE | 2019-06-23 20:35 | NUR ---
CALLED [facility] FOR [place] ETA OF [id number] WAS GIVEN. TRIP#[id number]
--- NOTE | 2019-06-23 20:56 | NUR ---
DR. WARE ON THE PHONE WITH DR. RILEY, [facility] NEPH
--- NOTE | 2019-06-23 21:32 | NUR ---
PAGED [facility] NEPHRO
--- NOTE | 2019-06-23 21:35 | NUR ---
CALLED [facility] AND CANCELLED TRIP
--- NOTE | 2019-06-23 21:57 | NUR ---
BED ASSIGNMENT [id number]
[2019-06-23 23:17] LABS: ABG BASE EXCESS -7.5 mmol/L; ABG OXYGEN SATURATION 98.6 % (92.0-98.5); ABG PCO2 24.7 mmHg (35.0-45.0); ABG PH 7.411 (7.350-7.450); ABG PO2 146.2 mmHg (75.0-100.0); AaDO2 38.7 mmHg; COHb 0.8 % (0.5-1.5); MetHb 0.5 % (0.0-1.5); O2Hb 97.3 % (94.0-97.0); SITE, ABG Left Radial; VENT MODE, BG AC 18 550 30% +5
[2019-06-23 23:27] VITALS: BP 114/67
--- NOTE | 2019-06-23 23:31 | NUR ---
report given to luana munoz for alexis; pt transported to 3rd floor hussein status
--- NOTE | 2019-06-24 | NUR ---
RN OPENING NOTE RECEIVED PATIENT FROM ER AT 1130. PATIENT IS A/O X0, ON MECHANICAL VENTILATOR WITH SETTING AT AC 18 TV 550, FIO2 40% PEEP OF 5. PORTEX #7. PATIENT IS PLACED ON TELE MONITOR, SINUS RHYTHM WITH HR IN THE 70S NOTED. PATIENT CLEANED AND DRIED, SACRUM WOUND NOTED, PICTURE IS TAKEN AND PLACED IN THE CHART. IV ACCESS ON LEFT FOREARM, 22 GAUGE, INTACT, PATENT AND FLUSHED WELL. KRISTAL DIALYSIS CATHETER NOTED. 3 LUMEN CATHETER ON LEFT CHEST WALL. PATIENT SAFETY IS MAINTAINED, CALL LIGHT WITHIN REACH, WILL CONTINUE TO MONITOR CLOSELY.
[2019-06-24] MEDS ORDERED: DEXTROSE 50%-WATER 50 ML DISP.SYRIN IV PRN ×2 (00:30→09:00)
[2019-06-24] MEDS: NEPRO 1,000 ML BOTTLE GT PRN (02:53)
[2019-06-24 04:00] VITALS: BP 110/82
--- NOTE | 2019-06-24 05:09 | NUR ---
RT NOTE Pt rec'd trached on [facility] vent on AC mode settings as charted. Pt shows no signs of resp distress or sob. Pt sx'd for thick small amt of pale yellow secretions. Alarms are set and audible. Vent plugged into red outlet. Ambu bag bedside. Will continue to monitor closely. Addendum: 06/24/19 at 0510 by MEGAN PERES RT Amended: Links added.
[2019-06-24 05:42] VITALS: BP 120/56
[2019-06-24] MEDS ORDERED: BLOOD SUGAR DIAGNOSTIC 1 EACH STRIP IN SCH ×2 (06:00)
[2019-06-24] MEDS ORDERED: INSULIN REGULAR, HUMAN 100 UNIT/ML 3 ML VIAL SQ SCH (06:00)
--- NOTE | 2019-06-24 07:20 | NUR ---
RN CLOSING NOTE PATIENT SAFETY WAS MAINTAINED THROUGH MY SHIFT. WAS MONITORED CLOSELY DURING MY CARE. HR REMAINED ABOVE 60 ALL NIGHT. ON MECHANICAL VENT WITH NO CHANGES TO THE SETTING. SATURATING WELL. PATIENT REMAINED IN STABLE CONDITION DURING MY SHIFT, NO ACUTE CHANGES TO PATIENT CONDITION DURING MY SHIFT, ENDORSED TO AM NURSE FOR CONTINUITY OF CARE.
[2019-06-24 07:33] LABS: BASOPHILS % (AUTO) 0.3 % (0.0-2.0); EOSINOPHILS % (AUTO) 3.3 % (0.0-6.0); HEMATOCRIT 38 % (33-45); HEMOGLOBIN 12.1 g/dL (11.5-14.8); LYMPHOCYTES # (AUTO) 2.2 /CMM (0.8-4.8); LYMPHOCYTES % (AUTO) 18.4 % (20.0-44.0); MEAN CORPUSCULAR HGB CONC 32 g/dl (31.0-36.0); MEAN CORPUSCULAR VOLUME 95 fL (82-100); MONOCYTES # (AUTO) 0.8 /CMM (0.1-1.30); MONOCYTES % (AUTO) 6.9 % (2.0-12.0); NEUTROPHILS # (AUTO) 8.6 /CMM (1.8-8.9); NEUTROPHILS % (AUTO) 71.1 % (43.0-81.0); PLATELET COUNT (AUTO) 315 /CMM (150-450); RED BLOOD CELL COUNT(AUTO) 4.02 MIL/uL (4.0-5.2); WHITE BLOOD COUNT (AUTO) 12.1 K/uL (4.3-11.0)
[2019-06-24 08:01] LABS: CALCIUM, SERUM 9.7 mg/dL (8.5-10.1); CREATININE 6.8 mg/dL (0.6-1.3); MAGNESIUM 3.4 mg/dL (1.8-2.4); PHOSPHORUS 3.6 mg/dL (2.5-4.9); POTASSIUM 3.9 mmol/L (3.5-5.1)
--- NOTE | 2019-06-24 08:27 | NUR ---
RN OPENING NOTES RECEIVED PATIENT RESTING IN BED COMFORTABLY WITH EYES OPEN. PT IS OBTUNDED, NON-VERBAL, AND BEDBOUND. SHE IS ON MECH VENT, TOLERATING SETTINGS WELL, NO RESP DISTRESS AT THIS TIME. TELE MONITOR SHOWING SR WITH HR AT 80 BPM. SKIN IS NOT INTACT, SACRAL WOUND, WOUND CONSULT PENDING. IV SITE ON LFA 22 G, LCW HD CATH, AND KRISTAL AV FISTULA, AND PATENT AND INTACT. GTUBE IS PATENT AND INTACT, RUNNING NEPRO AT 50 ML/HR. SAFETY MEASURES HAVE BEEN IMPLEMENTED, CALL LIGHT IS WITHIN REACH, BED IS IN LOWEST AND LOCKED POSITION, SIDE RAILS UP X2, WILL CONTINUE TO MONITOR FOR ANY CHANGES.
[2019-06-24] MEDS ORDERED: ACETAMINOPHEN 650 MG/20.3 ML UDC GT PRN (08:30)
[2019-06-24] MEDS ORDERED: NEPRO VAN 237 ML CAN GT SCH (08:30)
[2019-06-24] MEDS ORDERED: MIDODRINE HCL (5MG) 5 MG TABLET GT PRN (08:30)
[2019-06-24] MEDS ORDERED: hydrALAZINE HCL 25 MG TABLET GT PRN (08:30)
[2019-06-24] MEDS ORDERED: GLUCAGON,HUMAN RECOMBINANT 1 MG/VIAL VIAL IM PRN (08:30)
[2019-06-24] MEDS ORDERED: ALBUTEROL FS 2.5 MG/0.5 ML VIAL.NEB IH PRN (08:30)
[2019-06-24] MEDS ORDERED: IPRATROPIUM NEB FS 0.5 MG/2.5 ML AMPUL.NEB IH PRN (08:30)
[2019-06-24 08:42] VITALS: BP 118/69
--- NOTE | 2019-06-24 08:52 | NUR ---
WOUND CARE CONSULT: PT PRESENTS WITH SACRAL STAGE 3 ULCER AND LEFT UPPER BUTTOCK/WAIST AREA RASH, PRESENT ON ADMISSION. SCARS ALSO NOTED TO BILATERAL LATERAL ANKLES, PRESENT ON ADMISSION. RECOMMENDATIONS MADE FOR SKIN PROTECTION AND WOUND CARE. DISCUSSED WITH NURSING STAFF. RECOMMEND SURGICAL CONSULT. DR ROHIT REESE NOTIFIED OF CONSULT REQUEST. WILL SEE PRN. DONG IN AGREEMENT WITH PLAN OF CARE. Addendum: 06/24/19 at 0854 by RYAN MCKNIGHT WNCAROLYNNU Amended: Links added. Addendum: 06/24/19 at 0956 by RYAN MCKNIGHT WNCAROLYNNU ORDERS RECEIVED FROM Monika SLAUGHTER SURGICAL N.P. FOR SACRAL WOUND. DISCUSSED WITH NURSING STAFF.
[2019-06-24] MEDS ORDERED: CARVEDILOL 6.25 MG TABLET GT SCH (09:00)
[2019-06-24] MEDS ORDERED: HYDROGEL DRESSING 90 GM TUBE TP PRN (09:00)
[2019-06-24] MEDS ORDERED: Z GUARD REMEDY 2 OZ OINT TP PRN (09:00)
[2019-06-24] MEDS: VIT B CMPLX 3/FA/VIT C/BIOTIN 1 TAB TABLET GT SCH (09:20)
[2019-06-24] MEDS: ACIDOPHILUS/BULGARICUS 1 EACH TAB.CHEW GT SCH ×2 (09:20→21:22)
[2019-06-24] MEDS: BENAZEPRIL HCL 20 MG TABLET GT SCH (09:20)
[2019-06-24] MEDS: DOCUSATE SODIUM LIQ 100 MG/10 ML UDC GT SCH ×2 (09:20→21:22)
[2019-06-24] MEDS: CITRIC ACID/SODIUM CITRATE (BICITRA)15 ML UDC GT SCH ×4 (09:20→21:22)
[2019-06-24] MEDS: LEVETIRACETAM SOL (5 ML) 100 MG/ML UDC GT SCH ×2 (09:21→21:22)
[2019-06-24] MEDS: TRAMADOL HCL 50 MG TABLET GT SCH (09:21)
[2019-06-24] MEDS: ZINC SULFATE 220 MG CAPSULE GT SCH (09:21)
[2019-06-24] MEDS: ASCORBIC ACID 500 MG TABLET GT SCH (09:21)
[2019-06-24] MEDS: PANTOPRAZOLE 40 MG/PACK PACK GT SCH (09:21)
[2019-06-24] MEDS: PROSOURCE / PROSTAT (PYXIS) 30 ML UDC GT SCH ×2 (09:22→22:18)
[2019-06-24] MEDS: ASPIRIN 325 MG TABLET GT SCH (09:23)
[2019-06-24] MEDS: SEVELAMER CARBONATE 0.8 GM POWD.PACK GT SCH ×3 (09:23→21:22)
[2019-06-24] MEDS: CHOLECALCIFEROL 1,000 UNIT TABLET (VIT D3) GT SCH (09:23)
[2019-06-24] MEDS: CLOTRIMAZOLE 1% 15 GM TUBE TP SCH ×2 (10:22→17:50)
[2019-06-24] MEDS: MUPIROCIN OINT 2% 22 GM TUBE TP SCH (10:22)
[2019-06-24] MEDS: Z GUARD REMEDY 2 OZ OINT TP SCH (10:22)
[2019-06-24] MEDS: HYDROGEL DRESSING 90 GM TUBE TP SCH (10:22)
[2019-06-24] MEDS ORDERED: ALBUTEROL SULFATE INH 18 GM HFA.AER.AD IH SCH (12:00)
[2019-06-24] MEDS ORDERED: BLOOD SUGAR DIAGNOSTIC 1 EACH STRIP MC SCH (12:00)
--- NOTE | 2019-06-24 12:07 | NUR ---
RN NOTES ATTEMPTED TO CALL FAMILY TO OBTAIN CONSENT FOR SERIAL DEBRIDEMENT OF SACRUM AND BUTTOCKS BUT NO ONE ANSWERED. LEFT VOICEMAIL, WILL TRY AGAIN LATER.
[2019-06-24] MEDS: FERROUS SULFATE UDC 300 MG/5 ML UDC PO SCH ×2 (12:14→17:50)
[2019-06-24] MEDS: BLOOD SUGAR DIAGNOSTIC 1 EACH STRIP IN SCH ×3 (12:23→23:47)
[2019-06-24] MEDS: INSULIN REGULAR, HUMAN 100 UNIT/ML 3 ML VIAL SQ PRN ×2 (12:35→18:44)
[2019-06-24 12:41] VITALS: BP 166/68
[2019-06-24] MEDS ORDERED: SILVER NITRATE APPLICATOR 1 EA BOX TP ONE (14:00)
[2019-06-24 16:23] VITALS: BP 95/62
--- NOTE | 2019-06-24 19:21 | NUR ---
RN NOTES PATIENT IS RESTING IN BED COMFORTABLY AT THIS TIME. ON [facility] VENT, TOLERATING SETTING WELL. PT HAS BEEN ENDORSED TO NIGHTSHIFT RN FOR HARLAN
--- NOTE | 2019-06-24 19:40 | NUR ---
SANTANA GUERRERO NOTES PATIENT IS LAYING IN BED. BED IS IN LOWEST LOCKED POSITION WITH SIDE RAILS UP. ON MECHANICAL VENT, APPEARS TO BE TOLERATING WELL. Addendum: 06/25/19 at 0239 by TIFFANIE HERNANDEZ RN SATURATING AT 100%. NO SOB/ ACUTE RESPIRATORY DISTRESS NOTED. CALL LIGHT IS WITHIN REACH. NO COMPLAINTS OF PAIN AT THE MOMENT. WILL CONTINUE TO MONITOR.
[2019-06-24 20:00] VITALS: BP 118/64
[2019-06-24] MEDS: ATORVASTATIN 10 MG TABLET GT SCH (21:22)
[2019-06-24] MEDS: INSULIN GLARGINE, 100 UNIT/ML CARTRIDGE SQ SCH (21:31)
[2019-06-25] MEDS: INSULIN REGULAR, HUMAN 100 UNIT/ML 3 ML VIAL SQ PRN ×4 (00:14→17:17)
[2019-06-25 04:00] VITALS: BP 94/62
[2019-06-25] MEDS: NEPRO 1,000 ML BOTTLE GT PRN (04:27)
[2019-06-25] MEDS: BLOOD SUGAR DIAGNOSTIC 1 EACH STRIP IN SCH ×3 (05:35→17:17)
--- NOTE | 2019-06-25 06:40 | NUR ---
RN CLOSE NOTES PATIENT IS LAYING IN BED. PATIENT IS OBTUNDED. ON [facility] VENTILATOR, TOLERATING WELL. NO SOB/ ACUTE RESPIRATORY DISTRESS NOTED, SATURATING AT 100%. IV ON L FOREARM #22G IS PATENT AND INTACT. G TUBE IS INTACT, RECEIVING NEPRO @ 50MLS/ HR. ALL DUE MEDS GIVEN. NO COMPLAINTS OF PAIN AT THE MOMENT. BED IS IN LOWEST LOCKED POSITION WITH SIDE RAILS UP. CALL LIGHT IS WITHIN REACH. WILL ENDORSE TO AM NURSE.
--- NOTE | 2019-06-25 07:30 | NUR ---
RN OPENING NOTE Patient is resting in bed, obtunded, open eyes and responds to light pain. Patient's breathing is even and unlabored, patient is saturating 100% on mechanical ventilator. IV line in the LFA is clean and intact, ALEYDA HD cath noted. G-tube feedings running nepro @ 50 ml/hour with 0ml residual, flushing well. Patient on special BEATRIZ mattress. Bed is in lowest position, side rails x3 in upright position, fall, safety, and aspiration precautions enforced. Will continue with plan of care.
[2019-06-25] MEDS: Z GUARD REMEDY 2 OZ OINT TP SCH (09:00)
[2019-06-25] MEDS: CLOTRIMAZOLE 1% 15 GM TUBE TP SCH ×2 (09:00→17:17)
[2019-06-25] MEDS: SEVELAMER CARBONATE 0.8 GM POWD.PACK GT SCH ×3 (09:55→21:12)
[2019-06-25] MEDS: VIT B CMPLX 3/FA/VIT C/BIOTIN 1 TAB TABLET GT SCH (09:55)
[2019-06-25] MEDS: ZINC SULFATE 220 MG CAPSULE GT SCH (09:55)
[2019-06-25] MEDS: LEVETIRACETAM SOL (5 ML) 100 MG/ML UDC GT SCH ×2 (09:55→21:12)
[2019-06-25] MEDS: CITRIC ACID/SODIUM CITRATE (BICITRA)15 ML UDC GT SCH ×4 (09:55→21:12)
[2019-06-25] MEDS: ACIDOPHILUS/BULGARICUS 1 EACH TAB.CHEW GT SCH ×2 (09:56→21:12)
[2019-06-25] MEDS: PANTOPRAZOLE 40 MG/PACK PACK GT SCH (09:56)
[2019-06-25] MEDS: TRAMADOL HCL 50 MG TABLET GT SCH (09:56)
[2019-06-25] MEDS: ASCORBIC ACID 500 MG TABLET GT SCH (09:56)
[2019-06-25] MEDS: CHOLECALCIFEROL 1,000 UNIT TABLET (VIT D3) GT SCH (09:58)
[2019-06-25] MEDS: BENAZEPRIL HCL 20 MG TABLET GT SCH (09:58)
[2019-06-25] MEDS: ASPIRIN 325 MG TABLET GT SCH (09:58)
[2019-06-25] MEDS: DOCUSATE SODIUM LIQ 100 MG/10 ML UDC GT SCH ×2 (09:59→21:12)
[2019-06-25] MEDS: PROSOURCE / PROSTAT (PYXIS) 30 ML UDC GT SCH ×2 (09:59→21:13)
[2019-06-25] MEDS: HYDROGEL DRESSING 90 GM TUBE TP SCH (10:00)
[2019-06-25] MEDS: MUPIROCIN OINT 2% 22 GM TUBE TP SCH (10:07)
[2019-06-25] MEDS: FERROUS SULFATE UDC 300 MG/5 ML UDC PO SCH ×3 (10:07→17:17)
[2019-06-25 12:00] VITALS: BP 98/50
--- NOTE | 2019-06-25 13:24 | NUR ---
RT NOTE UNABLE TO PERFORM EKG DUE TO PT BEING ON DIALYSIS. WILL RETURN AT A LATER TIME.
[2019-06-25 16:00] VITALS: BP 113/60
--- NOTE | 2019-06-25 18:49 | NUR ---
RN NOTE COVID swab sent to lab
--- NOTE | 2019-06-25 19:10 | NUR ---
RN OPENING NOTES Received patient, obtunded, on vent with current settings tolerated well, no respiratory distress noted at this time. No s/sx of discomfort noted. On tele monitor with NSR noted. With GTF infusing well Nepro @ 50ml/hr as ordered, tolerated well no vomiting noted, abdomen soft and nontender. On [employer] bed mattress. Kept on bed clean, dry and comfortable. On fall and aspiration precautions. Will continue to monitor accordingly.
--- NOTE | 2019-06-25 19:58 | NUR ---
RT NOTE PT RECEIVED TRACHED ON MECHANICAL VENTILATION. CUFF CHECKED VIA HADOOP ARCHITECT. AMBU BAG @ BEDSIDE. VENT PLUGGED TO RED OUTLET. ALARMS ON AND AUDIBLE. SX DONE, TRACH SECURED AND PATENT. CONT. PULSE OX CONNECTED. NO DISTRESS NOTED AT THIS TIME. Addendum: 06/25/19 at 1958 by YAZAN HEART RT Amended: Links added.
[2019-06-25 20:00] VITALS: BP 154/69
--- NOTE | 2019-06-25 20:09 | NUR ---
RN CLOSING NOTE Patient is resting in bed, obtunded, open eyes and responds to light pain. Patient's breathing is even and unlabored, patient is saturating 100% on mechanical ventilator. IV line in the LFA is clean and intact, ALEYDA HD cath noted. G-tube feedings running nepro @ 50 ml/hour with 0ml residual, flushing well. Patient on special BEATRIZ mattress. Sacral wound dressing changed, patient turned [id number], sacral debridement scheduled tomorrow, consent signed over telephone by . Discharge order in place, however, patient needs to be tested for COVID before going back to her facility. Bed is in lowest position, side rails x3 in upright position, fall, safety, and aspiration precautions enforced. Will continue with plan of care.
[2019-06-25] MEDS: ATORVASTATIN 10 MG TABLET GT SCH (21:12)
[2019-06-25] MEDS: INSULIN GLARGINE, 100 UNIT/ML CARTRIDGE SQ SCH (22:19)
[2019-06-26] VITALS: BP 158/64
[2019-06-26] MEDS: BLOOD SUGAR DIAGNOSTIC 1 EACH STRIP IN SCH ×4 (00:25→17:40)
[2019-06-26] MEDS: INSULIN REGULAR, HUMAN 100 UNIT/ML 3 ML VIAL SQ PRN ×5 (00:33→23:10)
[2019-06-26] MEDS: NEPRO 1,000 ML BOTTLE GT PRN (03:33)
[2019-06-26 04:00] VITALS: BP 152/95
--- NOTE | 2019-06-26 06:37 | NUR ---
RN CLOSING NOTES Patient obtunded on bed. On vent with current settings tolerating well, saturating well, no respiratory distress noted. On GTF tolerating well, no vomiting or abdominal distention/tenderness noted. Due meds given as ordered. All nursing needs attended. Kept on bed clean, dry and comfortable. On fall and aspiration precautions. On tele monitor with NSR. No new unusualities noted. Endorsed.
--- NOTE | 2019-06-26 07:38 | NUR ---
WINDOW AND SIDING CRAFTSMAN OPENING NOTES RECEIVED PATIENT IN BED, NON-VERBAL, EYES CLOSED. ON VENT WITH CURRENT SETTINGS TOLERATING WELL, NO SIGNS OF ACUTE DISTRESS NOTED AT THIS TIME. PATIENT ON G-TUBE FEEDING TOLERATING WELL AT 50 MLS/HR; BED IN SEMI-FOWLERS POSITION FOR ASPIRATION PRECAUTIONS. LFA IV ACCESS G # 22 PRESENT AND INTACT. SAFETY PRECAUTIONS IN PLACE; BED IN LOW POSITION AND LOCKED, RAILS UP X2, CALL LIGHT WITHIN REACH. WILL CONTINUE TO MONITOR PATIENT.
[2019-06-26 08:00] VITALS: BP 166/86
[2019-06-26] MEDS: MUPIROCIN OINT 2% 22 GM TUBE TP SCH (08:01)
[2019-06-26] MEDS: CLOTRIMAZOLE 1% 15 GM TUBE TP SCH ×2 (08:01→16:26)
[2019-06-26] MEDS: Z GUARD REMEDY 2 OZ OINT TP SCH (08:01)
[2019-06-26] MEDS: HYDROGEL DRESSING 90 GM TUBE TP SCH (08:01)
[2019-06-26] MEDS: TRAMADOL HCL 50 MG TABLET GT SCH (08:38)
[2019-06-26] MEDS: VIT B CMPLX 3/FA/VIT C/BIOTIN 1 TAB TABLET GT SCH (08:38)
[2019-06-26] MEDS: CHOLECALCIFEROL 1,000 UNIT TABLET (VIT D3) GT SCH (08:39)
[2019-06-26] MEDS: ASCORBIC ACID 500 MG TABLET GT SCH (08:39)
[2019-06-26] MEDS: BENAZEPRIL HCL 20 MG TABLET GT SCH (08:39)
[2019-06-26] MEDS: ZINC SULFATE 220 MG CAPSULE GT SCH (08:40)
[2019-06-26] MEDS: ACIDOPHILUS/BULGARICUS 1 EACH TAB.CHEW GT SCH ×2 (08:42→20:57)
[2019-06-26] MEDS: PANTOPRAZOLE 40 MG/PACK PACK GT SCH (08:42)
[2019-06-26] MEDS: ASPIRIN 325 MG TABLET GT SCH (08:42)
[2019-06-26] MEDS: LEVETIRACETAM SOL (5 ML) 100 MG/ML UDC GT SCH ×2 (08:43→20:57)
[2019-06-26] MEDS: SEVELAMER CARBONATE 0.8 GM POWD.PACK GT SCH ×3 (08:43→20:57)
[2019-06-26] MEDS: FERROUS SULFATE UDC 300 MG/5 ML UDC PO SCH ×3 (08:44→17:13)
[2019-06-26] MEDS: PROSOURCE / PROSTAT (PYXIS) 30 ML UDC GT SCH ×2 (08:44→21:06)
[2019-06-26] MEDS: CITRIC ACID/SODIUM CITRATE (BICITRA)15 ML UDC GT SCH ×4 (08:44→20:57)
[2019-06-26] MEDS: DOCUSATE SODIUM LIQ 100 MG/10 ML UDC GT SCH ×2 (08:44→20:57)
[2019-06-26 12:00] VITALS: BP 152/79
[2019-06-26 16:00] VITALS: BP 154/85
--- NOTE | 2019-06-26 17:14 | NUR ---
DAYCARE DIRECTOR NOTES PER LABORATORY, PATIENT IS COVID-19 NEGATIVE.
--- NOTE | 2019-06-26 18:40 | NUR ---
GENERATOR REBUILDER CLOSING NOTES PATIENT REMAINS IN BED, NON-VERBAL, EYES CLOSED. DURING THE DAY WAS OPENING HER EYES. ON VENT WITH CURRENT SETTINGS TOLERATING WELL, NO SIGNS OF ACUTE DISTRESS NOTED AT THIS TIME. PATIENT ON G-TUBE FEEDING TOLERATING WELL AT 50 MLS/HR; BED IN SEMI-FOWLERS POSITION FOR ASPIRATION PRECAUTIONS. LFA IV ACCESS G # 22 PRESENT AND INTACT. ALL NEEDS ATTENDED TO THROUGHOUT THE DAY. DRESSING CHANGED. SAFETY PRECAUTIONS REMAIN IN PLACE; BED IN LOW POSITION AND LOCKED, RAILS UP X2, CALL LIGHT WITHIN REACH. WILL ENDORSE TO SUPERINTENDENT RECREATION NURSE.
[2019-06-26 20:00] VITALS: BP 127/69
--- NOTE | 2019-06-26 20:23 | NUR ---
MS/TELE/RN AT INITIAL ROUND AT 1930, PATIENT WAS AWAKE, NON VERBAL, ON MECHANICAL VENTILATOR, APPEAR COMFORTABLE, NO SIGNS OF DISTRESS NOTED, HOB ELEVATED, GT FEEDING INFUSING, WILL MONITOR.
[2019-06-26] MEDS: INSULIN GLARGINE, 100 UNIT/ML CARTRIDGE SQ SCH (23:09)
[2019-06-26] MEDS: ATORVASTATIN 10 MG TABLET GT SCH (23:12)
[2019-06-27] VITALS: BP 139/69
[2019-06-27 04:14] VITALS: BP 128/52
[2019-06-27] MEDS: NEPRO 1,000 ML BOTTLE GT PRN (04:59)
[2019-06-27] MEDS: BLOOD SUGAR DIAGNOSTIC 1 EACH STRIP IN SCH ×4 (06:48→18:36)
[2019-06-27] MEDS: INSULIN REGULAR, HUMAN 100 UNIT/ML 3 ML VIAL SQ PRN ×2 (06:48→11:45)
--- NOTE | 2019-06-27 06:58 | NUR ---
MS/TELE/TN PATIENT APPEAR SLEEPING AT THIS TIME, APPEAR COMFORTABLE, NO DISTRESS NOTED, HOB ELEVATED, GTUBE FEEDING INFUSING, HD IN PROGRESS, ALL NEEDS ATTENDED AT THIS TIME, WILL CONTINUE TO MONITOR.
--- NOTE | 2019-06-27 07:31 | NUR ---
COTTON CLASSER AIDE OPENING NOTES RECEIVED PATIENT IN BED, NON-VERBAL, EYES CLOSED CURRENTLY RECEIVING HEMODIALYSIS. ON VENT WITH CURRENT SETTINGS TOLERATING WELL, NO SIGNS OF ACUTE DISTRESS NOTED AT THIS TIME. PATIENT ON G-TUBE FEEDING TOLERATING WELL AT 50 MLS/HR; BED IN SEMI-FOWLERS POSITION FOR ASPIRATION PRECAUTIONS. LFA IV ACCESS G # 22 PRESENT AND INTACT. SAFETY PRECAUTIONS IN PLACE; BED IN LOW POSITION AND LOCKED, RAILS UP X2, CALL LIGHT WITHIN REACH. WILL CONTINUE TO MONITOR PATIENT.
[2019-06-27 07:45] LABS: BASOPHILS # (AUTO) 0.1 /CMM (0.0-0.2); BASOPHILS % (AUTO) 0.6 % (0.0-2.0); EOSINOPHILS % (AUTO) 2.9 % (0.0-6.0); HEMATOCRIT 34 % (33-45); LYMPHOCYTES # (AUTO) 1.3 /CMM (0.8-4.8); LYMPHOCYTES % (AUTO) 11.1 % (20.0-44.0); MEAN CORPUSCULAR HGB CONC 32 g/dl (31.0-36.0); MEAN CORPUSCULAR VOLUME 93 fL (82-100); MONOCYTES # (AUTO) 0.9 /CMM (0.1-1.30); MONOCYTES % (AUTO) 7.4 % (2.0-12.0); PLATELET COUNT (AUTO) 251 /CMM (150-450); RED BLOOD CELL COUNT(AUTO) 3.69 MIL/uL (4.0-5.2); WHITE BLOOD COUNT (AUTO) 11.5 K/uL (4.3-11.0)
[2019-06-27 07:52] LABS: CREATININE 6.2 mg/dL (0.6-1.3)
[2019-06-27 07:55] LABS: POTASSIUM 2.8 mmol/L (3.5-5.1)
[2019-06-27 08:00] VITALS: BP 106/71
--- NOTE | 2019-06-27 08:06 | NUR ---
STRATEGY INTERN NOTES BS AT [phone]. CURRENTLY PT IS UNDERGOING HEMODIALYSIS. WILL RECHECK AFTER.
[2019-06-27] MEDS: BENAZEPRIL HCL 20 MG TABLET GT SCH (09:00)
--- NOTE | 2019-06-27 09:13 | NUR ---
REFRIGERATION REPAIR SUPERVISOR NOTES HEMODIALYSIS IS OVER. 2500 MLS OUT, VITAL SIGNS; BP: 104/52 P: 81 T:98.2 WILL CONTINUE TO MONITOR PATIENT
[2019-06-27] MEDS: HYDROGEL DRESSING 90 GM TUBE TP SCH (09:30)
[2019-06-27] MEDS: MUPIROCIN OINT 2% 22 GM TUBE TP SCH (09:30)
[2019-06-27] MEDS: CLOTRIMAZOLE 1% 15 GM TUBE TP SCH ×2 (09:30→16:26)
[2019-06-27] MEDS: Z GUARD REMEDY 2 OZ OINT TP SCH (09:30)
[2019-06-27] MEDS: SEVELAMER CARBONATE 0.8 GM POWD.PACK GT SCH ×3 (09:37→21:20)
[2019-06-27] MEDS: ACIDOPHILUS/BULGARICUS 1 EACH TAB.CHEW GT SCH ×2 (09:37→21:20)
[2019-06-27] MEDS: DOCUSATE SODIUM LIQ 100 MG/10 ML UDC GT SCH ×2 (09:37→21:20)
[2019-06-27] MEDS: ZINC SULFATE 220 MG CAPSULE GT SCH (09:37)
[2019-06-27] MEDS: CHOLECALCIFEROL 1,000 UNIT TABLET (VIT D3) GT SCH (09:38)
[2019-06-27] MEDS: VIT B CMPLX 3/FA/VIT C/BIOTIN 1 TAB TABLET GT SCH (09:38)
[2019-06-27] MEDS: ASCORBIC ACID 500 MG TABLET GT SCH (09:38)
[2019-06-27] MEDS: PANTOPRAZOLE 40 MG/PACK PACK GT SCH (09:38)
[2019-06-27] MEDS: TRAMADOL HCL 50 MG TABLET GT SCH (09:38)
[2019-06-27] MEDS: LEVETIRACETAM SOL (5 ML) 100 MG/ML UDC GT SCH ×2 (09:39→21:21)
[2019-06-27] MEDS: ASPIRIN 325 MG TABLET GT SCH (09:39)
[2019-06-27] MEDS: CITRIC ACID/SODIUM CITRATE (BICITRA)15 ML UDC GT SCH ×4 (09:39→21:20)
[2019-06-27] MEDS: PROSOURCE / PROSTAT (PYXIS) 30 ML UDC GT SCH ×2 (09:40→21:21)
[2019-06-27] MEDS: FERROUS SULFATE UDC 300 MG/5 ML UDC PO SCH ×3 (09:43→18:00)
[2019-06-27] MEDS ORDERED: POTASSIUM CHLORIDE 20 MEQ POWDER PACKET NG SCH (11:30)
--- NOTE | 2019-06-27 13:25 | NUR ---
PHD INTERNSHIP NOTES PER TELE DESK PATIENT IS HAVING SECOND DEGREE AV BLOCK 1ST DEGREE. MD NOTIFIED. ALSO POTASSIUM LEVEL OF 2.8 DURING HEMODIALYSIS. MD AWARE. WILL CONTINUE TO MONITOR PATIENT
[2019-06-27] MEDS ORDERED: POTASSIUM CHLORIDE 20 MEQ TAB.PRT.SR PO ONE (13:30)
[2019-06-27 16:00] VITALS: BP 138/72
[2019-06-27] MEDS ORDERED: DIATR MEGLU/DIATRIZOATE SODIUM 30 ML BOTTLE (GASTROGRAPHIN) ONE (18:52)
--- NOTE | 2019-06-27 18:52 | NUR ---
AUTOMOBILE TRAVEL CLUB COUNSELOR NOTES AT ABOUT 16;50 PATIENTS G-TUBE BECAME CLOGGED. MULTIPLE ATTEMPTS TO UNCLOG WERE NOT SUCCESSFUL. NURSES TRIED G-TUBE DECLOGGER BUT IT DID NOT WORK WELL. MD WAS NOTIFIED. RUFINO NURSE STOPPED BY AND WAS ABLE TO CHANGE THE G-TUBE. STAT KUB X-RAY ORDERED TO VERIFY G-TUBE PLACEMENT.
--- NOTE | 2019-06-27 19:02 | NUR ---
EXECUTIVE VICE PRESIDENT AND CHIEF OPERATING OFFICER CLOSING NOTES PATIENT IN BED, NON-VERBAL. ON VENT WITH CURRENT SETTINGS TOLERATING WELL, NO SIGNS OF ACUTE DISTRESS NOTED AT THIS TIME. PATIENT ON G-TUBE FEEDING. AT THIS POINT THE FEEDING IS STOPPED; WAITING FOR X-RAY RESULTS TO CONFIRM PLACEMENT DUE TO G-TUBE BEING CHANGED. BED IN SEMI-FOWLERS POSITION FOR ASPIRATION PRECAUTIONS. LFA IV ACCESS G # 22 PRESENT AND INTACT. ALL NEEDS ATTENDED TO THROUGHOUT THE DAY. SAFETY PRECAUTIONS IN PLACE; BED IN LOW POSITION AND LOCKED, RAILS UP X2, CALL LIGHT WITHIN REACH. WILL ENDORSE TO PHP ARCHITECT NURSE.
--- NOTE | 2019-06-27 19:40 | NUR ---
PACKAGE CAR DRIVER OPENING NOTES PATIENT OBTUNDED, NONVERBAL, OPENS EYES. VENT DEPENDENT; TOLERATING SETTINGS WELL; SPO2 100%. NO S/S OF ACUTE RESPIRATORY DISTRESS; BREATHING IS EVEN AND UNLABORED. NO S/S OF PAIN NOTED. TELE MONITOR READING NSR, HEART RATE 55. GTUBE PRESENT; FEEDING CURRENTLY OFF; AWAITING ABDOMEN XRAY RESULTS TO VERIFY GTUBE PLACEMENT. IV PRESENT ON LEFT FA, SIZE 22, INTACT & PATENT, HEP LOCKED. HD CATH PRESENT ON LEFT FEMORAL. SAFETY MEASURES IN PLACE AND PATIENT'S NEEDS MET. BED LOCKED, SIDE RAILS X3, HOB ELEVATED, CALL LIGHT WITHIN REACH. WILL CONTINUE TO MONITOR.
[2019-06-27 20:25] VITALS: BP 124/68
[2019-06-27] MEDS: ATORVASTATIN 10 MG TABLET GT SCH (21:20)
--- NOTE | 2019-06-27 22:10 | NUR ---
CANAL BOAT CAPTAINLEAD PL SQL DEVELOPER NOTES PATIENT DISCHARGED TO [facility] IN STABLE CONDITION; TRANSPORTATION VIA [facility]; RT PRESENT DURING TRANSPORTATION. PATIENT OBTUNDED, NONVERBAL, OPENS EYES. VENT DEPENDENT; TOLERATING SETTINGS WELL; SPO2 100%. NO S/S OF ACUTE RESPIRATORY DISTRESS; BREATHING IS EVEN AND UNLABORED. NO S/S OF PAIN NOTED. TELE MONITOR READING NSR, HEART RATE 62. GTUBE PLACEMENT VERIFIED VIA ABDOMEN XRAY; FLUSHING WELL. IV ON LEFT FA REMOVED. ID BAND REMOVE. NO BELONGINGS PRESENT WITH PATIENT. REPORT GIVEN TO SNF PER DAY SHIFT RN. DISCHARGE PACKET/INSTRUCTIONS GIVEN TO EMT.
== END 2019-06-27 22:10 | DRG 201 ==
LOC: ER 16:44 → TELE 21:53
PROVIDERS: ADMIT Nurse Practitioner Acute Care; ATTEND Nurse Practitioner Acute Care
PROC: 5A1955Z Respiratory Ventilation, Greater than 96 Consecutive Hours (ICD-10-PCS; 2019-06-23)
PROC: 5A1D70Z Performance of Urinary Filtration, Intermittent, Less than 6 Hours Per Day (ICD-10-PCS; principal; 2019-06-25)
PROC: 0JB70ZZ Excision of Back Subcutaneous Tissue and Fascia, Open Approach (ICD-10-PCS; 2019-06-26)
PROC: 5A1D70Z Performance of Urinary Filtration, Intermittent, Less than 6 Hours Per Day (ICD-10-PCS; 2019-06-27)
DX: R00.1 Bradycardia, unspecified (principal); I13.2 Hypertensive heart and chronic kidney disease with heart failure and with stage 5 chronic kidney disease, or end stage renal disease; G93.1 Anoxic brain damage, not elsewhere classified; Z99.11 Dependence on respirator [ventilator] status; J96.11 Chronic respiratory failure with hypoxia; L89.153 Pressure ulcer of sacral region, stage 3; R40.3 Persistent vegetative state; R53.2 Functional quadriplegia; E11.22 Type 2 diabetes mellitus with diabetic chronic kidney disease; N18.6 End stage renal disease; I50.32 Chronic diastolic (congestive) heart failure; T44.7X5A Adverse effect of beta-adrenoreceptor antagonists, initial encounter; Y92.89 Other specified places as the place of occurrence of the external cause; E87.1 Hypo-osmolality and hyponatremia; R13.10 Dysphagia, unspecified; Z99.2 Dependence on renal dialysis; Z93.0 Tracheostomy status; Z87.440 Personal history of urinary (tract) infections; Z93.1 Gastrostomy status; Z74.01 Bed confinement status; J98.11 Atelectasis; Z87.820 Personal history of traumatic brain injury; F03.90 Unspecified dementia, unspecified severity, without behavioral disturbance, psychotic disturbance, mood disturbance, and anxiety; E03.9 Hypothyroidism, unspecified; D63.1 Anemia in chronic kidney disease; D72.829 Elevated white blood cell count, unspecified; E88.09 Other disorders of plasma-protein metabolism, not elsewhere classified; G40.909 Epilepsy, unspecified, not intractable, without status epilepticus; I25.10 Atherosclerotic heart disease of native coronary artery without angina pectoris; E87.2 Acidosis; L89.329 Pressure ulcer of left buttock, unspecified stage; L89.319 Pressure ulcer of right buttock, unspecified stage
CPT/HCPCS: 31720; 36415; 36600; 71045-TC; 74018; 80048-TC; 80076-TC; 82803-TC; 82962-TC; 83735-TC; 84100-TC; 84484-TC; 85025-TC; 87081-TC; 90935-TC; 94002-TC; 94003-TC; 94760-TC; 99082-TC; A6248; A6253; A6403; G0378; J1815; J1953; J7030; Q9963; U0003-CS